=== PATIENT | female | born 1945 | race Caucasian/White ===

== ENCOUNTER 2017-03-27 05:25 | Observation (INO) | payer MEDICARE, MEDICAID ==
[2017-03-27] MEDS ORDERED: Nitroglycerin 2% Ointment Foilpak UD TOP STA (05:42)
[2017-03-27 05:43] VITALS: BMI 30.7
--- NOTE | 2017-03-27 05:47 | ED PDOC ---
Arrival/HPI - General Chief Complaint: Chest Pain Time Seen by Provider: 03/27/17 05:28 - History of Present Illness Narrative History of Present Illness (Text): 03/27/17 05:45 Patient presents with chest pain which started yesterday and got progressively worse some mild shortness of breath there was no fever no chills no dizziness no headache no palpitations Past Medical History - Provider Review Nursing Documentation Reviewed: Yes - Infectious Disease Hx of Infectious Diseases: None - Tetanus Immunization Tetanus Immunization: Unknown - Cardiac Hx Hypertension: Yes Hx Pacemaker: No - Neurological Hx Paralysis: No - Renal Hx Renal Disorder: Yes Hx Dialysis: Yes Date of Last Dialysis Treatment: 03/26/17 Hx Renal Failure: Yes - Endocrine/Metabolic Hx Diabetes Mellitus Type 1: Yes - Hematological/Oncological Hx Blood Transfusions: Yes Hx Blood Transfusion Reaction: No - Musculoskeletal/Rheumatological Hx Musculoskeletal Disorders: Yes - Psychiatric Hx Emotional Abuse: No Hx Physical Abuse: No Hx Substance Use: No - Surgical History Hx Section: Yes (x1) Other/Comment: Left ankle open fracture - Anesthesia Hx Anesthesia: Yes Hx Anesthesia Reactions: No Hx Malignant Hyperthermia: No - Suicidal Assessment Feels Threatened In Home Enviroment: No Family/Social History - Physician Review Nursing Documentation Reviewed: Yes Family/Social History: No Known Family HX Smoking Status: Never Smoked Hx Alcohol Use: No Hx Substance Use: No Hx Substance Use Treatment: No Allergies/Home Meds Allergies/Adverse Reactions: Allergies No Known Allergies Allergy (Verified 12/08/15 13:21) Home Medications: Home Meds Medication Instructions Recorded Confirmed Insulin Aspart/Insulin Aspar 5 units SC ACTID PRN 10/21/15 03/27/17 [Novolog Mix 70/30 (70/30 units/ml)] Insulin Glargine, Recombina 30 unit SC HS 12/08/15 03/27/17 [Lantus] Lisinopril [Zestril] 5 mg PO DAILY 12/09/15 03/27/17 Review of Systems - Review of Systems Constitutional: Normal Eyes: Normal ENT: Normal Respiratory: SOB Cardiovascular: Chest Pain Gastrointestinal: Normal Genitourinary Female: Normal Musculoskeletal: Normal Skin: Normal Neurological: Normal Endocrine: Normal Hemo/Lymphatic: Normal Psychiatric: Normal Physical Exam Vital Signs Reviewed: Yes Vital Signs Temp Pulse Resp BP Pulse Ox 03/27/17 07:41 69 160/72 H 03/27/17 07:32 98.4 F 69 16 160/72 H 95 03/27/17 05:30 98.3 F 95 H 20 164/64 H 96 Temperature: Afebrile Blood Pressure: Normal Pulse: Regular Respiratory Rate: Normal Appearance: Positive for: Well-Appearing, Non-Toxic, Comfortable Pain Distress: None Mental Status: Positive for: Alert and Oriented X 3 - Systems Exam Head: Present: Atraumatic, Normocephalic Pupils: Present: PERRL Extroacular Muscles: Present: EOMI Conjunctiva: Present: Normal Mouth: Present: Moist Mucous Membranes Neck: Present: Normal Range of Motion Respiratory/Chest: Present: Clear to Auscultation, Good Air Exchange. No: Respiratory Distress, Accessory Muscle Use Cardiovascular: Present: Regular Rate and Rhythm, Normal S1, S2. No: Murmurs Abdomen: Present: Normal Bowel Sounds. No: Tenderness, Distention, Peritoneal Signs Back: Present: Normal Inspection Upper Extremity: Present: Normal Inspection. No: Cyanosis, Edema Lower Extremity: Present: Normal Inspection. No: Edema Neurological: Present: GCS=15, CN II-XII Intact, Speech Normal Skin: Present: Warm, Dry, Normal Color. No: Rashes Psychiatric: Present: Alert, Oriented x 3, Normal Insight, Normal Concentration Medical Decision Making ED Course and Treatment: 03/27/17 20:31 case d/w dr fischer will tele obs for chest pain - Lab Interpretations Lab Results: 03/27/17 05:45 03/27/17 05:45 Lab Results 03/27/17 05:45: Sodium 138, Potassium 4.9, Chloride 100, Carbon Dioxide 27, Anion Gap 16, BUN 33 H, Creatinine 6.0 H, Est GFR ( Amer) 8, Est GFR (Non -Af Amer) 7, Random Glucose 229 H, Calcium 9.2, Magnesium 2.2, Total Bilirubin 0.7, AST 25, ALT 26, Alkaline Phosphatase 98, Lactate Dehydrogenase 391, Total Creatine Kinase 47, Troponin I 0.03 D, Total Protein 7.3, Albumin 4.1, Globulin 3.3, Albumin/Globulin Ratio 1.3 03/27/17 05:45: PT 10.8, INR 1.00, APTT 25.4 03/27/17 05:45: WBC 3.4 L D, RBC 3.37 L, Hgb 10.5 L, Hct 31.8 L, MCV 94.4, MCH 31.2, MCHC 33.0, RDW 14.0, Plt Count 121, MPV 11.0, Gran % 65.3, Lymph % (Auto) 22.4, [place] % (Auto) 8.2 H, Eos % (Auto) 3.8, Baso % (Auto) 0.3, Gran # 2.24, Lymph # 0.8 L, [place] # 0.3, Eos # 0.1, Baso # 0.01 - RAD Interpretation Radiology Orders: 03/27/17 05:43 CHEST PORTABLE [RAD] Stat - EKG Interpretation EKG Interpretation (Text): 03/27/17 05:46 EKG showed normal sinus rhythm a rate of [address] segment changes with some possible ischemia in the lateral leads - Medication Orders Current Medication Orders: Acetaminophen (Tylenol 325mg Tab) 650 mg PO Q4H PRN PRN Reason: Pain, Mild (1-3) Aspirin (Ecotrin) 81 mg PO DAILY [facility] Last Admin: 03/27/17 10:36 Dose: 81 mg Clopidogrel Bisulfate (Plavix) 75 mg PO DAILY [facility] Hydralazine HCl (Apresoline) 10 mg PO Q6H PRN PRN Reason: Systolic Blood Pressure Last Admin: 03/27/17 19:42 Dose: 10 mg Insulin Detemir (Levemir) 15 unit SC [facility] Last Admin: 03/27/17 08:02 Dose: 15 unit Insulin Human Regular (Humulin R Med) 0 units SC [facility] PRN Reason: Protocol Last Admin: 03/27/17 16:18 Dose: Not Given Non-Admin Reason: Blood Sugar Parameter Insulin Lispro Protam/Lispro Human (Humalog Mix 75/25) 5 units SC ACTID [facility] Last Admin: 03/27/17 16:18 Dose: Not Given Non-Admin Reason: Blood Sugar Parameter Lisinopril (Zestril) 5 mg PO DAILY [facility] Last Admin: 03/27/17 10:36 Dose: 5 mg Metoprolol Tartrate (Lopressor) 25 mg PO Q12 [facility] Last Admin: 03/27/17 07:41 Dose: 25 mg Sevelamer HCl (Renagel) 800 mg PO TID [facility] Last Admin: 03/27/17 17:58 Dose: 800 mg Discontinued Medications Aspirin (Aspirin) 325 mg PO STAT STA Stop: 03/27/17 05:43 Last Admin: 03/27/17 05:53 Dose: 325 mg Aspirin (Aspirin) Confirm Administered Dose 325 mg .ROUTE .STK-MED ONE Stop: 03/27/17 05:53 Last Admin: 03/27/17 07:36 Dose: Aspirin (Aspirin) 325 mg PO ONCE ONE Stop: 03/27/17 12:16 Last Admin: 03/27/17 12:33 Dose: 325 mg Clopidogrel Bisulfate (Plavix) 300 mg PO STAT STA Stop: 03/27/17 12:16 Last Admin: 03/27/17 12:33 Dose: 300 mg Fentanyl (Fentanyl) Confirm Administered Dose 100 mcg .ROUTE .STK-MED ONE Stop: 03/27/17 15:04 Last Admin: 03/27/17 17:10 Dose: Heparin Sodium (Porcine) (Heparin 1000 Units/500 Ml Ns) Confirm Administered Dose 1,000 mls @ ud IV .STK-MED ONE Stop: 03/27/17 15:04 Last Admin: 03/27/17 17:11 Dose: Insulin Human Regular (Humulin R Low) 0 units SC ACHS [facility] PRN Reason: Protocol Last Admin: 03/27/17 12:35 Dose: Not Given Non-Admin Reason: Blood Sugar Parameter Insulin Human Regular (Humulin R) Confirm Administered Dose 2 units .ROUTE .STK- MED ONE Stop: 03/27/17 08:04 Last Admin: 03/27/17 10:37 Dose: Iodixanol (Visipaque 320 Mg/Ml 200 Ml) Confirm Administered Dose 200 ml IV .STK- MED ONE Stop: 03/27/17 15:04 Last Admin: 03/27/17 17:11 Dose: Lidocaine HCl (Lidocaine 2% 20ml Vial) Confirm Administered Dose 20 ml .ROUTE .STK-MED ONE Stop: 03/27/17 15:03 Last Admin: 03/27/17 17:11 Dose: Metoprolol Tartrate (Lopressor) Confirm Administered Dose 25 mg .ROUTE .STK-MED ONE Stop: 03/27/17 07:42 Last Admin: 03/27/17 08:03 Dose: Midazolam HCl (Versed Inj) Confirm Administered Dose 2 mg .ROUTE .STK-MED ONE Stop: 03/27/17 15:03 Last Admin: 03/27/17 17:11 Dose: Nitroglycerin (Nitro-Bid 2% Oint) 1 ea TOP STAT STA Stop: 03/27/17 05:43 Last Admin: 03/27/17 05:53 Dose: 1 ea Nitroglycerin (Nitro-Bid 2% Oint) Confirm Administered Dose 1 ea TOP .STK-MED ONE Stop: 03/27/17 05:53 Last Admin: 03/27/17 07:37 Dose: Non-Formulary Medication (Insulin Glargine, Recombina [Lantus]) 30 unit SC HS [facility] Non-Formulary Medication (Sevelamer Carbonate [Renvela]) 800 mg PO TID [facility] Pneumococcal Polyvalent Vaccine (Pneumovax 23 Vaccine) 0.5 ml IM .ONCE ONE Stop: 03/27/17 13:11 Disposition/Present on Arrival - Present on Arrival Any Indicators Present on Arrival: No History of DVT/PE: No History of Uncontrolled Diabetes: No Urinary Catheter: No History of Decub. Ulcer: No History Surgical Site Infection Following: None - Disposition Have Diagnosis and Disposition been Completed?: Yes Diagnosis: Chest pain Disposition: HOSPITALIZED Disposition Time: 06:45 Condition: FAIR
[2017-03-27] MEDS ORDERED: Nitroglycerin 2% Ointment Foilpak UD TOP ONE (05:52)
[2017-03-27 06:00] LABS: ADD MANUAL DIFF? NO
[2017-03-27 06:17] LABS: PARTIAL THROMBOPLASTIN TIME 25.4 Seconds (23.7-30.8)
[2017-03-27 06:19] LABS: ALB/GLOB RATIO 1.3 (1.1-1.8); BILIRUBIN,TOTAL 0.7 mg/dL (0.2-1.3); CALCIUM 9.2 mg/dL (8.4-10.5); MAGNESIUM 2.2 mg/dL (1.7-2.2); POTASSIUM 4.9 mmol/L (3.6-5.0); TOTAL PROTEIN 7.3 g/dL (5.8-8.3)
[2017-03-27 06:22] LABS: BASO # 0.01 K/mm3 (0.0-2.0); BASO % 0.3 % (0.0-3.0); EOS # 0.1 (0.0-0.7); EOS % 3.8 % (1.5-5.0); GRAN # 2.24 (1.4-6.5); GRAN % 65.3 % (50.0-68.0); HEMATOCRIT 31.8 % (36.0-48.0); LYMPH # 0.8 (1.2-3.4); LYMPH % 22.4 % (22.0-35.0); MEAN CELL VOLUME 94.4 fL (80.0-105.0); MEAN CORPUSCULAR HEMOGLOBIN 31.2 pg (25.0-35.0); MONO # 0.3 (0.1-0.6); MONO % 8.2 % (1.0-6.0); PLATELET COUNT 121 10^3/uL (120.0-450.0); WHITE BLOOD COUNT 3.4 10^3/ul (4.5-11.0)
[2017-03-27 06:28] LABS: TROPONIN I 0.03 ng/mL
[2017-03-27] MEDS: Insulin Reg-LOW-Coverage SC SCH ×2 (08:01→12:35)
[2017-03-27] MEDS: Insulin Detemir 100 units/ml Vial (Levemir) SC SCH ×2 (08:02→22:03)
[2017-03-27] MEDS ORDERED: Insulin Regular 1 UNITS/0.01 ML ML ONE (08:03)
[2017-03-27] MEDS: Insulin Reg-MEDIUM-Coverage SC SCH ×4 (08:03→22:07)
--- NOTE | 2017-03-27 08:43 | RAD ---
HISTORY: cp COMPARISON: December 11 1016 FINDINGS: LUNGS: No interval consolidation. Overall the interstitial markings which do appear fine in texture pierced slightly increased in the conspicuity. This could well be due to technical factors given the overall less penetrated appearance on this exam an element of mild chronic interstitial lung disease is possible. No definite interval change allowing for differences in technique is perceived PLEURA: No significant pleural effusion identified, no pneumothorax apparent. CARDIOVASCULAR: Probable top-normal heart size OSSEOUS STRUCTURES: No significant abnormalities. VISUALIZED UPPER ABDOMEN: Normal. OTHER FINDINGS: None. IMPRESSION: No interval pathology noted. Other findings as above
[2017-03-27] MEDS: Insulin Lispro (humaLOG) MIX 75/25(10 ml) SC SCH ×3 (08:47→16:18)
--- NOTE | 2017-03-27 08:56 | HP ---
CHIEF COMPLAINT AND HISTORY OF PRESENT ILLNESS: This is a 71-year-old female who is coming into the hospital because of chest pain. She said that she woke up at 4:00 a.m. this morning and started havi ng substernal chest pain. She had diaphoresis. She complained of pain going to the left arm. She s ays it lasted about 1 hour and the pain improved. She was concerned, so she came in for further eval uation. The patient had a stress test done about a year and a half ago which did not show any signif icant abnormalities. She has been seeing a metal sheet roller operator in the [facility]. The patient is current ly comfortable, is chest pain free. She has no headaches, no dizziness, no nausea. She is on dialys is and has been going for regular treatments. REVIEW OF SYMPTOMS: All other review of symptoms is within normal limits except as mentioned. Her stress test done in 10/2015 shows a normal myocardial stress test with EF of 62%. She also had an echocardiogram in 10/2015 and it showed an EF of 55%. The patient had borderline concentric LVH and the LV is borderline dilated. There is moderate tricuspid regurg and moderate mitral regurg. ALLERGIES: No known drug allergies. HOME MEDICATIONS: NovoLog 70/30, Lantus and Zestril, Renagel. PAST MEDICAL HISTORY: 1. End-stage renal disease on hemodialysis. 2. Dyslipidemia. 3. Hypertension. 4. Diabetes type 2. 5. Left AV fistula. PAST SURGICAL HISTORY: Left ankle surgery with screws in place. SOCIAL HISTORY: She does not smoke or drink. She lives with her daughter. FAMILY HISTORY: Noncontributory. No history of kidney disease in the family. PHYSICAL EXAMINATION: VITAL SIGNS: She had a temperature of 98.3, pulse of 95, blood pressure 164/64, respirations 20, O2 saturation 96%. Height is 5 feet 2, weight is 168 pounds. BMI is 30.7. GENERAL: Patient lying in bed, flat, and in no apparent distress. HEAD AND NECK EXAM: Atraumatic, normocephalic. Conjunctivae are pink. Throat clear and mouth with moist mucosa. Oropharynx benign. EYES: Extraocular movements are intact. PERRLA. NECK: Supple. No JVD, thyromegaly, or adenopathy. No bruits. HEART: S1 and S2 regular rate and rhythm. No murmurs, rubs, or gallops. LUNGS: Clear to auscultation bilaterally. No wheezing rales or rhonchi appreciated. No retraction s on exam. ABDOMEN: Soft, nontender, nondistended. Bowel sounds are positive in all quadrants. No rebound. No hepatosplenomegaly. EXTREMITIES: No cyanosis, clubbing, or edema. NEURO: No facial asymmetry, tongue is midline, no uvula deviation. Power is 5/5 in upper extremity and 5/5 in lower extremity. Sensation is normal in upper extremity and lower extremity. PSYCH: Awake, alert, oriented x3. No anxiety or depression symptoms. Good insight. Normal affec t. : No CVA tenderness VASCULAR: 2+ pulses in carotid and pedal pulses. SKIN: No erythema or abnormal nodules noted. SPINE: Normal curvature. LYMPHADENOPATHY: No anterior cervical or posterior cervical adenopathy. No inguinal adenopathy. LABORATORY DATA: White count is 3.4, hemoglobin 10.5, platelet count is 121. INR is 1.0. Sodium is 138, potassium is 4.9, creatinine is 6.0, albumin is 4.1. EKG done shows ST segment depressions in I, II with inverted T in aVL. There are also ST segment dep ressions in V4, V5, and V6. Chest x-ray shows no infiltrates, cardiomegaly. ASSESSMENT: 1. Unstable angina. 2. Moderate tricuspid regurgitation. 3. Moderate mitral regurgitation. 4. Diabetes type 2. 5. Hypertension. 6. Dyslipidemia. 7. End-stage renal disease, on hemodialysis. PLAN: The patient is going to be admitted to the hospital for chest pain, EKG changes. Initial trop onin is pending. The patient is going to continue with her insulin. She is on Lantus 30 units in th e evening. She is going to be on NovoLog with meals. The patient will most likely need a cardiac ca . She is on lisinopril for her hypertension. The patient is going to be on Renvela for her second gavino hyperparathyroidism. The patient will be admitted to the telemetry floor. I did speak to the benjamín greer's daughter at the bedside to give her an update on the patient's diagnosis and plan of care. Trino culver will continue following closely. She will also need dialysis. Deep Yu MD cc: [id number] TT: 03/27/2017 08:55:23 tn
[2017-03-27] MEDS ORDERED: Non Formulary Medication (Sevelamer Carbonate [Renvela] 800 MG) PO SCH (10:00)
[2017-03-27] MEDS ORDERED: Pneumococcal 23-Valent Vaccine IM ONE (13:10)
[2017-03-27] MEDS ORDERED: Midazolam 2 MG/2 ML VIAL ONE (15:02)
[2017-03-27] MEDS ORDERED: Lidocaine 2% Inj (20ml) ONE (15:02)
[2017-03-27] MEDS ORDERED: Heparin 0 ML IV ONE (15:03)
[2017-03-27] MEDS ORDERED: Iodixanol 320 MG/ML 200 ML BOTTLE IV ONE (15:03)
--- NOTE | 2017-03-27 15:34 | CARD ---
APPROVED REPORT EKG Measurement Heart [id number] <Conclusion> Normal sinus rhythm STTW changes c/w ischemia Prolonged QTc
--- NOTE | 2017-03-27 18:57 | CON ---
DATE: 03/27/2017 REASON FOR CONSULTATION: Acute coronary syndrome, unstable angina. BRIEF CLINICAL HISTORY: This is a 71-year-old female with a past medical history of end-stage renal disease on dialysis, hypertension, hyperlipidemia, type 2 diabetes, a fistula in left arm, who came i n with chest pain radiating to the left arm. The patient claims that she had a stress test 6 months ago and it was normal. PAST MEDICAL HISTORY: Significant for diabetes, hypertension, hyperlipidemia, end-stage renal diseas e on dialysis. PREVIOUS CARDIAC WORKUP: The patient claims that she had a stress test 6 months ago, it was negative . Most recent stress test in the [facility] was 10/24/2015 and it was normal myocardial perfusio n study when compared from 03/02/2014, no interval change, ejection fraction of 62%. The patient had an echocardiography done on 10/22/2015 that shows ejection fraction 55%, trace aortic regurgitation, mo nxgwxt-di-eduwnt mitral regurgitation, moderate tricuspid regurgitation, RV systolic pressure of 41. ALLERGIES: No known drug allergies. CURRENT MEDICATIONS: The patient is taking amlodipine, insulin, oxycodone, Zestril 5 mg daily. FAMILY HISTORY: Noncontributory. REVIEW OF SYSTEMS: As per HPI. PHYSICAL EXAMINATION: VITAL SIGNS: Temperature afebrile, heart rate 60, blood pressure 160/72. HEENT: PERRLA. Extraocular muscles intact. NECK: Supple. No carotid bruits. No thyromegaly. CHEST: Clear to auscultation. HEART: S1, S2 regular. ABDOMEN: Soft. EXTREMITIES: Clubbing and cyanosis negative. LABORATORY DATA: Blood workup as follows: WBC 3.4, hemoglobin 10.5, hematocrit 31.8, platelet count 121. Chemistry shows sodium 130, potassium 4.9, chloride , carbon dioxide 27, anion gap of 33, BUN 16, creatinine 6. Troponin 0.03. EKG shows normal sinus, ST depression in lateral leads. IMPRESSION: Acute coronary syndrome, unstable angina, EKG abnormal, consistent with ischemia; chest pain, stress test a year ago was negative, preserved left ventricular function, last echo 10/22/2015 sh ows ejection fraction 55%, [id number] mitral regurgitation, moderate tricuspid regurgitation, RV systolic pressure of 41; end-stage renal disease, hypertension, diabetes. RECOMMENDATION: Will load with Plavix. Risk, benefits and alternatives discussed with the patient. The patient agreed to proceed with a cardiac catheterization. Discussed with Dr. Yu. Thank you, Dr. Yu, for providing me the opportunity in taking care of the patient. Will keep n .p.o. after breakfast. Possible catheterization at 4:00 p.m. Jairo Davila MD cc: [id number] TT: 03/27/2017 18:57:14 Confirmation # [id number] Dictation # [id number] dn
[2017-03-27] MEDS ORDERED: INSULIN GLARGINE RECOMBINA SC SCH (22:00)
[2017-03-28 07:09] LABS: HEMATOCRIT 30.9 % (36.0-48.0); MEAN CELL VOLUME 93.1 fL (80.0-105.0); MEAN CORPUSCULAR HEMOGLOBIN 30.7 pg (25.0-35.0); RED CELL DISTRIBUTION WIDTH 13.9 % (11.5-14.5)
[2017-03-28 07:13] LABS: ALB/GLOB RATIO 1.2 (1.1-1.8); BILIRUBIN,TOTAL 0.6 mg/dL (0.2-1.3); POTASSIUM 4.9 mmol/L (3.6-5.0); TOTAL PROTEIN 6.8 g/dL (5.8-8.3)
--- NOTE | 2017-03-28 07:30 | PN ---
DATE: 03/28/2017 SUBJECTIVE: The patient has no complaints of any chest pain, no shortness of breath, no headaches or dizziness. PHYSICAL EXAMINATION: VITAL SIGNS: Temperature is 97.9, pulse of 89, blood pressure 140/59, respirations 20. GENERAL: The patient comfortable, in no acute distress. HEENT: Anicteric sclerae. Moist mucosa. NECK: No JVD or adenopathy. CARDIAC: S1/S2. No murmurs. No rubs. Regular. RESPIRATORY: Clear to auscultation bilaterally. No wheezes, rales, or rhonchi. Good air entry. ABDOMEN: Bowel sounds are positive, soft, nontender, and nondistended. EXTREMITIES: No edema. Has 1+ pulses. ASSESSMENT: 1. [id number]-jefqjxdgd myocardial infarction. 2. End-stage renal disease, on hemodialysis. 3. Hypertension. 4. Dyslipidemia. 5. Diabetes, type 2. 6. Arteriovenous fistula. 7. Moderate tricuspid regurgitation. 8. Moderate mitral regurgitation. 9. Secondary hyperparathyroidism. PLAN: The patient is currently comfortable. She had an unstable angina and the patient was seen by Dr. Davila yesterday and is scheduled for cardiac cath to be done today. The patient is currently rece iving aspirin. She is going to continue her insulin for diabetes. She is on sevelamer for her secon xochitl hyperparathyroidism. The patient is on lisinopril for hypertension. She is on a renal diet. I did speak to the patient's daughter yesterday to give her an update on the patient's diagnosis and p jean of care. Deep Yu MD cc: [id number] TT: 03/28/2017 07:29:38 Confirmation # [id number] Dictation # [id number] tricia
[2017-03-28] MEDS: Insulin Lispro (humaLOG) MIX 75/25(10 ml) SC SCH ×3 (08:24→18:36)
[2017-03-28] MEDS: Insulin Reg-MEDIUM-Coverage SC SCH ×4 (08:25→21:33)
[2017-03-28] MEDS: Insulin Detemir 100 units/ml Vial (Levemir) SC SCH ×2 (08:25→21:33)
[2017-03-28 09:19] LABS: TROPONIN I 0.16 ng/mL
[2017-03-28] MEDS ORDERED: Iohexol 350mgl/ml 50 ML ONE (09:56)
[2017-03-28] MEDS ORDERED: Lidocaine 2% Inj (20ml) ONE (09:56)
[2017-03-28] MEDS ORDERED: Iodixanol 320 MG/ML 200 ML BOTTLE IV ONE (09:56)
[2017-03-28] MEDS ORDERED: Midazolam 2 MG/2 ML VIAL ONE (10:19)
[2017-03-28] MEDS ORDERED: Eptifibatide 20 mg/10mL Inj IVP ONE (11:42)
--- NOTE | 2017-03-28 13:32 | PN ---
DATE: 03/28/2017 REASON FOR CONSULTATION AND FOLLOWUP: Acute coronary syndrome, unstable angina. BRIEF CLINICAL HISTORY: A 71-year-old female with past medical history significant for end-stage juana al disease, admitted yesterday with unstable angina. The patient underwent cardiac catheterization t his morning, revealed left main 10%-20% stenosis, LAD mid 70% stenosis, 2 stenoses with hairpin turn, a 70%-80% stenosis, not suitable for PCI, distal circumflex has small caliber vessels, codominant, a lso very tortuous vessels, not suitable for PCI, 70%-80% stenosis. Mid RCA small caliber codominant 95% stenosis, underwent PTCA with a drug-eluting stent, 2.5 resolute/12 deployed. Preserved LV function, peripheral angiogram was done because patient was scheduled for a peripheral a ngiogram next week in [place]. Runoff shows bilateral SFA disease. PHYSICAL EXAMINATION: VITAL SIGNS: Temperature afebrile, heart rate 60, blood pressure 140/59. HEENT: PERRLA. Extraocular muscles intact. NECK: Supple. No carotid bruits. No thyromegaly. CHEST: Clear to auscultation. HEART: S1, S2 regular. ABDOMEN: Soft. EXTREMITIES: Clubbing and cyanosis negative. LABORATORY DATA: Blood workup as follows: WBC 5, hemoglobin ____, hematocrit 30.9, platelet count 1 18. Chemistry shows sodium ____, potassium 4.9, chloride 101, carbon dioxide 24, anion gap of 14, BU N 47, creatinine 8. IMPRESSION: Acute coronary syndrome. Troponin this morning was 0.16, status post percutaneous trans luminal coronary angioplasty of right coronary artery with drug-eluting stent, medical treatment for left anterior descending and right coronary artery, medical treatment for left anterior descending an d circumflex, distal angiogram shows severe peripheral arterial disease. RECOMMENDATION: Continue aspirin, continue Plavix, continue beta cee. Add nitrate. Discussed w ith the daughter named ____ telephone #[phone], about the patient's condition. The patient is p ossibly going to the ____ and okay to go and probably will come back for peripheral angiogram later [facility] or in [place], but for now, cardiology point of view, patient will be treated medically as guido ruggiero. We will get the dialysis. Told dialysis to dialyze the patient after 4 p.m. in dialysis cente r or at the bedside and should not be mobilized because the patient has Mynx closing device. We will follow with you. Thank you, Dr. Yu, for providing the opportunity in taking care of this patient. Jairo Davila MD cc: [id number] TT: 03/28/2017 13:32:00 Confirmation # [id number] Dictation # [id number] felicita
--- NOTE | 2017-03-28 14:52 | CARD ---
APPROVED REPORT EKG Measurement Heart [id number] <Conclusion> Normal sinus rhythm QS in V1, possible septal GA, age unknown STTW changes c/w ischemia Prolonged QT
[2017-03-28 20:21] LABS: ADD MANUAL DIFF? NO
[2017-03-28 20:35] LABS: EOS % 0.8 % (1.5-5.0); GRAN # 2.57 (1.4-6.5); HEMATOCRIT 31.4 % (36.0-48.0); LYMPH # 0.9 (1.2-3.4); LYMPH % 23.5 % (22.0-35.0); MEAN CELL VOLUME 92.1 fL (80.0-105.0); MEAN CORPUSCULAR HEMOGLOBIN 30.8 pg (25.0-35.0); MEAN CORPUSCULAR HGB CONC 33.4 g/dl (31.0-37.0); MEAN PLATELET VOLUME 11.1 fl (7.0-11.0); MONO # 0.3 (0.1-0.6); MONO % 7.7 % (1.0-6.0); PLATELET COUNT 117 10^3/uL (120.0-450.0); WHITE BLOOD COUNT 3.8 10^3/ul (4.5-11.0)
[2017-03-28 20:36] LABS: CALCIUM 8.7 mg/dL (8.4-10.5)
[2017-03-28 21:30] VITALS: RESP 20
[2017-03-29 05:30] VITALS: TEMP 97; O2SAT 99
[2017-03-29 07:04] LABS: ADD MANUAL DIFF? NO
[2017-03-29 07:19] LABS: BASO # 0.01 K/mm3 (0.0-2.0); BASO % 0.2 % (0.0-3.0); EOS # 0.1 (0.0-0.7); GRAN % 62.2 % (50.0-68.0); HEMATOCRIT 31.1 % (36.0-48.0); LYMPH % 23.9 % (22.0-35.0); MEAN CORPUSCULAR HEMOGLOBIN 30.8 pg (25.0-35.0); MEAN CORPUSCULAR HGB CONC 32.8 g/dl (31.0-37.0); MONO # 0.4 (0.1-0.6); MONO % 10.7 % (1.0-6.0); PLATELET COUNT 123 10^3/uL (120.0-450.0); RED CELL DISTRIBUTION WIDTH 14.2 % (11.5-14.5)
[2017-03-29 07:34] LABS: CALCIUM 8.5 mg/dL (8.4-10.5); POTASSIUM 4.4 mmol/L (3.6-5.0)
[2017-03-29] MEDS: Insulin Detemir 100 units/ml Vial (Levemir) SC SCH (08:15)
[2017-03-29] MEDS: Insulin Reg-MEDIUM-Coverage SC SCH ×2 (08:33→09:32)
[2017-03-29] MEDS: Insulin Lispro (humaLOG) MIX 75/25(10 ml) SC SCH (09:29)
[2017-03-29 09:34] VITALS: BP 119/50
--- NOTE | 2017-03-29 09:38 | PCM.PAD ---
PAD Screening - Peripheral Artery Disease Assessment When you walk, do you experience aching, cramping or pain in your legs, thighs, or buttocks: Yes When do you feel the pain: After walking 100 yards If you have pain, does the pain subside with rest: Yes Have you ever been diagnosed with Peripheral Vascular Disease or been diagnosed as having poor circulation: Yes Have you ever had surgery, balloon procedures or stents in your heart, kidneys, belly, legs, or arms: Yes Do you have any painful sores or ulcers on legs or feet that do not heal: Yes Are your legs discolored or bluish: No PVD Past Medical & Familial Hx - Past Medical History Hx Tobacco Use: No Hx Diabetes Mellitus Type 1: Yes Hx Diabetes Mellitus Type 2: Yes Hx Hypercholesterolemia: Yes Hx Hypertension: Yes
--- NOTE | 2017-03-29 10:24 | PN ---
DATE: 03/29/2017 REASON FOR CONSULTATION AND FOLLOWUP: Acute coronary syndrome, unstable angina, status post angiopla sty of right coronary artery. BRIEF CLINICAL HISTORY: This is a 71-year-old female with a past medical history significant for end -stage renal disease, hypertension, hyperlipidemia, history of carotid artery stenosis in the past __ __ treated. Admitted with unstable angina. The patient underwent cardiac catheterization and succes sfully PTCA of right coronary artery was done, was 95% stenosis, LAD and circumflex has a 70% stenosi s, medically treated because very tortuous vessels, high risk for complication. The patient was also scheduled for peripheral angiogram in [place]. The peripheral angiogram with runoff done up to the thigh, bilateral occluded, high grade stenosis in SFA. Now is decided to be, it was told admission to the patient, it was told to the daughter, ____, that patient needs peripheral intervention ____ go to [place], come here after 2-4 weeks. No impending of limb circulation, acute circulation problem or impending ischemia. PHYSICAL EXAMINATION: VITAL SIGNS: Temperature afebrile, heart rate ____, blood pressure 130/54. HEENT: PERRLA. Extraocular muscles intact. NECK: Supple. No carotid bruits. No thyromegaly. CHEST: Clear to auscultation. HEART: S1, S2 regular. ABDOMEN: Soft. EXTREMITIES: Clubbing, cyanosis negative. BLOOD WORKUP: WBC 4.0, hemoglobin 10.2, hematocrit 31.1, platelet count 123. Chemistry shows sodium 130, potassium 4.____, chloride 90, carbon dioxide 20, anion gap of 13, BUN 31, creatinine 5.8. IMPRESSION: Chronic renal insufficiency, chronic kidney disease on dialysis, diabetes, hypertension, hyperlipidemia, peripheral arterial disease ____ carotid artery disease, bilateral superficial femor al artery disease, status post percutaneous transluminal coronary angioplasty of the circumflex. RECOMMENDATION: Continue aspirin, continue Plavix mandatory for 1 year, preferably extended period o f the time. Continue metoprolol. Possible discharge. Will ____ lisinopril. Continue metoprolol. Possible discharge. Percutaneous transluminal coronary angioplasty, if the patient opted to come to us, we will do the percutaneous transluminal coronary angioplasty of peripheral in 4 weeks. Follow u p in office in 2 weeks. Thank you, Dr. Yu, for providing us the opportunity in taking care of the patient. Jairo Davila MD cc:Deep Yu MD 305 TT: 03/29/2017 10:12:08 Confirmation # [id number] Dictation # [id number] en 03/29/2017 09:23:56
[2017-03-29 11:27] VITALS: PULSE 79
--- NOTE | 2017-03-29 12:24 | DS ---
This is a 71-year-old female who had come into the hospital because of chest pain. She had an abnormal EKG. The patient had undergone a cardiac cath and had a stent placed. She was diagnosed afterwards. She had a LAD that was 70% stenosed. She had a right RCA that was 95% stenosed and had a stent that was placed. She was dialyzed and did well. She has no complaints of any chest pain , no shortness of breath, no headaches, no dizziness. She is going to be discharged home to follow up as an outpatient. GENERAL: The patient comfortable, in no acute distress. HEENT: Anicteric sclerae. Moist mucosa. NECK: No JVD or adenopathy. CARDIAC: S1/S2. No murmurs. No rubs. Regular. RESPIRATORY: Clear to auscultation bilaterally. No wheezes, rales, or rhonchi. Good air entry. ABDOMEN: Bowel sounds are positive, soft, nontender, and nondistended. EXTREMITIES: No edema. Has 1+ pulses. ASSESSMENT: 1. Coronary artery disease, status post stenting of right coronary artery. 1. End-stage renal disease, on hemodialysis. 2. Hypertension. 3. Dyslipidemia. 4. Diabetes type 2. 5. Arteriovenous fistula. 6. Moderate tricuspid regurgitation. 7. Moderate mitral regurgitation. 8. Secondary hyperparathyroidism. PLAN: The patient is currently comfortable. She is on isosorbide. She is going to be on metoprolol. She is on Levemir for her diabetes. She is on Plavix. She is on Renagel for her secondary hyperparathyroidism. She is on lisinopril for her hypertension. I have talked to her about transplantation. She is resistant to go for evaluation. We will discharge patient home and will follow up as an outpatient. CONDITION: Stable. ACTIVITY: Increase as tolerated. Deep Yu MD cc: [id number] TT: 03/29/2017 12:24:01 en MTDD
--- NOTE | 2017-03-31 17:12 | CARD ---
APPROVED REPORT Procedure(s) performed: Left Heart Catheterization Peripheral Angiogram with Run off (limited upto Mid thigh). PTCA with Stenting of Mid RCA with KRISHAN HISTORY The patient is a 71 year-old female with a history of : previous CHF, renal failure with dialysis, diabetes mellitus with insulin treatment , hypertension , dyslipidemia , Admitted with unstable angina and Hx of Negative Stress test one year ago, Hx of PAD and Tang for Peripheral angiogram next week in [place].. INDICATION The indication(s) include : unstable angina . CASE TECHNIQUE The patient was brought urgently to the Cardiac Catheterization Laboratory in a fasting state and was prepped and draped in a sterile manner. The right femoral groin was infiltrated with 2% Lidocaine subcutaneous anesthesia. A 6 Fr x 11 cm Acacia sheath was inserted into the right femoral artery without difficulty. Coronary angiography was performed using coronary diagnostic catheters. The left coronary system was accessed and visualized with a Diagnostic ,6 Fr JL 4 catheter. The right coronary system was accessed and visualized with a Diagnostic ,6 Fr JR 4 catheter. The left ventricle was accessed and visualized with a 6 Fr Pigtail catheter. Left ventricular/Aortic Valve gradient assessed on pullback. Left ventriculogram was performed in CRUZ projection. The patient tolerated the procedure well and there were no complications associated with the procedure. Vessel Analysis The patient's coronary anatomy is co-dominant. The left main coronary artery is a medium size vessel with diffuse calcification noted throughout this vessel and without significant stenosis. There is a 10-20% stenosis in the distal segment. The left main bifurcates to the left anterior descending and circumflex. The left anterior descending artery is a medium size vessel with diffuse calcification noted throughout this vessel and without significant stenosis. There is a 70% stenosis in the mid segment. Before hair pin turn in LAD The first diagonal branch is a large size vessel with diffuse calcification noted throughout this vessel and without significant stenosis. The second diagonal branch is a medium size vessel with diffuse calcification noted throughout this vessel and without significant stenosis. The circumflex artery is a medium size vessel with diffuse calcification noted throughout this vessel and without significant stenosis. There is a 70% stenosis in the distal segment. The first obtuse marginal branch is a large size vessel with diffuse calcification noted throughout this vessel and without significant stenosis. The left posterior descending artery is a medium size vessel with diffuse calcification noted throughout this vessel and without significant stenosis. The right coronary artery is a medium size vessel with diffuse calcification noted throughout this vessel and with significant stenosis. There is a 95% stenosis in the mid segment. Left Ventricle The left ventricle is normal in size with normal contractility. There was no cardiomyopathy. The left ventricular ejection fraction is estimated to be 55-60%. The left ventricular end diastolic pressure is 18-20 mmHg. There was no gradient across the aortic valve upon pullback. Pt also underwent B/T Lower extremities Angiogram (limited) run off upto knee joint, revealed severe B/L SFA diseases,Left SFA totally occluded in adductor Canal and right SFA has 95% stenosis above knee joint.( see separate dictation). PCI Technique Lesion Anticoagulation was achieved with Heparin. Percutaneous coronary intervention was performed on the mid right coronary artery. The lesion stenosis prior to intervention was 95% with KEVIN 2 flow. A 6 Fr JR 3.5 SH Guide Catheter was used to engage the ostium. BALLOON DILATION A Balloon catheter 2.0 x 8 mm Mini Trek RX was inserted and inflated up to 9.00atm for 20seconds. STENT DEPLOYMENT A drug-eluting stent 2.25 x 12 mm Resolute KRISHAN was inserted and inflated up to 12.00atm for 20seconds. 0 Final angiography reveals 0 % stenosis with KEVIN 3 flow. Conclusion Single vessel Critical RCA diz Moderate Diz in Mid LAD and Distal Cx, which are very tortous vessel not suitable for OTCA as High risk for complications. Severe B/L SFA diz. Preserved LV fx. Ef-55-60%, EDP-18=20 mmof Hg. Successful PTCA with KRISHAN of Mid RCA done Recommendations Cardiac Rehabilitation ReferralDaily ASA with Plavix for at least one year Aggressive Medical Therapy Weight Loss Reduction Program VERTICAL LATHE OPERATOR of Left SFA and Staged VERTICAL LATHE OPERATOR of R SFA in four weeks. CC; DR. Samir Yu,
--- NOTE | 2017-04-01 08:35 | VAS ---
DATE: 03/28/2017 OPERATIVE DOCTOR: Dr. Jairo Davila MOTORCYCLE REPAIRER: Jason Hinojosa, health care sanitary technician. TYPE OF PROCEDURE: Performed in [facility], peripheral angiogram with Peripheral run off and cardiac catheterization. BRIEF CLINICAL HISTORY: This is a 71-year-old female with a past medical history significant for end-stage renal disease on dialysis, diabetes, hypertension, hyperlipidemia, obesity, who was admitted with unstable angina. The patient had a year ago a stress test that normal. Admitted with unstable angina. The patient is scheduled for elective cardiac cath, possible angioplasty. The patient was seen outside to the [facility] color developer and was scheduled for peripheral angiogram a week later at [place], so the family requested to do the peripheral angiogram as well while the patient is here. The patient was complaining of severe claudication and pain on walking; sometimes occasionally pain at rest, and has non invasive w/u at PMD 's office and was told abnormal. In view of above distal peripheral angiogram was contemplated midthigh. The patient was brought to the pathology laboratory director, draped in a standard fashion, and put in a supine position on the cath table. Ricks, benefits and alternatives were discussed with the patient before the procedure and right femoral access was obtained and then a 6-Azeri short arterial sheath placed and then pigtail catheters were used and placed into the distal abdominal aortogram was done and then peripheral runoff was done with hand injection using DSA up to the knee joint. Because it was a cardiac catheterization procedure done and angioplasty so because of the dye issue only up to the midthigh peripheral angiogram was performed with the plan to be complete peripheral angiogram done at a later date. FINDINGS: As follows: There is significant calcification noted in the aorta, which bifurcates into common iliac. The common iliac bifurcates and internal iliac and then external iliac,which then continues as common femoral artery, which then divides into superficial femoral artery and the profunda artery. A peripheral angiogram was done SFA up to the knee joint. Calcification noted in the aorta and calcification noted in both common iliac with no flow obstructive stenosis noted. No flow obstructive stenosis noted in external iliac as well as the common femoral. The same thing, there was no flow obstructive stenosis noted in the common femoral artery as well as at the bifurcation into SFA and profunda, but distal SFA bilateral calcification heavily calcified noted in adductor canal and totally occluded left SFA in adductor canal reconstitutes above the knee. Whereas right SFA 90% to 95% stenosis noted in the adductor canal. Heavy calcification noted. PLAN: To do PTCA of RCA and bring the patient in 4 weeks for complete peripheral runoff with possible TRAVEL ACCOMMODATIONS RATER with a drug-coated balloon using a CSI atherectomy in 4 weeks of left SFA and then right SFA staged. At that time will do the complete peripheral runoff up to the trifurcation of SFA vessels. Thank you Dr. Yu for allowing me to participate in the care of your patient. Jairo Davila MD cc: Deep Yu MD 305 TT: 03/31/2017 21:07:40 Confirmation # [id number] Dictation # [id number] mirela FIORE
== END 2017-03-29 13:37 | disposition home or self-care (01) ==
LOC: ED 05:25 → ERH 06:28 → 2RNO 08:55 → 2RSO 03-28 13:06
PROVIDERS: ADMIT Internal Medicine Nephrology; ATTEND Internal Medicine Nephrology
DX: I25.110 Atherosclerotic heart disease of native coronary artery with unstable angina pectoris (principal); E11.22 Type 2 diabetes mellitus with diabetic chronic kidney disease; I13.2 Hypertensive heart and chronic kidney disease with heart failure and with stage 5 chronic kidney disease, or end stage renal disease; N18.6 End stage renal disease; I50.9 Heart failure, unspecified; Z99.2 Dependence on renal dialysis; E78.5 Hyperlipidemia, unspecified; N25.81 Secondary hyperparathyroidism of renal origin; I08.1 Rheumatic disorders of both mitral and tricuspid valves; I73.9 Peripheral vascular disease, unspecified; E78.00 Pure hypercholesterolemia, unspecified; Z79.4 Long term (current) use of insulin
CPT/HCPCS: 36415; 71010; 80048; 80053; 82550; 82948; 83615; 83735; 84484; 85025; 85027; 85175; 85610; 85730; 93005; 93458; 93567; 96372; 99152; 99153; 99283; C1725; C1760; C1769; C1874; C1887; C2629; C9600; G0378; J0360; J1327; J1644; J2250; J2405; J3010; J7040; Q9967

== ENCOUNTER 2017-04-02 13:40 | Emergency (ER) | payer MEDICARE, MEDICAID ==
[2017-04-02 13:47] VITALS: TEMP 98; O2SAT 99; BMI 267.6
--- NOTE | 2017-04-02 14:48 | ED PDOC ---
Arrival/HPI - General Chief Complaint: Shortness Of Breath Time Seen by Provider: 04/02/17 14:13 Historian: Patient, Family - History of Present Illness Narrative History of Present Illness (Text): 04/02/17 14:41 A 71 year old female, whose past medical history includes Diabetes, Hypertension , Kidney failure (on dialysis), and Pneumonia, presents to the emergency department, accompanied by daughter, complaining of dizziness, blurred vision, and chest pain x 1 1/2 hr ago. Patient stated after finishing a 3 hour hemodyalisis, needles were removed from her arm, which caused to start bleeding " a lot". Patient stated bleeding was more than in the past, staff had a hard time controlling bleeding. Patient stated symptoms lasted less than 15 minutes. On the contrary of triage statement, patient denies sob. Patient stated she had a coronary stent place x 5 days ago. Patient was started on Plavix. Patient stated feeling better at this time. Symptoms have improved. Dr. Gigi Davila Patient's daughter interpreted form Turkmen to Polish Time/Duration: 1-3 hours Context: Home Past Medical History - Provider Review Nursing Documentation Reviewed: Yes - Infectious Disease Hx of Infectious Diseases: None - Tetanus Immunization Tetanus Immunization: Unknown - Cardiac Hx Hypertension: Yes - Neurological Hx Paralysis: No - Renal Hx Renal Disorder: Yes Hx Dialysis: Yes Date of Last Dialysis Treatment: 03/26/17 Hx Renal Failure: Yes - Endocrine/Metabolic Hx Diabetes Mellitus Type 1: Yes Hx Diabetes Mellitus Type 2: Yes - Hematological/Oncological Hx Blood Transfusions: Yes Hx Blood Transfusion Reaction: No - Musculoskeletal/Rheumatological Hx Musculoskeletal Disorders: Yes - Genitourinary/Gynecological Hx Genitourinary Disorders: (oliguria) - Psychiatric Hx Emotional Abuse: No Hx Physical Abuse: No Hx Substance Use: No - Surgical History Hx Section: Yes (x1) Other/Comment: Left ankle open fracture - Anesthesia Hx Anesthesia: Yes Hx Anesthesia Reactions: No Hx Malignant Hyperthermia: No - Suicidal Assessment Feels Threatened In Home Enviroment: No Family/Social History - Physician Review Nursing Documentation Reviewed: Yes Family/Social History: No Known Family HX Smoking Status: Never Smoked Hx Alcohol Use: No Hx Substance Use: No Hx Substance Use Treatment: No Allergies/Home Meds Allergies/Adverse Reactions: Allergies No Known Allergies Allergy (Verified 12/08/15 13:21) Home Medications: Home Meds Medication Instructions Recorded Confirmed Insulin Aspart/Insulin Aspar 5 units SC ACTID PRN 10/21/15 04/02/17 [Novolog Mix 70/30 (70/30 units/ml)] Insulin Glargine, Recombina 30 unit SC HS 12/08/15 04/02/17 [Lantus] Lisinopril [Zestril] 5 mg PO DAILY 12/09/15 04/02/17 Review of Systems - Review of Systems Constitutional: Normal. absent: Fatigue, Weight Change, Fevers Eyes: Other (blurred vision) ENT: Normal Respiratory: Normal. absent: SOB, Cough, Sputum, Wheezing Cardiovascular: Chest Pain. absent: Palpitations, Edema, Calf Pain, NAJERA, Orthopnea, Syncope Gastrointestinal: Normal. absent: Abdominal Pain, Nausea, Vomiting Genitourinary Female: Normal Musculoskeletal: Normal Skin: Normal. absent: Rash Neurological: Dizziness. absent: Headache, Focal Weakness, Gait Changes, Speech Changes, Facial Droop, Disequilibrium Endocrine: Normal Hemo/Lymphatic: Normal Psychiatric: Normal Physical Exam Vital Signs Temp Pulse Resp BP Pulse Ox 04/02/17 15:10 68 18 152/65 H 99 04/02/17 13:55 17 04/02/17 13:46 98.0 F 64 18 154/66 H 99 Temperature: Afebrile Blood Pressure: Normal Pulse: Regular Respiratory Rate: Normal Appearance: Positive for: Well-Appearing, Non-Toxic, Comfortable Pain Distress: None Mental Status: Positive for: Alert and Oriented X 3 Finger Stick Blood Glucose: 110 - Systems Exam Head: Present: Atraumatic, Normocephalic Pupils: Present: PERRL Extroacular Muscles: Present: EOMI Conjunctiva: Present: Normal Mouth: Present: Moist Mucous Membranes Neck: Present: Normal Range of Motion Respiratory/Chest: Present: Clear to Auscultation, Good Air Exchange. No: Respiratory Distress, Accessory Muscle Use Cardiovascular: Present: Regular Rate and Rhythm, Normal S1, S2. No: Murmurs Abdomen: Present: Normal Bowel Sounds. No: Tenderness, Distention, Peritoneal Signs Back: Present: Normal Inspection. No: CVA Tenderness Upper Extremity: Present: Normal Inspection, Normal ROM, NORMAL PULSES, Neurovascularly Intact, Capillary Refill < 2s. No: Cyanosis, Edema Lower Extremity: Present: Normal Inspection, NORMAL PULSES, Normal ROM, Neurovascularly Intact, Capillary Refill < 2 s. No: Edema, CALF TENDERNESS Neurological: Present: GCS=15, CN II-XII Intact, Speech Normal Skin: Present: Warm, Dry, Normal Color. No: Rashes Psychiatric: Present: Alert, Oriented x 3, Normal Insight, Normal Concentration Medical Decision Making ED Course and Treatment: 04/02/17 16:[address] Yu regarding patient symptoms after dialysis. Patient symptoms has improved. I reviewed imaging, and labs with him. Labs are WNL. He agrees with plan of discharge pt home. 04/02/17 17:21 Patient remained stable during the course of ED visit. Daughter is at bedside. Patient feels better and she wishes to be discharge home. Re-evaluation Time: 17:21 Reassessment Condition: Re-examined, Improved - Lab Interpretations Lab Results: 04/02/17 13:50 04/02/17 13:50 Lab Results 04/02/17 13:50: PT 10.8, INR 1.00, APTT 24.5 04/02/17 13:50: Sodium 137, Potassium 4.1, Chloride 95 L, Carbon Dioxide 30, Anion Gap 16, BUN 15, Creatinine 3.8 H, Est GFR ( Amer) 14, Est GFR (Non- Af Amer) 12, Random Glucose 94, Calcium 9.7, Total Bilirubin 1.1, AST 24, ALT 20 , Alkaline Phosphatase 102, Lactate Dehydrogenase 497, Total Creatine Kinase 53 , Troponin I 0.07 D, Total Protein 8.3, Albumin 4.5, Globulin 3.8, Albumin/ Globulin Ratio 1.2 04/02/17 13:50: WBC 2.9 L* D, RBC 3.48 L, Hgb 11.0 L, Hct 32.5 L, MCV 93.4, MCH 31.6, MCHC 33.8, RDW 13.8, Plt Count 155, MPV 11.3 H, Gran % 57.5, Lymph % (Auto ) 25.4, Thomas % (Auto) 11.0 H, Eos % (Auto) 5.8 H, Baso % (Auto) 0.3, Gran # 1.67 , Lymph # 0.7 L, Thomas # 0.3, Eos # 0.2, Baso # 0.01 I have reviewed the lab results: Yes Interpretation: No clinic. lab abnormalty - RAD Interpretation Narrative RAD Interpretations (Text): 04/02/17 16:06 CXR: NAD 04/02/17 17:21 Accession No. : [id number] Patient Name / ID : KENDALL BRAUN / [id number] Exam Date : 04/02/2017 16:22:38 ( Approved ) Study Comment : Sex / Age : F / 71Y Creator : Audra Meza MD Dictator : Audra Meza MD End Touching Machine Operator : Safety Engineer : Audra Meza MD Approver2 : Report Date : 04/02/2017 17:13:38 My Comment : PROCEDURE: CT HEAD WITHOUT CONTRAST. HISTORY: dizziness with blurred vision COMPARISON: None available. TECHNIQUE: Axial computed tomography images were obtained through the head/brain without intravenous contrast. Radiation dose: Total exam DLP = 725.84 mGy-cm. This CT exam was performed using one or more of the following dose reduction techniques: Automated exposure control, adjustment of the mA and/or kV according to patient size, and/or use of iterative reconstruction technique. FINDINGS: HEMORRHAGE: No intracranial hemorrhage. BRAIN: No mass effect or edema. The wei-white matter differentiation appears intact. Please note that MRI with diffusion imaging is more sensitive in the detection of acute ischemic event. VENTRICLES: No hydrocephalus. CALVARIUM: Unremarkable. PARANASAL SINUSES: Unremarkable as visualized. No significant inflammatory changes. MASTOID AIR CELLS: Unremarkable as visualized. No inflammatory changes. OTHER FINDINGS: None. IMPRESSION: No acute intracranial pathology identified. Radiology Orders: 04/02/17 14:38 CHEST PORTABLE [RAD] Stat 04/02/17 14:49 HEAD W/O CONTRAST [CT] Stat - EKG Interpretation Interpreted by ED Physician: Yes (NSR @ [address] changes) Type: 12 lead EKG Comparison: No previous EKG avail. Disposition/Present on Arrival - Present on Arrival Any Indicators Present on Arrival: No History of DVT/PE: No History of Uncontrolled Diabetes: No Urinary Catheter: No History of Decub. Ulcer: No History Surgical Site Infection Following: None - Disposition Have Diagnosis and Disposition been Completed?: Yes Diagnosis: Dizziness, Headache, Chest pain, non-cardiac Disposition: HOME/ ROUTINE Disposition Time: 17:23 Patient Plan: Discharge Condition: GOOD Discharge Instructions (ExitCare): Chest Pain (ED) Additional Instructions: Call [facility] office for follow up visit. Continue with current management of kidney problems. Return to emergency if symptoms develops Referrals: Depe Yu MD [Primary Care Provider] - Follow up with primary
[2017-04-02 14:56] LABS: BASO # 0.01 K/mm3 (0.0-2.0); BASO % 0.3 % (0.0-3.0); EOS # 0.2 (0.0-0.7); EOS % 5.8 % (1.5-5.0); GRAN # 1.67 (1.4-6.5); GRAN % 57.5 % (50.0-68.0); HEMATOCRIT 32.5 % (36.0-48.0); LYMPH # 0.7 (1.2-3.4); LYMPH % 25.4 % (22.0-35.0); MEAN CELL VOLUME 93.4 fL (80.0-105.0); MEAN CORPUSCULAR HEMOGLOBIN 31.6 pg (25.0-35.0); MEAN CORPUSCULAR HGB CONC 33.8 g/dl (31.0-37.0); MEAN PLATELET VOLUME 11.3 fl (7.0-11.0); MONO # 0.3 (0.1-0.6); PLATELET COUNT 155 10^3/uL (120.0-450.0); RED CELL DISTRIBUTION WIDTH 13.8 % (11.5-14.5)
--- NOTE | 2017-04-02 14:56 | RAD ---
HISTORY: Chest pain COMPARISON: 03/27/2017 FINDINGS: LUNGS: The lungs are clear. PLEURA: No significant pleural effusion identified, no pneumothorax apparent. CARDIOVASCULAR: There is mild cardiomegaly. OSSEOUS STRUCTURES: No significant abnormalities. VISUALIZED UPPER ABDOMEN: Normal. OTHER FINDINGS: None. IMPRESSION: No active pulmonary disease.
[2017-04-02 14:57] LABS: ADD MANUAL DIFF? NO; WHITE BLOOD COUNT 2.9 10^3/ul (4.5-11.0)
[2017-04-02 15:01] LABS: ALB/GLOB RATIO 1.2 (1.1-1.8); BILIRUBIN,TOTAL 1.1 mg/dL (0.2-1.3); CALCIUM 9.7 mg/dL (8.4-10.5); PARTIAL THROMBOPLASTIN TIME 24.5 Seconds (23.7-30.8); POTASSIUM 4.1 mmol/L (3.6-5.0); TOTAL PROTEIN 8.3 g/dL (5.8-8.3)
[2017-04-02 15:11] VITALS: RESP 18
[2017-04-02 15:12] LABS: TROPONIN I 0.07 ng/mL
--- NOTE | 2017-04-02 17:14 | CT ---
PROCEDURE: CT HEAD WITHOUT CONTRAST. HISTORY: dizziness with blurred vision COMPARISON: None available. TECHNIQUE: Axial computed tomography images were obtained through the head/brain without intravenous contrast. Radiation dose: Total exam DLP = 725.84 mGy-cm. This CT exam was performed using one or more of the following dose reduction techniques: Automated exposure control, adjustment of the mA and/or kV according to patient size, and/or use of iterative reconstruction technique. FINDINGS: HEMORRHAGE: No intracranial hemorrhage. BRAIN: No mass effect or edema. The wei-white matter differentiation appears intact. Please note that MRI with diffusion imaging is more sensitive in the detection of acute ischemic event. VENTRICLES: No hydrocephalus. CALVARIUM: Unremarkable. PARANASAL SINUSES: Unremarkable as visualized. No significant inflammatory changes. MASTOID AIR CELLS: Unremarkable as visualized. No inflammatory changes. OTHER FINDINGS: None. IMPRESSION: No acute intracranial pathology identified.
[2017-04-02 17:26] VITALS: BP 148/67; PULSE 66
--- NOTE | 2017-04-02 22:49 | CARD ---
APPROVED REPORT EKG Measurement Heart [id number] MI [id number] <Conclusion> Normal sinus rhythm Nonspecific ST and T wave abnormality Prolonged QT Abnormal ECG
== END 2017-04-02 17:39 | disposition home or self-care (01) ==
LOC: ED 13:40
DX: R42 Dizziness and giddiness (principal); R51 Headache; R07.89 Other chest pain; E11.9 Type 2 diabetes mellitus without complications; I12.9 Hypertensive chronic kidney disease with stage 1 through stage 4 chronic kidney disease, or unspecified chronic kidney disease; N18.9 Chronic kidney disease, unspecified; Z99.2 Dependence on renal dialysis

== ENCOUNTER 2017-10-21 21:47 | Inpatient (IN) | payer MEDICARE ==
[2017-10-21 21:52] VITALS: BMI 30.2
[2017-10-21] MEDS ORDERED: diltiaZEM IVPB 100mg in NS 100 ML IV PRN (22:01)
--- NOTE | 2017-10-21 22:07 | ED PDOC ---
Arrival/HPI - General Chief Complaint: Chest Pain Time Seen by Provider: 10/21/17 21:50 Historian: Patient, Family - History of Present Illness Narrative History of Present Illness (Text): 10/21/17 21:59 Juliet Dick is a 72 year old female, whose past medical history includes CAD s/p coronary stent, ESRD on hemodialysis, hyperlipidemia, hypertension, and diabetes, who presents to the Emergency department accompanied by family complaining of chest pain. As per relative, patient had a low blood sugar of 27 at home tonight and elevated blood pressure. Relative notes patient began experiencing palpitations and chest tightness radiating to her right arm. Patient reports chest pain is still present. Relative states patient was last dialyzed 2 days prior without any issues and is scheduled for dialysis tomorrow. Family states patient had some juice at home and deny any changes in mental status. Patient denies any fever, chills, shortness of breath, nausea, vomiting, headache, dizziness, or any other complaints. PMD: Dr. Yu Cardiology: Dr. Davila Time/Duration: Other (tonight) Symptom Onset: Gradual Symptom Course: Unchanged Activities at Onset: Light Context: Home Past Medical History - Provider Review Nursing Documentation Reviewed: Yes - Infectious Disease Hx of Infectious Diseases: None - Tetanus Immunization Tetanus Immunization: Unknown - Cardiac Hx Hypertension: Yes - Neurological Hx Paralysis: No - Renal Hx Renal Disorder: Yes Hx Dialysis: Yes Date of Last Dialysis Treatment: 03/26/17 Hx Renal Failure: Yes - Endocrine/Metabolic Hx Diabetes Mellitus Type 1: Yes Hx Diabetes Mellitus Type 2: Yes - Hematological/Oncological Hx Blood Transfusions: Yes Hx Blood Transfusion Reaction: No - Musculoskeletal/Rheumatological Hx Musculoskeletal Disorders: Yes - Genitourinary/Gynecological Hx Genitourinary Disorders: (oliguria) - Psychiatric Hx Emotional Abuse: No Hx Physical Abuse: No Hx Substance Use: No - Surgical History Hx Section: Yes (x1) Other/Comment: Left ankle open fracture - Anesthesia Hx Anesthesia: Yes Hx Anesthesia Reactions: No Hx Malignant Hyperthermia: No - Suicidal Assessment Feels Threatened In Home Enviroment: No Family/Social History - Physician Review Nursing Documentation Reviewed: Yes Family/Social History: Unknown Family HX Smoking Status: Never Smoked Hx Alcohol Use: No Hx Substance Use: No Hx Substance Use Treatment: No Allergies/Home Meds Allergies/Adverse Reactions: Allergies No Known Allergies Allergy (Verified 12/08/15 13:21) Home Medications: Home Meds Medication Instructions Recorded Confirmed RX: Insulin Aspart/Insulin Aspar 5 units SC ACTID PRN 10/21/15 04/02/17 [Novolog Mix 70/30 (70/30 units/ml)] RX: Insulin Glargine, Recombina 30 unit SC HS 12/08/15 04/02/17 [Lantus] RX: Lisinopril [Zestril] 5 mg PO DAILY 12/09/15 04/02/17 Review of Systems - Physician Review All systems were reviewed & negative as marked: Yes - Review of Systems Constitutional: Normal. absent: Fevers Eyes: Normal ENT: Normal Respiratory: Normal. absent: SOB, Cough Cardiovascular: Chest Pain, Palpitations Gastrointestinal: Normal. absent: Abdominal Pain, Diarrhea, Nausea, Vomiting Genitourinary Female: Normal Musculoskeletal: Normal. absent: Back Pain, Neck Pain Neurological: Normal. absent: Dizziness Endocrine: Other (+low blood sugar) Hemo/Lymphatic: Normal Psychiatric: Normal Physical Exam Vital Signs Reviewed: Yes Vital Signs Temp Pulse Resp BP Pulse Ox 10/21/17 22:40 97.7 F 92 H 18 170/101 H 96 Temperature: Afebrile Blood Pressure: Hypertensive Pulse: Tachycardic Respiratory Rate: Normal Appearance: Positive for: Well-Appearing, Non-Toxic, Comfortable Pain Distress: None Mental Status: Positive for: Alert and Oriented X 3 - Systems Exam Head: Present: Atraumatic, Normocephalic Pupils: Present: PERRL Extroacular Muscles: Present: EOMI Conjunctiva: Present: Normal Mouth: Present: Moist Mucous Membranes Neck: Present: Normal Range of Motion Respiratory/Chest: Present: Clear to Auscultation, Good Air Exchange. No: Respiratory Distress, Accessory Muscle Use Cardiovascular: Present: Irregular Rhythm (Irregular, regular rhythm), Tachycardic. No: Murmurs Abdomen: Present: Normal Bowel Sounds. No: Tenderness, Distention, Peritoneal Signs Back: Present: Normal Inspection Upper Extremity: Present: Normal Inspection. No: Cyanosis, Edema Lower Extremity: Present: Normal Inspection. No: Edema Neurological: Present: GCS=15, CN II-XII Intact, Speech Normal Skin: Present: Warm, Dry, Normal Color. No: Rashes Psychiatric: Present: Alert, Oriented x 3, Normal Insight, Normal Concentration Medical Decision Making ED Course and Treatment: 10/21/17 21:59 Impression: 72 year old female complaining of chest tightness radiating to right arm with palpitations. Family note low blood sugar and high blood pressure at home. Plan: -- EKG -- Chest X-ray -- Labs, cardiac enzymes -- Cardizem -- Reassess and disposition Prior Visits: Notes and results from previous visits were reviewed. On 04/02/2017, pt was seen in the Emergency department for dizziness, blurred vision, and chest pain. Pt was d/c home. Progress Notes: Reviewed EKG, a fib at [address] bpm[address] Non-specific ST/T wave changes. 10/21/17 22:34 Pt converted back to NSR prior to cardizem administration. Repeat EKG reviewed, NSR at 94 bpm[address] Non-specific ST/T wave changes. 10/21/17 23:38 CXR reviewed, shows mildly increased pulmonary vascular markings. 10/21/17 23:[address] Curtis, covering for Dr. Yu, who is aware and agrees with plan. Pt will go to Telemetry observation for chest pain and paroxysmal atrial fibrillation under Dr. Curtis's service. - Lab Interpretations Lab Results: 10/21/17 23:11 10/21/17 23:11 Lab Results 10/21/17 23:11: WBC 4.5 D, RBC 3.67, Hgb 11.7 L, Hct 35.1 L, MCV 95.6, MCH 31.9 , MCHC 33.3, RDW 13.6, Plt Count 114 L, MPV 12.1 H 10/21/17 23:11: Sodium Pending, Potassium Pending, Chloride Pending, Carbon Dioxide Pending, Anion Gap Pending, BUN Pending, Creatinine Pending, Est GFR ( Amer) Pending, Est GFR (Non-Af Amer) Pending, Random Glucose Pending, Calcium Pending, Total Bilirubin Pending, AST Pending, ALT Pending, Alkaline Phosphatase Pending, Lactate Dehydrogenase Pending, Total Creatine Kinase Pending, Troponin I 0.04 D, Total Protein Pending, Albumin Pending, Globulin Pending, Albumin/Globulin Ratio Pending 10/21/17 23:11: PT 11.2, INR 1.03, APTT 22.8 L I have reviewed the lab results: Yes - RAD Interpretation Radiology Orders: 10/21/17 22:00 CHEST PORTABLE [RAD] Stat Emergency Registrar: ED Physician - EKG Interpretation Interpreted by ED Physician: Yes Type: 12 lead EKG - Medication Orders Current Medication Orders: Clopidogrel Bisulfate (Plavix) 75 mg PO DAILY YURI Diltiazem HCl 125 mg/ Sodium (Chloride) 125 mls @ 5 mls/hr IV .Q24H YURI; 5 MG/ HR PRN Reason: Protocol Insulin Detemir (Levemir) 15 unit SC [facility] YURI Lisinopril (Zestril) 5 mg PO DAILY YURI Oxycodone/Acetaminophen (Percocet 5/325 Mg Tab) 1 tab PO Q6 YURI Stop: 10/25/17 00:01 Sevelamer HCl (Renagel) 800 mg PO TID YURI Discontinued Medications Aspirin (Aspirin) 325 mg PO ONCE STA Stop: 10/21/17 22:35 Last Admin: 10/21/17 22:47 Dose: 325 mg Diltiazem HCl (Cardizem) 20 mg IVP ONCE ONE Stop: 10/21/17 22:01 Nitroglycerin (Nitro-Bid 2% Oint) 1 ea TOP ONCE STA Stop: 10/21/17 22:35 Last Admin: 10/21/17 22:47 Dose: 1 ea - Scribe Statement The provider has reviewed the documentation as recorded by the Jose Queen Provider Scribe Attestation: All medical record entries made by the Scribe were at my direction and personally dictated by me. I have reviewed the chart and agree that the record accurately reflects my personal performance of the history, physical exam, medical decision making, and the department course for this patient. I have also personally directed, reviewed, and agree with the discharge instructions and disposition. Disposition/Present on Arrival - Present on Arrival Any Indicators Present on Arrival: No History of DVT/PE: No History of Uncontrolled Diabetes: No Urinary Catheter: No History of Decub. Ulcer: No History Surgical Site Infection Following: None - Disposition Have Diagnosis and Disposition been Completed?: Yes Diagnosis: Chest pain, Paroxysmal atrial fibrillation Disposition: HOSPITALIZED Disposition Time: 00:04 Patient Plan: Observation Patient Problems: Current Active Problems Problem Status Onset Chest pain Acute Paroxysmal atrial fibrillation Acute Condition: STABLE Discharge Instructions (ExitCare): Chest Pain (ED) Forms: [facility] (Guyanese)
[2017-10-21] MEDS ORDERED: Nitroglycerin 2% Ointment Foilpak UD TOP STA (22:34)
[2017-10-21 23:23] LABS: HEMOGLOBIN 11.7 g/dL (12.0-16.0); MEAN CELL VOLUME 95.6 fl (80.0-105.0); MEAN CORPUSCULAR HEMOGLOBIN 31.9 pg (25.0-35.0); MEAN CORPUSCULAR HGB CONC 33.3 g/dl (31.0-37.0); MEAN PLATELET VOLUME 12.1 fl (7.0-11.0); RBC 3.67 10^6/uL (3.5-6.1); RED CELL DISTRIBUTION WIDTH 13.6 % (11.5-14.5); WHITE BLOOD COUNT 4.5 10^3/ul (4.5-11.0)
[2017-10-21 23:34] LABS: INR 1.03 (0.93-1.08); PARTIAL THROMBOPLASTIN TIME 22.8 Seconds (25.1-36.5); PROTHROMBIN TIME 11.2 SECONDS (9.4-12.5)
[2017-10-21 23:38] LABS: TROPONIN I 0.04 ng/mL
[2017-10-21] MEDS ORDERED: Insulin Human NPH/Reg 70/30 Vial(3 ml) SC PRN (23:48)
[2017-10-22 00:29] LABS: ALB/GLOB RATIO 1.2 (1.1-1.8); ALBUMIN 4.2 g/dL (3.0-4.8); CALCIUM 9.7 mg/dL (8.4-10.5)
[2017-10-22] MEDS: Oxycodone/Acetaminophen 5/325 mg Tab PO SCH ×4 (01:57→19:17)
--- NOTE | 2017-10-22 08:26 | RAD ---
HISTORY: chest pain COMPARISON: 04/02/2017 FINDINGS: LUNGS: No active pulmonary disease. PLEURA: No significant pleural effusion identified, no pneumothorax apparent. CARDIOVASCULAR: There is severe vascular and interstitial congestion consistent with CHF OSSEOUS STRUCTURES: No significant abnormalities. VISUALIZED UPPER ABDOMEN: Normal. OTHER FINDINGS: None. IMPRESSION: There is severe vascular and interstitial congestion consistent with CHF
--- NOTE | 2017-10-22 09:48 | CARD ---
APPROVED REPORT EKG Measurement Heart [id number] <Conclusion> Atrial fibrillation with rapid ventricular response Marked ST abnormality, possible inferior subendocardial injury Abnormal ECG
--- NOTE | 2017-10-22 09:48 | CARD ---
APPROVED REPORT EKG Measurement Heart [id number] <Conclusion> Normal sinus rhythm Nonspecific ST abnormality Prolonged QT Abnormal ECG
[2017-10-22] MEDS: Insulin Reg-MEDIUM-Coverage SC SCH (20:28)
[2017-10-22] MEDS ORDERED: Pneumococcal 23-Valent Vaccine IM ONE (23:07)
[2017-10-22] MEDS ORDERED: Influenza Vaccine 60 mcg/0.5 mL SYR (4YR UP) IM ONE (23:07)
--- NOTE | 2017-10-23 00:44 | HP ---
HISTORY OF PRESENT ILLNESS: Ms. Dick is a 72-year-old female, presented to the ED with complaints of chest pain and chest tightness. Blood sugar was found to be low in the ER at 27. She was also found to have atrial fibrillation. She was given a dose of diltiazem and reverted back to normal. Denies any nausea or vomiting. No shortness of breath. Serial troponins have been negative. She has history of end-stage renal disease, on hemodialysis. She also has hypertension, diabetes mellitus type 2 and hyperlipidemia. Blood pressures have been elevated in the ED. PAST MEDICAL HISTORY: End-stage renal disease, on hemodialysis; diabetes mellitus type 2. PAST SURGICAL HISTORY: C-sections. FAMILY HISTORY: Noncontributory. PERSONAL HISTORY: Never smoked. No history of alcohol abuse. ALLERGIES: NO KNOWN DRUG ALLERGIES. HOME MEDICATIONS: Insulin, lisinopril 5 mg daily, Lantus insulin 30 q.h.s. PHYSICAL EXAMINATION GENERAL: Comfortable in bed, in no acute distress. VITAL SIGNS: Temperature 97.7, respiratory rate 18 per minute, blood pressure 170/101, heart rate is 96 per minute. HEENT: Normal. CHEST: Air entry present and equal bilaterally. No added sounds. CARDIOVASCULAR: S1 and S2 normal. No murmur. No gallop. ABDOMEN: Soft, nontender. No hepatosplenomegaly. EXTREMITIES: No edema. SPINE: Nontender. SKIN: No petechiae. No rash. LABORATORY DATA: White count 4.5, hemoglobin 11.7, hematocrit 35.1, platelet count 104. Sodium 141, potassium 4.7, creatinine 8.7, bilirubin 0.7, troponin 0.04. ASSESSMENT AND PLAN: She will be admitted to the hospital for tele monitoring. We will continue Plavix 75 mg daily, Percocet p.r.n. for pain. Continue lisinopril 5 mg daily, Renagel 800 mg p.o. t.i.d., Plavix 75 mg daily, fingerstick glucose monitoring. Cardiology consultation with Dr. Davila requested for paroxysmal atrial fibrillation. We will continue hemodialysis. Mellissa Curtis MD [facility] # [id number]
[2017-10-23] MEDS: Oxycodone/Acetaminophen 5/325 mg Tab PO SCH ×5 (01:24→23:01)
[2017-10-23] MEDS: Insulin Detemir 100 units/ml Vial (Levemir) SC SCH ×3 (01:26→22:44)
--- NOTE | 2017-10-23 03:52 | CON ---
DATE: 10/22/2017 HISTORY OF PRESENT ILLNESS: This 72-year-old female is evaluated for chronic renal failure, hemodialysis dependent. She presented to the [facility] ER complaining of chest discomfort. She has a past medical history of atherosclerotic heart disease; coronary artery stents; end-stage renal disease, on hemodialysis and has hyperlipidemia, hypertension and insulin-dependent diabetes mellitus. In the Emergency Room, she was noted to have rapid atrial fibrillation. She was treated with parenteral Cardizem and will be dialyzed this morning. Past medical history is also significant for chronic hypertension, peptic ulcer disease with GERD and hyperphosphatemia. MEDICATIONS: Outpatient medications included insulin, Pepcid, Renagel, Zestril, Lantus and Plavix. ALLERGIES: THE PATIENT HAS NO KNOWN ALLERGIES TO MEDICATION. 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 FAMILY HISTORY: Noncontributory. PHYSICAL EXAMINATION: VITAL SIGNS: Temperature 98, respirations 16, pulse 78, blood pressure 161/76 with pulse ox 98% room air. HEENT: Head: Normocephalic, atraumatic. Eyes: No icterus. Ears: Clear. Throat: Noninjected. NECK: Supple. CARDIAC: Irregular S1, S2. LUNGS: Clear. ABDOMEN: Soft. EXTREMITIES: No edema. SKIN: Without rash. NEUROLOGICAL: Intact. PSYCHOLOGICAL: Alert. VASCULAR: Legs warm to touch. She has a left AV fistula that has an excellent bruits and thrill. LABORATORY DATA: White count 4500, hemoglobin 11.7, hematocrit 35.1, platelets 214,000. PT/INR 1.03, PTT 22.8. Sodium 141, K 4.7, chloride 101, bicarb 24, BUN 55, creatinine 8.7, random blood sugar 127. All liver function testing is normal including bilirubin 0.7, AST 35, ALT 26 and alk phos 109. Chest x-ray shows congestive heart failure and EKG showed atrial fibrillation with rapid ventricular response. IMPRESSION/ PLAN: A 72-year-old female with multiple medical problems as listed above, end-stage renal disease, hemodialysis dependent, and the patient is on schedule for hemodialysis this morning. She will be admitted to the cardiac sanches. She will have orders for Levemir, Plavix, Renagel and Zestril. She will be seen by Cardiology and is ordered to have a heart-healthy renal diet. All of the above was reviewed in detail with the patient and nursing. She will be ready for hemodialysis later this day. Danuta Petersen MD [facility]TD[facility]
--- NOTE | 2017-10-23 05:58 | PN ---
DIALYSIS PROGRESS NOTE DATE: 10/22/2017 SUBJECTIVE: This 72-year-old female was examined in the Renal Dialysis Unit. She was dialyzing via a left arm AV fistula. She is on F 160, 140 sodium, 2K bicarb bath. Her blood flow rates are 400 mL per minute. OBJECTIVE: VITAL SIGNS: Blood pressure is 160/68, pulse is 59, temperature is afebrile. HEART: Irregular S1, S2. LUNGS: Clear. ABDOMEN: Soft. EXTREMITIES: No edema. Monitor shows atrial fibrillation. As discussed with nurse, Toya Monahan, registered nurse, we will aim for 3 kg fluid removal today. She continues on a 2K bicarb bath. Danuta Petersen MD MTDD
--- NOTE | 2017-10-23 08:08 | PN ---
DATE: 10/22/2017 DIALYSIS PROGRESS NOTE HISTORY: This 72-year-old female is in the renal dialysis unit, dialyzing on a F 160, 2-K bicarb bath. LABORATORY DATA: White count was 1500, hemoglobin 11.7, hematocrit 35.1, platelets 114,000. Sodium 141, K 4.7, chloride 101, bicarb 24, BUN 55, creatinine 8.7, random blood sugar 86. BUN 55, creatinine 8.7, random blood sugar 127. All liver function testing is normal including bilirubin 0.7, AST 35, ALT 26 and alk phos 109. The patient remains in atrial fibrillation with a pulse rate of 66 that is controlled. She was given Cardizem previously and will not require any further dosing at present. Danuta Petersen MD [facility]
[2017-10-23] MEDS: Insulin Reg-MEDIUM-Coverage SC SCH ×4 (08:19→22:39)
--- NOTE | 2017-10-23 09:56 | PN ---
DATE: 10/23/2017 SUBJECTIVE: The patient has no complaints of any chest pain. No shortness of breath. No headache or dizziness. PHYSICAL EXAMINATION: VITAL SIGNS: Temperature is 97.9, pulse is 72, blood pressure 148/91, and respirations 20. GENERAL: The patient is lying in bed, flat, comfortable. HEENT: No oral lesion. Anicteric sclerae. Moist mucosa. NECK: No JVD, adenopathy, or thyromegaly. CARDIOVASCULAR: S1 and S2, regular. No murmurs, rubs, or gallops. LUNGS: Clear to auscultation bilaterally. No wheeze, rales, or rhonchi. ABDOMEN: Bowel sounds are positive, soft, nontender and nondistended. EXTREMITIES: No cyanosis, clubbing, or edema. LABORATORY DATA: Labs have been reviewed. ASSESSMENT AND PLAN: 1. Chest pain. 2. End-stage renal disease, on hemodialysis. 3. Diabetes type 2. 4. Secondary hypoparathyroidism. 5. Hypertension. 6. Atrial fibrillation. PLAN: The patient is currently comfortable. She is on aspirin. She is being followed by Dr. Davila from Cardiology. The patient is on Levemir for her diabetes. She is going to continue with Renagel for her secondary hypoparathyroidism, she is on lisinopril. Deep Yu MD
[2017-10-23 10:33] LABS: BASO # 0.01 K/mm3 (0.0-2.0); BASO % 0.2 % (0.0-3.0); EOS # 0.2 (0.0-0.7); EOS % 4.9 % (1.5-5.0); GRAN # 2.45 (1.4-6.5); GRAN % 59.6 % (50.0-68.0); LYMPH # 1.1 (1.2-3.4); LYMPH % 26.8 % (22.0-35.0); MEAN CELL VOLUME 96.9 fl (80.0-105.0); MEAN CORPUSCULAR HEMOGLOBIN 31.3 pg (25.0-35.0); MEAN CORPUSCULAR HGB CONC 32.4 g/dl (31.0-37.0); MEAN PLATELET VOLUME 11.4 fl (7.0-11.0); MONO # 0.4 (0.1-0.6); MONO % 8.5 % (1.0-6.0); RBC 3.51 10^6/uL (3.5-6.1); RED CELL DISTRIBUTION WIDTH 13.6 % (11.5-14.5); WHITE BLOOD COUNT 4.1 10^3/ul (4.5-11.0)
[2017-10-23 10:56] LABS: ALB/GLOB RATIO 1.2 (1.1-1.8); ALBUMIN 3.9 g/dL (3.0-4.8); CALCIUM 9.6 mg/dL (8.4-10.5)
[2017-10-23 11:05] LABS: TROPONIN I 0.13 ng/mL
--- NOTE | 2017-10-23 12:06 | CON ---
DATE: 10/22/2017 LOCATION: The patient in emergency room. REASON FOR CONSULTATION: Coronary artery disease, history of stent in RCA on 03/31/2017, history of peripheral vascular disease, admitted with palpitation and dizziness last night. Denies any chest pain or shortness of breath at this moment. The patient is known to have end-stage renal failure, on dialysis; hypertension; hyperlipidemia; type 2 diabetes; fistula on left arm. PAST MEDICAL HISTORY: As mentioned before, the patient has coronary artery disease, has stent in the RCA on 03/31/2017; end-stage renal failure, on dialysis; diabetes mellitus; hypertension; hyperlipidemia; peripheral vascular disease. PREVIOUS CARDIAC WORKUP: The patient had cardiac catheterization on 03/31/2017 which showed critical RCA lesion for which a drug-eluting stent was inserted. The patient also had moderate disease in mid LAD and distal circumflex, but both vessels were very tortuous vessels and not suitable for angioplasty or stent insertion. The patient also found to have severe bilateral SFA disease. The patient was supposed to come for angioplasty for SFA later on. The patient on catheterization, LV ejection fraction 55% to 60%. ALLERGIES: THE PATIENT DENIES ANY ALLERGIES. MEDICATIONS: The patient's home medications including 70/30 insulin, Renvela 800 mg t.i.d., lisinopril 5 mg daily, Lantus insulin 30 units subcu at bedtime, Plavix 75 mg daily. FAMILY HISTORY: Not significant. REVIEW OF SYSTEMS: All the systems reviewed. Positive mentioned in the history; others were negative. PHYSICAL EXAMINATION: VITAL SIGNS: Blood pressure 154/72, respirations 18, pulse 73, temperature 98.0. HEENT: Head is normocephalic. Eyes: Pupils normal. Conjunctivae slightly pale. NECK: JVP low. Carotids are equal. THORAX: AP diameter normal. LUNGS: Clear. CARDIOVASCULAR: S1, S2. ABDOMEN: Soft. No tenderness. No organomegaly. Bowel sounds are normal. EXTREMITIES: No clubbing, no cyanosis. LABORATORY DATA: WBC 4.5, hemoglobin 11.7, hematocrit 35.1, platelet 114. Sodium 141, potassium 4.7, BUN 55, creatinine 8.7, random sugar 127. AST and ALT normal. Troponin 0.04. Total protein 7.7, albumin 4.2. PT 11.2, INR 1.03, PTT 22.8. DIAGNOSES: Palpitations and dizziness, coronary artery disease, history of angioplasty and drug-eluting stent insertion in right coronary artery on 03/31/2017. At that time, the patient was also found to have severe bilateral superficial femoral artery disease. The patient was supposed to come in 4 weeks for angioplasty/stent insertion for peripheral vascular disease, but apparently, the patient did not come. The patient also had moderate disease in mid left anterior descending and distal circumflex, but both vessels were very tortuous vessels, not suitable for angioplasty. At the time of catheterization, the patient's left ventricular ejection fraction was 55% to 60%. Renal failure, on dialysis; diabetes mellitus; hypertension. PLAN: To continue monitor for any arrhythmias. So far, no arrhythmia noted on telemetry. The patient is getting insulin as ordered, Plavix 75 mg daily, lisinopril 5 daily. We will add Ecotrin 81 mg daily. The patient had angioplasty and stent insertion of drug-eluting stent on 03/31/2017 and we will follow with you. Jairo Perez MD
--- NOTE | 2017-10-23 14:00 | PN ---
DATE: 10/23/2017 REASON FOR CONSULTATION AND FOLLOWUP: Chest pain; coronary artery disease, status post stenting; end-stage renal disease, on dialysis; palpitation, possibly AFib converting to normal sinus. BRIEF CLINICAL HISTORY: This is a 72-year-old female with past medical history of end-stage renal disease, on dialysis; history of CAD, status post PTCA of mid RCA with drug-eluting stent on 04/07/2017; diabetes; hypertension; hyperlipidemia; had history of coronary artery disease, acute coronary syndrome on 03/27/2017. The patient had a PTCA of RCA done, also complaining of pain in the leg, so the patient had vascular study on 03/31/2017 and found to be over circulation on vascular study and found to have SFA disease also. Past history significant for coronary artery disease, status post PTCA of RCA on 03/28/2017, history of peripheral angiogram, diabetes, hypertension, hyperlipidemia, end-stage renal disease, admitted with a sharp pain in the chest as well as palpitation found to be in AFib. Denies any further episodes of chest pain today. PHYSICAL EXAMINATION: VITAL SIGNS: As follows, temperature afebrile, heart rate , and blood pressure 145/60. HEENT: PERRLA intact. NECK: Supple. No carotid bruit or thyromegaly. CHEST: Clear to auscultation. HEART: S1 and S2 regular. ABDOMEN: Soft. EXTREMITIES: Clubbing and cyanosis negative. LABORATORY DATA: Blood workup as follows. WBC 4.5, hemoglobin , hematocrit 35.1, and platelet count 114. Chemistry shows sodium 141, potassium , chloride 101, carbon dioxide 24, anion gap of 21, BUN of . IMPRESSION: Atrial fibrillation/flutter sensation converted to normal sinus, history of coronary artery disease, status post percutaneous transluminal coronary angioplasty, history of peripheral artery disease, diabetes, hypertension, and hyperlipidemia. RECOMMENDATIONS: Continue aspirin. Continue Plavix. Continue lisinopril. Continue beta cee and we will start Cardizem. We will redo a stress test tomorrow to rule out any ischemia. We will follow with you. Thank you Dr. Yu for providing us the opportunity in taking care of the patient, Juliet Alfredoruthfatuma. Jairo Davila MD
--- NOTE | 2017-10-23 15:04 | CARD ---
APPROVED REPORT EKG Measurement Heart [id number] <Conclusion> Normal sinus rhythm Nonspecific ST and T wave abnormality Prolonged QT Abnormal ECG
[2017-10-24] MEDS: Oxycodone/Acetaminophen 5/325 mg Tab PO SCH ×4 (05:58→23:02)
[2017-10-24] MEDS: Insulin Reg-MEDIUM-Coverage SC SCH ×4 (07:39→21:42)
[2017-10-24] MEDS: Insulin Detemir 100 units/ml Vial (Levemir) SC SCH ×2 (07:40→21:43)
--- NOTE | 2017-10-24 09:44 | PN ---
DATE: 10/24/2017 SUBJECTIVE: The patient had nausea and vomiting earlier this morning. She said otherwise she has no complaints of headache or dizziness. She does get some chest discomfort, it is nonradiating, midsternal. No shortness of breath. PHYSICAL EXAMINATION VITAL SIGNS: Temperature is 98.4, pulse is 66, blood pressure is 155/46, and respirations 19. GENERAL: The patient is lying in bed, flat, comfortable. HEENT: No oral lesion. Anicteric sclerae. Moist mucosa. NECK: No JVD, adenopathy, or thyromegaly. CARDIOVASCULAR: S1 and S2, regular. No murmurs, rubs, or gallops. LUNGS: Clear to auscultation bilaterally. No wheeze, rales, or rhonchi. ABDOMEN: Bowel sounds are positive, soft, nontender and nondistended. EXTREMITIES: No cyanosis, clubbing or edema. ASSESSMENT: 1. Chest pain/non-ST elevation myocardial infarction. 2. End-stage renal disease, on hemodialysis. 3. Atrial fibrillation, now in sinus rhythm. 4. Diabetes type 2. 5. Secondary hyperparathyroidism. 6. Hypertension. 7. Coronary artery disease. 8. Peripheral arterial disease. PLAN: The patient is scheduled for a cardiac cath today. The patient is going to continue with sevelamer for secondary hyperparathyroidism. The patient is on lisinopril for hypertension. She is on Levemir for her diabetes. The patient has an echo that has been ordered. We will continue to follow the patient closely. Deep Yu MD
[2017-10-24] MEDS ORDERED: Lidocaine 2% Inj (20ml) ONE (10:20)
[2017-10-24] MEDS ORDERED: Phenylephrine 10 mg/ml Inj ONE (10:21)
[2017-10-24] MEDS ORDERED: HEPARIN SODIUM/NS 2,000 ML IV ONE (10:21)
[2017-10-24] MEDS ORDERED: Iodixanol 320 MG/ML 200 ML BOTTLE IV ONE (10:26)
[2017-10-24] MEDS ORDERED: Midazolam 2 MG/2 ML VIAL ONE (10:46)
[2017-10-24 14:28] LABS: EOS # 0.1 (0.0-0.7); EOS % 4.3 % (1.5-5.0); GRAN # 2.08 (1.4-6.5); HEMOGLOBIN 10.9 g/dL (12.0-16.0); LYMPH # 0.8 (1.2-3.4); LYMPH % 23.7 % (22.0-35.0); MEAN CORPUSCULAR HEMOGLOBIN 31.9 pg (25.0-35.0); MEAN CORPUSCULAR HGB CONC 33.5 g/dl (31.0-37.0); MONO # 0.3 (0.1-0.6); RBC 3.42 10^6/uL (3.5-6.1); RED CELL DISTRIBUTION WIDTH 13.4 % (11.5-14.5); WHITE BLOOD COUNT 3.3 10^3/ul (4.5-11.0)
[2017-10-24] MEDS ORDERED: Darbepoetin Alfa 25 mcg/ml Inj IVP ONE (15:01)
[2017-10-24 15:02] LABS: ALB/GLOB RATIO 1.2 (1.1-1.8); ALBUMIN 3.7 g/dL (3.0-4.8); CALCIUM 9.3 mg/dL (8.4-10.5)
[2017-10-24] MEDS ORDERED: Doxercalciferol 4 mcg/2 ml Inj IV ONE (15:19)
--- NOTE | 2017-10-24 21:50 | PN ---
DATE: 10/24/2017 REASON FOR CONSULTATION AND FOLLOWUP: Chest pain, possible non-ST segment myocardial infarction, end-stage renal disease, on dialysis, admitted, AFib converted to normal sinus, has episode of chest pain. Patient having cardiac catheterization that revealed patent stent in RCA, left main essentially with significant disease, LAD has two-way stenosis with a mid hairpin turn, very tortous, high risk for angioplasty, also circumflex has disease, it is very tortous, not suitable for PCI. Recommend open heart surgery. Discussed with the family. Family has a lot of reservations for open heart surgery. Suggest open heart surgery. If patient agrees, we will transfer the patient to [facility] for open heart surgical evaluation or as an outpatient surgical evaluation. In the interim, continue aggressive medical treatment including lisinopril, metoprolol, aspirin, Plavix, Cardizem 30 mg to prevent AFib with rapid rate and we will change to Cardizem CD from tomorrow and we will put low dose of Imdur nitrate as well. We will prepare for discharge tomorrow. I will discuss with Dr. Yu. The patient is okay to be discharged tomorrow and evaluate as an outpatient for open heart surgery. We will also add nitrate in the current regimen. We will continue aspirin, continue Plavix, continue Imdur, continue lisinopril and continue Cardizem CD 120 mg daily from tomorrow, possible discharge home tomorrow. Thank you Dr. Yu for providing us the opportunity in taking care of the patient, Juliet Dick Jairo Davila MD
[2017-10-25 01:02] VITALS: RESP 20
[2017-10-25 06:38] VITALS: O2SAT 99
[2017-10-25] MEDS: Insulin Detemir 100 units/ml Vial (Levemir) SC SCH (08:42)
[2017-10-25] MEDS: Insulin Reg-MEDIUM-Coverage SC SCH ×2 (08:43→12:16)
[2017-10-25] MEDS ORDERED: diltiaZEM 120 mg/24 Hours CD Cap PO SCH (10:00)
[2017-10-25 10:38] VITALS: PULSE 62
--- NOTE | 2017-10-25 11:17 | DS ---
HISTORY OF PRESENT ILLNESS: This is a 72-year-old female who had come to the hospital because of chest pain. The patient had been taken to the [facility] [employer] [facility] and had intervention done. Please see the cardiac cath report. The patient is currently comfortable. She had an elevated potassium. She was placed on 2K bath after her dialysis treatment. The patient is recommended to get open heart surgery. Dr. Davila did speak to the patient's family to give them an update. The patient is currently comfortable. She is going to be discharged home to follow up as an outpatient. She has no headache or dizziness. No nausea or vomiting. PHYSICAL EXAMINATION: VITAL SIGNS: Temperature is 98.3, pulse is 77, blood pressure is134/62, respirations 20. GENERAL: The patient is lying in bed, uncomfortable, and in no acute distress. HEENT: Atraumatic and normocephalic. Anicteric sclerae. Moist mucosa. Isabel conjunctivae. No oral lesions. NECK: No JVD, anterior and posterior adenopathy, thyromegaly, or bruits. CARDIOVASCULAR: S1 and S2 regular. No murmur, rubs, or gallop. LUNGS: Clear to auscultation bilaterally. No wheezes, rales, or rhonchi. ABDOMEN: Bowel sounds are positive. Soft, nontender and nondistended. No hepatosplenomegaly. No rebound and no guarding. EXTREMITIES: No cyanosis, clubbing, or edema. NEUROLOGIC: No facial asymmetry. Tongue is midline. No uvula deviation. Power is 5/5 upper extremity and lower extremity. Sensation intact in upper extremity and lower extremity. PSYCHIATRIC: She is awake, alert and oriented x3. No anxiety or depression. She has normal affect. GENITOURINARY: No CVA tenderness. VASCULAR: 2+ pulses in the carotid pulses and pedal pulses. SKIN: No erythema or nodules SPINE: Shows normal curvature. ASSESSMENT: 1. Non-ST elevation myocardial infarction. 2. Coronary artery disease. 3. End-stage renal disease, on hemodialysis. 4. Atrial fibrillation, now in sinus rhythm. 5. Diabetes type 2. 6. Secondary hypoparathyroidism. 7. Hypertension. 8. Peripheral arterial disease. PLAN: The patient is currently comfortable. The patient is on Cardizem. She is going to continue on aspirin daily. The patient is on Levemir for her diabetes. She is on Plavix daily. The patient is on lisinopril for hypertension and is on a heart-healthy diet. CONDITION: Stable. ACTIVITIES: Increase as tolerated. Follow up with Dr. Davila in 1 to 2 weeks. Follow up with Dr. Yu in 2 to 3 weeks. Deep Yu MD
[2017-10-25 12:04] VITALS: BP 131/58; TEMP 97.9
--- NOTE | 2017-10-25 14:23 | PN ---
DATE: 10/25/2017 REASON FOR CONSULTATION AND FOLLOWUP: Chest pain, admitted atrial fibrillation converted to normal sinus, episode of chest pain, borderline troponin positive 13, coronary artery disease, status post percutaneous transluminal coronary angioplasty, status post cardiac catheterization, significant left anterior descending, circumflex not suitable for percutaneous coronary intervention. SUBJECTIVE: The patient denies any chest pain, shortness of breath or any palpitation. OBJECTIVE/PHYSICAL EXAMINATION: As follows: GENERAL: Not in apparent distress. VITAL SIGNS: Temperature is afebrile, heart rate is 77, and blood pressure is 134/62. HEENT: PERRLA. Extraocular muscles are intact. NECK: Supple. No carotid bruits or thyromegaly. CHEST: Clear to auscultation. HEART: S1 and S2, regular. ABDOMEN: Soft. EXTREMITIES: Clubbing and cyanosis negative. LABORATORY DATA: WBC of 3.8, hemoglobin of 10.9, hematocrit of 32.5, and platelet count of 98. Chemistry shows sodium of 130, potassium of 3.1, chloride of 98, carbon dioxide of 24, anion gap of 21, BUN of 50, and creatinine of 9.2. IMPRESSION: Positive troponin, cannot rule out non-ST versus borderline troponin secondary to renal insufficiency,significant coronary artery disease, status post cardiac catheterization, revealed patent stent in the right coronary artery, high grade stenosis in left anterior descending and circumflex, very tortuous vessels not suitable for percutaneous coronary intervention, heart has got complication. RECOMMENDATIONS: Discussed with the patient's daughter in length of the difference of just open heart surgery and the patient's family at this time happier to be resistant for open heart surgery. So, we will treat aggressive medical treatment including aspirin, Plavix, beta cee, and nitrate. Continue dialysis, continue antihypertensive medication and continue treatment for diabetes. If the patient change her mind, we will arrange open heart surgery at [facility]. For now, the patient is okay to be discharged on medical treatment. Jairo Davila MD
--- NOTE | 2017-10-25 17:00 | CARD ---
APPROVED REPORT EXAM: Two-dimensional and M-mode echocardiogram with Doppler and color Doppler. INDICATION Chest Pain LVFX 2D DIMENSIONS Left Atrium (2D)5.2 (1.6-4.0cm)IVSd1.1 (0.7-1.1cm) LVDd3.8 (3.9-5.9cm)PWd1.2 (0.7-1.1cm) LVDs2.7 (2.5-4.0cm)FS (%) 30.3 % LVEF (%)58.3 (>50%) M-Mode DIMENSIONS Aortic Root3.10 (2.2-3.7cm)Aortic Cusp Exc.1.70 (1.5-2.0cm) Aortic Valve AoV Peak Xrcypvof664.0cm/Lauren Peak GR.15mmHg Mitral Valve MV E Fkuzbril10.8cm/sMV A Jxexxpyt03.9cm/sE/A ratio1.0 TDI Lateral E' Peak V8.48cm/sMedial E' Peak V5.65cm/sE/Lateral E'10.8 E/Medial E'16.2 Pulmonary Valve PV Peak Vkaadwlt25.8cm/sPV Peak Grad.4mmHg Tricuspid Valve TR Peak Wjuxaucj451se/sRAP MFFUQBIF52scGwMC Peak Gr.29mmHg [id number] LEFT VENTRICLE The left ventricle is normal size. There is borderline concentric left ventricular hypertrophy. The left ventricular function is normal.EF-55-60% There is normal LV segmental wall motion. Transmitral Doppler flow pattern is Grade III-reversible restrictive diastolic dysfunction. No left ventricle thrombus noted on this study. There is no ventricular septal defect visualized. There is no left ventricular aneurysm. There is no mass noted in the left ventricle. RIGHT VENTRICLE The right ventricle is normal size. There is normal right ventricular wall thickness. The right ventricular systolic function is normal. ATRIA The left atrium is moderately dilated. The right atrium size is normal. The interatrial septum is intact with no evidence for an atrial septal defect. AORTIC VALVE The aortic valve is thickened but opens well. The aortic valve is moderately sclerotic. There is trace aortic regurgitation. There is no aortic valvular stenosis. There is no aortic valvular vegetation. MITRAL VALVE The mitral valve is thickened but opens well. Mitral regurgitation is trace to mild. There is no mitral valve stenosis. There is no evidence of mitral valve prolapse. TRICUSPID VALVE The tricuspid valve leaflets are thickened , but open well. There is mild tricuspid regurgitation.RVSp-39 mmofHg. There is no tricuspid valve stenosis. There is no tricuspid valve prolapse or vegetation. PULMONIC VALVE The pulmonic valve is not well visualized. There is no pulmonic valvular regurgitation. There is no pulmonic valvular stenosis. GREAT VESSELS The aortic root is normal in size. The ascending aorta is normal in size. The pulmonary artery is normal. The IVC is normal in size and collapses >50% with inspiration. PERICARDIAL EFFUSION There is no pleural effusion. There is no pericardial effusion. <Conclusion> The left ventricle is normal size. There is borderline concentric left ventricular hypertrophy. There is normal LV segmental wall motion. There is trace aortic regurgitation. Mitral regurgitation is trace to mild. There is mild tricuspid regurgitation.RVSp-39 mmofHg. The IVC is normal in size and collapses >50% with inspiration. There is no pericardial effusion. No Vegetation or thrombus noted.
--- NOTE | 2017-10-26 18:13 | CARD ---
APPROVED REPORT Procedure(s) performed: Left Heart Catheterization HISTORY The patient is a 72 year-old female with a history of : previous WI (> 7 days), renal failure with dialysis, diabetes mellitus with insulin treatment , previous diagnostic cath, previous PCI (The PCI date was 03/28/2017), hypertension , dyslipidemia . INDICATION The indication(s) include : unstable angina , non-STEMI . CASE TECHNIQUE The patient was brought urgently to the Cardiac Catheterization Laboratory in a fasting state and was prepped and draped in a sterile manner. The right femoral groin was infiltrated with 2% Lidocaine subcutaneous anesthesia. A 6 Fr x 11 cm Acacia sheath was inserted into the right femoral artery without difficulty. Coronary angiography was performed using coronary diagnostic catheters. The left coronary system was accessed and visualized with a Diagnostic ,6 Fr JL 4 catheter. The right coronary system was accessed and visualized with a Diagnostic ,6 Fr SRC catheter. The left ventricle was accessed and visualized with a pig tail catheter. Left ventricular/Aortic Valve gradient assessed on pullback. Left ventriculogram was performed in CRUZ projection. Closure device was deployed with a 6 Fr / 7 Fr MynxGrip without any complications. The patient tolerated the procedure well and there were no complications associated with the procedure. Vessel Analysis The patient's coronary anatomy is right dominant. The left main coronary artery is a medium size vessel without significant stenosis. There is a 30% stenosis in the distal segment. The left main bifurcates to the left anterior descending and circumflex. The left anterior descending artery is a medium size vessel with diffuse calcification noted throughout this vessel and with significant stenosis. There is a 90% stenosis in the mid segment. two stenoses in between two hair pin turns The first diagonal branch is a medium size vessel with diffuse calcification noted throughout this vessel and without significant stenosis. The circumflex artery is a medium size vessel with diffuse calcification noted throughout this vessel and with significant stenosis. There is a 90% stenosis in the mid and ditalsegment. two stenosis, cx has Right angle take off and very tortous vessel The first obtuse marginal branch is a medium size vessel with diffuse calcification noted throughout this vessel and without significant stenosis. very tortous vessel The right coronary artery is a medium size vessel with intimal irregularities and without significant stenosis. patent stet in mid segment The right posterolateral branch is a medium size vessel with diffuse calcification noted throughout this vessel and without significant stenosis. Left Ventricle The left ventricle is normal in size with normal contractility. There was no cardiomyopathy. The left ventricular ejection fraction is estimated to be 55%. The left ventricular end diastolic pressure is 16 mmHg. There was no gradient across the aortic valve upon pullback. Conclusion Two Vessel CAD involving LAD and Cx which are very tortous vessels and are not suitable for PCI ( High Risk) Patent stent in RCA Preserved LV Fx. Ef-55%. EDP_16 mmof HG, T2DM, ESRD on HD Recommendations Revascularization by [facility] interim Beta cee, nitrates,ASA, Plavix, and JAZMÍN inhibitors Dialysis as before CC; DR. Samir Yu.
== END 2017-10-25 14:00 | disposition home or self-care (01) | DRG 280 ==
LOC: ED 21:47 → ERH 10-22 00:02 → 2RSO 10-23 01:07 → OBSVTOIN 10-23 14:55
PROVIDERS: ADMIT Internal Medicine Medical Oncology; ATTEND Internal Medicine Nephrology
PROC: 5A1D70Z Performance of Urinary Filtration, Intermittent, Less than 6 Hours Per Day (ICD-10-PCS; 2017-10-22)
PROC: 4A023N7 Measurement of Cardiac Sampling and Pressure, Left Heart, Percutaneous Approach (ICD-10-PCS; principal; 2017-10-24)
PROC: B2151ZZ Fluoroscopy of Left Heart using Low Osmolar Contrast (ICD-10-PCS; 2017-10-24)
PROC: B2111ZZ Fluoroscopy of Multiple Coronary Arteries using Low Osmolar Contrast (ICD-10-PCS; 2017-10-24)
DX: I21.4 Non-ST elevation (NSTEMI) myocardial infarction (principal); I48.0 Paroxysmal atrial fibrillation; I25.110 Atherosclerotic heart disease of native coronary artery with unstable angina pectoris; N18.6 End stage renal disease; I12.0 Hypertensive chronic kidney disease with stage 5 chronic kidney disease or end stage renal disease; N25.81 Secondary hyperparathyroidism of renal origin; E11.22 Type 2 diabetes mellitus with diabetic chronic kidney disease; E11.51 Type 2 diabetes mellitus with diabetic peripheral angiopathy without gangrene; E78.5 Hyperlipidemia, unspecified; K21.9 Gastro-esophageal reflux disease without esophagitis; E83.39 Other disorders of phosphorus metabolism; Z99.2 Dependence on renal dialysis; Z95.5 Presence of coronary angioplasty implant and graft; Z79.4 Long term (current) use of insulin; Z87.11 Personal history of peptic ulcer disease

== ENCOUNTER 2017-12-03 13:57 | Observation (INO) | payer MEDICARE ==
[2017-12-03] MEDS ORDERED: DiphenhydrAMINE 50 mg/ml Inj IVP STA (14:00)
--- NOTE | 2017-12-03 14:10 | ED PDOC ---
Arrival/HPI - General Chief Complaint: Headache Time Seen by Provider: 12/03/17 13:59 Historian: Patient - History of Present Illness Narrative History of Present Illness (Text): 12/03/17 13:56 A 72 year old female, whose past medical history includes CAD s/p coronary stent , ESRD on hemodialysis, hyperlipidemia, hypertension, and diabetes, presents to the emergency department complaining of headache. Patient reports began experiencing symptom while at dialysis today. Notes also experiencing dizziness( room-spinning sensation), and nausea. Patient denies any other symptoms at this time. No PMD Past Medical History - Provider Review Nursing Documentation Reviewed: Yes - Infectious Disease Hx of Infectious Diseases: None - Tetanus Immunization Tetanus Immunization: Unknown - Cardiac Hx Cardiac Disorders: Yes (CAD) Hx Cardiac Arrhythmia: Yes (AFIB) Hx Hypertension: Yes - Pulmonary Hx Respiratory Disorders: No - Neurological Hx Neurological Disorder: Yes Hx Dizziness: Yes - HEENT Hx HEENT Disorder: No - Renal Hx Renal Disorder: Yes Hx Dialysis: Yes Date of Last Dialysis Treatment: 10/22/17 Hx Renal Failure: Yes - Endocrine/Metabolic Hx Endocrine Disorders: Yes Hx Diabetes Mellitus Type 1: Yes Hx Diabetes Mellitus Type 2: Yes - Hematological/Oncological Hx Blood Disorders: Yes Hx Anemia: Yes (blood transfusion) - Integumentary Hx Dermatological Disorder: No Other/Comment: SHUNT LEFT ARM - Musculoskeletal/Rheumatological Hx Musculoskeletal Disorders: Yes Hx Falls: Yes Hx Unsteady Gait: Yes - Gastrointestinal Hx Gastrointestinal Disorders: No - Genitourinary/Gynecological Hx Genitourinary Disorders: Yes (OLIGURIA) - Psychiatric Hx Psychophysiologic Disorder: No Hx Emotional Abuse: No Hx Physical Abuse: No Hx Substance Use: No - Surgical History Hx Coronary Stent: Yes Other/Comment: Left ankle open fracture - Anesthesia Hx Anesthesia Reactions: No Hx Malignant Hyperthermia: No - Suicidal Assessment Feels Threatened In Home Enviroment: No Family/Social History - Physician Review Nursing Documentation Reviewed: Yes Family/Social History: No Known Family HX Smoking Status: Never Smoked Hx Alcohol Use: No Hx Substance Use: No Hx Substance Use Treatment: No Allergies/Home Meds Allergies/Adverse Reactions: Allergies No Known Allergies Allergy (Verified 10/22/17 12:02) Home Medications: Home Meds Medication Instructions Recorded Confirmed Insulin Aspart/Insulin Aspar 5 units SC ACTID PRN 10/21/15 12/03/17 [Novolog Mix 70/30 (70/30 units/ml)] Insulin Glargine, Recombina 30 unit SC HS 12/08/15 12/03/17 [Lantus] Lisinopril [Zestril] 5 mg PO DAILY 12/09/15 12/03/17 Famotidine 20 mg PO PRN PRN 10/22/17 12/03/17 Review of Systems - Physician Review All systems were reviewed & negative as marked: Yes - Review of Systems Constitutional: absent: Fevers, Night Sweats Cardiovascular: absent: Chest Pain Gastrointestinal: Nausea Neurological: Headache, Dizziness (room-spinning sensation) Physical Exam Vital Signs Reviewed: Yes Vital Signs Temp Pulse Resp BP Pulse Ox 12/03/17 16:09 79 12 183/84 H 96 12/03/17 15:04 79 12 181/79 H 95 12/03/17 14:12 97.3 F L 72 17 194/92 H 98 12/03/17 13:58 98 F 74 18 205/78 H 100 Appearance: Positive for: Uncomfortable Pain Distress: None Mental Status: Positive for: Alert and Oriented X 3 - Systems Exam Head: Present: Atraumatic, Normocephalic Pupils: Present: PERRL Extroacular Muscles: Present: EOMI Conjunctiva: Present: Normal Mouth: Present: Moist Mucous Membranes Neck: Present: Normal Range of Motion Respiratory/Chest: Present: Clear to Auscultation, Good Air Exchange. No: Respiratory Distress, Accessory Muscle Use Cardiovascular: Present: Regular Rate and Rhythm, Normal S1, S2. No: Murmurs Abdomen: Present: Normal Bowel Sounds. No: Tenderness, Distention, Peritoneal Signs Back: Present: Normal Inspection Upper Extremity: Present: Normal Inspection. No: Cyanosis, Edema Lower Extremity: Present: Normal Inspection. No: Edema Neurological: Present: GCS=15, CN II-XII Intact, Speech Normal Skin: Present: Warm, Dry, Normal Color. No: Rashes Psychiatric: Present: Alert, Oriented x 3, Normal Insight, Normal Concentration Medical Decision Making ED Course and Treatment: 12/03/17 13:59 Impression: 72 year old female with headache, nausea, and dizziness. Physical exam shows patient appears uncomfortable; otherwise benign. Plan: -- EKG -- Head CT -- Labs -- Urinalysis -- Benadryl -- Reglan -- Reassess and disposition Prior Visits: Notes and results from previous visits were reviewed. Patient was last seen in the emergency department on 10/21/2017 for chest pain. Patient was admitted. Progress Notes: 12/03/2017 15:[address] IMPRESSION: No intracranial mass, hemorrhage, or evidence of acute infarct. Limited examination due to patient motion. Dictator: Umberto Villareal MD EKG: Ordered, reviewed, and independently interpreted the EKG. Rate : 69 BPM Rhythm : NSR Interpretation : With PVCs. Comparison : No previous EKG for comparison. - Lab Interpretations Lab Results: 12/03/17 14:20 12/03/17 14:20 Lab Results 12/03/17 14:20: Sodium 142, Potassium 3.5 L, Chloride 97 L, Carbon Dioxide 26, Anion Gap 23 H, BUN 15, Creatinine 3.6 H, Est GFR ( Amer) 15, Est GFR ( Non-Af Amer) 12, Random Glucose 186 H, Calcium 10.1, Magnesium 2.2, Total Bilirubin 1.1, AST 21, ALT 24, Alkaline Phosphatase 100, Lactate Dehydrogenase 404, Total Creatine Kinase 42, Troponin I 0.03 D, Total Protein 7.8, Albumin 4.6, Globulin 3.3, Albumin/Globulin Ratio 1.4 12/03/17 14:20: PT 12.2, INR 1.07, APTT 26.7 12/03/17 14:20: WBC 2.3 L* D, RBC 3.68, Hgb 11.7 L, Hct 34.8 L, MCV 94.6, MCH 31.8, MCHC 33.6, RDW 13.4, Plt Count 104 L, MPV 11.9 H, Gran % 69.0 H, Lymph % ( Auto) 19.4 L, [place] % (Auto) 8.2 H, Eos % (Auto) 3.0, Baso % (Auto) 0.4, Gran # 1.60, Lymph # (Auto) 0.5 L, [place] # (Auto) 0.2, Eos # (Auto) 0.1, Baso # (Auto) 0.01 I have reviewed the lab results: Yes - RAD Interpretation Radiology Orders: 12/03/17 14:00 HEAD W/O CONTRAST [CT] Stat - Medication Orders Current Medication Orders: Discontinued Medications Aspirin (Aspirin) 325 mg PO STAT STA Stop: 12/03/17 15:14 Last Admin: 12/03/17 15:36 Dose: 325 mg Diphenhydramine HCl (Benadryl) 25 mg IVP STAT STA Stop: 12/03/17 14:01 Last Admin: 12/03/17 14:21 Dose: 25 mg IVP Administration Document 12/03/17 14:21 RG (Rec: 12/03/17 14:25 [place] [facility] [id number] Charges for Administration # of IVP Administrations 1 Meclizine HCl (Antivert) 25 mg PO STAT STA Stop: 12/03/17 15:07 Last Admin: 12/03/17 15:36 Dose: 25 mg Metoclopramide HCl (Reglan) 10 mg IVP STAT STA Stop: 12/03/17 14:01 Last Admin: 12/03/17 14:11 Dose: 10 mg IVP Administration Document 12/03/17 14:11 RG (Rec: 12/03/17 14:21 RG [facility] [id number] Charges for Administration # of IVP Administrations 1 NIHSS Scale ([place]) Time Performed: 15:14 - How Severe is the Stoke Baseline Level of Consciousness: 0=Alert LOC to Questions: 0=Both comments correct LOC to commands: 0=Obeys both correctly Best Gaze: 0=Normal Visual: 0=No visual loss Facial: 0=Normal Motor Arm - Left: 0=No drift Motor Arm - Right: 0=No drift Motor Leg - Left: 0=No drift Motor Leg - Right: 0=No drift Limb Ataxia: 0=Absent Sensory: 0=Normal Best Language: 0=No aphasia Dysarthia: 0=Normal articulation Extinction & Inattention (Neglect): 0=Normal, no object Score: 0 Risk Level: No Stroke Risk rTPA Inclusion/Exclusion - Refusal of Treatment Patient Refused Treatment: No - Inclusion Criteria for Altepase Patient is 18 years or Older: Yes The Clinical Diagnosis of Ischemic Stroke That is Causing a Potentially Disabling Neurological Deficit: No Time of Onset is Well Established to be Less Than 270 Minute Before Treatment Would Begin: Yes Risk/Benefit Discussed With Patient/Family Member Present: No - Scribe Statement The provider has reviewed the documentation as recorded by the Jose Huff Provider Scribe Attestation: All medical record entries made by the Scribe were at my direction and personally dictated by me. I have reviewed the chart and agree that the record accurately reflects my personal performance of the history, physical exam, medical decision making, and the department course for this patient. I have also personally directed, reviewed, and agree with the discharge instructions and disposition. Disposition/Present on Arrival - Present on Arrival History of DVT/PE: No History of Uncontrolled Diabetes: No Urinary Catheter: No History Surgical Site Infection Following: None - Disposition
[2017-12-03 14:46] LABS: BASO # 0.01 K/mm3 (0.0-2.0); BASO % 0.4 % (0.0-3.0); EOS # 0.1 (0.0-0.7); GRAN # 1.6 (1.4-6.5); HEMOGLOBIN 11.7 g/dL (12.0-16.0); LYMPH # 0.5 (1.2-3.4); LYMPH % 19.4 % (22.0-35.0); MEAN CELL VOLUME 94.6 fl (80.0-105.0); MEAN CORPUSCULAR HEMOGLOBIN 31.8 pg (25.0-35.0); MEAN CORPUSCULAR HGB CONC 33.6 g/dl (31.0-37.0); MEAN PLATELET VOLUME 11.9 fl (7.0-11.0); MONO # 0.2 (0.1-0.6); MONO % 8.2 % (1.0-6.0); RBC 3.68 10^6/uL (3.5-6.1); RED CELL DISTRIBUTION WIDTH 13.4 % (11.5-14.5)
[2017-12-03 14:56] LABS: ALB/GLOB RATIO 1.4 (1.1-1.8); ALBUMIN 4.6 g/dL (3.0-4.8); CALCIUM 10.1 mg/dL (8.4-10.5); MAGNESIUM 2.2 mg/dL (1.7-2.2)
--- NOTE | 2017-12-03 15:01 | CT ---
PROCEDURE: CT HEAD WITHOUT CONTRAST. HISTORY: vickers COMPARISON: 04/02/2017 TECHNIQUE: Axial computed tomography images were obtained through the head/brain without intravenous contrast. Radiation dose: Total exam DLP = 837.32 mGy-cm. This CT exam was performed using one or more of the following dose reduction techniques: Automated exposure control, adjustment of the mA and/or kV according to patient size, and/or use of iterative reconstruction technique. FINDINGS: HEMORRHAGE: No intracranial hemorrhage. BRAIN: Examination limited due to patient motion artifact particularly obscuring posterior fossa. No intracranial mass. Mild age-appropriate diffuse atrophy. VENTRICLES: Unremarkable. No hydrocephalus. CALVARIUM: Unremarkable. PARANASAL SINUSES: Unremarkable as visualized. No significant inflammatory changes. MASTOID AIR CELLS: Unremarkable as visualized. No inflammatory changes. OTHER FINDINGS: None. IMPRESSION: No intracranial mass, hemorrhage or evidence of acute infarct. Limited examination due to patient motion.
[2017-12-03 15:02] LABS: WHITE BLOOD COUNT 2.3 10^3/ul (4.5-11.0)
[2017-12-03 15:08] LABS: TROPONIN I 0.03 ng/mL
[2017-12-03 15:12] LABS: INR 1.07 (0.93-1.08); PARTIAL THROMBOPLASTIN TIME 26.7 Seconds (25.1-36.5); PROTHROMBIN TIME 12.2 SECONDS (9.4-12.5)
[2017-12-03] MEDS: Insulin Reg-MEDIUM-Coverage SC SCH (22:15)
[2017-12-03] MEDS: Insulin Detemir 100 units/ml Vial (Levemir) SC SCH (22:17)
[2017-12-03] MEDS ORDERED: Pneumococcal 23-Valent Vaccine IM ONE (23:02)
[2017-12-03] MEDS ORDERED: Influenza Vaccine 60 mcg/0.5 mL SYR (4YR UP) IM ONE (23:02)
[2017-12-03 23:03] VITALS: BMI 27.2
--- NOTE | 2017-12-04 08:35 | CARD ---
APPROVED REPORT EKG Measurement Heart [id number] MI [id number] <Conclusion> Sinus rhythm with frequent premature ventricular complexes In complete ECG. See V 4 - 6, missing a complete beat b/o PVC STTW changes c/w ischemia Prolonged QTc
[2017-12-04] MEDS: Insulin Reg-MEDIUM-Coverage SC SCH (08:42)
[2017-12-04] MEDS: Insulin Detemir 100 units/ml Vial (Levemir) SC SCH (09:01)
[2017-12-04 10:21] VITALS: PULSE 65
[2017-12-04 11:15] VITALS: BP 149/66; RESP 18; TEMP 98.1; O2SAT 99
--- NOTE | 2017-12-04 20:00 | HP ---
HISTORY OF PRESENT ILLNESS: This is a 72-year-old female who is coming into the hospital complaining of headaches. She is having dizziness. The patient says that she was having nausea and vomiting. All happened after the dialysis treatment. She was sent to the ER for further evaluation. She says that she is feeling better. She does have mild dizziness. She says she has no complaints of any headaches or dizziness. No vomiting. I spoke to the patient's nurse and also I spoke to the patient's daughter, Isis. The patient has no abdominal pain or back pain. No dysuria, frequency, or nocturia. She felt the room was spinning, that is why she started to develop nausea as well. This has happened in the past after dialysis, but not as bad as this particular episode. REVIEW OF SYSTEMS: All other review of symptoms are within normal limits except what was mentioned. ALLERGIES: NO KNOWN DRUG ALLERGIES. HOME MEDICATIONS: Have been reviewed. She is on Zestril, famotidine, and Lantus. PAST SURGICAL HISTORY: . SOCIAL HISTORY: No smoking. FAMILY HISTORY: Noncontributory. PAST MEDICAL HISTORY: End-stage renal failure, on hemodialysis; diabetes type 2; secondary hyperparathyroidism; hypertension; peripheral arterial disease; and coronary artery disease. PHYSICAL EXAMINATION: VITAL SIGNS: Temperature is 97.3; pulse of 79; blood pressure 183/84, repeat is 140/69; O2 saturation 97%. Height is 5 feet, weight is 148 pounds, BMI is 27. GENERAL: The patient lying in bed, , and in no acute distress. HEENT: Atraumatic and normocephalic. Anicteric sclerae. Moist mucosa. [place] conjunctivae. No oral lesions. NECK: No JVD, anterior and posterior adenopathy, thyromegaly, or bruits. CARDIOVASCULAR: S1 and S2 regular. No murmur, rubs, or gallop. LUNGS: Clear to auscultation bilaterally. No wheezes, rales, or rhonchi. ABDOMEN: Bowel sounds are positive. Soft, nontender and nondistended. No hepatosplenomegaly. No rebound and no guarding. EXTREMITIES: No cyanosis, clubbing, or edema. NEUROLOGIC: No facial asymmetry. Tongue is midline. No uvula deviation. Power is 5/5 upper extremity and lower extremity. Sensation intact in upper extremity and lower extremity. PSYCHIATRIC: She is awake, alert and oriented x3. No anxiety or depression. She has normal affect. GENITOURINARY: No CVA tenderness. VASCULAR: 2+ pulses in the carotid pulses and pedal pulses. SKIN: No erythema or nodules. SPINE: Shows normal curvature. LABORATORY DATA: White count of 2.3, hemoglobin 11.7. Chemistries show a sodium 142, potassium 3.5, creatinine is 3.6. Alkaline phosphatase is 100. Serology: Influenza is negative. CT of the head done, shows no intracranial masses, hemorrhage, or evidence of acute infarct. EKG shows sinus rhythm at 69, QTc is 516, nonspecific ST changes. The patient's troponin is 0.03. ASSESSMENT: 1. Dizziness, improved. 2. Nausea and vomiting, improved. 3. End-stage renal disease, on hemodialysis. 4. Coronary artery disease. 5. Diabetes type 2. 6. Secondary hyperparathyroidism. 7. Hypertension. 8. Peripheral arterial disease. 9. Anemia. PLAN: The patient is comfortable. The patient had dizziness after dialysis. This may be related to dialysis. She is on Levemir for diabetes. She is on metoprolol. She is on Plavix. She is going to continue with Renagel for her hyperparathyroidism. She is on lisinopril for her hypertension. She is on a renal diet. I did speak to the patient's daughter. We will discharge the patient home today. Deep Yu MD
== END 2017-12-04 12:02 | disposition home or self-care (01) ==
LOC: ED 13:57 → ERH 15:12 → 3RNO 16:31
PROVIDERS: ADMIT Internal Medicine Nephrology; ATTEND Internal Medicine Nephrology
DX: R42 Dizziness and giddiness (principal); R11.2 Nausea with vomiting, unspecified; R51 Headache; N18.6 End stage renal disease; I12.0 Hypertensive chronic kidney disease with stage 5 chronic kidney disease or end stage renal disease; E11.22 Type 2 diabetes mellitus with diabetic chronic kidney disease; E11.51 Type 2 diabetes mellitus with diabetic peripheral angiopathy without gangrene; N25.81 Secondary hyperparathyroidism of renal origin; I25.10 Atherosclerotic heart disease of native coronary artery without angina pectoris; D64.9 Anemia, unspecified; E78.5 Hyperlipidemia, unspecified; Z99.2 Dependence on renal dialysis; Z79.4 Long term (current) use of insulin; Z95.5 Presence of coronary angioplasty implant and graft
CPT/HCPCS: 70450; 80053; 82550; 82948; 83615; 83735; 84484; 85025; 85610; 85730; 87804; 93005; 96374; 99285; G0378; J1200; J2765

== ENCOUNTER 2017-12-31 03:21 | Observation (INO) | payer MEDICARE ==
--- NOTE | 2017-12-31 04:02 | ED PDOC ---
Arrival/HPI - General Chief Complaint: Shortness Of Breath Time Seen by Provider: 12/31/17 03:22 Historian: Patient, Family - History of Present Illness Narrative History of Present Illness (Text): 12/31/17 03:50 72 year old female, whose past medical history includes CAD s/p coronary stent, ESRD on hemodialysis, hyperlipidemia, hypertension, and diabetes, presents to the emergency department complaining of shortness of breath that began this morning. Patient is scheduled for dialysis today. Patient denies any fever, chills, cough, chest pain, nausea, vomiting, diarrhea, urinary symptoms, back pain, leg pain, neck pain, headache, dizziness, or any other complaints. PMD: Dr. Yu Cardiology: Dr. Davila Symptom Onset: Sudden Symptom Course: Unchanged Activities at Onset: Light Context: Home, Other (sleeping) Past Medical History - Provider Review Nursing Documentation Reviewed: Yes - Infectious Disease Hx of Infectious Diseases: None - Tetanus Immunization Tetanus Immunization: Unknown - Reproductive Menopause: Yes - Cardiac Hx Cardiac Disorders: Yes (CAD) Hx Cardiac Arrhythmia: Yes (AFIB) Hx Hypertension: Yes - Pulmonary Hx Respiratory Disorders: No - Neurological Hx Neurological Disorder: Yes Hx Dizziness: Yes - HEENT Hx HEENT Disorder: No - Renal Hx Dialysis: Yes (t/t/s) Type of Dialysis Access: left arm Date of Last Dialysis Treatment: 12/28/17 - Endocrine/Metabolic Hx Endocrine Disorders: Yes Hx Diabetes Mellitus Type 2: Yes - Hematological/Oncological Hx Blood Disorders: Yes Hx Anemia: Yes (blood transfusion) - Integumentary Hx Dermatological Disorder: No Other/Comment: SHUNT LEFT ARM - Musculoskeletal/Rheumatological Hx Musculoskeletal Disorders: Yes Hx Falls: Yes Hx Unsteady Gait: Yes - Gastrointestinal Hx Gastrointestinal Disorders: No - Genitourinary/Gynecological Hx Genitourinary Disorders: Yes (OLIGURIA) - Psychiatric Hx Psychophysiologic Disorder: No Hx Emotional Abuse: No Hx Physical Abuse: No Hx Substance Use: No - Surgical History Hx Section: Yes Hx Coronary Stent: Yes (x1) Hx Orthopedic Surgery: Yes (left ankle) Other/Comment: Left ankle open fracture - Anesthesia Hx Anesthesia Reactions: No Hx Malignant Hyperthermia: No - Suicidal Assessment Feels Threatened In Home Enviroment: No Family/Social History - Physician Review Nursing Documentation Reviewed: Yes Family/Social History: No Known Family HX Smoking Status: Never Smoked Hx Alcohol Use: No Hx Substance Use: No Hx Substance Use Treatment: No Allergies/Home Meds Allergies/Adverse Reactions: Allergies No Known Allergies Allergy (Verified 12/31/17 03:26) Home Medications: Home Meds Medication Instructions Recorded Confirmed Insulin Aspart/Insulin Aspar 5 units SC ACTID PRN 10/21/15 12/31/17 [Novolog Mix 70/30 (70/30 units/ml)] Insulin Glargine, Recombina 30 unit SC HS 12/08/15 12/31/17 [Lantus] Famotidine 20 mg PO PRN PRN 10/22/17 12/31/17 Atorvastatin [Lipitor] 10 mg PO DIN 12/31/17 12/31/17 Review of Systems - Physician Review All systems were reviewed & negative as marked: Yes - Review of Systems Constitutional: absent: Fevers, Other (Chills) Respiratory: SOB. absent: Cough Cardiovascular: absent: Chest Pain Gastrointestinal: absent: Diarrhea, Nausea, Vomiting Genitourinary Female: absent: Dysuria, Frequency, Hematuria Musculoskeletal: absent: Back Pain, Neck Pain, Other (Leg pain) Neurological: absent: Headache, Dizziness Physical Exam Vital Signs Reviewed: Yes Vital Signs Temp Pulse Resp BP Pulse Ox 12/31/17 05:19 72 20 152/72 H 100 12/31/17 03:55 98.5 F 77 24 150/75 95 Temperature: Afebrile Blood Pressure: Normal Pulse: Regular Respiratory Rate: Normal Appearance: Positive for: Well-Appearing, Non-Toxic, Comfortable Pain Distress: None Mental Status: Positive for: Alert and Oriented X 3 - Systems Exam Head: Present: Atraumatic, Normocephalic Pupils: Present: PERRL Extroacular Muscles: Present: EOMI Conjunctiva: Present: Normal Mouth: Present: Moist Mucous Membranes Neck: Present: Normal Range of Motion Respiratory/Chest: Present: Rhonchi (Scattered Rhonchi). No: Respiratory Distress, Accessory Muscle Use Cardiovascular: Present: Regular Rate and Rhythm, Normal S1, S2. No: Murmurs Abdomen: Present: Normal Bowel Sounds. No: Tenderness, Distention, Peritoneal Signs Back: Present: Normal Inspection Upper Extremity: Present: Normal Inspection. No: Cyanosis, Edema Lower Extremity: Present: Normal Inspection. No: Edema, Cyanosis Neurological: Present: GCS=15, CN II-XII Intact, Speech Normal. No: Other (No focal neurological deficits) Skin: Present: Warm, Dry, Normal Color. No: Rashes Psychiatric: Present: Alert, Oriented x 3, Normal Insight, Normal Concentration Medical Decision Making ED Course and Treatment: 12/31/17 03:50 Impression: 72 year old female presents complaining of shortness of breath that began this morning. Differential Diagnosis included but are not limited to: CHF VS COPD VS Pneumonia Plan: -- EKG -- Labs -- Chest X-ray -- Hectorol -- Reassess and disposition Prior Visits: Notes and results from previous visits were reviewed. Patient was last seen in the emergency department on 12/03/17 presents complaining of headache and dizziness. Patient was admitted. Progress Notes: Patient on arrival to emergency department cpap was given and then switched to bipap to aid her breathing. Patient apparently improved prior to arrival. 12/31/17 04:29 CXR Impression: As read by me, CHF EKG shows NSR at 87 BPM with septal infarct. Non-specific ST/T changes. Interpreted by me. 12/31/17 05:[address] Yu who is aware and agrees with the plan. Accept patient into his service. - Lab Interpretations Lab Results: 12/31/17 03:52 12/31/17 03:52 Lab Results 12/31/17 05:00: pCO2 38, pO2 152.0 H, HCO3 24.1, ABG pH 7.41, ABG Total CO2 25.3 , ABG O2 Saturation 99.1 H, ABG O2 Content 13.3 L, ABG Base Excess -0.4, ABG Hemoglobin 9.5 L, ABG Carboxyhemoglobin 1.7 H, POC ABG HHb (Measured) 0.9, ABG Methemoglobin 0.4, ABG O2 Capacity 13.4 L, Hgb O2 Saturation 96.9, FiO2 60.0 12/31/17 03:52: WBC 5.3 D, RBC 3.42 L, Hgb 10.9 L, Hct 32.4 L, MCV 94.7, MCH 31.9, MCHC 33.6, RDW 13.3, Plt Count 107 L, MPV 12.3 H 12/31/17 03:52: Sodium 139, Potassium 3.6, Chloride 96 L, Carbon Dioxide 26, Anion Gap 21 H, BUN 46 H, Creatinine 7.2 H, Est GFR ( Amer) 7, Est GFR ( Non-Af Amer) 6, Random Glucose 231 H, Calcium 10.1, Total Bilirubin 1.0, AST 89 H D, ALT 76 H, Alkaline Phosphatase 101, Lactate Dehydrogenase 564, Total Creatine Kinase 37, Troponin I 0.04 D, NT-Pro-B Natriuret Pep 14708 H, Total Protein 7.1, Albumin 4.0, Globulin 3.1, Albumin/Globulin Ratio 1.3 12/31/17 03:52: PT 11.9, INR 1.04, APTT 29.5 I have reviewed the lab results: Yes - RAD Interpretation Radiology Orders: 12/31/17 03:28 CHEST PORTABLE [RAD] Stat - EKG Interpretation Interpreted by ED Physician: Yes Type: 12 lead EKG - Medication Orders Current Medication Orders: Discontinued Medications Albuterol/Ipratropium (Duoneb 3 Mg/0.5 Mg (3 Ml) Ud) 3 ml IH ONCE STA Stop: 12/31/17 04:29 Last Admin: 12/31/17 04:50 Dose: 3 ml - Scribe Statement The provider has reviewed the documentation as recorded by the Jose Allen Provider Scribe Attestation: All medical record entries made by the Jose were at my direction and personally dictated by me. I have reviewed the chart and agree that the record accurately reflects my personal performance of the history, physical exam, medical decision making, and the department course for this patient. I have also personally directed, reviewed, and agree with the discharge instructions and disposition. Disposition/Present on Arrival - Present on Arrival Any Indicators Present on Arrival: No History of DVT/PE: No History of Uncontrolled Diabetes: No Urinary Catheter: No History of Decub. Ulcer: No History Surgical Site Infection Following: None - Disposition Have Diagnosis and Disposition been Completed?: Yes Diagnosis: CHF (congestive heart failure) Disposition: HOSPITALIZED Disposition Time: 05:17 Patient Plan: Observation Patient Problems: Current Active Problems Problem Status Onset CHF (congestive heart failure) Acute Condition: STABLE
[2017-12-31 04:25] LABS: TROPONIN I 0.04 ng/mL
[2017-12-31 04:26] LABS: INR 1.04 (0.93-1.08); PARTIAL THROMBOPLASTIN TIME 29.5 Seconds (25.1-36.5); PROTHROMBIN TIME 11.9 SECONDS (9.4-12.5)
[2017-12-31] MEDS ORDERED: Albuterol-Ipratrop 3 mg / 0.5 (3 ml) UD IH STA (04:28)
[2017-12-31 04:40] LABS: HEMOGLOBIN 10.9 g/dL (12.0-16.0); MEAN CELL VOLUME 94.7 fl (80.0-105.0); MEAN CORPUSCULAR HEMOGLOBIN 31.9 pg (25.0-35.0); MEAN CORPUSCULAR HGB CONC 33.6 g/dl (31.0-37.0); MEAN PLATELET VOLUME 12.3 fl (7.0-11.0); RBC 3.42 10^6/uL (3.5-6.1); RED CELL DISTRIBUTION WIDTH 13.3 % (11.5-14.5); WHITE BLOOD COUNT 5.3 10^3/ul (4.5-11.0)
[2017-12-31 04:41] LABS: ALB/GLOB RATIO 1.3 (1.1-1.8); CALCIUM 10.1 mg/dL (8.4-10.5)
[2017-12-31 05:07] LABS: ARTERIAL BLOOD GAS HCO3 24.1 mmol/L (21-28); ARTERIAL BLOOD GAS HEMOGLOBIN 9.5 g/dL (11.7-17.4); ARTERIAL BLOOD GAS O2 CAPACITY 13.4 mL/dl (16-24); ARTERIAL BLOOD GAS O2 CONTENT 13.3 ML/dl (15-23); ARTERIAL BLOOD GAS O2 SAT 99.1 % (95-98); ARTERIAL BLOOD GAS PCO2 38 mm/Hg (35-45); ARTERIAL BLOOD GAS PH 7.41 (7.35-7.45); ARTERIAL BLOOD GAS TCO2 25.3 mmol.L (22-28)
[2017-12-31 06:59] VITALS: RESP 20; BMI 30.2
--- NOTE | 2017-12-31 08:16 | RAD ---
HISTORY: sob COMPARISON: 12/17/2017 FINDINGS: LUNGS: Extensive bilateral alveolar infiltrates are seen left greater than right consistent with pneumonia. This could represent pulmonary edema PLEURA: No significant pleural effusion identified, no pneumothorax apparent. CARDIOVASCULAR: Normal. OSSEOUS STRUCTURES: No significant abnormalities. VISUALIZED UPPER ABDOMEN: Normal. OTHER FINDINGS: None. IMPRESSION: Extensive bilateral alveolar infiltrates are seen left greater than right consistent with pneumonia. This could represent pulmonary edema
[2017-12-31] MEDS ORDERED: Non Formulary Medication (Insulin Aspart/Insulin Aspar [Novolog Mix 70/30 (70/30 Units/Ml) SC PRN (09:01)
--- NOTE | 2017-12-31 10:24 | CARD ---
APPROVED REPORT EKG Measurement Heart [id number] <Conclusion> Normal sinus rhythm Septal infarct, age undetermined Abnormal ECG
[2017-12-31] MEDS: Insulin Lispro (humaLOG) MEDIUM Coverage SC SCH ×3 (11:18→21:46)
[2017-12-31] MEDS: Insulin Detemir 100 units/ml Vial (Levemir) SC SCH (21:46)
--- NOTE | 2018-01-01 03:40 | HP ---
HISTORY OF PRESENT ILLNESS: Patient is a 72-year-old female who is coming into the hospital because of shortness of breath. The patient has a history of coronary artery disease and stenting. The patient is on dialysis three times a week. She has been coming for dialysis and had been fairly compliant. She has a past medical history of diabetes, hypertension. The patient states that she had worsening shortness of breath early this morning. She was scheduled for dialysis today but was not able to make it. She was dialyzed and she started having improvement in her symptoms. She also is complaining of a cough. No headaches. No dizziness. No nausea. No vomiting. No dysuria or frequency. No nocturia. REVIEW OF SYSTEMS: All other review of symptoms are within normal limits except what was mentioned. ALLERGIES: NO KNOWN DRUG ALLERGIES. HOME MEDICATIONS: NovoLog 70/30, Lantus, Lipitor. PAST MEDICAL HISTORY: 1. End-stage renal disease, on hemodialysis three times a week. 2. Diabetes type 2.. 3. Secondary hyperparathyroidism. 4. Hypertension. 5. Peripheral arterial disease. 6. Coronary artery disease. SOCIAL HISTORY: She does not smoke, drink, or use drugs. FAMILY HISTORY: Noncontributory. PAST SURGICAL HISTORY: and AV fistula. PHYSICAL EXAMINATION: VITAL SIGNS: Temperature is 98, pulse of 83, blood pressure is 165/74, respirations 20, O2 saturation 100%. GENERAL: The patient lying in bed, uncomfortable, and in no acute distress. HEENT: Atraumatic and normocephalic. Anicteric sclerae. Moist mucosa. [place] conjunctivae. No oral lesions. NECK: No JVD, anterior and posterior adenopathy, thyromegaly, or bruits. CARDIOVASCULAR: S1 and S2 regular. No murmur, rubs, or gallop. LUNGS: Clear to auscultation bilaterally. No wheezes, rales, or rhonchi. ABDOMEN: Bowel sounds are positive. Soft, nontender and nondistended. No hepatosplenomegaly. No rebound and no guarding EXTREMITIES: No cyanosis, clubbing, or edema. NEUROLOGIC: No facial asymmetry. Tongue is midline. No uvula deviation. Power is 5/5 upper extremity and lower extremity. Sensation intact in upper extremity and lower extremity. PSYCHIATRIC: She is awake, alert and oriented x3. No anxiety or depression. She has normal affect. GENITOURINARY: No CVA tenderness. VASCULAR: 2+ pulses in the carotid pulses and pedal pulses. SKIN: No erythema or nodules. SPINE: Shows normal curvature. LABORATORY DATA: Labs have been reviewed. Potassium is 3.6. Troponin is 0.04. ProBNP is 19,800. White count of 5.3, hemoglobin of 10.9. INR is 1.04. Chest x-ray done shows extensive bilateral alveolar infiltrates seen in the left greater than right. EKG shows a heart rate of 87, sinus rhythm, QTc of 457. ASSESSMENT: 1. Acute congestive heart failure secondary to systolic dysfunction. 2. End-stage renal disease, on hemodialysis. 3. Secondary hyperparathyroidism. 4. Coronary artery disease. 5. Diabetes type 2. 6. Peripheral arterial disease. 7. Anemia. PLAN: The patient is currently comfortable. She is breathing better. She is going to continue her aspirin. She is on Levemir. She is on Lipitor for dyslipidemia. She is on metoprolol. The patient is on fingersticks with coverage. I will repeat the patient's chest x-ray. She is on a renal diet. I am not sure if the patient has underlying pneumonia, although she has no white count or fever. Repeat chest x-ray will help to decide whether patient has pneumonia. Clinically, she looks like she was volume overloaded. Deep Yu MD
[2018-01-01 05:58] VITALS: TEMP 98.6; O2SAT 98
[2018-01-01] MEDS: Insulin Lispro (humaLOG) MEDIUM Coverage SC SCH ×3 (08:35→15:29)
--- NOTE | 2018-01-01 09:08 | RAD ---
HISTORY: CHF COMPARISON: Earlier same day TECHNIQUE: Chest PA and lateral FINDINGS: LUNGS: There is significant improvement in the pulmonary edema seen earlier PLEURA: No significant pleural effusion identified. No pneumothorax apparent. CARDIOVASCULAR: Normal. OSSEOUS STRUCTURES: No significant abnormalities. VISUALIZED UPPER ABDOMEN: Normal. OTHER FINDINGS: None. IMPRESSION: Significant improvement in pulmonary edema
[2018-01-01] MEDS: Insulin Detemir 100 units/ml Vial (Levemir) SC SCH (10:20)
[2018-01-01 14:43] VITALS: BP 180/69; PULSE 65
--- NOTE | 2018-01-02 05:24 | DS ---
HISTORY OF PRESENT ILLNESS: This is a 72-year-old female who had come into the hospital with volume overload. She has been on dialysis and was supposed to get her dialysis treatment yesterday, but she became more short of breath and came to the ER for further evaluation. She denies any fever. She had no white count. It was felt that she had volume overload and not CHF. She was dialyzed and she felt better. She is going to get two more hours of dialysis today before she goes home to help remove more fluid. She has no headaches or dizziness. No nausea. No vomiting. She states her breathing has improved. PHYSICAL EXAMINATION: VITAL SIGNS: Temperature is 98.6, pulse of 65, blood pressure 102/70, respirations 20, O2 saturation 98%. GENERAL: The patient is lying in bed, flat, comfortable. HEENT: No oral lesion. Anicteric sclerae. Moist mucosa. NECK: No JVD, adenopathy, or thyromegaly. CARDIOVASCULAR: S1 and S2, regular. No murmurs, rubs, or gallops. LUNGS: Bibasilar rales. Good bilateral air entry. No wheezes or rhonchi. ABDOMEN: Bowel sounds are positive, soft, nontender and nondistended. EXTREMITIES: No cyanosis, clubbing or edema. ASSESSMENT: 1. Acute volume overload. 2. End-stage renal disease on hemodialysis. 3. Shortness of breath, improved. 4. Coronary artery disease. 5. Diabetes type 2. 6. Peripheral arterial disease. 7. Anemia. PLAN: The patient does not have an acute CHF exacerbation. She had volume overload, and because of being on dialysis, she is not able to get rid of extra volume. She is dialyzed and felt better. The patient had no chest pain. Her troponin has been negative. The patient is going to continue her Lipitor. She is on aspirin. She is on diabetes medication and insulin. I did speak to the patient's family to give them an update. The patient is going to get another dose of treatment of dialysis for 2 hours and then she will be discharged home. I did speak to the patient's daughter to let her know. CONDITION: Stable. ACTIVITIES: Increase as tolerated. Deep Yu MD
== END 2018-01-01 16:54 | disposition home or self-care (01) ==
LOC: ED 03:21 → ERH 05:15 → 3RSO 06:19
PROVIDERS: ADMIT Internal Medicine Nephrology; ATTEND Internal Medicine Nephrology
DX: E87.70 Fluid overload, unspecified (principal); N18.6 End stage renal disease; I12.0 Hypertensive chronic kidney disease with stage 5 chronic kidney disease or end stage renal disease; E11.22 Type 2 diabetes mellitus with diabetic chronic kidney disease; N25.81 Secondary hyperparathyroidism of renal origin; E11.51 Type 2 diabetes mellitus with diabetic peripheral angiopathy without gangrene; I25.10 Atherosclerotic heart disease of native coronary artery without angina pectoris; E78.5 Hyperlipidemia, unspecified; D64.9 Anemia, unspecified; R06.02 Shortness of breath; Z99.2 Dependence on renal dialysis; Z79.4 Long term (current) use of insulin; Z95.5 Presence of coronary angioplasty implant and graft
CPT/HCPCS: 71045; 71046; 80053; 82550; 82803; 82948; 83615; 83880; 84484; 85027; 85610; 85730; 93005; 99285; G0378

== ENCOUNTER 2018-01-17 23:10 | Inpatient (IN) | payer MEDICARE ==
--- NOTE | 2018-01-17 23:16 | ED PDOC ---
Arrival/HPI - General Time Seen by Provider: 01/17/18 23:14 - Critical Care Critical Care Minutes: 45 minutes Narrative Critical Care (Text): Patient in severe respiratory distress, required immediate intervention, frequent re-evaluations. - History of Present Illness Narrative History of Present Illness (Text): 01/17/18 23:17 72 year old female, whose past medical history includes CAD s/p coronary stent, ESRD on hemodialysis, hyperlipidemia, hypertension, and diabetes, presents to the emergency department via EMS complaining of shortness of breath that began 45 minutes prior to arrival. Patient reports increased swelling of the abdomen and is due for dialysis tomorrow. Denies chest pain or fever. Full HPI/ROS unobtainable due to patient's distress. PMD: Dr. Yu Cardiology: Dr. Davila Past Medical History - Infectious Disease Hx of Infectious Diseases: None - Tetanus Immunization Tetanus Immunization: Unknown - Cardiac Hx Cardiac Disorders: Yes Hx Cardiac Arrhythmia: Yes (A-fib) Hx Hypertension: Yes - Pulmonary Hx Respiratory Disorders: No - Neurological Hx Neurological Disorder: Yes Hx Dizziness: Yes - HEENT Hx HEENT Disorder: No - Renal Date of Last Dialysis Treatment: 12/03/17 - Endocrine/Metabolic Hx Endocrine Disorders: Yes Hx Diabetes Mellitus Type 2: Yes - Hematological/Oncological Hx Blood Disorders: Yes Hx Anemia: Yes (w/ Blood transfusions) - Integumentary Hx Dermatological Disorder: No Other/Comment: SHUNT LEFT ARM - Musculoskeletal/Rheumatological Hx Musculoskeletal Disorders: Yes Hx Falls: No Hx Osteoporosis: Yes Hx Unsteady Gait: Yes - Gastrointestinal Hx Gastrointestinal Disorders: No - Genitourinary/Gynecological Hx Genitourinary Disorders: Yes (OLIGURIA) - Psychiatric Hx Substance Use: No - Surgical History Hx Section: Yes (x1) Hx Coronary Stent: Yes Hx Orthopedic Surgery: Yes (left ankle surgery with screws) - Anesthesia Hx Anesthesia Reactions: No Hx Malignant Hyperthermia: No - Suicidal Assessment Feels Threatened In Home Enviroment: No Family/Social History Family/Social History: No Known Family HX Smoking Status: Never Smoked Hx Alcohol Use: No Hx Substance Use: No Hx Substance Use Treatment: No Allergies/Home Meds Allergies/Adverse Reactions: Allergies No Known Allergies Allergy (Verified 12/31/17 03:26) Home Medications: Home Meds Medication Instructions Recorded Confirmed Insulin Aspart/Insulin Aspar 5 units SC ACTID PRN 10/21/15 01/17/18 [Novolog Mix 70/30 (70/30 units/ml)] Insulin Glargine, Recombina 30 unit SC HS 12/08/15 01/17/18 [Lantus] Famotidine 20 mg PO PRN PRN 10/22/17 01/17/18 Atorvastatin [Lipitor] 10 mg PO DIN 12/31/17 01/17/18 Review of Systems - Review of Systems Systems not reviewed;Unavailable: Respiratory Distress Physical Exam - Physical Exam Narrative Physical Exam (Text): Constitutional: In respiratory distress. Head: Normocephalic. Atraumatic. Eyes: PERRL. ENT: On CPAP. Neck: Supple. Cardiovascular: Tachycardic rate. Chest: No tenderness. Respiratory: Bilateral crackles. GI: Soft. Nontender. Distended. Back: No CVA tenderness. Musculoskeletal: No tenderness or swelling of extremities. Skin: No rash. Neurologic: Alert, no focal deficit. Vital Signs Temp Pulse Resp BP Pulse Ox 01/18/18 00:34 75 20 145/87 100 01/17/18 23:57 97.2 F L 01/17/18 23:30 36 H 87 L 01/17/18 23:28 105 H 33 H 145/101 H 98 01/17/18 23:23 145/101 H 01/17/18 23:16 106 H 36 H 159/103 H 87 L Medical Decision Making ED Course and Treatment: 01/17/18 23:19 Plan: -- EKG -- Labs -- Chest X-ray -- Lasix, Nitrostat SL Tab -- Urinalysis -- Urinary Catheter Insertion -- Reassess and disposition Prior Visits: Notes and results from previous visits were reviewed. Patient was last seen in the emergency department on 12/31/17 presents complaining of shortness of breath that began this morning. Patient was scheduled for dialysis. Patient was admitted. Progress Notes: 01/17/18 23:27 EKG shows sinus rhythm at [address] elevations. Interpreted by me. 01/18/18 00:16 CXR Impression: As read by me, pulmonary edema. 01/18/18 01:[address] Yu who is aware and agrees with the plan. Accepts patient into his service. - Lab Interpretations Lab Results: 01/17/18 23:28 01/17/18 23:28 Lab Results 01/17/18 23:28: Sodium 143, Potassium 5.0, Chloride 106, Carbon Dioxide 20 L, Anion Gap 22 H, BUN 26 H, Creatinine 4.7 H, Est GFR ( Amer) 11, Est GFR ( Non-Af Amer) 9, Random Glucose 210 H, Calcium 10.2, Total Bilirubin 0.9, AST 108 H D, ALT 65 H, Alkaline Phosphatase 108, Total Creatine Kinase 53, Troponin I 0.02 D, NT-Pro-B Natriuret Pep 72446 H, Total Protein 7.6, Albumin 4.2, Globulin 3.4, Albumin/Globulin Ratio 1.2 01/17/18 23:28: PT 12.0, INR 1.05, APTT 19.8 L 01/17/18 23:28: WBC 5.5, RBC 3.81, Hgb 12.1, Hct 36.1, MCV 94.8, MCH 31.8, MCHC 33.5, RDW 13.6, Plt Count 134, MPV 12.8 H, Gran % 51.1, Lymph % (Auto) 40.0 H, [place] % (Auto) 5.1, Eos % (Auto) 3.8, Baso % (Auto) 0.0, Gran # 2.79, Lymph # ( Auto) 2.2, [place] # (Auto) 0.3, Eos # (Auto) 0.2, Baso # (Auto) 0.00 - RAD Interpretation Radiology Orders: 01/17/18 23:15 CHEST PORTABLE [RAD] Stat - EKG Interpretation Interpreted by ED Physician: Yes - Medication Orders Current Medication Orders: Discontinued Medications Furosemide (Lasix) 80 mg IVP STAT STA Stop: 01/17/18 23:17 Last Admin: 01/17/18 23:23 Dose: 80 mg MAR Blood Pressure Document 01/17/18 23:23 GMD (Rec: 01/17/18 23:23 GMD [id number]) Blood Pressure Blood Pressure (100/60-150/90) 145/101 IVP Administration Document 01/17/18 23:23 GMD (Rec: 01/17/18 23:23 GMD [id number]) Charges for Administration # of IVP Administrations 1 Nitroglycerin (Nitrostat Sl Tab) 0.4 mg SL STAT STA Stop: 01/17/18 23:17 Last Admin: 01/17/18 23:24 Dose: 0.4 mg Disposition/Present on Arrival - Present on Arrival Any Indicators Present on Arrival: No History of DVT/PE: No History of Uncontrolled Diabetes: No Urinary Catheter: No History Surgical Site Infection Following: None - Disposition Have Diagnosis and Disposition been Completed?: Yes Diagnosis: CHF (congestive heart failure), Pulmonary edema Disposition: HOSPITALIZED Disposition Time: 01:19 Patient Plan: Admission, Telemetry Condition: GUARDED Discharge Instructions (ExitCare): Heart Failure (ED) Referrals: Deep Yu MD [Primary Care Provider] - Follow up with primary
[2018-01-17 23:32] LABS: EOS # 0.2 (0.0-0.7); EOS % 3.8 % (1.5-5.0); GRAN # 2.79 (1.4-6.5); GRAN % 51.1 % (50.0-68.0); HEMOGLOBIN 12.1 g/dL (12.0-16.0); LYMPH # 2.2 (1.2-3.4); MEAN CELL VOLUME 94.8 fl (80.0-105.0); MEAN CORPUSCULAR HEMOGLOBIN 31.8 pg (25.0-35.0); MEAN CORPUSCULAR HGB CONC 33.5 g/dl (31.0-37.0); MEAN PLATELET VOLUME 12.8 fl (7.0-11.0); MONO # 0.3 (0.1-0.6); MONO % 5.1 % (1.0-6.0); RBC 3.81 10^6/uL (3.5-6.1); RED CELL DISTRIBUTION WIDTH 13.6 % (11.5-14.5); WHITE BLOOD COUNT 5.5 10^3/ul (4.5-11.0)
[2018-01-18 00:08] LABS: INR 1.05 (0.93-1.08); PARTIAL THROMBOPLASTIN TIME 19.8 Seconds (25.1-36.5)
[2018-01-18 00:09] LABS: ALB/GLOB RATIO 1.2 (1.1-1.8); ALBUMIN 4.2 g/dL (3.0-4.8); CALCIUM 10.2 mg/dL (8.4-10.5)
[2018-01-18 00:40] LABS: TROPONIN I 0.02 ng/mL
[2018-01-18 06:02] VITALS: BMI 12.9
[2018-01-18 06:17] VITALS: O2SAT 100
[2018-01-18] MEDS ORDERED: Non Formulary Medication (Insulin Aspart/Insulin Aspar [Novolog Mix 70/30 (70/30 Units/Ml) SC SCH (07:30)
[2018-01-18] MEDS: Insulin Reg-HIGH-Coverage SC SCH ×3 (08:02→16:25)
[2018-01-18] MEDS ORDERED: Insulin Detemir 100 units/ml Vial (Levemir) SC SCH ×2 (10:00→22:00)
--- NOTE | 2018-01-18 10:14 | RAD ---
HISTORY: dyspnea COMPARISON: 12/31/2017 FINDINGS: LUNGS: Worsening pulmonary edema. Asymmetrical left greater than right. PLEURA: No significant pleural effusion identified, no pneumothorax apparent. CARDIOVASCULAR: No significant interval change compared to the prior examination(s). OSSEOUS STRUCTURES: No significant abnormalities. VISUALIZED UPPER ABDOMEN: Normal. OTHER FINDINGS: None. IMPRESSION: Worsening pulmonary edema.
[2018-01-18] MEDS ORDERED: Insulin Lispro (humaLOG) MIX 75/25(10 ml) SC ONE (10:30)
[2018-01-18 11:42] LABS: EOS % 0.3 % (1.5-5.0); GRAN # 2.46 (1.4-6.5); GRAN % 70.7 % (50.0-68.0); HEMOGLOBIN 9.7 g/dL (12.0-16.0); LYMPH # 0.8 (1.2-3.4); LYMPH % 22.4 % (22.0-35.0); MEAN CELL VOLUME 93.8 fl (80.0-105.0); MEAN CORPUSCULAR HEMOGLOBIN 31.5 pg (25.0-35.0); MEAN CORPUSCULAR HGB CONC 33.6 g/dl (31.0-37.0); MEAN PLATELET VOLUME 11.8 fl (7.0-11.0); MONO # 0.2 (0.1-0.6); MONO % 6.6 % (1.0-6.0); RBC 3.08 10^6/uL (3.5-6.1); RED CELL DISTRIBUTION WIDTH 13.8 % (11.5-14.5); WHITE BLOOD COUNT 3.5 10^3/ul (4.5-11.0)
[2018-01-18 12:03] LABS: ALB/GLOB RATIO 1.2 (1.1-1.8); ALBUMIN 3.3 g/dL (3.0-4.8); CALCIUM 9.9 mg/dL (8.4-10.5)
--- NOTE | 2018-01-18 14:45 | CON ---
DATE: 01/18/2018 LOCATION: The patient in room 376, bed 1. REASON FOR CONSULTATION: Shortness of breath; coronary artery disease; renal failure, on dialysis. HISTORY OF PRESENT ILLNESS: The patient is a 72-year-old female, known case of coronary artery disease, history of stent in the RCA on 03/31/2017; history of peripheral vascular disease; renal failure, on dialysis; diabetes mellitus; hypertension; hyperlipidemia. Admitted with a history that on the day of admission, she started having shortness of breath. Denies chest pain or palpitation. PAST MEDICAL HISTORY: Positive for coronary artery disease, has stent insertion in RCA on 03/31/2017; end-stage renal failure, on dialysis; diabetes mellitus; hypertension; hyperlipidemia; peripheral arterial disease. PREVIOUS CARDIAC WORKUP: Echo was done on 10/24/2017, which showed normal-size LV, borderline left ventricular hypertrophy, normal LV systolic function with ejection fraction of 58%, trace aortic regurg, mild tricuspid regurg with RVSP of 39 mmHg. The patient had cardiac catheterization on 10/24/2017, which showed 2-vessel coronary artery disease involving left anterior descending artery and circumflex, which are very tortuous vessels and are not suitable for PCI because of very high risk. The patient's stent in RCA was patent and preserved LV function with ejection fraction of 55% and EDP was 16 mmHg. Due to high risk of this angioplasty, the patient was suggested to have open heart surgery for the coronary artery disease, but the patient wanted to treat medically at that time, so the patient was started on medical therapy and was advised followup. The patient was also found to have severe bilateral SFA disease. The patient wanted to come for angioplasty of SFA later on. ALLERGIES: THE PATIENT DENIES ANY ALLERGIES. PERSONAL HISTORY: Denies smoking. Denies drinking. HOME MEDICATIONS: Included insulin 70/30 and insulin glargine 30 units subcu at bedtime, insulin Novolog 70/30 at 5 units subcu before meals t.i.d. p.r.n., famotidine 20 mg p.o. p.r.n., Lipitor 10 mg daily. REVIEW OF SYSTEMS: All the systems reviewed. Positives mentioned in the HPI, others were negative. PHYSICAL EXAMINATION: VITAL SIGNS: Blood pressure 138/78, respirations 20, pulse 76, temperature 98. HEENT: Head is normocephalic. Eyes: Pupils normal. Conjunctivae slightly pale. NECK: JVP low. Carotids equal. THORAX: AP diameter normal. LUNGS: Diminished breath sounds of lung bases. Bilateral rales in the lungs. CARDIOVASCULAR: S1 and S2. ABDOMEN: Soft. No organomegaly. EXTREMITIES: No clubbing. No cyanosis. LABORATORY DATA: WBC 3.5, hemoglobin 9.7, hematocrit 28.9, platelet 81. Sodium 140, potassium 5.1, BUN 18, creatinine 5.6, random sugar 257, phosphorus 5.1, calcium 9.9, magnesium 2.2, AST 46, ALT 59, total protein 6.1, albumin 3.3, prothrombin time 12.0 with INR 1.05, PTT 19.8. Chest x-ray consistent with pulmonary edema, asymmetrical type, left greater than the right. EKG showed regular rhythm, 102 per minute, Q in V1, V2. ST-T changes, probably nonspecific, which are unsteady baseline. DIAGNOSES: Acute pulmonary edema; coronary artery disease, status post cardiac catheterization on 10/24/2017 findings described above, echo on 10/24/2017 findings described above; renal failure, on dialysis; diabetes mellitus; hypertension; hyperlipidemia; anemia; hyperkalemia. PLAN: The patient on the CAT findings on 10/24/2017 was advised coronary bypass surgery. The patient opted for medical treatment. The patient needs dialysis as per Renal. We will continue in the meantime aspirin 81 mg daily, insulin as ordered, atorvastatin 10 daily, metoprolol 25 b.i.d., Plavix 75 daily. We will follow. Jairo Perez MD
--- NOTE | 2018-01-18 15:44 | CARD ---
APPROVED REPORT EKG Measurement Heart [id number] <Conclusion> Sinus tachycardia Septal infarct, age undetermined Abnormal ECG
[2018-01-18] MEDS ORDERED: Insulin Lispro (humaLOG) MIX 75/25(10 ml) SC SCH (16:30)
[2018-01-18 17:32] VITALS: BP 116/57; PULSE 76
[2018-01-18 18:59] VITALS: RESP 16; TEMP 99.4
[2018-01-18] MEDS ORDERED: INSULIN GLARGINE RECOMBINA SC SCH (22:00)
--- NOTE | 2018-01-19 06:37 | HP ---
HISTORY OF PRESENT ILLNESS: This is a 72-year-old female who is coming into the hospital because of shortness of breath. She says she woke up in the middle of the night and started having acute shortness of breath. She is due for dialysis today. She came in for further evaluation. She denied any chest pain. She had no nausea, no vomiting, no fever, headache or chillness. No weakness in the arms or in the legs. No abdominal pain or back pain. REVIEW OF SYMPTOMS: All the review of symptoms are within normal limits except what was mentioned. ALLERGIES: NO KNOWN DRUG ALLERGIES. HOME MEDICATIONS: She is on Lipitor, Lantus, NovoLog. PAST MEDICAL HISTORY: Coronary artery disease, peripheral arterial disease, hypertension, secondary hyperparathyroidism, diabetes type 2, end-stage renal disease, on hemodialysis on Saturday, and Saturday. SOCIAL HISTORY: She does not smoke, drink, or use drugs. FAMILY HISTORY: Noncontributory. PHYSICAL EXAMINATION: VITAL SIGNS: Temperature is 99.4, pulse is 76, blood pressure is 116/57, respirations is 16, O2 saturation is 100%. GENERAL: The patient lying in bed, uncomfortable, and in no acute distress. HEENT: Atraumatic and normocephalic. Anicteric sclerae. Moist mucosa. [place] conjunctivae. No oral lesions. NECK: No JVD, anterior and posterior adenopathy, thyromegaly, or bruits. CARDIOVASCULAR: S1 and S2 regular. No murmur, rubs, or gallop. LUNGS: Clear to auscultation bilaterally. No wheezes, rales, or rhonchi. ABDOMEN: Bowel sounds are positive. Soft, nontender and nondistended. No hepatosplenomegaly. No rebound and no guarding EXTREMITIES: No cyanosis, clubbing, or edema. NEUROLOGIC: No facial asymmetry. Tongue is midline. No uvula deviation. Power is 5/5 upper extremity and lower extremity. Sensation intact in upper extremity and lower extremity. PSYCHIATRIC: She is awake, alert and oriented x3. No anxiety or depression. She has normal affect. GENITOURINARY: No CVA tenderness. VASCULAR: 2+ pulses in the carotid pulses and pedal pulses. SKIN: No erythema or nodules SPINE: Shows normal curvature. LABORATORY DATA: Had been reviewed. White count of 5.5, hemoglobin 12.1. INR is 1.05. Chemistry shows sodium 143, potassium 5.0, creatinine is 4.7. EKG shows sinus tachycardia, heart rate of 102. QTc is 482. Chest x-ray done shows worsening pulmonary edema. ASSESSMENT: 1. Acute shortness of breath secondary to pulmonary edema from end-stage renal disease. 2. End-stage renal disease on hemodialysis. 3. Secondary hyperparathyroidism. 4. Coronary artery disease. 5. Diabetes type 2. 6. Peripheral arterial disease. 7. Anemia secondary to chronic kidney disease. PLAN: The patient is currently comfortable. She had pulmonary edema secondary to volume overload from kidney failure and being on dialysis. She had a cardiac cath in 10/2017. Advised her to go for CABG, but she has refused. I believe that this may be related to her cardiac disease. She had an echo that shows an EF of 58%, which is fairly good. She also has peripheral arterial disease. She was dialyzed and is feeling well after dialysis. She is on Levemir for diabetes. She is on Lipitor for dyslipidemia. She is on metoprolol, Plavix for her cardiac disease. The patient is on a renal diet. I have repeated her chest x-ray to see if her pulmonary edema has improved. Clinically, she is better. Probably she will be discharged home today. I left a message to the patient's daughter to inform her of the patient's condition. Deep Yu MD
--- NOTE | 2018-01-19 09:57 | RAD ---
HISTORY: Pulmonary edema COMPARISON: 01/17/2018 TECHNIQUE: Chest PA and lateral FINDINGS: LUNGS: Substantial improvement in pulmonary edema with residual pulmonary infiltrate left lower lobe. PLEURA: No significant pleural effusion identified. No pneumothorax apparent. CARDIOVASCULAR: Normal. OSSEOUS STRUCTURES: No significant abnormalities. VISUALIZED UPPER ABDOMEN: Normal. OTHER FINDINGS: None. IMPRESSION: Marked improvement in asymmetrical pulmonary edema compared to 01/17/2018
== END 2018-01-18 22:17 | disposition home or self-care (01) | DRG 189 ==
LOC: ED 23:10 → ERH 01-18 01:18 → 3RSO 01-18 03:18
PROVIDERS: ADMIT Internal Medicine Nephrology; ATTEND Internal Medicine Nephrology
PROC: 5A1D70Z Performance of Urinary Filtration, Intermittent, Less than 6 Hours Per Day (ICD-10-PCS; principal; 2018-01-18)
PROC: 5A09357 Assistance with Respiratory Ventilation, Less than 24 Consecutive Hours, Continuous Positive Airway Pressure (ICD-10-PCS; 2018-01-18)
DX: J81.0 Acute pulmonary edema (principal); N18.6 End stage renal disease; I13.11 Hypertensive heart and chronic kidney disease without heart failure, with stage 5 chronic kidney disease, or end stage renal disease; N25.81 Secondary hyperparathyroidism of renal origin; E87.70 Fluid overload, unspecified; E87.5 Hyperkalemia; E11.22 Type 2 diabetes mellitus with diabetic chronic kidney disease; I25.10 Atherosclerotic heart disease of native coronary artery without angina pectoris; D63.1 Anemia in chronic kidney disease; E78.5 Hyperlipidemia, unspecified; E11.51 Type 2 diabetes mellitus with diabetic peripheral angiopathy without gangrene; Z99.2 Dependence on renal dialysis; Z95.5 Presence of coronary angioplasty implant and graft; Z79.4 Long term (current) use of insulin

== ENCOUNTER 2018-01-27 03:48 | Inpatient (IN) | payer MEDICARE ==
--- NOTE | 2018-01-27 03:55 | ED PDOC ---
Arrival/HPI - General Time Seen by Provider: 01/27/18 03:51 Historian: Patient, Family, EMS - History of Present Illness Narrative History of Present Illness (Text): 01/27/18 03:55 Juliet Dick is a 72 year old female, whose past medical history includes CAD with multiple stents, hypertension, diabetes, ESRD on hemodialysis (/ /Sat), and CHF, who presents to the Emergency department brought in by EMS for shortness of breath. Daughter states patient woke up with progressively worsening shortness of breath. EMS was notified, patient was placed on CPAP, and brought to the ER for further evaluation. Daughter states patient was last dialyzed on 01/25/2018. Patient denies any fever, chills, nausea, vomiting, back pain, headache, dizziness, or any other complaints. PMD: Dr. Yu Symptom Onset: Gradual Symptom Course: Worsening Activities at Onset: Rest, Light Context: Home Past Medical History - Provider Review Nursing Documentation Reviewed: Yes - Infectious Disease Hx of Infectious Diseases: None - Tetanus Immunization Tetanus Immunization: Unknown - Cardiac Hx Congestive Heart Failure: Yes Hx Hypertension: Yes - Pulmonary Hx Respiratory Disorders: No - Neurological Hx Neurological Disorder: Yes Hx Dizziness: Yes - HEENT Hx HEENT Disorder: No - Renal Hx Renal Disorder: Yes Hx Dialysis: Yes ([facility]) Hx Renal Failure: Yes - Endocrine/Metabolic Hx Diabetes Mellitus Type 2: Yes - Hematological/Oncological Hx Blood Disorders: Yes Hx Anemia: Yes (w/ Blood transfusions) - Integumentary Hx Dermatological Disorder: No Other/Comment: SHUNT LEFT ARM - Musculoskeletal/Rheumatological Hx Falls: No - Gastrointestinal Hx Gastrointestinal Disorders: No - Genitourinary/Gynecological Hx Genitourinary Disorders: Yes (OLIGURIA) - Psychiatric Hx Substance Use: No - Surgical History Hx Section: Yes (x1) Hx Coronary Stent: Yes Hx Orthopedic Surgery: Yes (left ankle surgery with screws) - Anesthesia Hx Anesthesia Reactions: No Hx Malignant Hyperthermia: No - Suicidal Assessment Feels Threatened In Home Enviroment: No Family/Social History - Physician Review Nursing Documentation Reviewed: Yes Family/Social History: Unknown Family HX Smoking Status: Never Smoked Hx Alcohol Use: No Hx Substance Use: No Hx Substance Use Treatment: No Allergies/Home Meds Allergies/Adverse Reactions: Allergies No Known Allergies Allergy (Verified 01/27/18 03:52) Home Medications: Home Meds Medication Instructions Recorded Confirmed Insulin Aspart/Insulin Aspar 5 units SC ACTID PRN 10/21/15 01/27/18 [Novolog Mix 70/30 (70/30 units/ml)] Insulin Glargine, Recombina 30 unit SC HS 12/08/15 01/27/18 [Lantus] Famotidine 20 mg PO PRN PRN 10/22/17 01/27/18 Atorvastatin [Lipitor] 10 mg PO HS 12/31/17 01/27/18 Ranolazine [Ranexa] 500 mg PO BID 01/27/18 01/27/18 Review of Systems - Physician Review All systems were reviewed & negative as marked: Yes - Review of Systems Constitutional: Normal. absent: Fevers Eyes: Normal ENT: Normal Respiratory: SOB Gastrointestinal: Normal. absent: Abdominal Pain, Diarrhea, Nausea, Vomiting Genitourinary Female: Normal. absent: Dysuria, Frequency, Hematuria, Urine Output Changes Musculoskeletal: Normal. absent: Back Pain, Neck Pain Skin: Normal. absent: Rash Neurological: Normal. absent: Headache, Dizziness Endocrine: Normal Hemo/Lymphatic: Normal Psychiatric: Normal Physical Exam Vital Signs Reviewed: Yes Vital Signs Pulse Resp BP Pulse Ox 01/27/18 04:49 75 17 162/76 H 100 01/27/18 04:10 186/92 H 01/27/18 04:00 90 30 H 186/92 H 100 Temperature: Afebrile Blood Pressure: Hypertensive Pulse: Regular Appearance: Positive for: Non-Toxic Mental Status: Positive for: Alert and Oriented X 3 - Systems Exam Head: Present: Atraumatic, Normocephalic Pupils: Present: PERRL Extroacular Muscles: Present: EOMI Conjunctiva: Present: Normal Mouth: Present: Moist Mucous Membranes Neck: Present: Normal Range of Motion Respiratory/Chest: Present: Rhonchi (Rhonchi bilaterally). No: Accessory Muscle Use Cardiovascular: Present: Regular Rate and Rhythm, Normal S1, S2. No: Murmurs Abdomen: No: Tenderness, Distention, Peritoneal Signs Back: Present: Normal Inspection Upper Extremity: Present: Normal Inspection. No: Cyanosis, Edema Lower Extremity: Present: Normal Inspection. No: Edema Neurological: Present: GCS=15, CN II-XII Intact, Speech Normal Skin: Present: Warm, Dry, Normal Color. No: Rashes Psychiatric: Present: Alert, Oriented x 3, Normal Insight, Normal Concentration Medical Decision Making ED Course and Treatment: 01/27/18 03:55 Impression: 72 year old female complaining of progressively worsening shortness of breath tonight. Differential Diagnosis included but are not limited to: Plan: -- EKG -- Chest X-ray -- Labs, cardiac enzymes, BNP, ABG -- Duoneb -- Lasix -- Duoneb -- BiPAP -- Reassess and disposition Prior Visits: Notes and results from previous visits were reviewed. On 01/17/2018, pt was seen in the Emergency department for respiratory distress/ shortness of breath. Pt was admitted to the hospital for further evaluation. Progress Notes: Reviewed EKG, NSR at 81 bpm. Septal infarct. Non-specific ST/T wave changes. 01/27/18 04:20 Chest X-ray reviewed, shows CHF. 01/27/18 04:[address] Yu, who is aware and agrees with plan. Accepts pt in to his service. Pt will be admitted to Telemetry for CHF. Requests Dr. Davila on consult. - Lab Interpretations Lab Results: 01/27/18 03:55 01/27/18 03:55 Lab Results 01/27/18 04:18: pCO2 46 H, pO2 134.0 H, HCO3 32.0 H, ABG pH 7.45, ABG Total CO2 33.4 H, ABG O2 Saturation 99.2 H, ABG Base Excess 6.9 H, ABG Potassium 3.5 L, Glucose 162 H, Lactate 1.4, FiO2 100.0, Sodium 139.0, Chloride 103.0, Arterial Blood Potassium 3.5 L 01/27/18 03:55: WBC 3.8 L, RBC 3.72, Hgb 11.7 L D, Hct 35.7 L, MCV 96.0, MCH 31.5, MCHC 32.8, RDW 13.9, Plt Count 134, MPV 11.8 H 01/27/18 03:55: Sodium 142, Potassium 4.0, Chloride 96 L, Carbon Dioxide 32, Anion Gap 19, BUN 31 H, Creatinine 5.4 H, Est GFR ( Amer) 9, Est GFR (Non -Af Amer) 8, Random Glucose 171 H, Calcium 10.0, Total Bilirubin 0.8, AST 31, ALT 26, Alkaline Phosphatase 85, Lactate Dehydrogenase 466, Total Creatine Kinase 38, Troponin I 0.04 D, NT-Pro-B Natriuret Pep 27777 H, Total Protein 7.6 , Albumin 4.1, Globulin 3.5, Albumin/Globulin Ratio 1.2 01/27/18 03:55: PT 12.7 H, INR 1.11 H, APTT 28.1 I have reviewed the lab results: Yes - RAD Interpretation Radiology Orders: 01/27/18 03:58 CHEST PORTABLE [RAD] Stat Councilor: ED Physician - EKG Interpretation Interpreted by ED Physician: Yes Type: 12 lead EKG - Medication Orders Current Medication Orders: Discontinued Medications Albuterol/Ipratropium (Duoneb 3 Mg/0.5 Mg (3 Ml) Ud) 3 ml IH ONCE STA Stop: 01/27/18 03:59 Last Admin: 01/27/18 04:10 Dose: 3 ml Furosemide (Lasix) 40 mg IVP ONCE ONE Stop: 01/27/18 03:59 Last Admin: 01/27/18 04:10 Dose: 40 mg MAR Blood Pressure Document 01/27/18 04:10 JOL (Rec: 01/27/18 04:10 [id number] Blood Pressure Blood Pressure (100/60-150/90 mm Hg) 186/92 IVP Administration Document 01/27/18 04:10 JOL (Rec: 01/27/18 04:10 [id number]) Charges for Administration # of IVP Administrations 1 - Scribe Statement The provider has reviewed the documentation as recorded by the Jose Queen Provider Scribe Attestation: All medical record entries made by the Scribpalomo were at my direction and personally dictated by me. I have reviewed the chart and agree that the record accurately reflects my personal performance of the history, physical exam, medical decision making, and the department course for this patient. I have also personally directed, reviewed, and agree with the discharge instructions and disposition. Disposition/Present on Arrival - Present on Arrival Any Indicators Present on Arrival: No History of DVT/PE: No History of Uncontrolled Diabetes: Yes Urinary Catheter: Yes History of Decub. Ulcer: No History Surgical Site Infection Following: None - Disposition Have Diagnosis and Disposition been Completed?: Yes Diagnosis: CHF (congestive heart failure) Disposition: HOSPITALIZED Disposition Time: 04:57 Patient Plan: Admission Condition: STABLE Discharge Instructions (ExitCare): Heart Failure (ED)
[2018-01-27] MEDS ORDERED: Albuterol-Ipratrop 3 mg / 0.5 (3 ml) UD ONE (03:57)
[2018-01-27] MEDS ORDERED: Albuterol-Ipratrop 3 mg / 0.5 (3 ml) UD IH STA (03:58)
[2018-01-27 04:25] LABS: ARTERIAL BLOOD GAS O2 SAT 99.2 % (95-98); ARTERIAL BLOOD GAS PCO2 46 mm/Hg (35-45); ARTERIAL BLOOD GAS PH 7.45 (7.35-7.45); ARTERIAL BLOOD GAS TCO2 33.4 mmol.L (22-28)
[2018-01-27 04:32] LABS: INR 1.11 (0.93-1.08); PARTIAL THROMBOPLASTIN TIME 28.1 Seconds (25.1-36.5); PROTHROMBIN TIME 12.7 SECONDS (9.4-12.5)
[2018-01-27 04:33] LABS: TROPONIN I 0.04 ng/mL
[2018-01-27 04:34] LABS: MEAN CORPUSCULAR HEMOGLOBIN 31.5 pg (25.0-35.0); MEAN CORPUSCULAR HGB CONC 32.8 g/dl (31.0-37.0); MEAN PLATELET VOLUME 11.8 fl (7.0-11.0); RBC 3.72 10^6/uL (3.5-6.1); RED CELL DISTRIBUTION WIDTH 13.9 % (11.5-14.5); WHITE BLOOD COUNT 3.8 10^3/ul (4.5-11.0)
[2018-01-27 04:35] LABS: ALB/GLOB RATIO 1.2 (1.1-1.8); ALBUMIN 4.1 g/dL (3.0-4.8); HEMOGLOBIN 11.7 g/dL (12.0-16.0)
--- NOTE | 2018-01-27 09:14 | RAD ---
HISTORY: sob COMPARISON: 01/18/2018 FINDINGS: LUNGS: Bilateral perihilar infiltrates left greater than right. The pattern is most consistent with CHF PLEURA: No significant pleural effusion identified, no pneumothorax apparent. CARDIOVASCULAR: Normal. OSSEOUS STRUCTURES: No significant abnormalities. VISUALIZED UPPER ABDOMEN: Normal. OTHER FINDINGS: None. IMPRESSION: Bilateral perihilar infiltrates left greater than right. The pattern is most consistent with CHF
--- NOTE | 2018-01-27 09:31 | CARD ---
APPROVED REPORT EKG Measurement Heart [id number] <Conclusion> Normal sinus rhythm Septal infarct, age undetermined Prolonged QT STTW changes c/w ischemia
[2018-01-27] MEDS: Insulin Lispro (humaLOG) MIX 75/25(10 ml) SC SCH ×2 (10:30→16:52)
[2018-01-27] MEDS: Insulin Detemir 100 units/ml Vial (Levemir) SC SCH ×2 (10:30→22:15)
[2018-01-27] MEDS: Ranolazine [Ranexa] 500 MG (HOME MED) PO SCH ×2 (12:40→17:20)
[2018-01-27 13:33] VITALS: BMI 30.9
[2018-01-27] MEDS ORDERED: Pneumococcal 23-Valent Vaccine IM ONE (13:34)
--- NOTE | 2018-01-27 16:59 | HP ---
CHIEF COMPLAINT AND HISTORY OF PRESENT ILLNESS: This is a 72-year-old female who has come into the hospital with a past medical history of coronary artery disease, diabetes type 2, end-stage renal disease, hypertension. She states that she started having worsening shortness of breath early this morning and she woke up and was having progressive shortness of breath. She has been having these symptoms over the last few months. She does have a history of coronary artery disease and was advised to get open heart surgery, but she has been reluctant to do this. The patient was last dialyzed on Saturday, which is two days ago. She is due for dialysis today. She denies any cough, congestion. No nausea. No vomiting. No dyspnea or frequency. No weakness in the arms or in the legs. No headaches or dizziness. REVIEW OF SYMPTOMS: All other review of symptoms are within normal limits except what was mentioned. ALLERGIES: NO KNOWN DRUG ALLERGIES. HOME MEDICATIONS: Lipitor, Lantus, NovoLog. SOCIAL HISTORY: She denies smoking, drinking, or drugs. FAMILY HISTORY: Noncontributory. PAST MEDICAL HISTORY: 1. Coronary artery disease. 2. Peripheral arterial disease. 3. Hypertension. 4. Secondary hyperparathyroidism. 5. Diabetes type 2. 6. End-stage renal disease, on hemodialysis. PHYSICAL EXAMINATION: VITAL SIGNS: Temperature is 98.6, pulse of 90, blood pressure is 162/76, respirations 17, O2 saturation is 100% on BiPAP. Height is 5 feet. Weight is 158 pounds. BMI is 30.9. GENERAL: The patient lying in bed, uncomfortable, and in no acute distress. HEENT: Atraumatic and normocephalic. Anicteric sclerae. Moist mucosa. [place] conjunctivae. No oral lesions. NECK: No JVD, anterior and posterior adenopathy, thyromegaly, or bruits. CARDIOVASCULAR: S1 and S2 regular. No murmur, rubs, or gallop. LUNGS: Clear to auscultation bilaterally. No wheezes, rales, or rhonchi. ABDOMEN: Bowel sounds are positive. Soft, nontender and nondistended. No hepatosplenomegaly. No rebound and no guarding EXTREMITIES: No cyanosis, clubbing, or edema. NEUROLOGIC: No facial asymmetry. Tongue is midline. No uvula deviation. Power is 5/5 upper extremity and lower extremity. Sensation intact in upper extremity and lower extremity. PSYCHIATRIC: She is awake, alert and oriented x3. No anxiety or depression. She has normal affect. GENITOURINARY: No CVA tenderness. VASCULAR: A 2+ pulses in the carotid pulses and pedal pulses. SKIN: No erythema or nodules. SPINE: Shows normal curvature. LABORATORY DATA: White count of 3.8, hemoglobin of 11.7. Chemistry shows creatinine of 5.4. ABG done shows a pH of 7.45 with a pCO2 of 46. She has anion gap of 19. Chest x-ray done shows pulmonary venous congestion. ASSESSMENT: 1. Shortness of breath secondary to volume overload. 2. End-stage renal disease, on hemodialysis. 3. Secondary hyperparathyroidism. 4. Coronary artery disease. 5. Diabetes type 2. 6. Peripheral arterial disease. 7. Anemia secondary to chronic kidney disease. 8. Arteriovenous fistula. PLAN: The patient is currently comfortable. She is on BiPAP. The patient is going to need emergent dialysis. I did speak with the dialysis nurse Светлана to let her know about having the patient go for dialysis this morning. She will be taking for dialysis. The patient is going to continue with aspirin and Plavix. She is on Ranexa. I will get Dr. Davila to evaluate the patient. I believe that the patient will most likely need open heart surgery because of this flash pulmonary edema that she dialysis and she is not gaining weight. The patient did not have any significant lower extremity edema. She has no elevation of troponins. Deep Yu MD
--- NOTE | 2018-01-27 18:25 | CON ---
DATE: 01/27/2018 REASON FOR CONSULTATION: Followup shortness of breath, abdominal pain, history of coronary artery disease. HISTORY OF PRESENT ILLNESS: The patient's family is at bedside. The patient was seen in dialysis complaining of abdominal pain. Denies any chest pain. The patient used to get dialysis Saturday, and Saturday; last dialysis on 01/25/2018. She is having dialysis today. PAST MEDICAL HISTORY: Significant for coronary artery disease status post stent, history of non-STEMI status post repeat catheterization, patent stent in the RCA, but LAD and circumflex have high grade stenosis which was previously attempted unsuccessful. Surgical option recommended, but the patient herself and the patient's daughter is reluctant for the surgery. History of diabetes, history of end-stage renal disease on dialysis Saturday, and Saturday. PREVIOUS CARDIAC WORKUP: As follows; the patient had recent cardiac catheterization on 10/24/2017 after the patient admitted with a non-STEMI. At that time, the cardiac catheterization revealed 2-vessel CAD involving LAD and circumflex which are very tortous vessels, multiple hairpin turn, not suitable for PCI, high risk for dissection. Patent stent in the RCA, preserved LV function with ejection fraction of 55%, EDP was in the range of 16. Type 2 diabetes, end-stage renal disease on dialysis. Open heart surgery recommended. The patient refused surgery. The patient has also echocardiography done on 10/24/2017 that revealed borderline concentric LVH, normal LV function, trace to mild mitral regurgitation, mild tricuspid regurgitation, RV systolic pressure of 39, no pericardial effusion noted, no vegetation noted. REVIEW OF SYSTEMS: As per HPI. CURRENT MEDICATIONS: Currently, the patient is on Ranexa 500 p.o. b.i.d., metoprolol tartrate 25 p.o. b.i.d., insulin Lantus, Pepcid 20 mg p.r.n., Plavix 75 mg daily, atorvastatin 10 and aspirin 81 mg daily. ALLERGIES: NO KNOWN DRUG ALLERGY. PHYSICAL EXAMINATION: VITAL SIGNS: Temperature afebrile, heart rate 67, blood pressure 134/56. HEENT: PERRLA. Extraocular muscles intact. NECK: Supple. No carotid bruits or thyromegaly. CHEST: Clear to auscultation. HEART: S1 and S2 regular. ABDOMEN: Soft. EXTREMITIES: Clubbing and cyanosis negative. LABORATORY DATA: EKG shows normal sinus, no acute ST-T changes noted. Blood workup as follows; WBC 3.8, hemoglobin 11.3, hematocrit 35.7, platelet count 134. Chemistry shows sodium 142, potassium 4, chloride 96, carbon dioxide 32, anion gap of 19, BUN 31, and creatinine 5.4. Troponin 0.04. IMPRESSION: Acute decompensated congestive heart failure, BNP was 36,700; end-stage renal disease, on dialysis; diabetes, hypertension, hyperlipidemia, history of [id number] myocardial infarction, history of coronary artery disease, history of stent in right coronary artery, history of most recent cardiac catheterization dated 10/24/2017, patent stent, preserved left ventricular function, left anterior descending artery and circumflex have high grade stenosis, hairpin turn not suitable for percutaneous coronary intervention. Open heart suggested. RECOMMENDATION: For now, continue aggressive medical treatment. Discussed with the patient and family. If the patient agrees for surgery, we will consider, otherwise we will treat medically. The patient came in with chest pain. We will get CAT scan of the abdomen to rule out any acute intraabdominal process. We will follow with you. Thank you, Dr. Yu, for providing us the opportunity in taking care of the patient, Juliet Dick. Jairo Davila MD
[2018-01-28 06:17] VITALS: RESP 18
[2018-01-28 06:27] LABS: BASO # 0.01 K/mm3 (0.0-2.0); BASO % 0.3 % (0.0-3.0); EOS # 0.2 (0.0-0.7); EOS % 4.8 % (1.5-5.0); GRAN # 2.13 (1.4-6.5); GRAN % 53.7 % (50.0-68.0); HEMOGLOBIN 9.8 g/dL (12.0-16.0); LYMPH # 1.2 (1.2-3.4); LYMPH % 30.8 % (22.0-35.0); MEAN CELL VOLUME 95.5 fl (80.0-105.0); MEAN CORPUSCULAR HEMOGLOBIN 31.3 pg (25.0-35.0); MEAN CORPUSCULAR HGB CONC 32.8 g/dl (31.0-37.0); MEAN PLATELET VOLUME 11.2 fl (7.0-11.0); MONO # 0.4 (0.1-0.6); MONO % 10.4 % (1.0-6.0); RBC 3.13 10^6/uL (3.5-6.1)
[2018-01-28 07:03] LABS: TROPONIN I 0.07 ng/mL
[2018-01-28 07:08] LABS: ALB/GLOB RATIO 1.2 (1.1-1.8); ALBUMIN 3.5 g/dL (3.0-4.8); CALCIUM 9.7 mg/dL (8.4-10.5)
[2018-01-28] MEDS: Insulin Lispro (humaLOG) MIX 75/25(10 ml) SC SCH ×2 (07:54→17:00)
--- NOTE | 2018-01-28 09:16 | CT ---
PROCEDURE: CT Abdomen and Pelvis without intravenous contrast HISTORY: Abdominal pain COMPARISON: 05/29/2016. TECHNIQUE: CT scan of the abdomen and pelvis was performed without administration of intravenous contrast. Oral contrast was not administered. Coronal and sagittal reformatted images were obtained. Radiation dose: Total exam DLP = Total exam DLP = 574.30 mGy-cm. This CT exam was performed using one or more of the following dose reduction techniques: Automated exposure control, adjustment of the mA and/or kV according to patient size, and/or use of iterative reconstruction technique. FINDINGS: LOWER THORAX: There are moderate bilateral pleural effusions and compressive atelectasis in the lungs. There is subsegmental atelectasis in the right lower lobe. There is a small pericardial effusion. LIVER: The liver is normal in size. No gross lesion or ductal dilatation. GALLBLADDER AND BILE DUCTS: No calcified gallstones. PANCREAS: Mild fatty atrophy. No gross lesion or ductal dilatation. SPLEEN: Normal in size and appearance. ADRENALS: No discrete nodule. KIDNEYS AND URETERS: Bilateral severe renal cortical atrophy. No hydronephrosis. No solid mass. VASCULATURE: No aortic aneurysm. BOWEL: The small bowel loops are normal in caliber. There is moderate amount of stool in the colon. No bowel dilatation or obstruction APPENDIX: Normal appendix. PERITONEUM: No free fluid. No free air. LYMPH NODES: No enlarged lymph nodes. BLADDER: Partially decompressed. Apparent mild mural thickening. REPRODUCTIVE: The uterus is normal in size. BONES: There are age indeterminate but likely chronic osteoporotic compression deformities in the L3 and L4 vertebral bodies, new since the prior examination. There is an old osteoporotic compression fracture in the T11 vertebral body. OTHER FINDINGS: There is a small sliding hiatal. IMPRESSION: 1. Small sliding hiatal hernia. 2. Moderate pleural effusions and small pericardial effusion. 3. Apparent mild mural thickening in the urinary bladder wall could be related to underdistention however cystitis cannot be excluded. Please correlate with urine analysis. A preliminary report was provided by [employer].
--- NOTE | 2018-01-28 09:34 | RAD ---
HISTORY: COMPARISON: 01/27/2018 TECHNIQUE: Chest PA and lateral FINDINGS: LINES AND TUBES: None. LUNG AND PLEURA: There is mild pulmonary venous congestion. There is bibasilar atelectasis. There are bilateral small pleural effusions. No pneumothorax with HEART AND MEDIASTINUM: There is moderate cardiomegaly. The hilar and mediastinal contours are within normal limits. SKELETAL STRUCTURES: The bony structures are within normal limits for the patient's age. VISUALIZED UPPER ABDOMEN: Normal. OTHER FINDINGS: None. IMPRESSION: Findings are most compatible with congestive heart failure.
[2018-01-28] MEDS: Insulin Detemir 100 units/ml Vial (Levemir) SC SCH ×2 (10:17→10:26)
[2018-01-28] MEDS: Ranolazine [Ranexa] 500 MG (HOME MED) PO SCH ×2 (10:18→17:57)
--- NOTE | 2018-01-28 15:33 | PN ---
DATE: REASON FOR CONSULTATION AND FOLLOWUP: Shortness of breath, abdominal pain, history of coronary artery disease. SUBJECTIVE: The patient denies any chest pain, shortness of breath or any palpitation. OBJECTIVE GENERAL: Not in apparent distress; lying flat at the bed; daughter, Isis, is at the bedside; states that the symptoms starts from abdominal pain, then become short of breath and blood pressure goes up. VITAL SIGNS: Temperature afebrile, heart rate 71, blood pressure 164/74. HEENT: PERRLA. Extraocular muscles intact. NECK: Supple. No carotid bruit. No thyromegaly. CHEST: Clear to auscultation. HEART: S1 and S2 regular. ABDOMEN: Soft. EXTREMITIES: Clubbing and cyanosis, negative. LABORATORY DATA: Blood workup as follows: WBC 4, hemoglobin 9.8, hematocrit 29.9, platelet count 127. Chemistry shows sodium 141, potassium 3.9, chloride of 97, carbon dioxide of 33, anion gap of 16, BUN 31, creatinine 5. Last night, the patient had abdominal CAT scan and pelvis because of complaint of abdominal pain. There is a small sliding hiatal hernia, moderate pleural effusion, there is small pericardial effusion. Apparent mural thickening in the urinary bladder and could be related to under-distention; however, cystitis cannot be excluded. IMPRESSION: Uncontrolled hypertension; shortness of breath, on dialysis; coronary artery disease, status post percutaneous transluminal coronary angioplasty to right coronary artery and status post [id number] myocardial infarction, coronary artery disease, repeat cath revealed it is not amenable by percutaneous coronary intervention, open heart surgery recommended, but family has reservation and does not want at this time. CAT film given to Dr. Ashraf, surgeon, cardiothoracic chief surgery from [facility] . He reviewed the films and said the patient is a good candidate to have surgery done. So, we will make outpatient schedule to see Dr. Ashraf in [place] and this message was again conveyed to Isis, daughter, telephone number [phone]. I told them they can go as an office visit. Jairo Davila MD [facility] # [id number]
[2018-01-28 15:59] VITALS: O2SAT 92
--- NOTE | 2018-01-28 17:03 | DS ---
HISTORY OF PRESENT ILLNESS: This is a 72-year-old female who has come into the hospital because of shortness of breath from pulmonary edema. She had volume overload according to the chest x-ray. I believe this is secondary to her coronary artery disease that is requiring CABG. The patient has had multiple episodes over the past few months. She had chest x-ray that shows improvement of her symptoms. She was dialyzed yesterday and she has improvement of her symptoms. She has no complaints of any chest pain, no shortness of breath, no nausea, no vomiting. No fever, headache or chills. She is being followed by Dr. Davila for her cardiac issues. PHYSICAL EXAMINATION VITAL SIGNS: Temperature is 98.5, pulse of 70, blood pressure is 129/58, respirations 19, O2 saturation 97%. GENERAL: The patient is lying in bed, flat, comfortable. HEENT: No oral lesion. Anicteric sclerae. Moist mucosa. NECK: No JVD, adenopathy, or thyromegaly. CARDIOVASCULAR: S1 and S2, regular. No murmurs, rubs, or gallops. LUNGS: Clear to auscultation bilaterally. No wheeze, rales, or rhonchi. ABDOMEN: Bowel sounds are positive, soft, nontender and nondistended. EXTREMITIES: No cyanosis, clubbing or edema. ASSESSMENT: 1. Shortness of breath secondary to hypovolemia. 2. End-stage renal disease, on hemodialysis. 3. Secondary hyperparathyroidism. 4. Coronary artery disease. 5. Diabetes type 2. 6. Peripheral arterial disease. 7. Anemia secondary to chronic kidney disease. 8. Arteriovenous fistula. PLAN: The patient is currently on aspirin. She is on insulin for her diabetes. Her sugars have been controlled. The patient is going to continue with Lipitor for dyslipidemia. She is on metoprolol for her coronary artery disease. She is going to continue with Plavix. She had a CAT scan that was ordered by Dr. Davila, the results are pending. If the CAT scan does not show any significant abnormalities, then we will discharge the patient home and have her follow up for open heart surgery. CONDITION: Stable. ACTIVITY: Increase as tolerated. The patient's daughter was informed. Deep Yu MD [facility] # [id number]
[2018-01-28 17:39] VITALS: PULSE 78; TEMP 98.1
[2018-01-28 18:04] VITALS: BP 110/60
== END 2018-01-28 19:54 | disposition home or self-care (01) | DRG 291 ==
LOC: ED 03:48 → ERH 04:54 → 2RNO 10:06
PROVIDERS: ADMIT Internal Medicine Nephrology; ATTEND Internal Medicine Nephrology
PROC: 5A1D70Z Performance of Urinary Filtration, Intermittent, Less than 6 Hours Per Day (ICD-10-PCS; principal; 2018-01-27)
PROC: 5A1935Z Respiratory Ventilation, Less than 24 Consecutive Hours (ICD-10-PCS; 2018-01-27)
PROC: 5A1D70Z Performance of Urinary Filtration, Intermittent, Less than 6 Hours Per Day (ICD-10-PCS; 2018-01-28)
DX: I13.2 Hypertensive heart and chronic kidney disease with heart failure and with stage 5 chronic kidney disease, or end stage renal disease (principal); I50.31 Acute diastolic (congestive) heart failure; N18.6 End stage renal disease; N25.81 Secondary hyperparathyroidism of renal origin; E86.1 Hypovolemia; I25.10 Atherosclerotic heart disease of native coronary artery without angina pectoris; E11.22 Type 2 diabetes mellitus with diabetic chronic kidney disease; E11.51 Type 2 diabetes mellitus with diabetic peripheral angiopathy without gangrene; D63.1 Anemia in chronic kidney disease; E78.5 Hyperlipidemia, unspecified; I08.1 Rheumatic disorders of both mitral and tricuspid valves; Z99.2 Dependence on renal dialysis; Z95.1 Presence of aortocoronary bypass graft; I25.2 Old myocardial infarction; Z95.5 Presence of coronary angioplasty implant and graft; Z79.4 Long term (current) use of insulin

== ENCOUNTER 2018-05-12 05:08 | Inpatient (IN) | payer MEDICARE, OTHER ==
[2018-05-12] MEDS ORDERED: Etomidate 20 mg/10ml Inj IV ONE (05:16)
--- NOTE | 2018-05-12 05:24 | ED PDOC ---
Arrival/HPI - General Chief Complaint: Respiratory Distress Time Seen by Provider: 05/12/18 05:21 Historian: Family (daughter), EMS - Critical Care Critical Care Minutes: 60 minutes - History of Present Illness Narrative History of Present Illness (Text): 05/12/18 05:12 72 year old female, whose past medical history includes CAD with multiple stents , hypertension, diabetes, ESRD on hemodialysis (//Sat), and CHF, who presents to the Emergency department by EMS for worsening shortness of breath for the past 2 days. Patient arrived with CPAP mask on her face. As per daughter , patient has been having a mostly dry cough with mild productive cough for the past several days, but denies any fever, or any other complaints. Patient's last dialysis was 2 days ago, however her weight has been higher than usual. HPI and ROS limited due to patient requiring intubation. PMD: Dr. Yu 05/12/18 06:06 Past Medical History - Provider Review Nursing Documentation Reviewed: Yes - Infectious Disease Hx of Infectious Diseases: None - Tetanus Immunization Tetanus Immunization: Unknown - Cardiac Hx Angina: Yes Hx Cardiac Arrhythmia: Yes (a fib) Hx Congestive Heart Failure: Yes Hx Hypertension: Yes Hx Peripheral Edema: Yes (+1 pedal edema) Other/Comment: pad - Pulmonary Hx Respiratory Disorders: No - Neurological Hx Neurological Disorder: Yes Hx Dizziness: Yes - HEENT Hx HEENT Disorder: Yes (blurry vision) Hx Cataracts: Yes (left eye needs sx) - Renal Date of Last Dialysis Treatment: 01/27/18 - Endocrine/Metabolic Hx Diabetes Mellitus Type 2: Yes - Hematological/Oncological Hx Blood Disorders: Yes Hx Anemia: Yes (w/ Blood transfusions) - Integumentary Hx Dermatological Disorder: No Other/Comment: SHUNT LEFT ARM - Musculoskeletal/Rheumatological Hx Falls: No - Gastrointestinal Hx Gastrointestinal Disorders: No - Genitourinary/Gynecological Hx Genitourinary Disorders: Yes (OLIGURIA) - Psychiatric Hx Psychophysiologic Disorder: No Hx Emotional Abuse: No Hx Physical Abuse: No Hx Substance Use: No - Surgical History Hx Cardiac Catheterization: Yes (several) Hx Coronary Stent: Yes Hx Orthopedic Surgery: Yes (left ankle surgery with screws) Other/Comment: c section x1, 02/22/16 malfunctioning av fistula revision, 03/06/16 replacement of hd cath, carotid angiogram 11/2015 - Anesthesia Hx Anesthesia Reactions: No Hx Malignant Hyperthermia: No - Suicidal Assessment Feels Threatened In Home Enviroment: No Family/Social History - Physician Review Nursing Documentation Reviewed: Yes Family/Social History: No Known Family HX Smoking Status: Never Smoked Hx Alcohol Use: No Hx Substance Use: No Hx Substance Use Treatment: No Allergies/Home Meds Allergies/Adverse Reactions: Allergies No Known Allergies Allergy (Verified 01/27/18 03:52) Home Medications: Home Meds Medication Instructions Recorded Confirmed Insulin Aspart/Insulin Aspar 5 units SC ACTID PRN 10/21/15 05/12/18 [Novolog Mix 70/30 (70/30 units/ml)] Insulin Glargine, Recombina 30 unit SC HS 12/08/15 05/12/18 [Lantus] Famotidine 20 mg PO PRN PRN 10/22/17 05/12/18 Atorvastatin [Lipitor] 10 mg PO HS 12/31/17 05/12/18 Ranolazine [Ranexa] 500 mg PO BID 01/27/18 05/12/18 Sevelamer Carbonate [Renvela] 800 mg PO TID 05/12/18 05/12/18 Review of Systems - Physician Review All systems were reviewed & negative as marked: Yes - Review of Systems Systems not reviewed;Unavailable: Intubated Respiratory: SOB, Cough Physical Exam - Physical Exam Narrative Physical Exam (Text): 05/12/18 05:25 Gen: VS reviewed, alert, well developed, well nourished, nontoxic, mild distress. ENT: normal pharynx. Eye: EOMI, PERRL. Neck: no JVD, supple, no adenopathy. CV: Heart rate tachycardia, regular rhythm, no rubs, no murmur, no gallops, S1, S2, pulses equal and strong. Pulm: Severe respiratory distress. Rales bilaterally with coarse breath sounds. no wheeze, no rhonchi Abd: soft, nontender, no guarding, no rebound, no rigidity, normal bowel sounds. Ext: Trace edema bilaterally Skin: good color, no rash, no cyanosis. Psych: Presents confused. Neuro: limited secondary to critical condition. Vital Signs Reviewed: Yes Vital Signs Temp Pulse Resp BP Pulse Ox 05/12/18 06:12 98 H 20 100/59 L 100 05/12/18 05:49 98.9 F 05/12/18 05:41 128 H 24 162/105 H 100 05/12/18 05:15 120 H 32 H 152/91 H 90 L Temperature: Afebrile Blood Pressure: Hypertensive Pulse: Tachycardic Respiratory Rate: Tachypneic Pain Distress: Mild Mental Status: Positive for: Confused Medical Decision Making ED Course and Treatment: 05/12/18 05:17 Impression: 72 year old female presents complaining of worsening shortness of breath that began 2 days ago associated with dry cough for past several days. Patient required emergent Intubation. Plan: -- Labs -- EKG -- Chest X-ray -- Amidate, Diprivan, Zofran Inj -- Blood Culture -- Nasogatric Tube Insertion -- Ventilator Settings -- Reassess and disposition Prior Visits: Notes and results from previous visits were reviewed. Patient was last seen in the emergency department on 01/27/18 presents complaining of shortness of breath when she woke up. Patient was admitted. Progress Notes: 05/12/18 05:20 PROCEDURE: INTUBATION Performed by the emergency provider Time: 05:20 Consent: Discussion of the risks, benefits, and alternatives to the procedure, along with informed consent from family was precluded by the urgency of the procedure and the patient condition. Timeout: A timeout to verify the correct patient, procedure, and site was performed. Indication: hypoxic respiratory distress Pre-oxygenation: [id number] Medications: See MAR for details. ETT Size: 7 Confirmation: Cords directly visualized as tube passed, good bilateral breath sounds, positive CO2 detector color change, tube fogging, adequate chest rise, improving pulse oximetry reading, improved skin color, and absence of gastric sounds,. ETT Secured: The cuff was inflated and the tube was secured appropriately at a distance of 20cm at the lip. Post-Procedure: There were no immediate complications. CXR Confirmation: Yes 05/12/18 05:40 CXR Impression: As read by me, ETT tubes appears to be in satisfactory position, . Pulmonary vascular congestion. Patchy bilateral infiltrates. No pneumothorax. 05/12/18 05:48 EKG shows Sinus Tachycardia at 123 BPM with Normal QRS, Normal [place]. Anterior infarct. Nonspecific lateral ST wave abnormalities. Interpreted by me. 05/12/18 05:[address] Yu who is aware and agrees with the plan. Accepts patient into his service. 05/12/18 06:03 Code Sepsis called. 05/12/18 06:[address] hidalgo. patient was seen for acute respiratory distress, found to be hypoxic despite 100 % supplemental O2. patient was intubated immediately upon arrival for respiratory support. cxr appears consistent with patchy infiltrate and pulm edema. being that the patient was admitted to the hospital within 90 days i feel it is prudent to empirically tx for HCAP. - Critical Care Critical Care Minutes: 60 minutes - Lab Interpretations Microbiology Results: Microbiology Results 05/12/18 05:50 Blood-Venous Blood Culture - Final NO GROWTH AFTER 5 DAYS 05/12/18 05:50 Blood-Venous Gram Stain - Final TEST NOT PERFORMED 05/12/18 05:35 Blood-Venous Blood Culture - Final NO GROWTH AFTER 5 DAYS 05/12/18 05:35 Blood-Venous Gram Stain - Final TEST NOT PERFORMED Lab Results: 05/12/18 05:30 05/12/18 05:30 Lab Results 05/12/18 05:50: pO2 74 H, VBG pH 7.27 L, VBG pCO2 57.0, VBG HCO3 26.2, VBG Total CO2 27.9, VBG O2 Sat (Calc) 96.3 H, VBG Base Excess -1.7 L, VBG Potassium 4.5, Glucose 269 H, Lactate 3.8 H, FiO2 21.0, Sodium 131.0 L, Chloride 96.0 L, Venous Blood Potassium 4.5 05/12/18 05:50: Blood Type A POSITIVE, Antibody Screen Negative, BBK History Checked Patient has bt 05/12/18 05:30: PT 12.0, INR 1.04, APTT 20.9 L 05/12/18 05:30: Sodium 142, Potassium 4.5, Chloride 98, Carbon Dioxide 24, Anion Gap 24 H, BUN 41 H, Creatinine 6.0 H, Est GFR ( Amer) 8, Est GFR ( Non-Af Amer) 7, Random Glucose 195 H, Calcium 9.3, Phosphorus 5.2 H, Magnesium 2.3 H, Total Bilirubin 0.8, AST 26, ALT 26, Alkaline Phosphatase 79, Troponin I 0.02 D, Total Protein 7.7, Albumin 4.4, Globulin 3.4, Albumin/Globulin Ratio 1.3 05/12/18 05:30: WBC 8.3 D, RBC 3.11 L, Hgb 10.1 L, Hct 29.5 L, MCV 94.9, MCH 32.5, MCHC 34.2, RDW 13.6, Plt Count 126, MPV 11.1 H, Gran % 68.7 H, Lymph % ( Auto) 21.8 L, Placer % (Auto) 4.8, Eos % (Auto) 4.5, Baso % (Auto) 0.2, Gran # 5.68, Lymph # (Auto) 1.8, Placer # (Auto) 0.4, Eos # (Auto) 0.4, Baso # (Auto) 0.02 I have reviewed the lab results: Yes - RAD Interpretation Radiology Orders: 05/12/18 05:21 CHEST PORTABLE [RAD] Stat - EKG Interpretation Interpreted by ED Physician: Yes Type: 12 lead EKG - Medication Orders Current Medication Orders: Acetaminophen (Tylenol 650mg/20.3ml Solution Ud) 650 mg PO Q6H PRN PRN Reason: Temperature Last Admin: 05/13/18 16:36 Dose: 650 mg LAWSON Pain/Vitals Document 05/13/18 16:36 RM (Rec: 05/13/18 16:36 RM [facility] [id number] Pain Reassessment Is This A Pain ReAssessment? No Vitals Temperature (97.6 F-99.6 F) 101.3 F Temperature Source Rectal Albuterol/Ipratropium (Duoneb 3 Mg/0.5 Mg (3 Ml) Ud) 3 ml IH TIDRESP [facility] Last Admin: 05/17/18 08:05 Dose: 3 ml Aspirin (Ecotrin) 81 mg PO DAILY [facility] Last Admin: 05/16/18 10:11 Dose: 81 mg Atorvastatin Calcium (Lipitor) 10 mg PO HS [facility] Last Admin: 05/16/18 21:06 Dose: 10 mg Carvedilol (Coreg) 3.125 mg PO BID [facility] Last Admin: 05/16/18 17:32 Dose: 3.125 mg MAR Pulse and Blood Pressure Document 05/16/18 17:32 KAC (Rec: 05/16/18 17:32 [facility]) Pulse Pulse Rate (60-90) 63 Blood Pressure Blood Pressure (100/60-150/90) 104/41 Clopidogrel Bisulfate (Plavix) 75 mg PO DAILY [facility] Last Admin: 05/16/18 10:32 Dose: 75 mg Digoxin (Digoxin) 0.125 mg PO F [facility] Last Admin: 05/16/18 10:11 Dose: 0.125 mg MAR Apical Pulse Rate Document 05/16/18 10:11 KAC (Rec: 05/16/18 10:11 [facility]-RN CARE MANAGER) Apical Pulse Rate Apical Pulse Rate (60-90 beats/min) 64 Famotidine (Pepcid) 20 mg PO DAILY [facility] Last Admin: 05/16/18 10:14 Dose: 20 mg Guaifenesin/Codeine Phosphate (Robitussin W/Codeine) 5 ml PO BID [facility] Last Admin: 05/16/18 17:32 Dose: 5 ml Heparin Sodium (Porcine) (Heparin) 5,000 units SC Q12 [facility] PRN Reason: Protocol Last Admin: 05/16/18 21:06 Dose: 5,000 units Subcutaneous Administrations Document 05/16/18 21:06 GC (Rec: 05/16/18 21:06 GC [place] [id number]) Injection Site MAR Injection Site Left Abdomen Charges for Administration # of Subcutaneous Administrations 1 Insulin Human Regular (Humulin R Low) 0 units SC ACHS [facility] PRN Reason: Protocol Last Admin: 05/17/18 07:57 Dose: Not Given Non-Admin Reason: Blood Sugar Parameter MAR Blood Glucose Document 05/17/18 07:57 LO (Rec: 05/17/18 07:57 LO [id number]) Blood Glucose Finger Stick Blood Glucose (70-120) 145 Lisinopril (Zestril) 2.5 mg PO DAILY [facility] Last Admin: 05/16/18 10:14 Dose: 2.5 mg MAR Pulse and Blood Pressure Document 05/16/18 10:14 KA (Rec: 05/16/18 10:14 [facility]-RN CARE MANAGER) Pulse Pulse Rate (60-90) 1 Blood Pressure Blood Pressure (100/60-150/90) 109/41 Discontinued Medications Etomidate (Amidate) 20 mg IVP STAT STA Stop: 05/12/18 05:27 Last Admin: 05/12/18 05:19 Dose: 20 mg IVP Administration Document 05/12/18 05:19 CNR (Rec: 05/12/18 05:37 CNR [id number]) Charges for Administration # of IVP Administrations 1 Famotidine (Pepcid) 20 mg IVP DAILY [facility] Last Admin: 05/15/18 10:17 Dose: 20 mg IVP Administration Document 05/15/18 10:17 OYELO (Rec: 05/15/18 10:17 OYELO [facility] [place]) Charges for Administration # of IVP Administrations 1 Guaifenesin/Codeine Phosphate (Robitussin W/Codeine) 5 ml PO Q4H PRN PRN Reason: Cough and congestion Propofol (Diprivan) 1,000 mg in 100 mls @ 1.921 mls/hr IV .Q24H PRN; Protocol; 5 MCG/KG/MIN PRN Reason: TITRATE PER MD ORDER Last Titration: 05/13/18 12:45 Dose: 20 mcg/kg/min, 7.686 mls/hr Davila Agitation Sedation Document 05/13/18 12:45 RM (Rec: 05/13/18 12:46 RM [facility] [id number]) Davila Agitation Sedation Scale Davila Agitation Sedation Scale Score -1 Drowsy: Not fully alert, sustained awakening (>10 sec) to voice Titration Intervention Document 05/13/18 12:45 RM (Rec: 05/13/18 12:46 RM [facility] [id number]) Titration Intake Titration Intake 30 Cumulative Intake 30 Cumulative Intake (Rx) 150 Waste Amount 0 Container Volume 70 Titration Dosing Titration Dose 20 IV Rate 7.686 Intake/Decrease Decreased Cumulative Dose 1500 Ciprofloxacin (Cipro 400mg/200ml Dsw) 400 mg in 200 mls @ 133.3 mls/hr IVPB STAT STA PRN Reason: Protocol Stop: 05/12/18 07:19 Last Admin: 05/12/18 07:21 Dose: 133.3 mls/hr eMAR Start Stop Document 05/12/18 07:21 JUR (Rec: 05/12/18 07:21 JUR [facility] [id number]) Intravenous Solution Start Date 05/12/18 Start Time 07:21 End Date 05/12/18 End time 08:21 Total Infusion Time 60 Cefepime HCl (Maxipime 2gm) 2 gm in 100 mls @ 100 mls/hr IVPB STAT STA PRN Reason: Protocol Stop: 05/12/18 06:45 Last Admin: 05/12/18 06:05 Dose: 100 mls/hr eMAR Start Stop Document 05/12/18 06:05 CNR (Rec: 05/12/18 06:06 CNR [id number]) Intravenous Solution Start Date 05/12/18 Start Time 06:06 End Date 05/12/18 End time 07:06 Total Infusion Time 60 Vancomycin HCl (Vancomycin 1gm) 1 gm in 250 mls @ 167 mls/hr IVPB STAT STA PRN Reason: Protocol Stop: 05/12/18 07:16 Last Admin: 05/12/18 12:13 Dose: 167 mls/hr eMAR Start Stop Document 05/12/18 12:13 JUR (Rec: 05/12/18 12:13 JUR [facility] [id number]) Intravenous Solution Start Date 05/12/18 Start Time 12:13 End Date 05/12/18 End time 13:43 Total Infusion Time 90 Cefepime HCl (Maxipime 1gm) 1 gm in 100 mls @ 100 mls/hr IVPB Q12 YURI PRN Reason: Protocol Cefepime HCl (Maxipime 1gm) 1 gm in 100 mls @ 100 mls/hr IVPB DAILY YURI PRN Reason: Protocol Last Admin: 05/16/18 10:13 Dose: 100 mls/hr eMAR Start Stop Document 05/16/18 10:13 KA (Rec: 05/16/18 10:13 [facility]-RN CARE MANAGER) Intravenous Solution Start Date 05/16/18 Start Time 10:13 End Date 05/16/18 End time 11:13 Total Infusion Time 60 Sodium Chloride (Sodium Chloride 0.9%) 250 mls @ 999 mls/hr IV .Q16M STA Stop: 05/13/18 18:43 Last Admin: 05/13/18 18:45 Dose: 999 mls/hr eMAR Start Stop Document 05/13/18 18:45 RM (Rec: 05/13/18 18:45 RM [facility] [id number]) Intravenous Solution Start Date 05/13/18 Start Time 18:45 End Date 05/13/18 End time 19:10 Total Infusion Time 25 Insulin Human Regular (Humulin R Low) 0 units SC Q6H YURI PRN Reason: Protocol Last Admin: 05/14/18 16:40 Dose: Not Given Non-Admin Reason: Blood Sugar Parameter Metoprolol Tartrate (Lopressor) 25 mg PO BID YURI Last Admin: 05/13/18 18:04 Dose: Ondansetron HCl (Zofran Inj) 4 mg IVP STAT STA Stop: 05/12/18 05:28 Last Admin: 05/12/18 05:18 Dose: 4 mg IVP Administration Document 05/12/18 05:18 CNR (Rec: 05/12/18 05:38 CNR [id number]) Charges for Administration # of IVP Administrations 1 Rocuronium Jerome (Zemuron) 5 mg IVP ONCE ONE Stop: 05/12/18 05:36 Last Admin: 05/12/18 05:20 Dose: 5 mg IVP Administration Document 05/12/18 05:20 CNR (Rec: 05/12/18 05:38 CNR [id number]) Charges for Administration # of IVP Administrations 1 - Scribe Statement The provider has reviewed the documentation as recorded by the Jose Allen Provider Scribe Attestation: All medical record entries made by the Jose were at my direction and personally dictated by me. I have reviewed the chart and agree that the record accurately reflects my personal performance of the history, physical exam, medical decision making, and the department course for this patient. I have also personally directed, reviewed, and agree with the discharge instructions and disposition. Disposition/Present on Arrival - Present on Arrival Any Indicators Present on Arrival: No History of DVT/PE: No History of Uncontrolled Diabetes: No Urinary Catheter: No History of Decub. Ulcer: No History Surgical Site Infection Following: None - Disposition Have Diagnosis and Disposition been Completed?: Yes Diagnosis: Acute respiratory failure with hypoxia Disposition: HOSPITALIZED Disposition Time: 11:29 Condition: CRITICAL
[2018-05-12] MEDS ORDERED: Propofol 10 mg/ml 1,000 MG/100 ML VIAL ONE (05:25)
[2018-05-12] MEDS ORDERED: Etomidate 20 mg/10ml Inj IVP STA (05:26)
[2018-05-12] MEDS ORDERED: Rocuronium 10 mg/ml (5 ml) IVP ONE (05:35)
[2018-05-12] MEDS: Propofol 10 mg/ml 1,000 MG/100 ML VIAL IV PRN (05:36)
[2018-05-12] MEDS ORDERED: Cefepime IV 2 gm in NS 2 GM/100 ML BAG IVPB STA (05:46)
[2018-05-12] MEDS ORDERED: Vancomycin 1gm in NS 250ml 1 GM/250 ML BAG IVPB STA (05:47)
[2018-05-12] MEDS ORDERED: Ciprofloxacin 400mg/200ml D5W 400 MG/200 ML BAG IVPB STA (05:49)
[2018-05-12 05:57] LABS: BASO # 0.02 K/mm3 (0.0-2.0); BASO % 0.2 % (0.0-3.0); EOS # 0.4 (0.0-0.7); EOS % 4.5 % (1.5-5.0); GRAN # 5.68 (1.4-6.5); GRAN % 68.7 % (50.0-68.0); HEMOGLOBIN 10.1 g/dL (12.0-16.0); LYMPH # 1.8 (1.2-3.4); LYMPH % 21.8 % (22.0-35.0); MEAN CELL VOLUME 94.9 fl (80.0-105.0); MEAN CORPUSCULAR HEMOGLOBIN 32.5 pg (25.0-35.0); MEAN CORPUSCULAR HGB CONC 34.2 g/dl (31.0-37.0); MEAN PLATELET VOLUME 11.1 fl (7.0-11.0); MONO # 0.4 (0.1-0.6); MONO % 4.8 % (1.0-6.0); RBC 3.11 10^6/uL (3.5-6.1); RED CELL DISTRIBUTION WIDTH 13.6 % (11.5-14.5); WHITE BLOOD COUNT 8.3 10^3/ul (4.5-11.0)
[2018-05-12 06:09] LABS: ALB/GLOB RATIO 1.3 (1.1-1.8); ALBUMIN 4.4 g/dL (3.0-4.8); CALCIUM 9.3 mg/dL (8.4-10.5)
[2018-05-12 06:15] LABS: INR 1.04 (0.93-1.08); PARTIAL THROMBOPLASTIN TIME 20.9 Seconds (25.1-36.5)
[2018-05-12 06:18] LABS: ARTERIAL BLOOD GAS HCO3 27.8 mmol/L (21-28); ARTERIAL BLOOD GAS HEMOGLOBIN 8.9 g/dL (11.7-17.4); ARTERIAL BLOOD GAS O2 CAPACITY 12.5 mL/dl (16-24); ARTERIAL BLOOD GAS O2 CONTENT 12.3 ML/dl (15-23); ARTERIAL BLOOD GAS O2 SAT 98.7 % (95-98); ARTERIAL BLOOD GAS PCO2 46 mm/Hg (35-45); ARTERIAL BLOOD GAS PH 7.39 (7.35-7.45); ARTERIAL BLOOD GAS TCO2 29.2 mmol.L (22-28)
[2018-05-12 06:20] LABS: TROPONIN I 0.02 ng/mL
[2018-05-12 06:24] LABS: VENOUS BLOOD GAS BASE EXCESS -1.7 mmol/L (0.0-2.0); VENOUS BLOOD GAS PO2 74 mm/Hg (30-55); VENOUS BLOOD PH 7.27 (7.32-7.43)
--- NOTE | 2018-05-12 08:01 | CP.PCM.HP ---
<Renay Vaughn - Last Filed: 05/12/18 09:52> History of Present Illness - History of Present Illness History of Present Illness: H&P for Falguni Steward PGY3 This is a 72yo [place] F with past medical history of HTN, CAD s/p stents, DM II , ESRD on HD, PAD who was admitted for shortness of breath for 2 days. Patient was intubated in ED. History was obtained through daughter who was at bedside. As per daughter, she said her and her son were sick at home with a cold. Her mother was having cough for the past couple of days. She denies her mom having fever or chills or sputum production. Her mom does not have a mask at home to help with breathing. Her mom has been intubated once many years ago. Her last dialysis was on Saturday. Her mom never complained of chest pain during the past couple of days.Daughter said her mom has gained 3lbs in the past couple of days. They did not have any recent travel. In ED, patient was noted to be in respiratory distress and EKG showed sinus tach @123. CXR showed pulm edema with HCAP. Lactate was elevated. Patient was intubated in ED and transferred to ICU. Past medical history: HTN, CAD s/p multiple stents, IDDM, ESRD on HD (T,T,Sa), PAD Past surgical history: , PCI, AV fistula Home meds: Reviewed Allergies: NKDA Social history: Denies EtOH, drug or tobacco use. Lives with family Family history: DM and HTN Assistant Signal Maintainer: Dr. Davila Present on Admission - Present on Admission Any Indicators Present on Admission: No Review of Systems - Review of Systems Systems not reviewed;Unavailable: Intubated Past Patient History - Infectious Disease Hx of Infectious Diseases: None - Tetanus Immunizations Tetanus Immunization: Unknown - Past Social History Smoking Status: Never Smoked - CARDIAC Hx Angina: Yes Hx Cardia Arrhythmia: Yes (a fib) Hx Congestive Heart Failure: Yes Hx Hypertension: Yes Hx Peripheral Edema: Yes (+1 pedal edema) Other/Comment: pad - PULMONARY Hx Respiratory Disorders: No - NEUROLOGICAL Hx Neurological Disorder: Yes Hx Dizziness: Yes - HEENT Hx HEENT Problems: Yes (blurry vision) Hx Cataracts: Yes (left eye needs sx) - RENAL Date of Last Dialysis Treatment: 01/27/18 - ENDOCRINE/METABOLIC Hx Diabetes Mellitus Type 2: Yes - HEMATOLOGICAL/ONCOLOGICAL Hx Blood Disorders: Yes Hx Anemia: Yes (w/ Blood transfusions) - INTEGUMENTARY Hx Dermatological Problems: No Other/Comment: SHUNT LEFT ARM - MUSCULOSKELETAL/RHEUMATOLOGICAL Hx Falls: No - GASTROINTESTINAL Hx Gastrointestinal Disorders: No - GENITOURINARY/GYNECOLOGICAL Hx Genitourinary Disorders: Yes ([place]) - PSYCHIATRIC Hx Psychophysiologic Disorder: No Hx Emotional Abuse: No Hx Physical Abuse: No Hx Substance Use: No - SURGICAL HISTORY Hx Cardiac Catheterization: Yes (several) Hx Coronary Stent: Yes Hx Orthopedic Surgery: Yes (left ankle surgery with screws) Other/Comment: c section x1, 02/22/16 malfunctioning av fistula revision, 03/06/16 replacement of hd cath, carotid angiogram 11/2015 - ANESTHESIA Hx Anesthesia Reactions: No Hx Malignant Hyperthermia: No Meds Allergies/Adverse Reactions: Allergies Allergy/AdvReac Type Severity Reaction Status Date / Time No Known Allergies Allergy Verified 01/27/18 03:52 Physical Exam - Constitutional Appears: No Acute Distress - Head Exam Head Exam: ATRAUMATIC, NORMAL INSPECTION, NORMOCEPHALIC - Eye Exam Pupil Exam: PERRL - ENT Exam ENT Exam: Mucous Membranes Dry - Respiratory Exam Respiratory Exam: Rales, Rhonchi, NORMAL BREATHING PATTERN - Cardiovascular Exam Cardiovascular Exam: REGULAR RHYTHM, +S1, +S2. absent: Gallop, Rubs, Systolic Murmur - GI/Abdominal Exam GI & Abdominal Exam: Normal Bowel Sounds, Soft. absent: Mass, Rebound, Rigid, Tenderness - Extremities Exam Extremities exam: Positive for: normal inspection. Negative for: calf tenderness, pedal edema - Neurological Exam Neurological exam: Alert, CN II-XII Intact - Skin Skin Exam: Dry, Intact, Warm Results - Vital Signs Recent Vital Signs: Last Vital Signs Temp 98.9 F 05/12/18 05:49 Pulse 85 05/12/18 06:45 Resp 18 05/12/18 06:45 BP 117/61 05/12/18 06:45 Pulse Ox 100 05/12/18 06:45 - Labs Result Diagrams: 05/12/18 05:30 05/12/18 05:30 Labs: Laboratory Results - last 24 hr 05/12/18 06:15 pCO2 46 H pO2 110.0 H HCO3 27.8 ABG pH 7.39 ABG Total CO2 29.2 H ABG O2 Saturation 98.7 H ABG O2 Content 12.3 L ABG Base Excess 2.4 ABG Hemoglobin 8.9 L ABG Carboxyhemoglobin 1.6 H POC ABG HHb (Measured) 1.3 ABG Methemoglobin 0.5 ABG O2 Capacity 12.5 L Hgb O2 Saturation 96.6 FiO2 100.0 Assessment & Plan - Assessment and Plan (Free Text) Assessment: This is a 72yo [place] F with past medical history of HTN, CAD s/p stents, DM II , ESRD on HD, PAD admitted for 1. Acute respiratory failure - secondary to HCAP and pulm edema 2. Sepsis - secondary to HCAP 3. HTN 4. ESRD on HD (T,T,Sa) 5. IDDM - Pt NPO 6. PAD 7. CAD Plan: Patient is sedated and intubated. She got antibiotics in ED. ID consulted. Patient is NPO. Will place patient on insulin sliding scale. Metoprolol prn SBP >160. Patient will get HD today. Cardiology consulted. Will trend troponin. Will recheck CXR after HD. Patient is on GI and DVT prophylaxis. She is being monitored in the ICU. Case seen, discussed and reviewed with Dr. Yu. Falguni Vaughn PGY3 - Date & Time Date: 05/12/18 Time: 08:14 <Deep Yu S - Last Filed: 05/12/18 21:53> Results - Vital Signs Recent Vital Signs: Last Vital Signs Temp 98.1 F 05/12/18 07:06 Pulse 76 05/12/18 18:00 Resp 18 05/12/18 07:06 BP 132/60 05/12/18 18:00 Pulse Ox 100 05/12/18 18:00 - Labs Result Diagrams: 05/12/18 05:30 05/12/18 05:30 Labs: Laboratory Results - last 24 hr 05/12/18 05/12/18 05/12/18 06:15 08:01 10:00 pCO2 46 H 35 pO2 110.0 H 159.0 H HCO3 27.8 24.9 ABG pH 7.39 7.46 H ABG Total CO2 29.2 H 26.0 ABG O2 Saturation 98.7 H 98.8 H ABG O2 Content 12.3 L 11.7 L ABG Base Excess 2.4 1.1 ABG Hemoglobin 8.9 L 8.3 L ABG Carboxyhemoglobin 1.6 H 0.9 POC ABG HHb (Measured) 1.3 1.2 ABG Methemoglobin 0.5 0.5 ABG O2 Capacity 12.5 L 11.8 L VBG pH VBG pCO2 VBG HCO3 VBG Total CO2 VBG O2 Sat (Calc) VBG Base Excess VBG Potassium Hgb O2 Saturation 96.6 97.3 Sodium Chloride Glucose Lactate FiO2 100.0 60.0 POC Glucose (mg/dL) 281 H Troponin I Venous Blood Potassium 05/12/18 05/12/18 05/12/18 10:46 11:15 11:15 pCO2 pO2 68 H HCO3 ABG pH ABG Total CO2 ABG O2 Saturation ABG O2 Content ABG Base Excess ABG Hemoglobin ABG Carboxyhemoglobin POC ABG HHb (Measured) ABG Methemoglobin ABG O2 Capacity VBG pH 7.32 VBG pCO2 55.0 VBG HCO3 28.3 H VBG Total CO2 30.0 H VBG O2 Sat (Calc) 95.4 H VBG Base Excess 1.1 VBG Potassium 6.0 H Hgb O2 Saturation Sodium 133.0 Chloride 99.0 Glucose 207 H Lactate 3.3 H FiO2 21.0 POC Glucose (mg/dL) 210 H Troponin I 0.17 H* D Venous Blood Potassium 6.0 H 05/12/18 17:12 pCO2 pO2 HCO3 ABG pH ABG Total CO2 ABG O2 Saturation ABG O2 Content ABG Base Excess ABG Hemoglobin ABG Carboxyhemoglobin POC ABG HHb (Measured) ABG Methemoglobin ABG O2 Capacity VBG pH VBG pCO2 VBG HCO3 VBG Total CO2 VBG O2 Sat (Calc) VBG Base Excess VBG Potassium Hgb O2 Saturation Sodium Chloride Glucose Lactate FiO2 POC Glucose (mg/dL) Troponin I 0.30 H* D Venous Blood Potassium Assessment & Plan - Assessment and Plan (Free Text) Plan: Pt seen and examined. I have reviewed the note of the medical payment poster and agree with it. I have discussed the assessment and plan with the resident. I have reviewed the patient's labs and medications. Pt with acute SOB and probable pneumonia and volume overload. I spoke to pt's daughter. She is intubated. Spoke to dialysis nurse. I also was able to get consent from the daughter. She had a full treatment on Saturday. Spoke to Dr Davial to consult for her CAD.
[2018-05-12] MEDS ORDERED: Metoprolol 1 mg/ml Inj IVP PRN (08:12)
--- NOTE | 2018-05-12 09:08 | RAD ---
Date of service: 05/12/2018 HISTORY: tatus post intubation COMPARISON: 01/27/2018 FINDINGS: LUNGS: The endotracheal tube and nasogastric tube are in satisfactory position. There is increasing pulmonary edema PLEURA: No significant pleural effusion identified, no pneumothorax apparent. CARDIOVASCULAR: Normal. OSSEOUS STRUCTURES: No significant abnormalities. VISUALIZED UPPER ABDOMEN: Normal. OTHER FINDINGS: None. IMPRESSION: The endotracheal tube and nasogastric tube are in satisfactory position. There is increasing pulmonary edema
[2018-05-12] MEDS ORDERED: metroNIDAZOLE IV 500 mg/100 ml 500 MG/100 ML BAG IVPB SCH (09:15)
[2018-05-12] MEDS ORDERED: Cefepime 1gm in NS 100ml 1 GM/100 ML BAG IVPB SCH (10:00)
[2018-05-12 10:05] LABS: ARTERIAL BLOOD GAS HCO3 24.9 mmol/L (21-28); ARTERIAL BLOOD GAS HEMOGLOBIN 8.3 g/dL (11.7-17.4); ARTERIAL BLOOD GAS O2 CAPACITY 11.8 mL/dl (16-24); ARTERIAL BLOOD GAS O2 CONTENT 11.7 ML/dl (15-23); ARTERIAL BLOOD GAS O2 SAT 98.8 % (95-98); ARTERIAL BLOOD GAS PCO2 35 mm/Hg (35-45); ARTERIAL BLOOD GAS PH 7.46 (7.35-7.45)
[2018-05-12 10:15] VITALS: BMI 26.6
--- NOTE | 2018-05-12 10:42 | CP.PCM.CON ---
<Wally Will - Last Filed: 05/12/18 13:37> History of Present Illness - History of Present Illness History of Present Illness: Wally Will, PGY1 ICU Consult Note for Dr. Tejada Patient is a 72 y/o F with PMHx of CAD (multiple stents), HTN, DM (insulin dependent), PAD, ESRD (on HD /) who presented to the ED earlier this morning for SOB x2 days and cough x4 days. Patient denied fevers, chest pain, and recent travel. Patient has sick contacts: son and daughter. Patient's last HD was on Saturday. Patient was intubated several years ago and her most recent visit was for pulmonary edema. In the ED, patient appeared to be in respiratory distress with EKG showing sinus tachycardia of 123 bpm; as a result , patient was intubated and ICU was consulted. CXR was significant for HCAP and pulmonary edema. Patient also had an elevated lactate (3.8) in ED. Patient was examined in the ICU with daughter present at bedside. ROS could not be obtained since patient is intubated. ABG improving. From ED note and prior chart review: PMHx: HTN, CAD (multiple stents), DM (insulin dependent), ESRD on HD (Sat), PAD PSHx: , PCI, AV fistula Allergies: NKDA SocialHx: denies EtOH, drug, tobacco use. Lives at home with family. FamilyHx: DM, HTN Review of Systems - Review of Systems Systems not reviewed;Unavailable: Intubated Past Patient History - Past Medical History & Family History Past Medical History?: Yes Pertinent Family History: DM and HTN - Past Social History Smoking Status: Never Smoked Chewing Tobacco Use: No Alcohol: None Drugs: Denies Home Situation {Lives}: With Family - CARDIAC Hx Cardiac Disorders: Yes (CAD (s/p multiple stents)) Hx Cardia Arrhythmia: Yes (a fib) Hx Congestive Heart Failure: Yes Hx Hypertension: Yes Other/Comment: PAD - PULMONARY Hx Respiratory Disorders: No - NEUROLOGICAL Hx Neurological Disorder: No - HEENT Hx HEENT Problems: Yes (blurry vision) Hx Cataracts: Yes (left eye, needs surgery) - RENAL Hx Chronic Kidney Disease: Yes Hx Dialysis: Yes () Date of Last Dialysis Treatment: 05/10/18 - ENDOCRINE/METABOLIC Hx Diabetes Mellitus Type 2: Yes (Insulin dependent ) - HEMATOLOGICAL/ONCOLOGICAL Hx Blood Disorders: Yes Hx Anemia: Yes (w/ Blood transfusions) - INTEGUMENTARY Hx Dermatological Problems: No Other/Comment: SHUNT LEFT ARM - MUSCULOSKELETAL/RHEUMATOLOGICAL Hx Musculoskeletal Disorders: No Hx Falls: No - GASTROINTESTINAL Hx Gastrointestinal Disorders: No - GENITOURINARY/GYNECOLOGICAL Hx Genitourinary Disorders: Yes (olig[place] (on HD)) - PSYCHIATRIC Hx Psychophysiologic Disorder: No Hx Emotional Abuse: No Hx Physical Abuse: No Hx Substance Use: No - SURGICAL HISTORY Hx Surgeries: Yes Hx Cardiac Catheterization: Yes Hx Section: Yes Hx Coronary Stent: Yes (multiple stents) Hx Orthopedic Surgery: Yes (left ankle surgery with screws) Other/Comment: c section x1, 02/22/16 malfunctioning av fistula revision, 03/06/16 replacement of hd cath, carotid angiogram 11/2015 - ANESTHESIA Hx Anesthesia Reactions: No Hx Malignant Hyperthermia: No Meds Allergies/Adverse Reactions: Allergies Allergy/AdvReac Type Severity Reaction Status Date / Time No Known Allergies Allergy Verified 01/27/18 03:52 - Medications Medications: Current Medications Aspirin (Ecotrin) 81 mg PO DAILY [facility] Atorvastatin Calcium (Lipitor) 10 mg PO HS [facility] Clopidogrel Bisulfate (Plavix) 75 mg PO DAILY [facility] Famotidine (Pepcid) 20 mg IVP DAILY [facility] Heparin Sodium (Porcine) (Heparin) 5,000 units SC Q12 [facility] PRN Reason: Protocol Propofol (Diprivan) 1,000 mg in 100 mls @ 1.921 mls/hr IV .Q24H PRN; Protocol; 5 MCG/KG/MIN PRN Reason: TITRATE PER MD ORDER Last Admin: 05/12/18 05:36 Dose: 1.921 mls/hr Cefepime HCl (Maxipime 1gm) 1 gm in 100 mls @ 100 mls/hr IVPB DAILY [facility] PRN Reason: Protocol Insulin Human Regular (Humulin R Low) 0 units SC Q6H [facility] PRN Reason: Protocol Metoprolol Tartrate (Lopressor) 5 mg IVP Q6H PRN PRN Reason: Systolic Blood Pressure Metoprolol Tartrate (Lopressor) 25 mg PO BID [facility] Physical Exam - Constitutional Appears: No Acute Distress - Head Exam Head Exam: ATRAUMATIC, NORMAL INSPECTION, NORMOCEPHALIC - Eye Exam Eye Exam: PERRL - Respiratory Exam Respiratory Exam: absent: Accessory Muscle Use, Decreased Breath Sounds, Rhonchi , Wheezes, Respiratory Distress Additional comments: diffuse crackles heard bilaterally - Cardiovascular Exam Cardiovascular Exam: RRR, +S1, +S2. absent: Gallop, Rubs - GI/Abdominal Exam GI & Abdominal Exam: Normal Bowel Sounds, Soft. absent: Diminished Bowel Sounds , Distended, Guarding, Mass, Organomegaly, Rigid - Extremities Exam Extremities exam: Positive for: normal inspection, pedal pulses present. Negative for: pedal edema - Neurological Exam Additional comments: Intubated. Follows limited commands. Awake at times. Currently sedated. - Skin Skin Exam: Dry, Normal Color, Warm Results - Vital Signs Recent Vital Signs: Last Vital Signs Temp 98.1 F 05/12/18 07:06 Pulse 88 05/12/18 07:06 Resp 18 05/12/18 07:06 BP 128/67 05/12/18 07:06 Pulse Ox 100 05/12/18 06:45 - Labs Result Diagrams: 05/12/18 05:30 05/12/18 05:30 Labs: Laboratory Results - last 24 hr 05/12/18 05/12/18 06:15 10:00 pCO2 46 H 35 pO2 110.0 H 159.0 H HCO3 27.8 24.9 ABG pH 7.39 7.46 H ABG Total CO2 29.2 H 26.0 ABG O2 Saturation 98.7 H 98.8 H ABG O2 Content 12.3 L 11.7 L ABG Base Excess 2.4 1.1 ABG Hemoglobin 8.9 L 8.3 L ABG Carboxyhemoglobin 1.6 H 0.9 POC ABG HHb (Measured) 1.3 1.2 ABG Methemoglobin 0.5 0.5 ABG O2 Capacity 12.5 L 11.8 L Hgb O2 Saturation 96.6 97.3 FiO2 100.0 60.0 Assessment & Plan - Assessment and Plan (Free Text) Assessment: Patient is a 72 y/o F with PMHx of CAD (multiple stents), HTN, DM (insulin dependent), PAD, ESRD (on HD //Sat) who presented to the ED earlier this morning for SOB x2 days and cough x4 days. Patient had a prior visit for pulmonary edema. In ED, patient was in respiratory distress and patient was intubated, transferred to ICU for management. Patient currently being treated for suspected HCAP and pulmonary edema. Plan: 1. Respiratory distress 2/2 HCAP and pulmonary edema - s/p intubation; PRVC settings 300/18/5/60 - Improving ab.41/35/159 - Protective lung ventilation settings: elevate head of bed above 35 degrees, oral care, SBT, weaning trials, GI/DVT ppx - CXR: increasing pulmonary edema. ET tube position is good. - ID consulted, recs appreciated - c/w antibiotics 2. CAD (s/p multiple stents) - c/w ASA/Plavix - trend cardio troponins - initial trop negative 3. ESRD - Plan for HD today - Recent BUN/Cr is 41/6 - Dr. Yu following 4. DM (insulin dependent) - ISS - Accucheks ACHS - Maintain euglycemia 5. HTN - Normotensive, no pressors - Maintain MAP > 65 GI ppx: pepcid DVT ppx: Hep SC Dispo: Patient currently intubated and being managed in the ICU. Case was discussed and reviewed with Attending Physician Dr. Tejada. <Reji Tejada - Last Filed: 05/12/18 13:56> Meds - Medications Medications: Current Medications Aspirin (Ecotrin) 81 mg PO DAILY [facility] Last Admin: 05/12/18 10:40 Dose: 81 mg Atorvastatin Calcium (Lipitor) 10 mg PO HS [facility] Clopidogrel Bisulfate (Plavix) 75 mg PO DAILY [facility] Last Admin: 05/12/18 10:41 Dose: 75 mg Famotidine (Pepcid) 20 mg IVP DAILY [facility] Last Admin: 05/12/18 10:42 Dose: 20 mg Heparin Sodium (Porcine) (Heparin) 5,000 units SC Q12 [facility] PRN Reason: Protocol Last Admin: 05/12/18 10:41 Dose: 5,000 units Propofol (Diprivan) 1,000 mg in 100 mls @ 1.921 mls/hr IV .Q24H PRN; Protocol; 5 MCG/KG/MIN PRN Reason: TITRATE PER MD ORDER Last Admin: 05/12/18 05:36 Dose: 1.921 mls/hr Cefepime HCl (Maxipime 1gm) 1 gm in 100 mls @ 100 mls/hr IVPB DAILY [facility] PRN Reason: Protocol Insulin Human Regular (Humulin R Low) 0 units SC Q6H [facility] PRN Reason: Protocol Last Admin: 05/12/18 11:14 Dose: Not Given Metoprolol Tartrate (Lopressor) 5 mg IVP Q6H [facility]N PRN Reason: Systolic Blood Pressure Metoprolol Tartrate (Lopressor) 25 mg PO BID [facility] Last Admin: 05/12/18 10:41 Dose: Not Given Results - Vital Signs Recent Vital Signs: Last Vital Signs Temp 98.1 F 05/12/18 07:06 Pulse 74 05/12/18 12:50 Resp 18 05/12/18 07:06 BP 115/59 L 05/12/18 12:45 Pulse Ox 100 05/12/18 12:50 - Labs Result Diagrams: 05/12/18 05:30 05/12/18 05:30 Labs: Laboratory Results - last 24 hr 05/12/18 05/12/18 05/12/18 06:15 08:01 10:00 pCO2 46 H 35 pO2 110.0 H 159.0 H HCO3 27.8 24.9 ABG pH 7.39 7.46 H ABG Total CO2 29.2 H 26.0 ABG O2 Saturation 98.7 H 98.8 H ABG O2 Content 12.3 L 11.7 L ABG Base Excess 2.4 1.1 ABG Hemoglobin 8.9 L 8.3 L ABG Carboxyhemoglobin 1.6 H 0.9 POC ABG HHb (Measured) 1.3 1.2 ABG Methemoglobin 0.5 0.5 ABG O2 Capacity 12.5 L 11.8 L VBG pH VBG pCO2 VBG HCO3 VBG Total CO2 VBG O2 Sat (Calc) VBG Base Excess VBG Potassium Hgb O2 Saturation 96.6 97.3 Sodium Chloride Glucose Lactate FiO2 100.0 60.0 POC Glucose (mg/dL) 281 H Troponin I Venous Blood Potassium 05/12/18 05/12/18 05/12/18 10:46 11:15 11:15 pCO2 pO2 68 H HCO3 ABG pH ABG Total CO2 ABG O2 Saturation ABG O2 Content ABG Base Excess ABG Hemoglobin ABG Carboxyhemoglobin POC ABG HHb (Measured) ABG Methemoglobin ABG O2 Capacity VBG pH 7.32 VBG pCO2 55.0 VBG HCO3 28.3 H VBG Total CO2 30.0 H VBG O2 Sat (Calc) 95.4 H VBG Base Excess 1.1 VBG Potassium 6.0 H Hgb O2 Saturation Sodium 133.0 Chloride 99.0 Glucose 207 H Lactate 3.3 H FiO2 21.0 POC Glucose (mg/dL) 210 H Troponin I 0.17 H* D Venous Blood Potassium 6.0 H Attending/Attestation - Attestation I have personally seen and examined this patient.: Yes I have fully participated in the care of the patient.: Yes I have reviewed all pertinent clinical information: Yes Notes (Text): 05/12/18 13:53 The patient was seen and examined at the bedside. Patient care was discussed with resident Medical records, lab studies, and imaging were reviewed and management issues were discussed and formulated. Last 24H events reviewed. Agree with above treatment plans as outlined in 's note with addition of the following: Respiratory Failure \ Hypercapnea \ Hypoxemia \ Pulmonary Edema \ ESRD on HD \ Volume overload \ ro PNA \ CAD \ DM 2 \ -hemodynamic monitoring to maintain MAP>65; currently stable -f\u serial CE and ECG; continue asa and plavix; consider cardio eval -mechanical ventilation and o2 supplementation to maintain Spo2 >90 Pao2>60 -monitor for TV 6ml\kg IBW and plateau pressure <30 -CXR and ABG reviewed -continue empiric Abx and f\u cultures ; ID eval appreciated -f\u Bun\Cr and U\o; HD and volume removal as per renal team -NPO diet and aspiration precautions -ISS and BGM monitoring -DVT \ PUD prophylaxis CCM time 34min
[2018-05-12] MEDS: Insulin Reg-LOW-Coverage SC SCH ×3 (11:14→22:00)
[2018-05-12 11:23] LABS: VENOUS BLOOD GAS BASE EXCESS 1.1 mmol/L (0.0-2.0); VENOUS BLOOD GAS PO2 68 mm/Hg (30-55); VENOUS BLOOD PH 7.32 (7.32-7.43)
[2018-05-12] MEDS ORDERED: Insulin Lispro (humaLOG) MEDIUM Coverage SC SCH (12:00)
--- NOTE | 2018-05-12 13:34 | CP.PCM.CON ---
History of Present Illness - History of Present Illness History of Present Illness: 72 year old female with PMH of HTN, CAD S/P PCI, ESRD on HD, DM, PAD, S/P C- section, came in to [facility] because of worsening shortness of breath for the past 2 days with dry cough but there was no note of fevers and no sputum production. She had no diarrhea, no vomiting. In the ED, the patient was noted to be in severe respiratory distress and had to be intubated, put on the ventilator and sent to the ICU for closer observation and management. She is noted to have increased lactate levels and Infectious Diseases consult is requested to further evaluate and manage. Full ROS is unobtainable because the patient is intubated. Review of Systems - Review of Systems All systems: reviewed and no additional remarkable complaints except (as per HPI ) Past Patient History - Infectious Disease Hx of Infectious Diseases: None - Tetanus Immunizations Tetanus Immunization: Unknown - Past Social History Smoking Status: Never Smoked - CARDIAC Hx Angina: Yes Hx Cardia Arrhythmia: Yes (a fib) Hx Congestive Heart Failure: Yes Hx Hypertension: Yes Hx Peripheral Edema: Yes (+1 pedal edema) Other/Comment: pad - PULMONARY Hx Respiratory Disorders: No - NEUROLOGICAL Hx Neurological Disorder: Yes Hx Dizziness: Yes - HEENT Hx HEENT Problems: Yes (blurry vision) Hx Cataracts: Yes (left eye needs sx) - RENAL Date of Last Dialysis Treatment: 01/27/18 - ENDOCRINE/METABOLIC Hx Diabetes Mellitus Type 2: Yes - HEMATOLOGICAL/ONCOLOGICAL Hx Blood Disorders: Yes Hx Anemia: Yes (w/ Blood transfusions) - INTEGUMENTARY Hx Dermatological Problems: No Other/Comment: SHUNT LEFT ARM - MUSCULOSKELETAL/RHEUMATOLOGICAL Hx Falls: No - GASTROINTESTINAL Hx Gastrointestinal Disorders: No - GENITOURINARY/GYNECOLOGICAL Hx Genitourinary Disorders: Yes ([place]) - PSYCHIATRIC Hx Psychophysiologic Disorder: No Hx Emotional Abuse: No Hx Physical Abuse: No Hx Substance Use: No - SURGICAL HISTORY Hx Cardiac Catheterization: Yes (several) Hx Coronary Stent: Yes Hx Orthopedic Surgery: Yes (left ankle surgery with screws) Other/Comment: c section x1, 02/22/16 malfunctioning av fistula revision, 03/06/16 replacement of hd cath, carotid angiogram 11/2015 - ANESTHESIA Hx Anesthesia Reactions: No Hx Malignant Hyperthermia: No Meds Allergies/Adverse Reactions: Allergies Allergy/AdvReac Type Severity Reaction Status Date / Time No Known Allergies Allergy Verified 01/27/18 03:52 - Medications Medications: Current Medications Aspirin (Ecotrin) 81 mg PO DAILY [facility] Atorvastatin Calcium (Lipitor) 10 mg PO HS [facility] Clopidogrel Bisulfate (Plavix) 75 mg PO DAILY [facility] Famotidine (Pepcid) 20 mg IVP DAILY [facility] Heparin Sodium (Porcine) (Heparin) 5,000 units SC Q12 YURI PRN Reason: Protocol Propofol (Diprivan) 1,000 mg in 100 mls @ 1.921 mls/hr IV .Q24H PRN; Protocol; 5 MCG/KG/MIN PRN Reason: TITRATE PER MD ORDER Last Admin: 05/12/18 05:36 Dose: 1.921 mls/hr Metronidazole (Flagyl) 500 mg in 100 mls @ 100 mls/hr IVPB Q8 [facility] PRN Reason: Protocol Cefepime HCl (Maxipime 1gm) 1 gm in 100 mls @ 100 mls/hr IVPB Q12 YURI PRN Reason: Protocol Insulin Human Regular (Humulin R Low) 0 units SC Q6H YURI PRN Reason: Protocol Metoprolol Tartrate (Lopressor) 5 mg IVP Q6H PRN PRN Reason: Systolic Blood Pressure Metoprolol Tartrate (Lopressor) 25 mg PO BID [facility] Physical Exam - Constitutional Appears: Chronically Ill Additional comments: intubated, sedated - Head Exam Head Exam: NORMAL INSPECTION - ENT Exam Additional comments: ET tube in place - Respiratory Exam Respiratory Exam: Decreased Breath Sounds - Cardiovascular Exam Cardiovascular Exam: +S1, +S2 - GI/Abdominal Exam GI & Abdominal Exam: Soft. absent: Tenderness Results - Vital Signs Recent Vital Signs: Last Vital Signs Temp 98.9 F 05/12/18 05:49 Pulse 85 05/12/18 06:45 Resp 18 05/12/18 06:45 BP 117/61 05/12/18 06:45 Pulse Ox 100 05/12/18 06:45 - Labs Result Diagrams: 05/12/18 05:30 05/12/18 05:30 Labs: Laboratory Results - last 24 hr 05/12/18 06:15 pCO2 46 H pO2 110.0 H HCO3 27.8 ABG pH 7.39 ABG Total CO2 29.2 H ABG O2 Saturation 98.7 H ABG O2 Content 12.3 L ABG Base Excess 2.4 ABG Hemoglobin 8.9 L ABG Carboxyhemoglobin 1.6 H POC ABG HHb (Measured) 1.3 ABG Methemoglobin 0.5 ABG O2 Capacity 12.5 L Hgb O2 Saturation 96.6 FiO2 100.0 Assessment & Plan - Assessment and Plan (Free Text) Plan: Assessment Systemic Inflammatory response syndrome, consider due to acute hypoxic ventilator-dependent respiratory failure due to acute pulmonary edema, R/O sepsis but so far no source of infection identified HTN CAD S/P PCI ESRD on HD DM PAD S/P Plan Gave the patient a dose of IV Vancomycin and started cefepime pending blood, urine cx, PCT; reviewed CXR which is showing pulmonary edema will monitor clinically
--- NOTE | 2018-05-12 17:01 | CARD ---
APPROVED REPORT Date of service: 05/12/2018 EXAM: Two-dimensional and M-mode echocardiogram with Doppler and color Doppler. INDICATION 2D DIMENSIONS Left Atrium (2D)3.9 (1.6-4.0cm)IVSd1.0 (0.7-1.1cm) LVDd5.2 (3.9-5.9cm)PWd0.9 (0.7-1.1cm) LVDs4.7 (2.5-4.0cm)FS (%) 10.5 % LVEF (%)22.9 (>50%) M-Mode DIMENSIONS Aortic Root2.70 (2.2-3.7cm)Aortic Cusp Exc.1.80 (1.5-2.0cm) Aortic Valve AoV Peak Wvzejium219.0cm/Lauren Peak GR.10mmHg Mitral Valve MV E Kxpyobbx02.7cm/sMV A Nunhnbvh96.2cm/sE/A ratio1.6 TDI Lateral E' Peak V5.51cm/sMedial E' Peak V5.15cm/sE/Lateral E'17.5 E/Medial E'18.8 Tricuspid Valve TR Peak [id number]/sRAP [id number] Peak Gr.22mmHg [id number] LEFT VENTRICLE The left ventricle is normal size. There is normal left ventricular wall thickness. The systolic function is moderately impaired.EF-25-30% There is moderate to severe hypokinesis in the apical anterior wall. Transmitral Doppler flow pattern is Grade II-pseudonormal filling dynamics. No left ventricle thrombus noted on this study. There is no ventricular septal defect visualized. There is no left ventricular aneurysm. There is no mass noted in the left ventricle. RIGHT VENTRICLE The right ventricle is normal size. There is normal right ventricular wall thickness. The right ventricular systolic function is normal. ATRIA The left atrium is borderline dilated. The right atrium size is normal. The interatrial septum is intact with no evidence for an atrial septal defect. AORTIC VALVE The aortic valve is thickened but opens well. No aortic regurgitation is present. Aortic sclerosis Vs Mild There is no aortic valvular vegetation. MITRAL VALVE The mitral valve is thickened but opens well. Mitral regurgitation is trace. There is no mitral valve stenosis. There is no evidence of mitral valve prolapse. TRICUSPID VALVE The tricuspid valve leaflets are thickened , but open well. There is trace to mild tricuspid regurgitation.RVSP-32 mmof hg. There is no tricuspid valve stenosis. There is no tricuspid valve prolapse or vegetation. PULMONIC VALVE The pulmonic valve is not well visualized but probably normal. There is no pulmonic valvular regurgitation. There is no pulmonic valvular stenosis. GREAT VESSELS The aortic root is normal in size. The ascending aorta is normal in size. The pulmonary artery is normal. The IVC is dilated. PERICARDIAL EFFUSION There is no pleural effusion. There is a trace pericardial effusion. <Conclusion> The left ventricle is normal size. There is normal left ventricular wall thickness. The systolic function is moderately impaired.[id number] Aortic sclerosis Vs Mild Mitral regurgitation is trace. There is trace to mild tricuspid regurgitation.RVSP-32 mmof hg. The IVC is dilated. There is a trace pericardial effusion. No Vegetation noted/.
--- NOTE | 2018-05-12 19:08 | CARD ---
APPROVED REPORT Date of service: 05/12/2018 EKG Measurement Heart [id number] <Conclusion> Normal sinus rhythm Septal infarct, age undetermined Prolonged QT Abnormal ECG
--- NOTE | 2018-05-12 19:28 | CARD ---
APPROVED REPORT Date of service: 05/12/2018 EKG Measurement Heart [id number] <Conclusion> Sinus tachycardia Septal infarct, age undetermined Consider lateral ischemia Abnormal ECG
--- NOTE | 2018-05-12 20:30 | CON ---
DATE: 05/12/2018 CARDIOLOGY CONSULTATION REASON FOR CONSULTATION: Followup status post respiratory failure, rule out pneumonia, intubated, history of coronary artery disease. BRIEF CLINICAL HISTORY: This is a 72-year-old Latvian speaking female with past medical history significant for hypertension; coronary artery disease, status post stent; diabetes; end-stage renal disease, on hemodialysis. Last catheterization revealed coronary artery disease, referred for open-heart surgery. The patient's family concerned, does not want open-heart surgery, who was in her usual state of health except four days, the patient is having cough and bringing some phlegm, yesterday got worse, brought to the Emergency Room with more short of breath, brought to the Emergency Room at 4:30, requiring intubation, went into respiratory failure, intubated. Currently, the patient is intubated. Daughter is at the bedside who denies chest pain prior to any intubation or at home, but complaining of cough, low-grade fever, and bringing some phlegm. PAST MEDICAL HISTORY: Significant for coronary artery disease, status post multiple stents; diabetes; hypertension; hyperlipidemia; end-stage renal disease, on dialysis. History of last non-STEMI, cardiac catheterization done and further coronaries are not amenable by catheter-based treatment. The patient was referred to open-heart surgery, also seen by Dr. Dani Ashraf, chief cardiothoracic surgeon at [facility]. Coronary artery bypass surgery was offered, but the patient's family are reluctant for open-heart surgery and opted for medical treatment. PREVIOUS CARDIAC WORKUP: The patient had recent cardiac catheterization on 10/24/2017 after the patient admitted with non-STEMI. At that time, the cardiac catheterization revealed two-vessel CAD involving LAD and circumflex, which were very tortuous vessels, multiple hairpin turns, not suitable for PCI, high risk for dissection. Patent stent in RCA, preserved LV function, ejection fraction 55%, EDP was in the range of 16. Echo was done on 10/24/2017 that revealed a borderline concentric LVH with normal LV function, [id number] mitral regurgitation, mild tricuspid regurgitation, RV systolic pressure 39. No pericardial effusion noted. No vegetation noted. As mentioned, the patient had end-stage renal disease, on dialysis Saturday, and Saturday. SOCIAL HISTORY: Denies any smoking. Denies any history of alcohol abuse. CURRENT MEDICATIONS: The patient at home was taking Renagel, Ranexa, Lopressor, insulin, aspirin, Plavix, and atorvastatin. ALLERGIES: NO KNOWN DRUG ALLERGY. REVIEW OF SYSTEMS: As per HPI. PHYSICAL EXAMINATION: GENERAL: Height of the patient 5 feet 1 inch, weight of the patient 141 pounds, body mass index 26.6 kg/m2. Rest of the examination as follows: Daughter is at the bedside. The patient is currently being intubated on propofol and getting IV antibiotic. VITAL SIGNS: Temperature afebrile, heart rate 76, blood pressure 128/67. HEENT: PERRLA. Extraocular muscles intact. NECK: Supple. No carotid bruit. No thyromegaly. CHEST: Clear to auscultation. HEART: S1, S2 regular. ABDOMEN: Soft. EXTREMITIES: Clubbing and cyanosis negative. LABORATORY DATA: EKG shows normal sinus, poor R-R progression, anterior wall NH of undetermined age. Blood workup as follows: WBC 8.3, hemoglobin , hematocrit 29.5, platelet count 126. Chemistry shows sodium 140, potassium 4.5, chloride 90, carbon dioxide 24, anion gap of 24, BUN 41, creatinine 6. Initial troponin 0.025 by early this morning. Chest x-ray read as negative, but cannot rule out right lower lobe pneumonia and encephalization, congestion noted cardiomegaly. IMPRESSION: A 72-year-old female with past medical history significant for coronary artery disease, status post stent in right coronary artery, history of triple vessel disease, not amenable by percutaneous coronary intervention because of tortuosity and complexity of the lesion, very tortuous left anterior descending and very tortuous circumflex and high-grade stenosis, not suitable for percutaneous coronary intervention, high risk for dissection and complication during percutaneous coronary intervention. Patent stent in right coronary artery, last catheterization on 10/24/2017. Later on, the patient was referred to open-heart surgery at [facility] where the patient was seen cardiothoracic surgeon, Dr. Dani Ashraf and offered open-heart surgery, but the patient's family declined for surgery. History of end-stage renal disease, on dialysis; diabetes; hypertension; hyperlipidemia, admitted with respiratory failure, probably right lower lobe pneumonia, getting worse by congestive heart failure. Peripheral arterial disease, history of multiple stents in the heart, history of arteriovenous fistula. On dialysis Saturday, and Saturday. RECOMMENDATION: We will get the dialysis. We will keep the patient's fluid negative balance. Once extubated, we will review echo. We will do echo to assess LV function and valvular regurgitation. Interim, continue medication; aspirin, metoprolol, Plavix, beta-cee as blood pressure is tolerated. We will follow with you. We will get lipid profile, TSH, hemoglobin A1c. Follow the trend of the troponin. Thank you, Dr. Yu, for providing us the opportunity in taking care of the patient, Juliet Dick. We will repeat the EKG. Jairo Davila MD
[2018-05-13] MEDS: Acetaminophen 650mg/20.3ml solution UD PO PRN ×2 (01:28→16:36)
[2018-05-13] MEDS: Propofol 10 mg/ml 1,000 MG/100 ML VIAL IV PRN ×2 (01:32→10:43)
[2018-05-13] MEDS: Insulin Reg-LOW-Coverage SC SCH ×4 (01:32→20:30)
--- NOTE | 2018-05-13 05:25 | CP.PCM.PN ---
<Renay Vaughn - Last Filed: 05/13/18 14:21> Subjective - Date & Time of Evaluation Date of Evaluation: 05/13/18 Time of Evaluation: 07:00 - Subjective Subjective: Medicine Progress Note for Falguni Steward PGY3 Patient seen and examined at bedside. As per nursing staff, she had temp overnight with Tmax 102.2. Patient had dialysis yesterday with 900ml removed. She is intubated,sedated but arousable. ROS could not be obtained. Objective - Vital Signs/Intake and Output Vital Signs (last 24 hours): Temp Pulse Resp BP Pulse Ox 102.2 F H 76 18 132/60 100 05/13/18 01:28 05/12/18 18:00 05/12/18 07:06 05/12/18 18:00 05/12/18 18:00 Intake and Output: 05/12/18 05/13/18 18:59 06:59 Intake Total 650 20 Output Total 950 Balance -300 20 - Medications Medications: Current Medications Acetaminophen (Tylenol 650mg/20.3ml Solution Ud) 650 mg PO Q6H PRN PRN Reason: Temperature Last Admin: 05/13/18 01:28 Dose: 650 mg Aspirin (Ecotrin) 81 mg PO DAILY [facility] Last Admin: 05/12/18 10:40 Dose: 81 mg Atorvastatin Calcium (Lipitor) 10 mg PO HS [facility] Last Admin: 05/12/18 21:05 Dose: 10 mg Clopidogrel Bisulfate (Plavix) 75 mg PO DAILY [facility] Last Admin: 05/12/18 10:41 Dose: 75 mg Famotidine (Pepcid) 20 mg IVP DAILY [facility] Last Admin: 05/12/18 10:42 Dose: 20 mg Heparin Sodium (Porcine) (Heparin) 5,000 units SC Q12 YURI PRN Reason: Protocol Last Admin: 05/12/18 21:05 Dose: 5,000 units Propofol (Diprivan) 1,000 mg in 100 mls @ 1.921 mls/hr IV .Q24H PRN; Protocol; 5 MCG/KG/MIN PRN Reason: TITRATE PER MD ORDER Last Admin: 05/13/18 01:32 Dose: 20 mcg/kg/min, 7.686 mls/hr Cefepime HCl (Maxipime 1gm) 1 gm in 100 mls @ 100 mls/hr IVPB DAILY [facility] PRN Reason: Protocol Insulin Human Regular (Humulin R Low) 0 units SC Q6H Y[facility] PRN Reason: Protocol Last Admin: 05/13/18 01:32 Dose: Not Given Metoprolol Tartrate (Lopressor) 5 mg IVP Q6H PRN PRN Reason: Systolic Blood Pressure Metoprolol Tartrate (Lopressor) 25 mg PO BID [facility] Last Admin: 05/12/18 17:49 Dose: 25 mg - Labs Labs: PT 12.0 SECONDS (9.4-12.5) 05/12/18 05:30 INR 1.04 (0.93-1.08) 05/12/18 05:30 APTT 20.9 Seconds (25.1-36.5) L 05/12/18 05:30 - Constitutional Appears: No Acute Distress, Chronically Ill - Head Exam Head Exam: ATRAUMATIC, NORMAL INSPECTION, NORMOCEPHALIC - Eye Exam Eye Exam: Normal appearance, PERRL Pupil Exam: PERRL - ENT Exam ENT Exam: Mucous Membranes Moist Additional comments: NG tube in place - Respiratory Exam Respiratory Exam: Rales (bilateral), Rhonchi (bilateral), NORMAL BREATHING PATTERN. absent: Clear to Ausculation Bilateral - Cardiovascular Exam Cardiovascular Exam: REGULAR RHYTHM, +S1, +S2. absent: Gallop, Rubs, Murmur - GI/Abdominal Exam GI & Abdominal Exam: Soft, Normal Bowel Sounds. absent: Rigid, Tenderness, Mass , Rebound - Extremities Exam Extremities Exam: absent: Pedal Edema - Neurological Exam Neurological Exam: CN II-XII Intact - Skin Skin Exam: Dry, Warm Assessment and Plan - Assessment and Plan (Free Text) Assessment: This is a 72yo Serbian F with past medical history of HTN, CAD s/p stents, DM II , ESRD on HD, PAD admitted for 1. Acute respiratory failure - secondary to HCAP and pulm edema 2. Sepsis - secondary to HCAP 3. Acute systolic CHF exacerbation - previous Echo (10/2017- EF 55%). EF now 25% - CABG recommended in past- family and patient refused at the time 4. HTN 5. ESRD on HD (T,T,Sa) 6. IDDM 7. PAD 8. CAD Plan: Repeat XR reviewed showed persistent pulm edema. Patient will get HD today. ID on consult and placed patient on Cefepime. Tylenol prn fever. Cardiology recommendations appreciated. Labs reviewed. Elevated troponins most likely secondary to ESRD. Continue ASA, Lipitor, Plavix. Repeat Echo reviewed. Patient is on GI and DVT prophylaxis. Spoke with ICU team and plan for possible extubation after HD today. Case seen, discussed and reviewed with Dr. Yu. Falguni Vaughn PGY3 <Deep Yu - Last Filed: 05/13/18 17:31> Objective - Vital Signs/Intake and Output Vital Signs (last 24 hours): Temp Pulse Resp BP Pulse Ox 100.9 F H 78 21 146/65 99 05/13/18 15:00 05/13/18 15:00 05/13/18 15:00 05/13/18 15:00 05/13/18 15:00 Intake and Output: 05/13/18 05/13/18 06:59 18:59 Intake Total 20 130 Balance 20 130 - Medications Medications: Current Medications Acetaminophen (Tylenol 650mg/20.3ml Solution Ud) 650 mg PO Q6H PRN PRN Reason: Temperature Last Admin: 05/13/18 01:28 Dose: 650 mg Aspirin (Ecotrin) 81 mg PO DAILY [facility] Last Admin: 05/13/18 12:55 Dose: 81 mg Atorvastatin Calcium (Lipitor) 10 mg PO HS [facility] Last Admin: 05/12/18 21:05 Dose: 10 mg Clopidogrel Bisulfate (Plavix) 75 mg PO DAILY [facility] Last Admin: 05/13/18 12:55 Dose: 75 mg Famotidine (Pepcid) 20 mg IVP DAILY [facility] Last Admin: 05/13/18 12:56 Dose: 20 mg Heparin Sodium (Porcine) (Heparin) 5,000 units SC Q12 YURI PRN Reason: Protocol Last Admin: 05/13/18 12:57 Dose: 5,000 units Cefepime HCl (Maxipime 1gm) 1 gm in 100 mls @ 100 mls/hr IVPB DAILY [facility] PRN Reason: Protocol Last Admin: 05/13/18 12:54 Dose: 100 mls/hr Insulin Human Regular (Humulin R Low) 0 units SC Q6H YURI PRN Reason: Protocol Last Admin: 05/13/18 15:15 Dose: Not Given Metoprolol Tartrate (Lopressor) 5 mg IVP Q6H PRN PRN Reason: Systolic Blood Pressure Metoprolol Tartrate (Lopressor) 25 mg PO BID [facility] Last Admin: 05/13/18 09:02 Dose: Not Given - Labs Labs: 05/13/18 05:45 05/13/18 05:45 PT 12.0 SECONDS (9.4-12.5) 05/12/18 05:30 INR 1.04 (0.93-1.08) 05/12/18 05:30 APTT 20.9 Seconds (25.1-36.5) L 05/12/18 05:30 Assessment and Plan - Assessment and Plan (Free Text) Plan: Pt seen and examined. I have reviewed the note of the medical sales consultant and agree with it. I have discussed the assessment and plan with the resident. I have reviewed the patient's labs and medications. Pt with pneumonia. She has an elevated trop due to CAD that should have CABG treatment but pt refusing. She will get HD today for about 2 L of fluid removal. Will need to be weaned and possible extubation. Informed the daughter regarding the plan of care. Spoke to Dr Davila. Continue with IV Abx, spoke to Dr Daniel from [place].
[2018-05-13 06:19] LABS: BASO # 0.01 K/mm3 (0.0-2.0); BASO % 0.2 % (0.0-3.0); EOS % 0.7 % (1.5-5.0); GRAN # 4.39 (1.4-6.5); GRAN % 73.1 % (50.0-68.0); LYMPH % 16.2 % (22.0-35.0); MEAN CELL VOLUME 96.1 fl (80.0-105.0); MEAN CORPUSCULAR HGB CONC 33.3 g/dl (31.0-37.0); MEAN PLATELET VOLUME 11.8 fl (7.0-11.0); MONO # 0.6 (0.1-0.6); MONO % 9.8 % (1.0-6.0); RBC 2.81 10^6/uL (3.5-6.1); RED CELL DISTRIBUTION WIDTH 13.8 % (11.5-14.5)
[2018-05-13 06:35] LABS: ARTERIAL BLOOD GAS HCO3 28.9 mmol/L (21-28); ARTERIAL BLOOD GAS O2 SAT 98.6 % (95-98); ARTERIAL BLOOD GAS PCO2 37 mm/Hg (35-45)
[2018-05-13 06:46] LABS: ALB/GLOB RATIO 1.2 (1.1-1.8); ALBUMIN 3.8 g/dL (3.0-4.8); CALCIUM 9.1 mg/dL (8.4-10.5); TROPONIN I 0.61 ng/mL
--- NOTE | 2018-05-13 10:14 | CP.CCUPN ---
<Wally Will - Last Filed: 05/13/18 14:08> CCU Subjective - Physician Review Subjective (Free Text): Wally Will, PGY1 Critical Care Progress Note for Dr. Tejada Patient was examined at bedside this morning. No family member present at time of interview. She was intubated with morning abg showing improvement: ventilation settings adjusted to PRVC 300/14/5/40%. Patient's was febrile earlier this morning, 102.2 rectal, but resolved to temp of 99. ROS was unable to be obtained since patient is currently intubated. Patient will be receiving dialysis this morning and potentially be extubated this afternoon. Otherwise, no overnight changes. CCU Objective - Vital Signs / Intake & Output Vital Signs (Last 4 hours): Vital Signs Temp Pulse BP Pulse Ox 05/13/18 09:02 60 05/13/18 09:00 99.7 F H 61 109/49 L 100 05/13/18 08:50 99.5 F 61 100 05/13/18 08:45 99.5 F 60 107/45 L 100 05/13/18 08:40 99.5 F 63 100 05/13/18 08:30 99.5 F 61 110/51 L 100 05/13/18 08:20 99.5 F 63 100 05/13/18 08:19 99.5 F 63 108/53 L 100 05/13/18 08:10 99.3 F 62 100 05/13/18 08:00 99.3 F 63 109/52 L 100 05/13/18 07:50 99.3 F 66 100 05/13/18 07:40 99.3 F 65 100 05/13/18 07:30 99.3 F 62 100 05/13/18 07:20 99.5 F 66 100 05/13/18 07:10 99.5 F 64 100 05/13/18 07:06 63 05/13/18 07:00 99.7 F H 65 115/52 L 100 05/13/18 06:50 99.7 F H 65 100 05/13/18 06:45 99.7 F H 66 119/53 L 100 05/13/18 06:40 99.7 F H 64 100 05/13/18 06:30 99.5 F 66 130/59 L 100 05/13/18 06:20 99.5 F 66 100 07/24/18 06:15 99.5 F 66 128/53 L 100 05/13/18 06:10 99.5 F 68 100 05/13/18 06:00 99.3 F 71 144/64 100 Intake and Output (Last 8hrs): Intake & Output 05/12/18 05/13/18 05/13/18 22:59 06:59 14:59 Intake Total 650 20 Output Total 950 Balance -300 20 Intake: IV 650 20 Right Hand 650 Output: Other 950 - Physical Exam Head: Positive for: Atraumatic, Normocephalic Pupils: Positive for: Non-Reactive Mouth: Positive for: Other (ET tube and OG tube) Nose (Internal): Positive for: Normal Inspection Respiratory/Chest: Positive for: Other (coarse breath sounds bilaterally ( improving from yesterday)). Negative for: Clear to Auscultation, Respiratory Distress, Accessory Muscle Use, Wheezes, Rales, Rhonchi Cardiovascular: Positive for: Regular Rate and Rhythm, Normal S1, S2, Peripheal Pulses Present. Negative for: Murmurs Abdomen: Positive for: Normal Bowel Sounds. Negative for: Distention, Peritoneal Signs, Rebound, Guarding Upper Extremity: Positive for: Normal Inspection, NORMAL PULSES, Other (AV Fistula left arm). Negative for: Cyanosis, Edema Lower Extremity: Positive for: Normal Inspection, NORMAL PULSES. Negative for: Edema, Cyanosis, Swelling, Erythema Skin: Positive for: Warm, Dry, Normal Color. Negative for: Rashes - Medications Active Medications: Active Medications Generic Name Dose Route Start Last Admin Trade Name Freq PRN Reason Stop Dose Admin Acetaminophen 650 mg 05/13/18 01:06 05/13/18 01:28 Tylenol 650mg/20.3ml Solution Ud PO 650 mg Q6H PRN Administration Temperature Aspirin 81 mg 05/12/18 10:00 05/12/18 10:40 Ecotrin PO 81 mg DAILY YURI Administration Atorvastatin Calcium 10 mg 05/12/18 22:00 05/12/18 21:05 Lipitor PO 10 mg HS YURI Administration Clopidogrel Bisulfate 75 mg 05/12/18 10:00 05/12/18 10:41 Plavix PO 75 mg DAILY YURI Administration Famotidine 20 mg 05/12/18 10:00 05/12/18 10:42 Pepcid IVP 20 mg DAILY YURI Administration Heparin Sodium (Porcine) 5,000 units 05/12/18 10:00 05/12/18 21:05 Heparin SC 5,000 units Q12 YURI Administration Protocol Propofol 1,000 mg in 100 mls @ 1.921 mls/hr 05/12/18 05:27 05/13/18 01:32 Diprivan IV 20 mcg/kg/min .Q24H PRN 7.686 mls/hr TITRATE PER MD ORDER Administration Protocol 5 MCG/KG/MIN Cefepime HCl 1 gm in 100 mls @ 100 mls/hr 05/13/18 10:00 Maxipime 1gm IVPB DAILY YURI Protocol Insulin Human Regular 0 units 05/12/18 08:15 05/13/18 09:13 Humulin R Low SC Not Given Q6H YURI Protocol Metoprolol Tartrate 5 mg 05/12/18 08:12 Lopressor IVP Q6H PRN Systolic Blood Pressure Metoprolol Tartrate 25 mg 05/12/18 10:00 05/13/18 09:02 Lopressor PO Not Given BID YURI - Patient Studies Lab Studies: Lab Studies 05/13/18 05/13/18 05/13/18 Range/Units 06:20 05:45 05:45 WBC (4.5-11.0) 10^3/ul RBC (3.5-6.1) 10^6/uL Hgb (12.0-16.0) g/dL Hct (36.0-48.0) % MCV (80.0-105.0) fl MCH (25.0-35.0) pg MCHC (31.0-37.0) g/dl RDW (11.5-14.5) % Plt Count (120.0-450.0) 10^3/uL MPV (7.0-11.0) fl Gran % (50.0-68.0) % Lymph % (Auto) (22.0-35.0) % Price % (Auto) (1.0-6.0) % Eos % (Auto) (1.5-5.0) % Baso % (Auto) (0.0-3.0) % Gran # (1.4-6.5) Lymph # (Auto) (1.2-3.4) Price # (Auto) (0.1-0.6) Eos # (Auto) (0.0-0.7) Baso # (Auto) (0.0-2.0) K/mm3 pCO2 37 (35-45) mm/Hg pO2 141.0 H (80-100) mm/Hg HCO3 28.9 H (21-28) mmol/L ABG pH 7.50 H (7.35-7.45) ABG Total CO2 30.0 H (22-28) mmol.L ABG O2 Saturation 98.6 H (95-98) % ABG O2 Content (15-23) ML/dl ABG Base Excess 5.5 H (-2.0-3.0) mmol/L ABG Hemoglobin (11.7-17.4) g/dL ABG Carboxyhemoglobin (0.5-1.5) % POC ABG HHb (Measured) (0-5) % ABG Methemoglobin (0.0-3.0) % ABG O2 Capacity (16-24) mL/dl ABG Potassium 4.6 (3.6-5.2) mmol/L VBG pH (7.32-7.43) VBG pCO2 (40-60) VBG HCO3 (21-28) mmol/l VBG Total CO2 (22-28) mmol.L VBG O2 Sat (Calc) (40-65) % VBG Base Excess (0.0-2.0) mmol/L VBG Potassium (3.6-5.2) mmol/L Hgb O2 Saturation (95.0-98.0) % Sodium 134.0 137 (132-148) mmol/L Chloride 101.0 94 L (98-107) mmol/L Glucose 163 H (65-105) mg/dl Lactate 1.2 (0.7-2.1) mmol/L FiO2 60.0 % Potassium 4.9 (3.6-5.0) mmol/L Carbon Dioxide 27 (21-33) mmol/L Anion Gap 21 H (10-20) BUN 34 H (7-21) mg/dL Creatinine 4.8 H (0.7-1.2) mg/dl Est GFR ( Amer) 11 Est GFR (Non-Af Amer) 9 POC Glucose (mg/dL) (65-110) mg/dL Random Glucose 154 H (70-110) mg/dL Calcium 9.1 (8.4-10.5) mg/dL Phosphorus 5.1 H (2.5-4.5) mg/dL Magnesium 2.2 (1.7-2.2) mg/dL Total Bilirubin 1.1 (0.2-1.3) mg/dL AST 26 (14-36) U/L ALT 19 (7-56) U/L Alkaline Phosphatase 68 (38-126) U/L Lactate Dehydrogenase 482 (333-699) U/L Total Creatine Kinase 48 (35-230) U/L Troponin I 0.61 H* D ng/mL Total Protein 7.0 (5.8-8.3) g/dL Albumin 3.8 (3.0-4.8) g/dL Globulin 3.1 gm/dL Albumin/Globulin Ratio 1.2 (1.1-1.8) Triglycerides 236 H (35-160) mg/dL Cholesterol 153 (130-200) mg/dL LDL Cholesterol Direct 57 (0-129) mg/dL HDL Cholesterol 38 (29-60) mg/dL TSH 3rd Generation 0.76 (0.46-4.68) mIU/mL Arterial Blood Potassium 4.6 (3.6-5.2) mmol/L Venous Blood Potassium (3.6-5.2) mmol/L 05/13/18 05/12/18 05/12/18 Range/Units 05:45 23:58 17:12 WBC 6.0 D (4.5-11.0) 10^3/ul RBC 2.81 L (3.5-6.1) 10^6/uL Hgb 9.0 L (12.0-16.0) g/dL Hct 27.0 L (36.0-48.0) % MCV 96.1 (80.0-105.0) fl MCH 32.0 (25.0-35.0) pg MCHC 33.3 (31.0-37.0) g/dl RDW 13.8 (11.5-14.5) % Plt Count 91 L (120.0-450.0) 10^3/uL MPV 11.8 H (7.0-11.0) fl Gran % 73.1 H (50.0-68.0) % Lymph % (Auto) 16.2 L (22.0-35.0) % Price % (Auto) 9.8 H (1.0-6.0) % Eos % (Auto) 0.7 L (1.5-5.0) % Baso % (Auto) 0.2 (0.0-3.0) % Gran # 4.39 (1.4-6.5) Lymph # (Auto) 1.0 L (1.2-3.4) Price # (Auto) 0.6 (0.1-0.6) Eos # (Auto) 0.0 (0.0-0.7) Baso # (Auto) 0.01 (0.0-2.0) K/mm3 pCO2 (35-45) mm/Hg pO2 (80-100) mm/Hg HCO3 (21-28) mmol/L ABG pH (7.35-7.45) ABG Total CO2 (22-28) mmol.L ABG O2 Saturation (95-98) % ABG O2 Content (15-23) ML/dl ABG Base Excess (-2.0-3.0) mmol/L ABG Hemoglobin (11.7-17.4) g/dL ABG Carboxyhemoglobin (0.5-1.5) % POC ABG HHb (Measured) (0-5) % ABG Methemoglobin (0.0-3.0) % ABG O2 Capacity (16-24) mL/dl ABG Potassium (3.6-5.2) mmol/L VBG pH (7.32-7.43) VBG pCO2 (40-60) VBG HCO3 (21-28) mmol/l VBG Total CO2 (22-28) mmol.L VBG O2 Sat (Calc) (40-65) % VBG Base Excess (0.0-2.0) mmol/L VBG Potassium (3.6-5.2) mmol/L Hgb O2 Saturation (95.0-98.0) % Sodium (132-148) mmol/L Chloride (98-107) mmol/L Glucose (65-105) mg/dl Lactate (0.7-2.1) mmol/L FiO2 % Potassium (3.6-5.0) mmol/L Carbon Dioxide (21-33) mmol/L Anion Gap (10-20) BUN (7-21) mg/dL Creatinine (0.7-1.2) mg/dl Est GFR ( Amer) Est GFR (Non-Af Amer) POC Glucose (mg/dL) 159 H (65-110) mg/dL Random Glucose (70-110) mg/dL Calcium (8.4-10.5) mg/dL Phosphorus (2.5-4.5) mg/dL Magnesium (1.7-2.2) mg/dL Total Bilirubin (0.2-1.3) mg/dL AST (14-36) U/L ALT (7-56) U/L Alkaline Phosphatase (38-126) U/L Lactate Dehydrogenase (333-699) U/L Total Creatine Kinase (35-230) U/L Troponin I 0.30 H* D ng/mL Total Protein (5.8-8.3) g/dL Albumin (3.0-4.8) g/dL Globulin gm/dL Albumin/Globulin Ratio (1.1-1.8) Triglycerides (35-160) mg/dL Cholesterol (130-200) mg/dL LDL Cholesterol Direct (0-129) mg/dL HDL Cholesterol (29-60) mg/dL TSH 3rd Generation (0.46-4.68) mIU/mL Arterial Blood Potassium (3.6-5.2) mmol/L Venous Blood Potassium (3.6-5.2) mmol/L 05/12/18 05/12/18 05/12/18 Range/Units 16:24 11:15 11:15 WBC (4.5-11.0) 10^3/ul RBC (3.5-6.1) 10^6/uL Hgb (12.0-16.0) g/dL Hct (36.0-48.0) % MCV (80.0-105.0) fl MCH (25.0-35.0) pg MCHC (31.0-37.0) g/dl RDW (11.5-14.5) % Plt Count (120.0-450.0) 10^3/uL MPV (7.0-11.0) fl Gran % (50.0-68.0) % Lymph % (Auto) (22.0-35.0) % Price % (Auto) (1.0-6.0) % Eos % (Auto) (1.5-5.0) % Baso % (Auto) (0.0-3.0) % Gran # (1.4-6.5) Lymph # (Auto) (1.2-3.4) Price # (Auto) (0.1-0.6) Eos # (Auto) (0.0-0.7) Baso # (Auto) (0.0-2.0) K/mm3 pCO2 (35-45) mm/Hg pO2 68 H (80-100) mm/Hg HCO3 (21-28) mmol/L ABG pH (7.35-7.45) ABG Total CO2 (22-28) mmol.L ABG O2 Saturation (95-98) % ABG O2 Content (15-23) ML/dl ABG Base Excess (-2.0-3.0) mmol/L ABG Hemoglobin (11.7-17.4) g/dL ABG Carboxyhemoglobin (0.5-1.5) % POC ABG HHb (Measured) (0-5) % ABG Methemoglobin (0.0-3.0) % ABG O2 Capacity (16-24) mL/dl ABG Potassium (3.6-5.2) mmol/L VBG pH 7.32 (7.32-7.43) VBG pCO2 55.0 (40-60) VBG HCO3 28.3 H (21-28) mmol/l VBG Total CO2 30.0 H (22-28) mmol.L VBG O2 Sat (Calc) 95.4 H (40-65) % VBG Base Excess 1.1 (0.0-2.0) mmol/L VBG Potassium 6.0 H (3.6-5.2) mmol/L Hgb O2 Saturation (95.0-98.0) % Sodium 133.0 (132-148) mmol/L Chloride 99.0 (98-107) mmol/L Glucose 207 H (65-105) mg/dl Lactate 3.3 H (0.7-2.1) mmol/L FiO2 21.0 % Potassium (3.6-5.0) mmol/L Carbon Dioxide (21-33) mmol/L Anion Gap (10-20) BUN (7-21) mg/dL Creatinine (0.7-1.2) mg/dl Est GFR ( Amer) Est GFR (Non-Af Amer) POC Glucose (mg/dL) 182 H (65-110) mg/dL Random Glucose (70-110) mg/dL Calcium (8.4-10.5) mg/dL Phosphorus (2.5-4.5) mg/dL Magnesium (1.7-2.2) mg/dL Total Bilirubin (0.2-1.3) mg/dL AST (14-36) U/L ALT (7-56) U/L Alkaline Phosphatase (38-126) U/L Lactate Dehydrogenase (333-699) U/L Total Creatine Kinase (35-230) U/L Troponin I 0.17 H* D ng/mL Total Protein (5.8-8.3) g/dL Albumin (3.0-4.8) g/dL Globulin gm/dL Albumin/Globulin Ratio (1.1-1.8) Triglycerides (35-160) mg/dL Cholesterol (130-200) mg/dL LDL Cholesterol Direct (0-129) mg/dL HDL Cholesterol (29-60) mg/dL TSH 3rd Generation (0.46-4.68) mIU/mL Arterial Blood Potassium (3.6-5.2) mmol/L Venous Blood Potassium 6.0 H (3.6-5.2) mmol/L 05/12/18 05/12/18 05/12/18 Range/Units 10:46 10:00 08:01 WBC (4.5-11.0) 10^3/ul RBC (3.5-6.1) 10^6/uL Hgb (12.0-16.0) g/dL Hct (36.0-48.0) % MCV (80.0-105.0) fl MCH (25.0-35.0) pg MCHC (31.0-37.0) g/dl RDW (11.5-14.5) % Plt Count (120.0-450.0) 10^3/uL MPV (7.0-11.0) fl Gran % (50.0-68.0) % Lymph % (Auto) (22.0-35.0) % Price % (Auto) (1.0-6.0) % Eos % (Auto) (1.5-5.0) % Baso % (Auto) (0.0-3.0) % Gran # (1.4-6.5) Lymph # (Auto) (1.2-3.4) Price # (Auto) (0.1-0.6) Eos # (Auto) (0.0-0.7) Baso # (Auto) (0.0-2.0) K/mm3 pCO2 35 (35-45) mm/Hg pO2 159.0 H (80-100) mm/Hg HCO3 24.9 (21-28) mmol/L ABG pH 7.46 H (7.35-7.45) ABG Total CO2 26.0 (22-28) mmol.L ABG O2 Saturation 98.8 H (95-98) % ABG O2 Content 11.7 L (15-23) ML/dl ABG Base Excess 1.1 (-2.0-3.0) mmol/L ABG Hemoglobin 8.3 L (11.7-17.4) g/dL ABG Carboxyhemoglobin 0.9 (0.5-1.5) % POC ABG HHb (Measured) 1.2 (0-5) % ABG Methemoglobin 0.5 (0.0-3.0) % ABG O2 Capacity 11.8 L (16-24) mL/dl ABG Potassium (3.6-5.2) mmol/L VBG pH (7.32-7.43) VBG pCO2 (40-60) VBG HCO3 (21-28) mmol/l VBG Total CO2 (22-28) mmol.L VBG O2 Sat (Calc) (40-65) % VBG Base Excess (0.0-2.0) mmol/L VBG Potassium (3.6-5.2) mmol/L Hgb O2 Saturation 97.3 (95.0-98.0) % Sodium (132-148) mmol/L Chloride (98-107) mmol/L Glucose (65-105) mg/dl Lactate (0.7-2.1) mmol/L FiO2 60.0 % Potassium (3.6-5.0) mmol/L Carbon Dioxide (21-33) mmol/L Anion Gap (10-20) BUN (7-21) mg/dL Creatinine (0.7-1.2) mg/dl Est GFR ( Amer) Est GFR (Non-Af Amer) POC Glucose (mg/dL) 210 H 281 H (65-110) mg/dL Random Glucose (70-110) mg/dL Calcium (8.4-10.5) mg/dL Phosphorus (2.5-4.5) mg/dL Magnesium (1.7-2.2) mg/dL Total Bilirubin (0.2-1.3) mg/dL AST (14-36) U/L ALT (7-56) U/L Alkaline Phosphatase (38-126) U/L Lactate Dehydrogenase (333-699) U/L Total Creatine Kinase (35-230) U/L Troponin I ng/mL Total Protein (5.8-8.3) g/dL Albumin (3.0-4.8) g/dL Globulin gm/dL Albumin/Globulin Ratio (1.1-1.8) Triglycerides (35-160) mg/dL Cholesterol (130-200) mg/dL LDL Cholesterol Direct (0-129) mg/dL HDL Cholesterol (29-60) mg/dL TSH 3rd Generation (0.46-4.68) mIU/mL Arterial Blood Potassium (3.6-5.2) mmol/L Venous Blood Potassium (3.6-5.2) mmol/L Laboratory Results - last 24 hr 05/12/18 05/12/18 05/12/18 08:01 10:00 10:46 WBC RBC Hgb Hct MCV MCH MCHC RDW Plt Count MPV Gran % Lymph % (Auto) Price % (Auto) Eos % (Auto) Baso % (Auto) Gran # Lymph # (Auto) Price # (Auto) Eos # (Auto) Baso # (Auto) pCO2 35 pO2 159.0 H HCO3 24.9 ABG pH 7.46 H ABG Total CO2 26.0 ABG O2 Saturation 98.8 H ABG O2 Content 11.7 L ABG Base Excess 1.1 ABG Hemoglobin 8.3 L ABG Carboxyhemoglobin 0.9 POC ABG HHb (Measured) 1.2 ABG Methemoglobin 0.5 ABG O2 Capacity 11.8 L ABG Potassium VBG pH VBG pCO2 VBG HCO3 VBG Total CO2 VBG O2 Sat (Calc) VBG Base Excess VBG Potassium Hgb O2 Saturation 97.3 Sodium Chloride Glucose Lactate FiO2 60.0 Potassium Carbon Dioxide Anion Gap BUN Creatinine Est GFR ( Amer) Est GFR (Non-Af Amer) POC Glucose (mg/dL) 281 H 210 H Random Glucose Calcium Phosphorus Magnesium Total Bilirubin AST ALT Alkaline Phosphatase Lactate Dehydrogenase Total Creatine Kinase Troponin I Total Protein Albumin Globulin Albumin/Globulin Ratio Triglycerides Cholesterol LDL Cholesterol Direct HDL Cholesterol TSH 3rd Generation Arterial Blood Potassium Venous Blood Potassium 05/12/18 05/12/18 05/12/18 11:15 11:15 16:24 WBC RBC Hgb Hct MCV MCH MCHC RDW Plt Count MPV Gran % Lymph % (Auto) Price % (Auto) Eos % (Auto) Baso % (Auto) Gran # Lymph # (Auto) Price # (Auto) Eos # (Auto) Baso # (Auto) pCO2 pO2 68 H HCO3 ABG pH ABG Total CO2 ABG O2 Saturation ABG O2 Content ABG Base Excess ABG Hemoglobin ABG Carboxyhemoglobin POC ABG HHb (Measured) ABG Methemoglobin ABG O2 Capacity ABG Potassium VBG pH 7.32 VBG pCO2 55.0 VBG HCO3 28.3 H VBG Total CO2 30.0 H VBG O2 Sat (Calc) 95.4 H VBG Base Excess 1.1 VBG Potassium 6.0 H Hgb O2 Saturation Sodium 133.0 Chloride 99.0 Glucose 207 H Lactate 3.3 H FiO2 21.0 Potassium Carbon Dioxide Anion Gap BUN Creatinine Est GFR ( Amer) Est GFR (Non-Af Amer) POC Glucose (mg/dL) 182 H Random Glucose Calcium Phosphorus Magnesium Total Bilirubin AST ALT Alkaline Phosphatase Lactate Dehydrogenase Total Creatine Kinase Troponin I 0.17 H* D Total Protein Albumin Globulin Albumin/Globulin Ratio Triglycerides Cholesterol LDL Cholesterol Direct HDL Cholesterol TSH 3rd Generation Arterial Blood Potassium Venous Blood Potassium 6.0 H 05/12/18 05/12/18 05/13/18 17:12 23:58 05:45 WBC 6.0 D RBC 2.81 L Hgb 9.0 L Hct 27.0 L MCV 96.1 MCH 32.0 MCHC 33.3 RDW 13.8 Plt Count 91 L MPV 11.8 H Gran % 73.1 H Lymph % (Auto) 16.2 L Price % (Auto) 9.8 H Eos % (Auto) 0.7 L Baso % (Auto) 0.2 Gran # 4.39 Lymph # (Auto) 1.0 L Price # (Auto) 0.6 Eos # (Auto) 0.0 Baso # (Auto) 0.01 pCO2 pO2 HCO3 ABG pH ABG Total CO2 ABG O2 Saturation ABG O2 Content ABG Base Excess ABG Hemoglobin ABG Carboxyhemoglobin POC ABG HHb (Measured) ABG Methemoglobin ABG O2 Capacity ABG Potassium VBG pH VBG pCO2 VBG HCO3 VBG Total CO2 VBG O2 Sat (Calc) VBG Base Excess VBG Potassium Hgb O2 Saturation Sodium Chloride Glucose Lactate FiO2 Potassium Carbon Dioxide Anion Gap BUN Creatinine Est GFR ( Amer) Est GFR (Non-Af Amer) POC Glucose (mg/dL) 159 H Random Glucose Calcium Phosphorus Magnesium Total Bilirubin AST ALT Alkaline Phosphatase Lactate Dehydrogenase Total Creatine Kinase Troponin I 0.30 H* D Total Protein Albumin Globulin Albumin/Globulin Ratio Triglycerides Cholesterol LDL Cholesterol Direct HDL Cholesterol TSH 3rd Generation Arterial Blood Potassium Venous Blood Potassium 05/13/18 05/13/18 05/13/18 05:45 05:45 06:20 WBC RBC Hgb Hct MCV MCH MCHC RDW Plt Count MPV Gran % Lymph % (Auto) Price % (Auto) Eos % (Auto) Baso % (Auto) Gran # Lymph # (Auto) Price # (Auto) Eos # (Auto) Baso # (Auto) pCO2 37 pO2 141.0 H HCO3 28.9 H ABG pH 7.50 H ABG Total CO2 30.0 H ABG O2 Saturation 98.6 H ABG O2 Content ABG Base Excess 5.5 H ABG Hemoglobin ABG Carboxyhemoglobin POC ABG HHb (Measured) ABG Methemoglobin ABG O2 Capacity ABG Potassium 4.6 VBG pH VBG pCO2 VBG HCO3 VBG Total CO2 VBG O2 Sat (Calc) VBG Base Excess VBG Potassium Hgb O2 Saturation Sodium 137 134.0 Chloride 94 L 101.0 Glucose 163 H Lactate 1.2 FiO2 60.0 Potassium 4.9 Carbon Dioxide 27 Anion Gap 21 H BUN 34 H Creatinine 4.8 H Est GFR ( Amer) 11 Est GFR (Non-Af Amer) 9 POC Glucose (mg/dL) Random Glucose 154 H Calcium 9.1 Phosphorus 5.1 H Magnesium 2.2 Total Bilirubin 1.1 AST 26 ALT 19 Alkaline Phosphatase 68 Lactate Dehydrogenase 482 Total Creatine Kinase 48 Troponin I 0.61 H* D Total Protein 7.0 Albumin 3.8 Globulin 3.1 Albumin/Globulin Ratio 1.2 Triglycerides 236 H Cholesterol 153 LDL Cholesterol Direct 57 HDL Cholesterol 38 TSH 3rd Generation 0.76 Arterial Blood Potassium 4.6 Venous Blood Potassium EKG/Cardiology Studies: Cardiology / EKG Studies 05/12/18 17:00 EKG [ELECTROCARDIOGRAM] Stat Comment: Reason For Exam: r/o ACS Fingerstick Blood Sugar Results: 151 Review of Systems - Review of Systems Systems not reviewed;Unavailable: Intubated Critical Care Progress Note - Ventilator Checklist Head of Bed 30 Degrees: Yes Daily Sedation Vacation: Yes Daily Assessment of Readiness to Wean: Yes Daily Spontaneous Breathing Trial: Yes PUD Prophalyxis: Yes DVT Prophylaxis: Yes Oral Care with Chlorhexidine Gluconate {CHG}: Yes - Vent Settings MODE:: PRVC TIDAL VOLUME:: 300 RESP RATE:: 14 FIO2:: 40 PEEP:: 5 - Extremities/Vascular Does the Patient have a Central Venous Catheter?: No Does the Patient need a Central Venous Catheter?: No Does the Patient have a Rhodes Catheter?: No Does the Patient need a Rhodes Catheter?: No - Restraints Justification for Restraints: High risk for self extubation - Prophylaxis GI Prophylaxis GI: Pepsid - Prophylaxis DVT Prophylaxis DVT: Heparin SQ - Nutrition Nutrition: Nutrition Category Date Time Status NPO Diet [DIET] Diets 05/12/18 Breakfast Ordered Assessment/Plan - Assessment and Plan (Free Text) Assessment: Patient is a 72 y/o F with PMHx of CAD (multiple stents, severe triple vessel disease with tortuous vessels, declined CABG), HTN, DM (insulin dependent), PAD , ESRD (on HD //Sat) who presented to the ED earlier this morning for SOB x2 days and cough x4 days. Patient had a prior visit for pulmonary edema. In ED, patient was in respiratory distress and patient was intubated, transferred to ICU for management. Patient currently being treated for confirmed HCAP and pulmonary edema. Patient will be continuing hemodialysis on the unit. ABG and respiratory status is improving; plan for extubation. Plan: Neuro: - Temp was 102; repeat was 99; remained afebrile. - Maintain normothermia - Currently intubated and sedated; cannot assess mental status Pulm: - Currently intubated: PRVC 300/14/5/40%; Pressure Support trial and possible extubation today - Last AB.5/37/141 - Lung exam improved from yesterday's physical exam - Maintain SaO2 > 92% - CXR (05/13): improving pulmonary edema. Persistent opacity right lower lobe. Very small bilateral pleural effusion. Cardio: - Maintain MAP > 65 - troponins trending upwards; latest trop is .61 - Cardiology consulted, recs appreciated - Echo (05/12): EF 25-30%. Normal LV wall thickness. Aortic sclerosis vs mild . Trace MR, TR. IVC dilated. Trace pericardial effusion. 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 GI: - GI ppx: pepcid Renal: - HD (05/13): 2 Liters removed - HD (05/12): 950 mL removed - Latest BUN/Cr is 34/4.8 - Replete lytes as needed Heme: - DVT ppx: Heparin SC ID: - c/w cefepime - ID consulted, recs appreciated - Blood Cx negative x2 Endo: - Maintain euglycemia - ISS - Accucheks ACHS Dispo: Patient is currently intubated and is being managed in the ICU. Receiving dialysis and plan for extubation later today. Case was discussed and reviewed with Attending Physician Dr. Tejada. <Reji Tejada - Last Filed: 05/13/18 14:50> CCU Objective - Vital Signs / Intake & Output Intake and Output (Last 8hrs): Intake & Output 05/12/18 05/13/18 05/13/18 22:59 06:59 14:59 Intake Total 650 20 130 Output Total 950 Balance -300 20 130 Intake: IV 650 20 130 Right Hand 650 Output: Other 950 - Medications Active Medications: Active Medications Generic Name Dose Route Start Last Admin Trade Name Freq PRN Reason Stop Dose Admin Acetaminophen 650 mg 05/13/18 01:06 05/13/18 01:28 Tylenol 650mg/20.3ml Solution Ud PO 650 mg Q6H PRN Administration Temperature Aspirin 81 mg 05/12/18 10:00 05/13/18 12:55 Ecotrin PO 81 mg DAILY YURI Administration Atorvastatin Calcium 10 mg 05/12/18 22:00 05/12/18 21:05 Lipitor PO 10 mg HS YURI Administration Clopidogrel Bisulfate 75 mg 05/12/18 10:00 05/13/18 12:55 Plavix PO 75 mg DAILY YURI Administration Famotidine 20 mg 05/12/18 10:00 05/13/18 12:56 Pepcid IVP 20 mg DAILY YURI Administration Heparin Sodium (Porcine) 5,000 units 05/12/18 10:00 05/13/18 12:57 Heparin SC 5,000 units Q12 YURI Administration Protocol Cefepime HCl 1 gm in 100 mls @ 100 mls/hr 05/13/18 10:00 05/13/18 12:54 Maxipime 1gm IVPB 100 mls/hr DAILY YURI Administration Protocol Insulin Human Regular 0 units 05/12/18 08:15 05/13/18 09:13 Humulin R Low SC Not Given Q6H YURI Protocol Metoprolol Tartrate 5 mg 05/12/18 08:12 Lopressor IVP Q6H PRN Systolic Blood Pressure Metoprolol Tartrate 25 mg 05/12/18 10:00 05/13/18 09:02 Lopressor PO Not Given BID YURI - Patient Studies Lab Studies: Lab Studies 05/13/18 05/13/18 05/13/18 Range/Units 06:20 05:45 05:45 WBC (4.5-11.0) 10^3/ul RBC (3.5-6.1) 10^6/uL Hgb (12.0-16.0) g/dL Hct (36.0-48.0) % MCV (80.0-105.0) fl MCH (25.0-35.0) pg MCHC (31.0-37.0) g/dl RDW (11.5-14.5) % Plt Count (120.0-450.0) 10^3/uL MPV (7.0-11.0) fl Gran % (50.0-68.0) % Lymph % (Auto) (22.0-35.0) % Price % (Auto) (1.0-6.0) % Eos % (Auto) (1.5-5.0) % Baso % (Auto) (0.0-3.0) % Gran # (1.4-6.5) Lymph # (Auto) (1.2-3.4) Price # (Auto) (0.1-0.6) Eos # (Auto) (0.0-0.7) Baso # (Auto) (0.0-2.0) K/mm3 pCO2 37 (35-45) mm/Hg pO2 141.0 H (80-100) mm/Hg HCO3 28.9 H (21-28) mmol/L ABG pH 7.50 H (7.35-7.45) ABG Total CO2 30.0 H (22-28) mmol.L ABG O2 Saturation 98.6 H (95-98) % ABG Base Excess 5.5 H (-2.0-3.0) mmol/L ABG Potassium 4.6 (3.6-5.2) mmol/L Glucose 163 H (65-105) mg/dl Lactate 1.2 (0.7-2.1) mmol/L FiO2 60.0 % Sodium 134.0 (132-148) mmol/L Potassium (3.6-5.0) mmol/L Chloride 101.0 (98-107) mmol/L Carbon Dioxide (21-33) mmol/L Anion Gap (10-20) BUN (7-21) mg/dL Creatinine (0.7-1.2) mg/dl Est GFR ( Amer) Est GFR (Non-Af Amer) POC Glucose (mg/dL) (65-110) mg/dL Random Glucose (70-110) mg/dL Hemoglobin A1c 5.8 (4.2-6.5) % Calcium (8.4-10.5) mg/dL Phosphorus (2.5-4.5) mg/dL Magnesium (1.7-2.2) mg/dL Total Bilirubin (0.2-1.3) mg/dL AST (14-36) U/L ALT (7-56) U/L Alkaline Phosphatase (38-126) U/L Lactate Dehydrogenase (333-699) U/L Total Creatine Kinase (35-230) U/L Troponin I ng/mL Total Protein (5.8-8.3) g/dL Albumin (3.0-4.8) g/dL Globulin gm/dL Albumin/Globulin Ratio (1.1-1.8) Triglycerides (35-160) mg/dL Cholesterol (130-200) mg/dL LDL Cholesterol Direct (0-129) mg/dL HDL Cholesterol (29-60) mg/dL TSH 3rd Generation 0.76 (0.46-4.68) mIU/mL Arterial Blood Potassium 4.6 (3.6-5.2) mmol/L 05/13/18 05/13/18 05/12/18 Range/Units 05:45 05:45 23:58 WBC 6.0 D (4.5-11.0) 10^3/ul RBC 2.81 L (3.5-6.1) 10^6/uL Hgb 9.0 L (12.0-16.0) g/dL Hct 27.0 L (36.0-48.0) % MCV 96.1 (80.0-105.0) fl MCH 32.0 (25.0-35.0) pg MCHC 33.3 (31.0-37.0) g/dl RDW 13.8 (11.5-14.5) % Plt Count 91 L (120.0-450.0) 10^3/uL MPV 11.8 H (7.0-11.0) fl Gran % 73.1 H (50.0-68.0) % Lymph % (Auto) 16.2 L (22.0-35.0) % Price % (Auto) 9.8 H (1.0-6.0) % Eos % (Auto) 0.7 L (1.5-5.0) % Baso % (Auto) 0.2 (0.0-3.0) % Gran # 4.39 (1.4-6.5) Lymph # (Auto) 1.0 L (1.2-3.4) Price # (Auto) 0.6 (0.1-0.6) Eos # (Auto) 0.0 (0.0-0.7) Baso # (Auto) 0.01 (0.0-2.0) K/mm3 pCO2 (35-45) mm/Hg pO2 (80-100) mm/Hg HCO3 (21-28) mmol/L ABG pH (7.35-7.45) ABG Total CO2 (22-28) mmol.L ABG O2 Saturation (95-98) % ABG Base Excess (-2.0-3.0) mmol/L ABG Potassium (3.6-5.2) mmol/L Glucose (65-105) mg/dl Lactate (0.7-2.1) mmol/L FiO2 % Sodium 137 (132-148) mmol/L Potassium 4.9 (3.6-5.0) mmol/L Chloride 94 L (98-107) mmol/L Carbon Dioxide 27 (21-33) mmol/L Anion Gap 21 H (10-20) BUN 34 H (7-21) mg/dL Creatinine 4.8 H (0.7-1.2) mg/dl Est GFR ( Amer) 11 Est GFR (Non-Af Amer) 9 POC Glucose (mg/dL) 159 H (65-110) mg/dL Random Glucose 154 H (70-110) mg/dL Hemoglobin A1c (4.2-6.5) % Calcium 9.1 (8.4-10.5) mg/dL Phosphorus 5.1 H (2.5-4.5) mg/dL Magnesium 2.2 (1.7-2.2) mg/dL Total Bilirubin 1.1 (0.2-1.3) mg/dL AST 26 (14-36) U/L ALT 19 (7-56) U/L Alkaline Phosphatase 68 (38-126) U/L Lactate Dehydrogenase 482 (333-699) U/L Total Creatine Kinase 48 (35-230) U/L Troponin I 0.61 H* D ng/mL Total Protein 7.0 (5.8-8.3) g/dL Albumin 3.8 (3.0-4.8) g/dL Globulin 3.1 gm/dL Albumin/Globulin Ratio 1.2 (1.1-1.8) Triglycerides 236 H (35-160) mg/dL Cholesterol 153 (130-200) mg/dL LDL Cholesterol Direct 57 (0-129) mg/dL HDL Cholesterol 38 (29-60) mg/dL TSH 3rd Generation (0.46-4.68) mIU/mL Arterial Blood Potassium (3.6-5.2) mmol/L 07/23/18 07/23/18 Range/Units 17:12 16:24 WBC (4.5-11.0) 10^3/ul RBC (3.5-6.1) 10^6/uL Hgb (12.0-16.0) g/dL Hct (36.0-48.0) % MCV (80.0-105.0) fl MCH (25.0-35.0) pg MCHC (31.0-37.0) g/dl RDW (11.5-14.5) % Plt Count (120.0-450.0) 10^3/uL MPV (7.0-11.0) fl Gran % (50.0-68.0) % Lymph % (Auto) (22.0-35.0) % Price % (Auto) (1.0-6.0) % Eos % (Auto) (1.5-5.0) % Baso % (Auto) (0.0-3.0) % Gran # (1.4-6.5) Lymph # (Auto) (1.2-3.4) Price # (Auto) (0.1-0.6) Eos # (Auto) (0.0-0.7) Baso # (Auto) (0.0-2.0) K/mm3 pCO2 (35-45) mm/Hg pO2 (80-100) mm/Hg HCO3 (21-28) mmol/L ABG pH (7.35-7.45) ABG Total CO2 (22-28) mmol.L ABG O2 Saturation (95-98) % ABG Base Excess (-2.0-3.0) mmol/L ABG Potassium (3.6-5.2) mmol/L Glucose (65-105) mg/dl Lactate (0.7-2.1) mmol/L FiO2 % Sodium (132-148) mmol/L Potassium (3.6-5.0) mmol/L Chloride (98-107) mmol/L Carbon Dioxide (21-33) mmol/L Anion Gap (10-20) BUN (7-21) mg/dL Creatinine (0.7-1.2) mg/dl Est GFR ( Amer) Est GFR (Non-Af Amer) POC Glucose (mg/dL) 182 H (65-110) mg/dL Random Glucose (70-110) mg/dL Hemoglobin A1c (4.2-6.5) % Calcium (8.4-10.5) mg/dL Phosphorus (2.5-4.5) mg/dL Magnesium (1.7-2.2) mg/dL Total Bilirubin (0.2-1.3) mg/dL AST (14-36) U/L ALT (7-56) U/L Alkaline Phosphatase (38-126) U/L Lactate Dehydrogenase (333-699) U/L Total Creatine Kinase (35-230) U/L Troponin I 0.30 H* D ng/mL Total Protein (5.8-8.3) g/dL Albumin (3.0-4.8) g/dL Globulin gm/dL Albumin/Globulin Ratio (1.1-1.8) Triglycerides (35-160) mg/dL Cholesterol (130-200) mg/dL LDL Cholesterol Direct (0-129) mg/dL HDL Cholesterol (29-60) mg/dL TSH 3rd Generation (0.46-4.68) mIU/mL Arterial Blood Potassium (3.6-5.2) mmol/L Laboratory Results - last 24 hr 05/12/18 05/12/18 05/12/18 16:24 17:12 23:58 WBC RBC Hgb Hct MCV MCH MCHC RDW Plt Count MPV Gran % Lymph % (Auto) Price % (Auto) Eos % (Auto) Baso % (Auto) Gran # Lymph # (Auto) Price # (Auto) Eos # (Auto) Baso # (Auto) pCO2 pO2 HCO3 ABG pH ABG Total CO2 ABG O2 Saturation ABG Base Excess ABG Potassium Glucose Lactate FiO2 Sodium Potassium Chloride Carbon Dioxide Anion Gap BUN Creatinine Est GFR ( Amer) Est GFR (Non-Af Amer) POC Glucose (mg/dL) 182 H 159 H Random Glucose Hemoglobin A1c Calcium Phosphorus Magnesium Total Bilirubin AST ALT Alkaline Phosphatase Lactate Dehydrogenase Total Creatine Kinase Troponin I 0.30 H* D Total Protein Albumin Globulin Albumin/Globulin Ratio Triglycerides Cholesterol LDL Cholesterol Direct HDL Cholesterol TSH 3rd Generation Arterial Blood Potassium 05/13/18 05/13/18 05/13/18 05:45 05:45 05:45 WBC 6.0 D RBC 2.81 L Hgb 9.0 L Hct 27.0 L MCV 96.1 MCH 32.0 MCHC 33.3 RDW 13.8 Plt Count 91 L MPV 11.8 H Gran % 73.1 H Lymph % (Auto) 16.2 L Price % (Auto) 9.8 H Eos % (Auto) 0.7 L Baso % (Auto) 0.2 Gran # 4.39 Lymph # (Auto) 1.0 L Price # (Auto) 0.6 Eos # (Auto) 0.0 Baso # (Auto) 0.01 pCO2 pO2 HCO3 ABG pH ABG Total CO2 ABG O2 Saturation ABG Base Excess ABG Potassium Glucose Lactate FiO2 Sodium 137 Potassium 4.9 Chloride 94 L Carbon Dioxide 27 Anion Gap 21 H BUN 34 H Creatinine 4.8 H Est GFR ( Amer) 11 Est GFR (Non-Af Amer) 9 POC Glucose (mg/dL) Random Glucose 154 H Hemoglobin A1c 5.8 Calcium 9.1 Phosphorus 5.1 H Magnesium 2.2 Total Bilirubin 1.1 AST 26 ALT 19 Alkaline Phosphatase 68 Lactate Dehydrogenase 482 Total Creatine Kinase 48 Troponin I 0.61 H* D Total Protein 7.0 Albumin 3.8 Globulin 3.1 Albumin/Globulin Ratio 1.2 Triglycerides 236 H Cholesterol 153 LDL Cholesterol Direct 57 HDL Cholesterol 38 TSH 3rd Generation Arterial Blood Potassium 05/13/18 05/13/18 05:45 06:20 WBC RBC Hgb Hct MCV MCH MCHC RDW Plt Count MPV Gran % Lymph % (Auto) Price % (Auto) Eos % (Auto) Baso % (Auto) Gran # Lymph # (Auto) Price # (Auto) Eos # (Auto) Baso # (Auto) pCO2 37 pO2 141.0 H HCO3 28.9 H ABG pH 7.50 H ABG Total CO2 30.0 H ABG O2 Saturation 98.6 H ABG Base Excess 5.5 H ABG Potassium 4.6 Glucose 163 H Lactate 1.2 FiO2 60.0 Sodium 134.0 Potassium Chloride 101.0 Carbon Dioxide Anion Gap BUN Creatinine Est GFR ( Amer) Est GFR (Non-Af Amer) POC Glucose (mg/dL) Random Glucose Hemoglobin A1c Calcium Phosphorus Magnesium Total Bilirubin AST ALT Alkaline Phosphatase Lactate Dehydrogenase Total Creatine Kinase Troponin I Total Protein Albumin Globulin Albumin/Globulin Ratio Triglycerides Cholesterol LDL Cholesterol Direct HDL Cholesterol TSH 3rd Generation 0.76 Arterial Blood Potassium 4.6 EKG/Cardiology Studies: Cardiology / EKG Studies 05/12/18 17:00 EKG [ELECTROCARDIOGRAM] Stat Comment: Reason For Exam: r/o ACS 05/13/18 12:30 EKG [ELECTROCARDIOGRAM] Urgent Comment: Reason For Exam: Rhythm eval PRE OP:: N Does Patient Have a Pacemaker?: No PERFORMING PHYSICIAN/PROVIDER:: Jairo Davila Critical Care Progress Note - Nutrition Nutrition: Nutrition Category Date Time Status NPO Diet [DIET] Diets 05/12/18 Breakfast Ordered Attending/Attestation - Attestation I have personally seen and examined this patient.: Yes I have fully participated in the care of the patient.: Yes I have reviewed all pertinent clinical information: Yes Notes (Text): 05/13/18 14:25 The patient was seen and examined at the bedside. Patient care was discussed with resident Medical records, lab studies, and imaging were reviewed and management issues were discussed and formulated. Last 24H events reviewed. Agree with above treatment plans as outlined in 's note with addition of the following: Acute Respiratory Failure \ Hypercapnea \ Hypoxemia \ Pulmonary Edema \ ESRD on HD \ Volume overload \ Acute on Chronic systolic CHF \ PNA \ CAD \ DM 2 \ -hemodynamic monitoring to maintain MAP>65 -continue asa and plavix, statin , bblocker; cardiology team f\u -mechanical ventilation and o2 supplementation to maintain Spo2 >90 Pao2>60 -monitor for TV 6ml\kg IBW and plateau pressure <30 -CXR and ABG reviewed; PS trial of 5 PS plus 8 Peep tolerated well this morning -Pt able to protect airway and has minimal secretions; we will proceed with extubation -continue Abx and f\u cultures ; ID f\u -f\u Bun\Cr and U\o; HD and volume removal today as per renal team -NPO diet and aspiration precautions; dysphagia eval after extubation -ISS and BGM monitoring -DVT \ PUD prophylaxis CCM time 35min
--- NOTE | 2018-05-13 11:03 | RAD ---
Date of service: 05/13/2018 HISTORY: respiratory distress, intubated COMPARISON: 05/12/2018 FINDINGS: LUNGS: Right basilar infiltrate, likely lower lobe. Slightly improved compared to prior. Left-sided perihilar infiltrate no longer evident. Possible resolving pulmonary edema. PLEURA: Very small bilateral pleural effusion. No pneumothorax. CARDIOVASCULAR: Endotracheal tube and nasogastric tube unchanged. Normal heart size. Decreased congestive change. OSSEOUS STRUCTURES: No significant abnormalities. VISUALIZED UPPER ABDOMEN: Normal. OTHER FINDINGS: None. IMPRESSION: Probable improving pulmonary edema. Persistent opacity right lower lobe. Very small bilateral pleural effusion. ET tube and NG tube unchanged and decreased congestive change.
[2018-05-13] MEDS: Cefepime 1gm in NS 100ml 1 GM/100 ML BAG IVPB SCH (12:54)
--- NOTE | 2018-05-13 13:53 | PN ---
DATE: 05/13/2018 REASON FOR THE CONSULTATION AND FOLLOWUP: Status post respiratory failure, rule out pneumonia, intubated, history of coronary artery disease. SUBJECTIVE: The patient remains intubated, mildly sedated, awake on verbal stimuli. The patient responds to verbal stimuli. OBJECTIVE: GENERAL: Not in apparent distress, although responds to verbal stimuli. VITAL SIGNS: Temperature afebrile, heart rate 60, and blood pressure 109/49. HEENT: PERRLA. Extraocular muscles intact. NECK: Supple. No carotid bruit. No thyromegaly. CHEST: Clear to auscultation. HEART: S1 and S2 regular. ABDOMEN: Soft. EXTREMITIES: Clubbing and cyanosis negative. LABORATORY DATA: Blood workup; WBC 6, hemoglobin 9, hematocrit 27, and platelet count 91. Chemistry shows sodium 137, potassium 4.9, chloride 94, carbon dioxide 27, anion gap of 21, BUN 34, and creatinine 4.8. Troponin 0.03, 0.6. IMPRESSION: A 72-year-old lady with past medical history significant for coronary artery disease, status post percutaneous transluminal coronary angioplasty of right coronary artery. Last catheterization revealed significant disease of left anterior descending and circumflex, very tortuous, not amenable of percutaneous coronary intervention. I therefore offered her open heart surgery. Family was reluctant for open heart surgery, did not go for surgery. History of end-stage renal disease, she is on dialysis. Admitted with possible pneumonia, respiratory failure, intubated. Borderline troponin positive in phase of renal insufficiency, probably not significant. Though the patient had echocardiography done yesterday, significantly reduced left ventricular function, before it was 55%, now the ejection fraction is 25% to 30% with anterior wall hypokinesis. Aortic stenosis with some trace mitral regurgitation, trace to mild tricuspid regurgitation. RECOMMENDATION: Wean off the vent as tolerated. Continue dialysis. Continue broad-spectrum antibiotic. Continue beta-cee. We will put beta-cee, aspirin, Plavix as well. Overall, the patient's condition is critical. Long-term prognosis is guarded. We will follow. Discussed with the daughter. Discussed with Dr. Yu. Possible right lower lobe pneumonia. We will follow with you. So far, the blood culture is negative. Continue aspirin, continue Plavix, continue broad-spectrum antibiotic. Thank you, Dr. Yu for providing us the opportunity in taking care of the patient, Kapil Chung. Jairo Davila MD
--- NOTE | 2018-05-13 16:15 | CARD ---
APPROVED REPORT Date of service: 05/13/2018 EKG Measurement Heart [id number] <Conclusion> Normal sinus rhythm with sinus arrhythmia Septal infarct, age undetermined ST & Marked T wave abnormality, consider anterolateral ischemia Prolonged QT Abnormal ECG
[2018-05-13] MEDS ORDERED: Sodium Chloride 0.9% 250 ML IV STA (18:28)
[2018-05-14] MEDS: Insulin Reg-LOW-Coverage SC SCH ×5 (02:00→22:23)
--- NOTE | 2018-05-14 05:12 | CP.PCM.PN ---
<Renay Vaughn - Last Filed: 05/14/18 13:22> Subjective - Date & Time of Evaluation Date of Evaluation: 05/14/18 Time of Evaluation: 07:00 - Subjective Subjective: Medicine Progress Note for Falguni Steward PGY3 Patient seen and examined at bedside. Overnight patient had fever Tmax of 101.3 and her SBP was in the 90s. Patient is Estonian speaking and career based intervention coordinator was at bedside. Patient was complaining of productive cough, sore throat and pain with coughing. She reports chest pain with coughing, but denies shortness of breath, nausea/vomiting/diarrhea, numbness/tingling, dysuria/hematuria. Objective - Vital Signs/Intake and Output Vital Signs (last 24 hours): Temp Pulse Resp BP Pulse Ox 100.0 F H 58 L 17 89/31 L 99 05/13/18 23:00 05/14/18 02:00 05/13/18 18:52 05/13/18 18:53 05/13/18 18:52 Intake and Output: 05/13/18 05/14/18 18:59 06:59 Intake Total 300 250 Balance 300 250 - Medications Medications: Current Medications Acetaminophen (Tylenol 650mg/20.3ml Solution Ud) 650 mg PO Q6H PRN PRN Reason: Temperature Last Admin: 05/13/18 16:36 Dose: 650 mg Aspirin (Ecotrin) 81 mg PO DAILY [facility] Last Admin: 05/13/18 12:55 Dose: 81 mg Atorvastatin Calcium (Lipitor) 10 mg PO HS [facility] Last Admin: 05/13/18 16:37 Dose: 10 mg Clopidogrel Bisulfate (Plavix) 75 mg PO DAILY [facility] Last Admin: 05/13/18 12:55 Dose: 75 mg Famotidine (Pepcid) 20 mg IVP DAILY [facility] Last Admin: 05/13/18 12:56 Dose: 20 mg Heparin Sodium (Porcine) (Heparin) 5,000 units SC Q12 YURI PRN Reason: Protocol Last Admin: 05/13/18 21:51 Dose: 5,000 units Cefepime HCl (Maxipime 1gm) 1 gm in 100 mls @ 100 mls/hr IVPB DAILY YURI PRN Reason: Protocol Last Admin: 05/13/18 12:54 Dose: 100 mls/hr Insulin Human Regular (Humulin R Low) 0 units SC Q6H YURI PRN Reason: Protocol Last Admin: 05/14/18 02:00 Dose: Not Given Metoprolol Tartrate (Lopressor) 25 mg PO BID [facility] Last Admin: 05/13/18 18:04 Dose: Not Given - Labs Labs: 05/13/18 05:45 05/13/18 05:45 PT 12.0 SECONDS (9.4-12.5) 05/12/18 05:30 INR 1.04 (0.93-1.08) 05/12/18 05:30 APTT 20.9 Seconds (25.1-36.5) L 05/12/18 05:30 - Constitutional Appears: No Acute Distress - Head Exam Head Exam: ATRAUMATIC, NORMAL INSPECTION, NORMOCEPHALIC - Eye Exam Eye Exam: Normal appearance, PERRL Pupil Exam: NORMAL ACCOMODATION - ENT Exam ENT Exam: Mucous Membranes Dry - Respiratory Exam Respiratory Exam: Rales, Rhonchi, NORMAL BREATHING PATTERN. absent: Respiratory Distress - Cardiovascular Exam Cardiovascular Exam: REGULAR RHYTHM, +S1, +S2. absent: Gallop, Rubs - GI/Abdominal Exam GI & Abdominal Exam: Soft, Normal Bowel Sounds. absent: Rigid, Tenderness, Mass , Rebound - Extremities Exam Extremities Exam: Normal Inspection. absent: Calf Tenderness, Pedal Edema - Neurological Exam Neurological Exam: Alert, Awake, CN II-XII Intact - Psychiatric Exam Psychiatric exam: Normal Affect, Normal Mood - Skin Skin Exam: Dry, Warm Assessment and Plan - Assessment and Plan (Free Text) Assessment: This is a 72yo [place]ian F with past medical history of HTN, CAD s/p stents, DM II , ESRD on HD, PAD admitted for 1. Acute respiratory failure (resolved) - secondary to HCAP and pulm edema - patient extubated yesterday 2. Sepsis - secondary to HCAP 3. Acute systolic CHF exacerbation - previous Echo (10/2017- EF 55%). EF now 25% - CABG recommended in past- family and patient refused at the time 4. HTN 5. ESRD on HD (T,T,Sa) 6. IDDM 7. PAD 8. CAD Plan: Labs and imaging reviewed. Patient had HD yesterday with 2L removed. Patient extubated. Comfortable on 2L NC. She is on Cefepime. ID is on consult. Patient will continue HD as scheduled. Cardiology on consult. Recs appreciated. She is now tolerating diet. She is on ASA, Lipitor, Coreg, Plavix, Digoxin, Lisinopril and Lopressor. She is on insulin sliding scale. Will continue to monitor blood sugars. Continue to monitor temperature and maintain normothermia. Patient is an on GI and DVT prophylaxis. She will be evaluated by physical therapy. She lives with her family at home. Case seen, discussed and reviewed with Dr. Yu. Falguni Vaughn PGY3 <Deep Yu S - Last Filed: 05/14/18 14:01> Objective - Vital Signs/Intake and Output Vital Signs (last 24 hours): Temp Pulse Resp BP Pulse Ox 99.7 F H 63 20 95/39 L 100 05/14/18 12:00 05/14/18 12:00 05/14/18 12:00 05/14/18 12:00 05/14/18 06:00 Intake and Output: 05/14/18 05/14/18 06:59 18:59 Intake Total 250 Output Total 0 Balance 250 - Medications Medications: Current Medications Acetaminophen (Tylenol 650mg/20.3ml Solution Ud) 650 mg PO Q6H PRN PRN Reason: Temperature Last Admin: 05/13/18 16:36 Dose: 650 mg Aspirin (Ecotrin) 81 mg PO DAILY [facility] Last Admin: 05/14/18 09:55 Dose: 81 mg Atorvastatin Calcium (Lipitor) 10 mg PO HS [facility] Last Admin: 05/13/18 16:37 Dose: 10 mg Carvedilol (Coreg) 3.125 mg PO BID [facility] Clopidogrel Bisulfate (Plavix) 75 mg PO DAILY [facility] Last Admin: 05/14/18 09:55 Dose: 75 mg Digoxin (Digoxin) 0.125 mg PO MWF [facility] Famotidine (Pepcid) 20 mg IVP DAILY [facility] Last Admin: 05/14/18 09:55 Dose: 20 mg Heparin Sodium (Porcine) (Heparin) 5,000 units SC Q12 YURI PRN Reason: Protocol Last Admin: 05/14/18 09:54 Dose: 5,000 units Cefepime HCl (Maxipime 1gm) 1 gm in 100 mls @ 100 mls/hr IVPB DAILY [facility] PRN Reason: Protocol Last Admin: 05/14/18 09:54 Dose: 100 mls/hr Insulin Human Regular (Humulin R Low) 0 units SC Q6H YURI PRN Reason: Protocol Last Admin: 05/14/18 09:14 Dose: Not Given Lisinopril (Zestril) 2.5 mg PO DAILY [facility] Metoprolol Tartrate (Lopressor) 25 mg PO BID [facility] Last Admin: 05/13/18 18:04 Dose: Not Given - Labs Labs: 05/14/18 05:00 05/14/18 05:00 PT 12.0 SECONDS (9.4-12.5) 05/12/18 05:30 INR 1.04 (0.93-1.08) 05/12/18 05:30 APTT 20.9 Seconds (25.1-36.5) L 05/12/18 05:30 Assessment and Plan - Assessment and Plan (Free Text) Plan: Pt seen and examined. Agree with the note of the medical records secretary. Labs and medications have been reviewed. Pt is extubated and doing well. I spoke to the daughter at the bedside and also spoke to Dr Davila. Pt is going to be transferred out of the ICU. She does have CAD and should get CABG. BP was low earlier but did improve when I saw the pt.
[2018-05-14 05:44] LABS: BASO # 0.01 K/mm3 (0.0-2.0); BASO % 0.2 % (0.0-3.0); EOS # 0.1 (0.0-0.7); EOS % 1.5 % (1.5-5.0); GRAN # 4.95 (1.4-6.5); GRAN % 74.2 % (50.0-68.0); HEMOGLOBIN 8.7 g/dL (12.0-16.0); LYMPH % 15.2 % (22.0-35.0); MEAN CELL VOLUME 95.2 fl (80.0-105.0); MEAN CORPUSCULAR HEMOGLOBIN 32.3 pg (25.0-35.0); MEAN PLATELET VOLUME 10.9 fl (7.0-11.0); MONO # 0.6 (0.1-0.6); MONO % 8.9 % (1.0-6.0); RBC 2.69 10^6/uL (3.5-6.1); RED CELL DISTRIBUTION WIDTH 13.8 % (11.5-14.5); WHITE BLOOD COUNT 6.7 10^3/ul (4.5-11.0)
[2018-05-14 06:09] LABS: ALB/GLOB RATIO 1.1 (1.1-1.8); ALBUMIN 3.6 g/dL (3.0-4.8); CALCIUM 9.5 mg/dL (8.4-10.5)
[2018-05-14 06:16] LABS: TROPONIN I 0.21 ng/mL
[2018-05-14] MEDS: Cefepime 1gm in NS 100ml 1 GM/100 ML BAG IVPB SCH (09:54)
--- NOTE | 2018-05-14 10:01 | CP.CCUPN ---
<Wally Will - Last Filed: 05/14/18 10:25> CCU Subjective - Physician Review Subjective (Free Text): Wally Will, PGY1 Critical Care Progress Note for Dr. Beasley Patient was examined at bedside this morning. Yesterday afternoon, patient went for dialysis and removed 2 L. Patient was also successfully extubated shortly after. Yesterday evening, patient was febrile with a Tmax of 101.3 and hypotensive (BP 88/32). Patient was given a bolus of NS and pancultured. This morning, patient is currently afebrile (Temp 100) and normotensive (BP 121/48). The morning CXR also shows some improvement in pulmonary edema. Today, family member was present during interview for language interpretation. During interview, patient is awake, alert, and shows no sign of respiratory distress. She was complaining of chest tightness, cough, headache, and mild shortness of breath. Denied lightheadedness, dizziness, nausea, vomiting, diarrhea. No other overnight changes. A Full 12 point ROS was conducted and unremarkable except as stated above. CCU Objective - Vital Signs / Intake & Output Vital Signs (Last 4 hours): Vital Signs Pulse Resp BP Pulse Ox 05/14/18 08:00 63 05/14/18 06:00 55 L 18 106/45 L 100 Intake and Output (Last 8hrs): Intake & Output 05/13/18 05/14/18 05/14/18 22:59 06:59 14:59 Intake Total 420 0 Output Total 0 Balance 420 0 Intake: IV 420 0 NS 250 0 medicine 100 0 propofol 70 Oral 0 Output: Urine 0 Urine, Voided 0 Stool 0 - Physical Exam Head: Positive for: Atraumatic, Normocephalic Pupils: Positive for: Non-Reactive Mouth: Positive for: Dry (Patient suctioning at bedside. ) Nose (External): Positive for: Atraumatic, Other (Nasal cannula (4L)) Nose (Internal): Positive for: Normal Inspection Respiratory/Chest: Positive for: Other (Diffuse crackles heard bilaterally ). Negative for: Clear to Auscultation, Respiratory Distress, Accessory Muscle Use , Wheezes, Decreased Breath Sounds, Rales, Rhonchi, Tachypneic Cardiovascular: Positive for: Regular Rate and Rhythm, Normal S1, S2, Peripheal Pulses Present. Negative for: Murmurs Abdomen: Positive for: Normal Bowel Sounds. Negative for: Distention, Peritoneal Signs, Rebound, Guarding Upper Extremity: Positive for: Normal Inspection, Normal ROM, NORMAL PULSES, Other (AV Fistula left arm). Negative for: Cyanosis, Edema Lower Extremity: Positive for: Normal Inspection, NORMAL PULSES, Normal ROM. Negative for: Edema, Cyanosis, Swelling, Erythema Skin: Positive for: Warm, Dry, Normal Color. Negative for: Rashes Psychiatric: Positive for: Alert, Oriented x 3 - Medications Active Medications: Active Medications Generic Name Dose Route Start Last Admin Trade Name Freq PRN Reason Stop Dose Admin Acetaminophen 650 mg 05/13/18 01:06 05/13/18 16:36 Tylenol 650mg/20.3ml Solution Ud PO 650 mg Q6H PRN Administration Temperature Aspirin 81 mg 05/12/18 10:00 05/13/18 12:55 Ecotrin PO 81 mg DAILY [facility] Administration Atorvastatin Calcium 10 mg 05/12/18 22:00 05/13/18 16:37 Lipitor PO 10 mg HS [facility] Administration Clopidogrel Bisulfate 75 mg 05/12/18 10:00 05/13/18 12:55 Plavix PO 75 mg DAILY [facility] Administration Famotidine 20 mg 05/12/18 10:00 05/13/18 12:56 Pepcid IVP 20 mg DAILY [facility] Administration Heparin Sodium (Porcine) 5,000 units 05/12/18 10:00 05/13/18 21:51 Heparin SC 5,000 units Q12 [facility] Administration Protocol Cefepime HCl 1 gm in 100 mls @ 100 mls/hr 05/13/18 10:00 05/13/18 12:54 Maxipime 1gm IVPB 100 mls/hr DAILY [facility] Administration Protocol Insulin Human Regular 0 units 05/12/18 08:15 05/14/18 09:14 Humulin R Low SC Not Given Q6H [facility] Protocol Metoprolol Tartrate 25 mg 05/12/18 10:00 05/13/18 18:04 Lopressor PO Not Given BID Y[facility] - Patient Studies Lab Studies: Microbiology Studies 05/12/18 11:50 MRSA Culture (Admit) - Final Naris MRSA NOT DETECTED Lab Studies 05/14/18 05/14/18 05/14/18 Range/Units 05:00 05:00 04:19 WBC 6.7 (4.5-11.0) 10^3/ul RBC 2.69 L (3.5-6.1) 10^6/uL Hgb 8.7 L (12.0-16.0) g/dL Hct 25.6 L (36.0-48.0) % MCV 95.2 (80.0-105.0) fl MCH 32.3 (25.0-35.0) pg MCHC 34.0 (31.0-37.0) g/dl RDW 13.8 (11.5-14.5) % Plt Count 111 L (120.0-450.0) 10^3/uL MPV 10.9 (7.0-11.0) fl Gran % 74.2 H (50.0-68.0) % Lymph % (Auto) 15.2 L (22.0-35.0) % [place] % (Auto) 8.9 H (1.0-6.0) % Eos % (Auto) 1.5 (1.5-5.0) % Baso % (Auto) 0.2 (0.0-3.0) % Gran # 4.95 (1.4-6.5) Lymph # (Auto) 1.0 L (1.2-3.4) [place] # (Auto) 0.6 (0.1-0.6) Eos # (Auto) 0.1 (0.0-0.7) Baso # (Auto) 0.01 (0.0-2.0) K/mm3 Sodium 140 (132-148) mmol/L Potassium 4.3 (3.6-5.0) mmol/L Chloride 97 L (98-107) mmol/L Carbon Dioxide 28 (21-33) mmol/L Anion Gap 19 (10-20) BUN 34 H (7-21) mg/dL Creatinine 4.9 H (0.7-1.2) mg/dl Est GFR ( Amer) 11 Est GFR (Non-Af Amer) 9 POC Glucose (mg/dL) 127 H (65-110) mg/dL Random Glucose 121 H (70-110) mg/dL Hemoglobin A1c (4.2-6.5) % Calcium 9.5 (8.4-10.5) mg/dL Phosphorus 5.1 H (2.5-4.5) mg/dL Magnesium 2.3 H (1.7-2.2) mg/dL Total Bilirubin 1.0 (0.2-1.3) mg/dL AST 25 (14-36) U/L ALT 26 (7-56) U/L Alkaline Phosphatase 68 (38-126) U/L Lactate Dehydrogenase 368 (333-699) U/L Total Creatine Kinase 57 (35-230) U/L Troponin I 0.21 H* D ng/mL Total Protein 6.9 (5.8-8.3) g/dL Albumin 3.6 (3.0-4.8) g/dL Globulin 3.2 gm/dL Albumin/Globulin Ratio 1.1 (1.1-1.8) 05/13/18 05/13/18 Range/Units 20:09 05:45 WBC (4.5-11.0) 10^3/ul RBC (3.5-6.1) 10^6/uL Hgb (12.0-16.0) g/dL Hct (36.0-48.0) % MCV (80.0-105.0) fl MCH (25.0-35.0) pg MCHC (31.0-37.0) g/dl RDW (11.5-14.5) % Plt Count (120.0-450.0) 10^3/uL MPV (7.0-11.0) fl Gran % (50.0-68.0) % Lymph % (Auto) (22.0-35.0) % [place] % (Auto) (1.0-6.0) % Eos % (Auto) (1.5-5.0) % Baso % (Auto) (0.0-3.0) % Gran # (1.4-6.5) Lymph # (Auto) (1.2-3.4) [place] # (Auto) (0.1-0.6) Eos # (Auto) (0.0-0.7) Baso # (Auto) (0.0-2.0) K/mm3 Sodium (132-148) mmol/L Potassium (3.6-5.0) mmol/L Chloride (98-107) mmol/L Carbon Dioxide (21-33) mmol/L Anion Gap (10-20) BUN (7-21) mg/dL Creatinine (0.7-1.2) mg/dl Est GFR ( Amer) Est GFR (Non-Af Amer) POC Glucose (mg/dL) 153 H (65-110) mg/dL Random Glucose (70-110) mg/dL Hemoglobin A1c 5.8 (4.2-6.5) % Calcium (8.4-10.5) mg/dL Phosphorus (2.5-4.5) mg/dL Magnesium (1.7-2.2) mg/dL Total Bilirubin (0.2-1.3) mg/dL AST (14-36) U/L ALT (7-56) U/L Alkaline Phosphatase (38-126) U/L Lactate Dehydrogenase (333-699) U/L Total Creatine Kinase (35-230) U/L Troponin I ng/mL Total Protein (5.8-8.3) g/dL Albumin (3.0-4.8) g/dL Globulin gm/dL Albumin/Globulin Ratio (1.1-1.8) Laboratory Results - last 24 hr 05/13/18 05/13/18 05/14/18 05:45 20:09 04:19 WBC RBC Hgb Hct MCV MCH MCHC RDW Plt Count MPV Gran % Lymph % (Auto) [place] % (Auto) Eos % (Auto) Baso % (Auto) Gran # Lymph # (Auto) [place] # (Auto) Eos # (Auto) Baso # (Auto) Sodium Potassium Chloride Carbon Dioxide Anion Gap BUN Creatinine Est GFR ( Amer) Est GFR (Non-Af Amer) POC Glucose (mg/dL) 153 H 127 H Random Glucose Hemoglobin A1c 5.8 Calcium Phosphorus Magnesium Total Bilirubin AST ALT Alkaline Phosphatase Lactate Dehydrogenase Total Creatine Kinase Troponin I Total Protein Albumin Globulin Albumin/Globulin Ratio 05/14/18 05/14/18 05:00 05:00 WBC 6.7 RBC 2.69 L Hgb 8.7 L Hct 25.6 L MCV 95.2 MCH 32.3 MCHC 34.0 RDW 13.8 Plt Count 111 L MPV 10.9 Gran % 74.2 H Lymph % (Auto) 15.2 L [place] % (Auto) 8.9 H Eos % (Auto) 1.5 Baso % (Auto) 0.2 Gran # 4.95 Lymph # (Auto) 1.0 L [place] # (Auto) 0.6 Eos # (Auto) 0.1 Baso # (Auto) 0.01 Sodium 140 Potassium 4.3 Chloride 97 L Carbon Dioxide 28 Anion Gap 19 BUN 34 H Creatinine 4.9 H Est GFR ( Amer) 11 Est GFR (Non-Af Amer) 9 POC Glucose (mg/dL) Random Glucose 121 H Hemoglobin A1c Calcium 9.5 Phosphorus 5.1 H Magnesium 2.3 H Total Bilirubin 1.0 AST 25 ALT 26 Alkaline Phosphatase 68 Lactate Dehydrogenase 368 Total Creatine Kinase 57 Troponin I 0.21 H* D Total Protein 6.9 Albumin 3.6 Globulin 3.2 Albumin/Globulin Ratio 1.1 EKG/Cardiology Studies: Cardiology / EKG Studies 05/13/18 12:30 EKG [ELECTROCARDIOGRAM] Urgent Comment: Reason For Exam: Rhythm eval PRE OP:: N Does Patient Have a Pacemaker?: No PERFORMING PHYSICIAN/PROVIDER:: Jairo Davila Fingerstick Blood Sugar Results: 127 Review of Systems - Review of Systems All systems: reviewed and no additional remarkable complaints except (as per HPI.) Critical Care Progress Note - Extremities/Vascular Does the Patient have a Central Venous Catheter?: No Does the Patient need a Central Venous Catheter?: No Does the Patient have a Rhodes Catheter?: No Does the Patient need a Rhodes Catheter?: No - Prophylaxis GI Prophylaxis GI: Pepsid - Prophylaxis DVT Prophylaxis DVT: Heparin SQ - Nutrition Nutrition: Nutrition Category Date Time Status Heart Healthy Diet [DIET] Diets 05/14/18 Breakfast Active Assessment/Plan - Assessment and Plan (Free Text) Assessment: Patient is a 72 y/o F with PMHx of CAD (multiple stents, severe triple vessel disease with tortuous vessels, declined CABG), HTN, DM (insulin dependent), PAD , ESRD (on HD //Sat) who presented to the ED earlier this morning for SOB x2 days and cough x4 days. Patient had a prior visit for pulmonary edema. In ED, patient was in respiratory distress and patient was intubated, transferred to ICU for management. Patient currently being treated for confirmed HCAP and pulmonary edema. Patient has relieved hemodialysis on the unit; removed 950 mL on 05/12 and 2 L on 05/13. ABG and respiratory status has also improved. Patient was successfully extubated on 05/13, placed on nasal cannula. Patient has had episodes of fever and hypotension, which have resolved. No acute issues at this time. Plan: Neuro: - Currently afebrile (Temp 100) - Maintain normothermia - s/p extubation, tolerated procedure well; at baseline mental status. Pulm: - Currently on nasal cannula 4L - Diffuse crackles bilateral lung exam - CXR (05/14): improvement in right lower lobe infiltrate. No change in left lower lobe infiltrate. - Maintain SaO2 > 92% Cardio: - Currently normotensive (BP 121/48) - Chest tightness; patient has history of severe triple vessel disease with tortuous vessels; refusing CABG. Cardiology is following. - troponins trending down: .21 (05/14) - Cardiology consulted, recs appreciated - Maintain MAP > 65 - Echo (05/12): EF 25-30%. Normal LV wall thickness. Aortic sclerosis vs mild . Trace MR, TR. IVC dilated. Trace pericardial effusion. 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 GI: - GI ppx: pepcid - Diet: HHD, soft, renal/dialysis Renal: - HD (05/13): 2 Liters removed - HD (05/12): 950 mL removed - Latest BUN/Cr is 34/4.9 - Replete lytes as needed Heme: - DVT ppx: Heparin SC ID: - c/w cefepime - ID consulted, recs appreciated - Blood Cx negative x2 after 48 hours - f/u repeat blood cx - f/u sputum cx Endo: - Maintain euglycemia - ISS - Accucheks ACHS Dispo: No acute issues at this time. Patient is hemodynamically stable and safe for transfer to remote telemetry. Case was discussed and reviewed with Attending Physician Dr. Beasley. <Marcos Beasley - Last Filed: 05/14/18 11:08> CCU Objective - Vital Signs / Intake & Output Vital Signs (Last 4 hours): Vital Signs Pulse 05/14/18 08:00 63 Intake and Output (Last 8hrs): Intake & Output 05/13/18 05/14/18 05/14/18 22:59 06:59 14:59 Intake Total 420 0 Output Total 0 Balance 420 0 Intake: IV 420 0 NS 250 0 medicine 100 0 propofol 70 Oral 0 Output: Urine 0 Urine, Voided 0 Stool 0 - Medications Active Medications: Active Medications Generic Name Dose Route Start Last Admin Trade Name Freq PRN Reason Stop Dose Admin Acetaminophen 650 mg 05/13/18 01:06 05/13/18 16:36 Tylenol 650mg/20.3ml Solution Ud PO 650 mg Q6H PRN Administration Temperature Aspirin 81 mg 05/12/18 10:00 05/14/18 09:55 Ecotrin PO 81 mg DAILY [facility] Administration Atorvastatin Calcium 10 mg 05/12/18 22:00 05/13/18 16:37 Lipitor PO 10 mg HS [facility] Administration Carvedilol 3.125 mg 05/14/18 18:00 Coreg PO BID [facility] Clopidogrel Bisulfate 75 mg 05/12/18 10:00 05/14/18 09:55 Plavix PO 75 mg DAILY [facility] Administration Digoxin 0.125 mg 05/16/18 10:00 Digoxin PO MWF [facility] Famotidine 20 mg 05/12/18 10:00 05/14/18 09:55 Pepcid IVP 20 mg DAILY [facility] Administration Heparin Sodium (Porcine) 5,000 units 05/12/18 10:00 05/14/18 09:54 Heparin SC 5,000 units Q12 [facility] Administration Protocol Cefepime HCl 1 gm in 100 mls @ 100 mls/hr 05/13/18 10:00 05/14/18 09:54 Maxipime 1gm IVPB 100 mls/hr DAILY [facility] Administration Protocol Insulin Human Regular 0 units 05/12/18 08:15 05/14/18 09:14 Humulin R Low SC Not Given Q6H [facility] Protocol Lisinopril 2.5 mg 05/15/18 10:00 Zestril PO DAILY [facility] Metoprolol Tartrate 25 mg 05/12/18 10:00 05/13/18 18:04 Lopressor PO Not Given BID [facility] - Patient Studies Lab Studies: Microbiology Studies 05/12/18 11:50 MRSA Culture (Admit) - Final Naris MRSA NOT DETECTED Lab Studies 05/14/18 05/14/18 05/14/18 Range/Units 05:00 05:00 04:19 WBC 6.7 (4.5-11.0) 10^3/ul RBC 2.69 L (3.5-6.1) 10^6/uL Hgb 8.7 L (12.0-16.0) g/dL Hct 25.6 L (36.0-48.0) % MCV 95.2 (80.0-105.0) fl MCH 32.3 (25.0-35.0) pg MCHC 34.0 (31.0-37.0) g/dl RDW 13.8 (11.5-14.5) % Plt Count 111 L (120.0-450.0) 10^3/uL MPV 10.9 (7.0-11.0) fl Gran % 74.2 H (50.0-68.0) % Lymph % (Auto) 15.2 L (22.0-35.0) % [place] % (Auto) 8.9 H (1.0-6.0) % Eos % (Auto) 1.5 (1.5-5.0) % Baso % (Auto) 0.2 (0.0-3.0) % Gran # 4.95 (1.4-6.5) Lymph # (Auto) 1.0 L (1.2-3.4) [place] # (Auto) 0.6 (0.1-0.6) Eos # (Auto) 0.1 (0.0-0.7) Baso # (Auto) 0.01 (0.0-2.0) K/mm3 Sodium 140 (132-148) mmol/L Potassium 4.3 (3.6-5.0) mmol/L Chloride 97 L (98-107) mmol/L Carbon Dioxide 28 (21-33) mmol/L Anion Gap 19 (10-20) BUN 34 H (7-21) mg/dL Creatinine 4.9 H (0.7-1.2) mg/dl Est GFR ( Amer) 11 Est GFR (Non-Af Amer) 9 POC Glucose (mg/dL) 127 H (65-110) mg/dL Random Glucose 121 H (70-110) mg/dL Hemoglobin A1c (4.2-6.5) % Calcium 9.5 (8.4-10.5) mg/dL Phosphorus 5.1 H (2.5-4.5) mg/dL Magnesium 2.3 H (1.7-2.2) mg/dL Total Bilirubin 1.0 (0.2-1.3) mg/dL AST 25 (14-36) U/L ALT 26 (7-56) U/L Alkaline Phosphatase 68 (38-126) U/L Lactate Dehydrogenase 368 (333-699) U/L Total Creatine Kinase 57 (35-230) U/L Troponin I 0.21 H* D ng/mL Total Protein 6.9 (5.8-8.3) g/dL Albumin 3.6 (3.0-4.8) g/dL Globulin 3.2 gm/dL Albumin/Globulin Ratio 1.1 (1.1-1.8) 05/13/18 05/13/18 Range/Units 20:09 05:45 WBC (4.5-11.0) 10^3/ul RBC (3.5-6.1) 10^6/uL Hgb (12.0-16.0) g/dL Hct (36.0-48.0) % MCV (80.0-105.0) fl MCH (25.0-35.0) pg MCHC (31.0-37.0) g/dl RDW (11.5-14.5) % Plt Count (120.0-450.0) 10^3/uL MPV (7.0-11.0) fl Gran % (50.0-68.0) % Lymph % (Auto) (22.0-35.0) % [place] % (Auto) (1.0-6.0) % Eos % (Auto) (1.5-5.0) % Baso % (Auto) (0.0-3.0) % Gran # (1.4-6.5) Lymph # (Auto) (1.2-3.4) [place] # (Auto) (0.1-0.6) Eos # (Auto) (0.0-0.7) Baso # (Auto) (0.0-2.0) K/mm3 Sodium (132-148) mmol/L Potassium (3.6-5.0) mmol/L Chloride (98-107) mmol/L Carbon Dioxide (21-33) mmol/L Anion Gap (10-20) BUN (7-21) mg/dL Creatinine (0.7-1.2) mg/dl Est GFR ( Amer) Est GFR (Non-Af Amer) POC Glucose (mg/dL) 153 H (65-110) mg/dL Random Glucose (70-110) mg/dL Hemoglobin A1c 5.8 (4.2-6.5) % Calcium (8.4-10.5) mg/dL Phosphorus (2.5-4.5) mg/dL Magnesium (1.7-2.2) mg/dL Total Bilirubin (0.2-1.3) mg/dL AST (14-36) U/L ALT (7-56) U/L Alkaline Phosphatase (38-126) U/L Lactate Dehydrogenase (333-699) U/L Total Creatine Kinase (35-230) U/L Troponin I ng/mL Total Protein (5.8-8.3) g/dL Albumin (3.0-4.8) g/dL Globulin gm/dL Albumin/Globulin Ratio (1.1-1.8) Laboratory Results - last 24 hr 05/13/18 05/13/18 05/14/18 05:45 20:09 04:19 WBC RBC Hgb Hct MCV MCH MCHC RDW Plt Count MPV Gran % Lymph % (Auto) [place] % (Auto) Eos % (Auto) Baso % (Auto) Gran # Lymph # (Auto) [place] # (Auto) Eos # (Auto) Baso # (Auto) Sodium Potassium Chloride Carbon Dioxide Anion Gap BUN Creatinine Est GFR ( Amer) Est GFR (Non-Af Amer) POC Glucose (mg/dL) 153 H 127 H Random Glucose Hemoglobin A1c 5.8 Calcium Phosphorus Magnesium Total Bilirubin AST ALT Alkaline Phosphatase Lactate Dehydrogenase Total Creatine Kinase Troponin I Total Protein Albumin Globulin Albumin/Globulin Ratio 05/14/18 05/14/18 05:00 05:00 WBC 6.7 RBC 2.69 L Hgb 8.7 L Hct 25.6 L MCV 95.2 MCH 32.3 MCHC 34.0 RDW 13.8 Plt Count 111 L MPV 10.9 Gran % 74.2 H Lymph % (Auto) 15.2 L [place] % (Auto) 8.9 H Eos % (Auto) 1.5 Baso % (Auto) 0.2 Gran # 4.95 Lymph # (Auto) 1.0 L [place] # (Auto) 0.6 Eos # (Auto) 0.1 Baso # (Auto) 0.01 Sodium 140 Potassium 4.3 Chloride 97 L Carbon Dioxide 28 Anion Gap 19 BUN 34 H Creatinine 4.9 H Est GFR ( Amer) 11 Est GFR (Non-Af Amer) 9 POC Glucose (mg/dL) Random Glucose 121 H Hemoglobin A1c Calcium 9.5 Phosphorus 5.1 H Magnesium 2.3 H Total Bilirubin 1.0 AST 25 ALT 26 Alkaline Phosphatase 68 Lactate Dehydrogenase 368 Total Creatine Kinase 57 Troponin I 0.21 H* D Total Protein 6.9 Albumin 3.6 Globulin 3.2 Albumin/Globulin Ratio 1.1 EKG/Cardiology Studies: Cardiology / EKG Studies 05/13/18 12:30 EKG [ELECTROCARDIOGRAM] Urgent Comment: Reason For Exam: Rhythm eval PRE OP:: N Does Patient Have a Pacemaker?: No PERFORMING PHYSICIAN/PROVIDER:: Jairo Davila Critical Care Progress Note - Nutrition Nutrition: Nutrition Category Date Time Status Heart Healthy Diet [DIET] Diets 05/14/18 Breakfast Active Heart Healthy Diet [DIET] Diets 05/14/18 Lunch Active Assessment/Plan - Assessment and Plan (Free Text) Plan: Patient seen and examined on rounds with resident, agree with note with following additions/exceptions: Patient is 72yo female1 PMHx of CAD (multiple stents, severe triple vessel disease with tortuous vessels, declined CABG), HTN, DIDDM, PAD, ESRD (on HD //Sat) who presented yesterday for SOB x2 days and cough x4 days. In ED, patient was in respiratory distress and patient was intubated. Patient underwent hemodialysis, removed 950 mL on 05/12 and 2 L on 05/13. ABG and respiratory status has also improved, was successfully extubated on 05/13. Currently afbrile BP stable, comfortable in NAD, Sat 99% on 2LNC, doing well Renal following On broad spectrum abx CXR with improvement in pulm vasc congestion Cont with Abx, check procal, sputum cultures Duonebs PRN Troponin downtrending, follow up cardiology HD as per renal FS control GI ppx DVT ppx Transfer to remote tele
--- NOTE | 2018-05-14 10:04 | RAD ---
Date of service: 05/14/2018 HISTORY: Pneumonia and pulmonary edema COMPARISON: 05/13/2018 FINDINGS: LUNGS: There is improvement in the right lower lobe infiltrate. No change in left lower lobe infiltrate. No change in vascular congestion PLEURA: No significant pleural effusion identified, no pneumothorax apparent. CARDIOVASCULAR: Normal. OSSEOUS STRUCTURES: No significant abnormalities. VISUALIZED UPPER ABDOMEN: Normal. OTHER FINDINGS: None. IMPRESSION: There is improvement in the right lower lobe infiltrate. No change in left lower lobe infiltrate. No change in vascular congestion
--- NOTE | 2018-05-14 11:58 | PN ---
DATE: 05/14/2018 REASON THE CONSULTATION AND FOLLOWUP: Respiratory failure, pneumonia, intubated, coronary artery disease, successfully extubated. SUBJECTIVE: The patient remains extubated. Family is at bedside, daughter and son. Denies any chest pain. Complaining of mild cough. OBJECTIVE: GENERAL: Not in any apparent distress, mild short of breath. VITAL SIGNS: Temperature afebrile, heart rate 60, blood pressure 106/45. HEENT: PERRLA. Extraocular muscles intact. NECK: Supple. No carotid bruit. No thyromegaly. CHEST: Clear to auscultation. HEART: S1 and S2 regular. ABDOMEN: Soft. EXTREMITIES: Clubbing and cyanosis negative. LABORATORY DATA: Blood workup as follows; WBC 6.7, hemoglobin 8.3, hematocrit 25.6, platelet count 111. Chemistry shows sodium 140, potassium 4.3, chloride 91, carbon dioxide 28, anion gap of 19, BUN 34, creatinine 4.9. Troponin 0.21. IMPRESSION: Acute respiratory failure; pulmonary edema; pneumonia; intubated; cardiomyopathy, ischemic; history of coronary artery disease right coronary artery; critical disease of left anterior descending and circumflex, not amenable by percutaneous coronary intervention, open heart surgery offered. The patient's family is hesitant and does not want and refused and opted for medical treatment. This morning, again discussed with the patient's daughter and the son and they are reluctant for the surgery and discussed with the surgeon and the patient was sent to [place] and has been consulted with Dr. Dani Ashraf, chief cardiothoracic surgeon at [facility], who also offered surgery, but the patient opted for medical treatment. RECOMMENDATIONS: At this point, aggressive medical treatment. The patient started on dialysis. We will continue aspirin and Plavix, we will continue low dose of JAZMÍN inhibitors, put low dose of Coreg as blood pressure is tolerated and digoxin on Saturday, Saturday, Saturday. Emphasis made to the patient for every year flu shots and every 5 years pneumococcal vaccine. Also, discussed with Dr. Yu. The patient had echo done yesterday that showed decreased LV function, ejection fraction 25-30%, aortic sclerosis, trace mitral regurgitation, trace tricuspid regurgitation, RV systolic pressure 32. As mentioned, we will put Coreg 3.125 mg twice a day, lisinopril 2.5 mg daily with holding parameters and digoxin Saturday, Saturday, Saturday. We will follow with you. Continue, in the interim, broad-spectrum antibiotic for pneumonia. Thank you, Dr. Yu for providing us the opportunity in taking care of the patient, Juliet Dick. We will follow with you. Jairo Davila MD
--- NOTE | 2018-05-14 20:54 | PN ---
DATE: 05/14/2018 SUBJECTIVE: The patient was seen early this morning, awake and alert and extubated. PHYSICAL EXAMINATION: VITAL SIGNS: Temperature of 99, blood pressure is 99/40, respiratory rate of 18, heart rate of 65. HEENT: Unremarkable. NECK: Supple. LUNGS: Have decreased breath sounds. HEART: Normal S1, S2. ABDOMINAL: Soft, nontender. LABORATORY EXAMINATION: Reveals a white count is down to 6.7, hemoglobin of 8.7. Chemistries reveals a BUN of 34, creatinine of 4.9, troponin is 0.29. Procalcitonin is 19.48 and troponin is elevated. Microbiology reveals the blood cultures are negative. Nares cultures are negative for MRSA. Sputum cultures are pending. ASSESSMENT AND PLAN: A 72-year-old female who was seen early this morning in [facility], bed 3 with hypertension, coronary artery disease, end-stage renal disease on hemodialysis and diabetes mellitus and was admitted with severe sepsis, ventilatory dependent, acute hypoxic with acute pulmonary edema and healthcare-associated pneumonia, elevated procalcitonin in the face of end-stage renal disease on hemodialysis with negative methicillin-resistant Staphylococcus aureus nares and currently on cefepime. Patient is extubated, doing well with sputum cultures pending on cefepime. Rafi Daniel MD
--- NOTE | 2018-05-14 22:17 | PN ---
DATE: 05/13/2018 SUBJECTIVE: The patient was seen yesterday in the ICU 129, bed 3. PHYSICAL EXAMINATION: VITAL SIGNS: Temperature 98, is 100, respiratory rate of 18. HEENT: Unremarkable. NECK: Supple. LUNGS: Have decreased breath sounds. HEART: Normal S1, S2. ABDOMEN: Soft, nontender. LABORATORY DATA: Reveals the patient's white count of 6 and chemistries are noted. Chest x-ray is reviewed. ASSESSMENT AND PLAN: This is a 72-year-old female who was seen yesterday on 05/13/2018, patient with systemic inflammatory response syndrome due to acute hypoxic ventilatory dependent respiratory failure, acute pulmonary edema, on vancomycin and cefepime. We will follow closely with you. Rafi Daniel MD
--- NOTE | 2018-05-15 05:07 | CP.PCM.PN ---
<Renay Vaughn - Last Filed: 05/15/18 09:38> Subjective - Date & Time of Evaluation Date of Evaluation: 05/15/18 Time of Evaluation: 07:00 - Subjective Subjective: Medicine Progress Note for Falguni Steward PGY3 Patient seen and examined at bedside. There were no acute overnight events as per nursing staff. She was afebrile overnight. She is sitting in the chair. Patient's daughter is at bedside for translation. Patient is complaining of productive cough and pain with cough. She denies chest pain, shortness of breath , nausea/vomiting/diarrhea, fever/chills, numbness/tingling, vision changes, palpitations. Patient does complain of headaches when she coughs. Objective - Vital Signs/Intake and Output Vital Signs (last 24 hours): Temp Pulse Resp BP Pulse Ox 99.5 F 57 L 18 133/51 L 100 05/14/18 16:00 05/15/18 03:00 05/15/18 03:00 05/15/18 02:03 05/15/18 03:00 Intake and Output: 05/14/18 05/15/18 18:59 06:59 Intake Total 820 Balance 820 - Medications Medications: Current Medications Acetaminophen (Tylenol 650mg/20.3ml Solution Ud) 650 mg PO Q6H PRN PRN Reason: Temperature Last Admin: 05/13/18 16:36 Dose: 650 mg Aspirin (Ecotrin) 81 mg PO DAILY [facility] Last Admin: 05/14/18 09:55 Dose: 81 mg Atorvastatin Calcium (Lipitor) 10 mg PO HS [facility] Last Admin: 05/14/18 21:56 Dose: 10 mg Carvedilol (Coreg) 3.125 mg PO BID [facility] Clopidogrel Bisulfate (Plavix) 75 mg PO DAILY [facility] Last Admin: 05/14/18 09:55 Dose: 75 mg Digoxin (Digoxin) 0.125 mg PO [facility] Famotidine (Pepcid) 20 mg IVP DAILY [facility] Last Admin: 05/14/18 09:55 Dose: 20 mg Heparin Sodium (Porcine) (Heparin) 5,000 units SC Q12 [facility] PRN Reason: Protocol Last Admin: 05/14/18 22:18 Dose: 5,000 units Cefepime HCl (Maxipime 1gm) 1 gm in 100 mls @ 100 mls/hr IVPB DAILY [facility] PRN Reason: Protocol Last Admin: 05/14/18 09:54 Dose: 100 mls/hr Insulin Human Regular (Humulin R Low) 0 units SC ACHS [facility] PRN Reason: Protocol Last Admin: 05/14/18 22:23 Dose: Not Given Lisinopril (Zestril) 2.5 mg PO DAILY [facility] Metoprolol Tartrate (Lopressor) 25 mg PO BID [facility] Last Admin: 05/13/18 18:04 Dose: Not Given - Labs Labs: 05/14/18 05:00 05/14/18 05:00 PT 12.0 SECONDS (9.4-12.5) 05/12/18 05:30 INR 1.04 (0.93-1.08) 05/12/18 05:30 APTT 20.9 Seconds (25.1-36.5) L 05/12/18 05:30 - Constitutional Appears: No Acute Distress - Head Exam Head Exam: ATRAUMATIC, NORMAL INSPECTION, NORMOCEPHALIC - ENT Exam ENT Exam: Mucous Membranes Moist - Respiratory Exam Respiratory Exam: Rales (bilaterally ), Rhonchi, NORMAL BREATHING PATTERN. absent: Wheezes - Cardiovascular Exam Cardiovascular Exam: REGULAR RHYTHM, +S1, +S2. absent: Gallop, Rubs, Murmur - GI/Abdominal Exam GI & Abdominal Exam: Soft, Normal Bowel Sounds. absent: Rigid, Tenderness, Mass , Rebound - Extremities Exam Extremities Exam: Normal Inspection. absent: Calf Tenderness, Pedal Edema - Neurological Exam Neurological Exam: Alert, Awake, CN II-XII Intact - Psychiatric Exam Psychiatric exam: Normal Affect, Normal Mood - Skin Skin Exam: Dry, Intact, Warm Assessment and Plan - Assessment and Plan (Free Text) Assessment: This is a 72yo Bengali F with past medical history of HTN, CAD s/p stents, DM II , ESRD on HD, PAD admitted for 1. Acute respiratory failure (resolved) - secondary to HCAP and pulm edema - patient extubated yesterday 2. HCAP (acute) - procal elevated- can be secondary to ESRD - cultures negative thus far 3. Acute systolic CHF exacerbation - previous Echo (10/2017- EF 55%). EF now 25% - CABG recommended in past- family and patient refused at the time 4. HTN 5. ESRD on HD (T,T,Sa) 6. IDDM 7. PAD 8. CAD Plan: Labs and imaging reviewed. Robitussin prn cough. Sputum culture pending. ID on consult. Continue Cefepime. She will get HD today as scheduled. I spoke with daughter she said they did follow up with CT surgeon in past for CABG and will follow up with him upon again upon d/c. Cardiology recommendations appreciated. BP has improved. Temperature has improved. Patient is tolerating diet. When patient is ready for d/c she will be d/c home with family with services. She is on GI and DVT prophylaxis. Case seen, discussed and reviewed with Dr. Yu. Falguni Vaughn PGY3 <Deep Yu S - Last Filed: 05/15/18 22:59> Objective - Vital Signs/Intake and Output Vital Signs (last 24 hours): Temp Pulse Resp BP Pulse Ox 99.5 F 67 18 103/47 L 100 05/14/18 16:00 05/15/18 21:30 05/15/18 21:30 05/15/18 20:00 05/15/18 21:30 Intake and Output: 05/15/18 05/16/18 18:59 06:59 Intake Total 580 Output Total 0 Balance 580 - Medications Medications: Current Medications Acetaminophen (Tylenol 650mg/20.3ml Solution Ud) 650 mg PO Q6H PRN PRN Reason: Temperature Last Admin: 05/13/18 16:36 Dose: 650 mg Aspirin (Ecotrin) 81 mg PO DAILY [facility] Last Admin: 05/15/18 10:17 Dose: 81 mg Atorvastatin Calcium (Lipitor) 10 mg PO HS [facility] Last Admin: 05/15/18 21:27 Dose: 10 mg Carvedilol (Coreg) 3.125 mg PO BID [facility] Last Admin: 05/15/18 18:54 Dose: Not Given Clopidogrel Bisulfate (Plavix) 75 mg PO DAILY [facility] Last Admin: 05/15/18 10:17 Dose: 75 mg Digoxin (Digoxin) 0.125 mg PO MWF [facility] Famotidine (Pepcid) 20 mg PO DAILY [facility] Heparin Sodium (Porcine) (Heparin) 5,000 units SC Q12 [facility] PRN Reason: Protocol Last Admin: 05/15/18 21:27 Dose: 5,000 units Cefepime HCl (Maxipime 1gm) 1 gm in 100 mls @ 100 mls/hr IVPB DAILY [facility] PRN Reason: Protocol Last Admin: 05/15/18 10:16 Dose: 100 mls/hr Insulin Human Regular (Humulin R Low) 0 units SC ACHS [facility] PRN Reason: Protocol Last Admin: 05/15/18 22:24 Dose: Not Given Lisinopril (Zestril) 2.5 mg PO DAILY [facility] Last Admin: 05/15/18 14:02 Dose: 2.5 mg - Labs Labs: 05/14/18 05:00 05/14/18 05:00 PT 12.0 SECONDS (9.4-12.5) 05/12/18 05:30 INR 1.04 (0.93-1.08) 05/12/18 05:30 APTT 20.9 Seconds (25.1-36.5) L 05/12/18 05:30 Assessment and Plan - Assessment and Plan (Free Text) Plan: Pt seen and examined. I have reviewed the note of the medical office receptionist assistant and agree with it. I have discussed the assessment and plan with the resident. I have reviewed the patient's labs and medications. Pt has airway secretions. She had HD today. Spoke to daughter. She can not go to TCU because she is on HD. She prefers to go home. She was advised to f/u with CT surgery for CABG.
[2018-05-15] MEDS: Insulin Reg-LOW-Coverage SC SCH ×4 (08:08→22:24)
[2018-05-15] MEDS ORDERED: guaiFENesin-Codeine 100-10mg/5ml Syrup (5 ml) UD PO PRN (08:42)
[2018-05-15] MEDS: Cefepime 1gm in NS 100ml 1 GM/100 ML BAG IVPB SCH (10:16)
--- NOTE | 2018-05-15 11:32 | CP.PCM.PN ---
Subjective - Date & Time of Evaluation Date of Evaluation: 05/15/18 Time of Evaluation: 09:15 - Subjective Subjective: Comfortable in bed, no SOB at rest, no fevers. Objective - Vital Signs/Intake and Output Vital Signs (last 24 hours): Temp Pulse Resp BP Pulse Ox 99.5 F 57 L 18 133/51 L 100 05/14/18 16:00 05/15/18 03:00 05/15/18 03:00 05/15/18 02:03 05/15/18 03:00 - Medications Medications: Current Medications Acetaminophen (Tylenol 650mg/20.3ml Solution Ud) 650 mg PO Q6H PRN PRN Reason: Temperature Last Admin: 05/13/18 16:36 Dose: 650 mg Aspirin (Ecotrin) 81 mg PO DAILY [facility] Last Admin: 05/14/18 09:55 Dose: 81 mg Atorvastatin Calcium (Lipitor) 10 mg PO HS [facility] Last Admin: 05/14/18 21:56 Dose: 10 mg Carvedilol (Coreg) 3.125 mg PO BID [facility] Clopidogrel Bisulfate (Plavix) 75 mg PO DAILY [facility] Last Admin: 05/14/18 09:55 Dose: 75 mg Digoxin (Digoxin) 0.125 mg PO MWF [facility] Famotidine (Pepcid) 20 mg IVP DAILY [facility] Last Admin: 05/14/18 09:55 Dose: 20 mg Heparin Sodium (Porcine) (Heparin) 5,000 units SC Q12 [facility] PRN Reason: Protocol Last Admin: 05/14/18 22:18 Dose: 5,000 units Cefepime HCl (Maxipime 1gm) 1 gm in 100 mls @ 100 mls/hr IVPB DAILY [facility] PRN Reason: Protocol Last Admin: 05/14/18 09:54 Dose: 100 mls/hr Insulin Human Regular (Humulin R Low) 0 units SC ACHS [facility] PRN Reason: Protocol Last Admin: 05/14/18 22:23 Dose: Not Given Lisinopril (Zestril) 2.5 mg PO DAILY [facility] Metoprolol Tartrate (Lopressor) 25 mg PO BID [facility] Last Admin: 05/13/18 18:04 Dose: Not Given - Labs Labs: 05/14/18 05:00 05/14/18 05:00 PT 12.0 SECONDS (9.4-12.5) 05/12/18 05:30 INR 1.04 (0.93-1.08) 05/12/18 05:30 APTT 20.9 Seconds (25.1-36.5) L 05/12/18 05:30 - Constitutional Appears: Chronically Ill - Head Exam Head Exam: NORMAL INSPECTION - ENT Exam ENT Exam: Mucous Membranes Moist - Neck Exam Neck Exam: absent: Meningismus - Respiratory Exam Respiratory Exam: Decreased Breath Sounds - Cardiovascular Exam Cardiovascular Exam: +S1, +S2 - GI/Abdominal Exam GI & Abdominal Exam: Soft. absent: Tenderness Assessment and Plan - Assessment and Plan (Free Text) Plan: Assessment severe sepsis due to acute hypoxic respiratory failure S/P ventilator-dependent respiratory failure due to healthcare-associated pneumonia with possible gram negative bacilli on top of acute pulmonary edema HTN CAD S/P PCI ESRD on HD DM PAD S/P Plan continue cefepime day 4 to complete 4-7 days of therapy will continue to monitor clinically
--- NOTE | 2018-05-15 15:22 | PN ---
DATE: 05/15/2018 REASON FOR CONSULTATION AND FOLLOWUP: Respiratory failure, pneumonia, intubated, coronary artery successfully extubated. SUBJECTIVE: The patient denies any chest pain, shortness of breath, or any palpitations. Sitting in chair. Her daughter is at the bedside. Denies any chest pain. Complaining of cough. PHYSICAL EXAMINATION: VITAL SIGNS: Temperature afebrile, heart rate 53, blood pressure 142/53. HEENT: PERRLA. Extraocular muscles intact. NECK: Supple. No carotid bruit or thyromegaly. CHEST: Clear to auscultation. HEART: S1 and S2, regular. ABDOMEN: Soft. EXTREMITIES: Clubbing and cyanosis, negative. LABORATORY DATA: Blood workup as follows: WBC 6.7, hemoglobin 8.3, hematocrit 25.6, and platelet count 111. Chemistry shows sodium 140, potassium 4.3, chloride 97, carbon dioxide 28, anion gap of 19. BUN 34, creatinine 4.9. IMPRESSION: Status post respiratory failure, intubated, pneumonia, borderline troponin most likely secondary to hemodynamic instability as well as underlying coronary artery disease as well as renal insufficiency. Doubt it is a pure primary cardiac event because troponin is 0.2 in phase of renal insufficiency. Chronic kidney disease, on dialysis. Repeat echocardiogram showed left ventricular function, history of coronary artery disease, history of percutaneous transluminal coronary angioplasty of left anterior descending. Significant coronary artery disease of left anterior descending and circumflex, not amenable to percutaneous coronary intervention. The patient preferred open heart surgery. Family preferred medical treatment. RECOMMENDATION: Continue aggressive medical treatment. Continue digoxin Saturday, Saturday, Saturday. Continue Coreg. Continue low-dose lisinopril as blood pressures tolerated. Continue antibiotic as per ID. Continue aspirin. Continue Plavix. We will follow with you. Thank you Dr. Yu for providing us the opportunity in taking care of the patientKapil. Jairo Davila MD
--- NOTE | 2018-05-16 04:59 | CP.PCM.PN ---
<Renay Vaughn - Last Filed: 05/16/18 09:16> Subjective - Date & Time of Evaluation Date of Evaluation: 05/16/18 Time of Evaluation: 07:00 - Subjective Subjective: Medicine Progress Note for Falguni Steward PGY3 Patient seen and examined at bedside. As per nursing staff, there were no acute overnight events. Patient is resting in bed. She had HD yesterday and had ~2L removed. She still reports having productive cough and pain with coughing. She denies shortness of breath, nausea/vomiting/diarrhea, fever/chills, numbness/ tingling, chest pain. Objective - Vital Signs/Intake and Output Vital Signs (last 24 hours): Temp Pulse Resp BP Pulse Ox 98 F 61 21 95/40 L 90 L 05/16/18 00:00 05/16/18 01:30 05/16/18 01:30 05/16/18 00:00 05/16/18 01:30 Intake and Output: 05/15/18 05/16/18 18:59 06:59 Intake Total 580 Output Total 0 Balance 580 - Medications Medications: Current Medications Acetaminophen (Tylenol 650mg/20.3ml Solution Ud) 650 mg PO Q6H PRN PRN Reason: Temperature Last Admin: 05/13/18 16:36 Dose: 650 mg Aspirin (Ecotrin) 81 mg PO DAILY [facility] Last Admin: 05/15/18 10:17 Dose: 81 mg Atorvastatin Calcium (Lipitor) 10 mg PO HS [facility] Last Admin: 05/15/18 21:27 Dose: 10 mg Carvedilol (Coreg) 3.125 mg PO BID [facility] Last Admin: 05/15/18 18:54 Dose: Not Given Clopidogrel Bisulfate (Plavix) 75 mg PO DAILY [facility] Last Admin: 05/15/18 10:17 Dose: 75 mg Digoxin (Digoxin) 0.125 mg PO [facility] Famotidine (Pepcid) 20 mg PO DAILY [facility] Heparin Sodium (Porcine) (Heparin) 5,000 units SC Q12 [facility] PRN Reason: Protocol Last Admin: 05/15/18 21:27 Dose: 5,000 units Cefepime HCl (Maxipime 1gm) 1 gm in 100 mls @ 100 mls/hr IVPB DAILY [facility] PRN Reason: Protocol Last Admin: 05/15/18 10:16 Dose: 100 mls/hr Insulin Human Regular (Humulin R Low) 0 units SC ACHS [facility] PRN Reason: Protocol Last Admin: 05/15/18 22:24 Dose: Not Given Lisinopril (Zestril) 2.5 mg PO DAILY [facility] Last Admin: 05/15/18 14:02 Dose: 2.5 mg - Labs Labs: 05/14/18 05:00 05/14/18 05:00 PT 12.0 SECONDS (9.4-12.5) 05/12/18 05:30 INR 1.04 (0.93-1.08) 05/12/18 05:30 APTT 20.9 Seconds (25.1-36.5) L 05/12/18 05:30 - Constitutional Appears: No Acute Distress - Head Exam Head Exam: ATRAUMATIC, NORMAL INSPECTION, NORMOCEPHALIC - Eye Exam Eye Exam: Normal appearance, PERRL Pupil Exam: NORMAL ACCOMODATION - ENT Exam ENT Exam: Mucous Membranes Moist - Neck Exam Neck Exam: Full ROM, Normal Inspection - Respiratory Exam Respiratory Exam: Rhonchi, Wheezes, NORMAL BREATHING PATTERN. absent: Respiratory Distress - Cardiovascular Exam Cardiovascular Exam: REGULAR RHYTHM, +S1. absent: Gallop, Rubs, Murmur - GI/Abdominal Exam GI & Abdominal Exam: Soft, Normal Bowel Sounds. absent: Rigid, Tenderness, Mass , Rebound - Extremities Exam Extremities Exam: Normal Inspection. absent: Calf Tenderness, Pedal Edema - Neurological Exam Neurological Exam: Alert, Awake, CN II-XII Intact - Psychiatric Exam Psychiatric exam: Normal Affect, Normal Mood - Skin Skin Exam: Dry, Intact, Warm Assessment and Plan - Assessment and Plan (Free Text) Assessment: This is a 72yo Slovenian F with past medical history of HTN, CAD s/p stents, DM II , ESRD on HD, PAD admitted for 1. HCAP (Acute) - sputum culture pending - blood culture negative - PCT increased- can be falsely elevated to ESRD 2. Acute respiratory failure (Resolved) - secondary to pulm edema and HCAP - extubated 3. Systolic CHF exacerbation (Improving) - previous Echo (10/2017- EF 55%). EF now 25% - CABG recommended in past- family advised to follow up with CT surgeon 4. HTN- controlled 5. ESRD on HD (T,T,Sa)- continued as scheduled 6. IDDM - controlled 7. PAD - controlled Plan: Labs and imaging reviewed. ID following. Continue Cefepime. Will place patient on Duoneb and cough suppressant. HD as scheduled. Cardiology is following. Patient tolerating diet. Continue ASA, Lipitor, Coreg, Lisinopril, Digoxin and Plavix. Patient is on GI and DVT prophylaxis. Upon discharge she will go home with services. Case seen, discussed and reviewed with Dr. Yu. Falguni Vaughn PGY3 <Deep Yu S - Last Filed: 05/16/18 18:38> Objective - Vital Signs/Intake and Output Vital Signs (last 24 hours): Temp Pulse Resp BP Pulse Ox 98.5 F 63 19 104/41 L 100 05/16/18 12:00 05/16/18 17:32 05/16/18 17:30 05/16/18 17:32 05/16/18 17:30 Intake and Output: 05/16/18 05/16/18 06:59 18:59 Intake Total 250 Balance 250 - Medications Medications: Current Medications Acetaminophen (Tylenol 650mg/20.3ml Solution Ud) 650 mg PO Q6H PRN PRN Reason: Temperature Last Admin: 05/13/18 16:36 Dose: 650 mg Albuterol/Ipratropium (Duoneb 3 Mg/0.5 Mg (3 Ml) Ud) 3 ml IH TIDRESP [facility] Last Admin: 05/16/18 14:38 Dose: 3 ml Aspirin (Ecotrin) 81 mg PO DAILY [facility] Last Admin: 05/16/18 10:11 Dose: 81 mg Atorvastatin Calcium (Lipitor) 10 mg PO HS [facility] Last Admin: 05/15/18 21:27 Dose: 10 mg Carvedilol (Coreg) 3.125 mg PO BID [facility] Last Admin: 05/16/18 17:32 Dose: 3.125 mg Clopidogrel Bisulfate (Plavix) 75 mg PO DAILY [facility] Last Admin: 05/16/18 10:32 Dose: 75 mg Digoxin (Digoxin) 0.125 mg PO MWF [facility] Last Admin: 05/16/18 10:11 Dose: 0.125 mg Famotidine (Pepcid) 20 mg PO DAILY [facility] Last Admin: 05/16/18 10:14 Dose: 20 mg Guaifenesin/Codeine Phosphate (Robitussin W/Codeine) 5 ml PO BID [facility] Last Admin: 05/16/18 17:32 Dose: 5 ml Heparin Sodium (Porcine) (Heparin) 5,000 units SC Q12 [facility] PRN Reason: Protocol Last Admin: 05/16/18 10:12 Dose: 5,000 units Cefepime HCl (Maxipime 1gm) 1 gm in 100 mls @ 100 mls/hr IVPB DAILY [facility] PRN Reason: Protocol Last Admin: 05/16/18 10:13 Dose: 100 mls/hr Insulin Human Regular (Humulin R Low) 0 units SC ACHS [facility] PRN Reason: Protocol Last Admin: 05/16/18 16:54 Dose: 1 unit Lisinopril (Zestril) 2.5 mg PO DAILY [facility] Last Admin: 05/16/18 10:14 Dose: 2.5 mg - Labs Labs: 05/14/18 05:00 05/14/18 05:00 PT 12.0 SECONDS (9.4-12.5) 05/12/18 05:30 INR 1.04 (0.93-1.08) 05/12/18 05:30 APTT 20.9 Seconds (25.1-36.5) L 05/12/18 05:30
[2018-05-16] MEDS: Insulin Reg-LOW-Coverage SC SCH ×4 (08:09→22:29)
[2018-05-16] MEDS: Digoxin 125 mcg (0.125 mg) Tab PO SCH (10:11)
[2018-05-16] MEDS: Cefepime 1gm in NS 100ml 1 GM/100 ML BAG IVPB SCH (10:13)
[2018-05-16] MEDS: guaiFENesin-Codeine 100-10mg/5ml Syrup (5 ml) UD PO SCH ×2 (10:15→17:32)
[2018-05-16 10:31] VITALS: PULSE 64
--- NOTE | 2018-05-16 11:51 | PN ---
DATE: 05/16/2018 REASON FOR CONSULTATION AND FOLLOWUP: Respiratory failure; pneumonia; intubated, now successfully extubated; underlying coronary artery disease. SUBJECTIVE: Patient denies any chest pain, shortness of breath. Complaining of cough. OBJECTIVE: GENERAL: Not in apparent distress. VITAL SIGNS: As follows, temperature afebrile, heart rate 60, blood pressure 100/60. HEENT: PERRLA. Extraocular muscles intact. NECK: Supple. No carotid bruit or thyromegaly. CHEST: Decreased air entry; scattered rhonchi noted, most on the right base. HEART: S1 and S2 regular. ABDOMEN: Soft. EXTREMITIES: Clubbing and cyanosis negative. LABORATORY DATA: Blood workup: WBC 6.7, hemoglobin 8.7, hematocrit 25.6, and platelet count 111. Chemistry shows sodium 140, potassium 4.3, chloride 97, carbon dioxide 28, anion gap of 19. BUN 34, creatinine 4.9. Troponin 0.61, 0.21, 0.02, 0.17. IMPRESSION AND PLAN: A 72-year-old female with past medical history of diabetes; hypertension; hyperlipidemia; end-stage renal disease, on dialysis admitted with pneumonia; respiratory failure; end-stage renal disease, on dialysis; borderline troponin positive most likely secondary to hemodynamic instability as well as underlying coronary artery disease as well as renal insufficiency, doubt it is a primary cardiac event because the troponin should be much higher. Patient has the stent in right coronary artery, also critical disease in left anterior descending and circumflex, not amenable by percutaneous coronary intervention. Patient was referred for open heart surgery. Arrangement has been made to see chief cardiothoracic surgeon at [facility], Dr. Dani Ashraf, who saw the patient, suggested open heart surgery but patient is reluctant for surgery and opted for medical treatment. Discussed again with patient's daughter multiple times this admission, is still in favor of medical treatment. So far, the patient is asymptomatic, we will treat medically. Continue dialysis. Continue Coreg. Continue digoxin Saturday, Saturday, Saturday. Continue Coreg 3.125 mg daily. Continue deep venous thrombosis prophylaxis. Continue atorvastatin. Continue aspirin, Plavix and lisinopril. Dialysis as per Renal. Okay to transfer to Telemetry. Discussed with Dr. Yu. Discussed with nursing staff taking care of the patient, Juliet Dick. Jairo Davila MD
--- NOTE | 2018-05-16 13:22 | CP.PCM.PN ---
Subjective - Date & Time of Evaluation Date of Evaluation: 05/16/18 Time of Evaluation: 11:15 - Subjective Subjective: Not in distress, non-toxic, no fevers. Objective - Vital Signs/Intake and Output Vital Signs (last 24 hours): Temp Pulse Resp BP Pulse Ox 98.2 F 60 23 95/40 L 100 05/16/18 04:00 05/16/18 06:00 05/16/18 06:00 05/16/18 00:00 05/16/18 06:00 Intake and Output: 05/16/18 05/16/18 06:59 18:59 Intake Total 250 Balance 250 - Medications Medications: Current Medications Acetaminophen (Tylenol 650mg/20.3ml Solution Ud) 650 mg PO Q6H PRN PRN Reason: Temperature Last Admin: 05/13/18 16:36 Dose: 650 mg Albuterol/Ipratropium (Duoneb 3 Mg/0.5 Mg (3 Ml) Ud) 3 ml IH TIDRESP [facility] Aspirin (Ecotrin) 81 mg PO DAILY [facility] Last Admin: 05/15/18 10:17 Dose: 81 mg Atorvastatin Calcium (Lipitor) 10 mg PO HS [facility] Last Admin: 05/15/18 21:27 Dose: 10 mg Carvedilol (Coreg) 3.125 mg PO BID [facility] Last Admin: 05/15/18 18:54 Dose: Not Given Clopidogrel Bisulfate (Plavix) 75 mg PO DAILY [facility] Last Admin: 05/15/18 10:17 Dose: 75 mg Digoxin (Digoxin) 0.125 mg PO MWF [facility] Famotidine (Pepcid) 20 mg PO DAILY [facility] Guaifenesin/Codeine Phosphate (Robitussin W/Codeine) 5 ml PO BID [facility] Heparin Sodium (Porcine) (Heparin) 5,000 units SC Q12 [facility] PRN Reason: Protocol Last Admin: 05/15/18 21:27 Dose: 5,000 units Cefepime HCl (Maxipime 1gm) 1 gm in 100 mls @ 100 mls/hr IVPB DAILY [facility] PRN Reason: Protocol Last Admin: 05/15/18 10:16 Dose: 100 mls/hr Insulin Human Regular (Humulin R Low) 0 units SC ACHS [facility] PRN Reason: Protocol Last Admin: 05/16/18 08:09 Dose: 1 unit Lisinopril (Zestril) 2.5 mg PO DAILY [facility] Last Admin: 05/15/18 14:02 Dose: 2.5 mg - Labs Labs: 05/14/18 05:00 05/14/18 05:00 PT 12.0 SECONDS (9.4-12.5) 05/12/18 05:30 INR 1.04 (0.93-1.08) 05/12/18 05:30 APTT 20.9 Seconds (25.1-36.5) L 05/12/18 05:30 - Constitutional Appears: Chronically Ill - Head Exam Head Exam: NORMAL INSPECTION - Respiratory Exam Respiratory Exam: Decreased Breath Sounds - Cardiovascular Exam Cardiovascular Exam: +S1, +S2 - GI/Abdominal Exam GI & Abdominal Exam: Soft. absent: Tenderness Assessment and Plan - Assessment and Plan (Free Text) Plan: Assessment severe sepsis due to acute hypoxic respiratory failure S/P ventilator-dependent respiratory failure due to healthcare-associated pneumonia with possible gram negative bacilli on top of acute pulmonary edema HTN CAD S/P PCI ESRD on HD DM PAD S/P Plan continue cefepime day 5 to complete 4-7 days of therapy will continue to monitor clinically
[2018-05-16] MEDS: Albuterol-Ipratrop 3 mg / 0.5 (3 ml) UD IH SCH ×2 (14:38→19:55)
[2018-05-17] MEDS: Insulin Reg-LOW-Coverage SC SCH ×4 (07:57→22:33)
[2018-05-17] MEDS: Albuterol-Ipratrop 3 mg / 0.5 (3 ml) UD IH SCH ×2 (08:05→14:13)
--- NOTE | 2018-05-17 08:18 | CP.PCM.PN ---
Subjective - Date & Time of Evaluation Date of Evaluation: 05/17/18 Time of Evaluation: 07:00 - Subjective Subjective: Awake, alert, denies shortness of breath, denies chest pain Reason for consultation and follow up: Cardiac evaluation for sinus tachycardia and history of coronary artery disease post stents, respiratory failure post intubation, history of hypertension, end stage renal disease on hemodialysis. Seen and examined by me and Dr. Perez Objective - Vital Signs/Intake and Output Vital Signs (last 24 hours): Temp Pulse Resp BP Pulse Ox 98 F 67 18 115/57 L 100 05/17/18 08:08 05/17/18 08:08 05/17/18 08:08 05/17/18 08:08 05/17/18 08:08 Intake and Output: 05/17/18 05/17/18 06:59 18:59 Intake Total 100 Balance 100 - Medications Medications: Current Medications Acetaminophen (Tylenol 650mg/20.3ml Solution Ud) 650 mg PO Q6H PRN PRN Reason: Temperature Last Admin: 05/13/18 16:36 Dose: 650 mg Albuterol/Ipratropium (Duoneb 3 Mg/0.5 Mg (3 Ml) Ud) 3 ml IH TIDRESP [facility] Last Admin: 05/17/18 08:05 Dose: 3 ml Aspirin (Ecotrin) 81 mg PO DAILY [facility] Last Admin: 05/16/18 10:11 Dose: 81 mg Atorvastatin Calcium (Lipitor) 10 mg PO HS [facility] Last Admin: 05/16/18 21:06 Dose: 10 mg Carvedilol (Coreg) 3.125 mg PO BID [facility] Last Admin: 05/16/18 17:32 Dose: 3.125 mg Clopidogrel Bisulfate (Plavix) 75 mg PO DAILY [facility] Last Admin: 05/16/18 10:32 Dose: 75 mg Digoxin (Digoxin) 0.125 mg PO MWF [facility] Last Admin: 05/16/18 10:11 Dose: 0.125 mg Famotidine (Pepcid) 20 mg PO DAILY [facility] Last Admin: 05/16/18 10:14 Dose: 20 mg Guaifenesin/Codeine Phosphate (Robitussin W/Codeine) 5 ml PO BID [facility] Last Admin: 05/16/18 17:32 Dose: 5 ml Heparin Sodium (Porcine) (Heparin) 5,000 units SC Q12 [facility] PRN Reason: Protocol Last Admin: 05/16/18 21:06 Dose: 5,000 units Cefepime HCl (Maxipime 1gm) 1 gm in 100 mls @ 100 mls/hr IVPB DAILY [facility] PRN Reason: Protocol Last Admin: 05/16/18 10:13 Dose: 100 mls/hr Insulin Human Regular (Humulin R Low) 0 units SC ACHS [facility] PRN Reason: Protocol Last Admin: 05/17/18 07:57 Dose: Not Given Lisinopril (Zestril) 2.5 mg PO DAILY [facility] Last Admin: 05/16/18 10:14 Dose: 2.5 mg - Labs Labs: 05/14/18 05:00 05/14/18 05:00 PT 12.0 SECONDS (9.4-12.5) 05/12/18 05:30 INR 1.04 (0.93-1.08) 05/12/18 05:30 APTT 20.9 Seconds (25.1-36.5) L 05/12/18 05:30 - Constitutional Appears: No Acute Distress - Eye Exam Eye Exam: Normal appearance - ENT Exam ENT Exam: Mucous Membranes Moist - Respiratory Exam Respiratory Exam: Decreased Breath Sounds, NORMAL BREATHING PATTERN - Cardiovascular Exam Cardiovascular Exam: REGULAR RHYTHM, +S1, +S2 - GI/Abdominal Exam GI & Abdominal Exam: Soft, Normal Bowel Sounds - Exam Additional comments: ESRD Hemodialysis - Extremities Exam Additional comments: left AV shunt positive bruit/thrill - Neurological Exam Neurological Exam: Alert, Awake, Oriented x3 - Psychiatric Exam Psychiatric exam: Normal Affect - Skin Skin Exam: Intact, Warm Assessment and Plan - Assessment and Plan (Free Text) Assessment: A 72 year old female [place]ian who came in to the ER due to shortness of breath. She was on respiratory failure requiring intubation. She was transferred to ICU. History of CAD post stents, diabetes mellitus, end stage renal disease on hemodialysis. History of NSTEMI, 10/24/2017 cardiac catheterization showed two vessel coronary artery disease (LAD and Circumflex ) not suitable for angioplasty (tortouse, high risk for dissection) Recommended open heart surgery at that time but patient and family refused surgery, opted for optimal medical treatment at that time. successfully extubated and stabilized in ICU and now transferred to telemetry. Plan: Off ICU transferred to telemetry Comfortable, denies shortness of breath Refusing open heart surgery Will optimize medical treatment Stable heart rate and blood pressure On ASA 81 mg daily, lipitor 10 mg daily,Coreg 3.125 mg BID, Plavix 75 mg daily, digoxin 0.125 mg MWF, Heparin SQ 5000 units BID, Zestril 2.5 mg daily. Continue current medications Continue current treatment Will follow up Plan and treatment discussed with Dr. Perez
--- NOTE | 2018-05-17 09:26 | PN ---
DATE: 05/17/2018 PHYSICAL EXAMINATION: VITAL SIGNS: On exam, temperature is 98, blood pressure is 115/50, respiratory rate of 18. HEENT: Examination of HEENT is unremarkable. NECK: Supple. LUNGS: Have decreased breath sounds. HEART: Normal S1, S2. ABDOMEN: Soft, nontender. LABORATORY DATA: Laboratory examination reveals a white count of 6.7, hemoglobin of 8, platelets of 111. Chemistries reveals creatinine is 4.9. Microbiology reveals the cultures are negative. Review of orders reveals the patient to be on cefepime. ASSESSMENT AND PLAN: A 72-year-old female seen earlier this morning in [facility], bed 1, who was admitted with severe sepsis due to acute hypoxic respiratory failure, status post ventilatory-dependent respiratory failure due to healthcare-associated pneumonia, possible gram-positive cocci, possible gram-negative sagar and with acute pulmonary edema, hypertension, coronary artery disease, end-stage renal disease, hemodialysis, diabetes, on cefepime day #6. The patient's procalcitonin was 19, although the creatinine was elevated. The patient is doing well now, has been afebrile. The patient's white count has been 6.7. We will discontinue the cefepime. Rafi Daniel MD
[2018-05-17] MEDS: guaiFENesin-Codeine 100-10mg/5ml Syrup (5 ml) UD PO SCH ×2 (10:14→17:41)
[2018-05-17 17:36] VITALS: RESP 19
--- NOTE | 2018-05-18 00:01 | PN ---
DATE: 05/17/2018 SUBJECTIVE: The patient is a 72-year-old Cambodian female who was admitted with shortness of breath. The patient was seen in the Dialysis Unit, seems to be doing well. Complaining of generalized weakness. PAST MEDICAL HISTORY: Significant for: 1. Coronary artery disease, status post angioplasty. 2. History of respiratory failure. 3. Hypertension. 4. End-stage renal disease, on hemodialysis. PHYSICAL EXAMINATION: GENERAL: She is awake and alert, able to communicate. VITAL SIGNS: She is afebrile, pulse 81, respirations 19, blood pressure 108/57. LUNGS: Bilateral diffusely decreased breath sounds. HEART: S1 and S2 audible. ABDOMEN: Soft and nontender. No rebound. No guarding. NEUROLOGIC: She is awake and alert, able to communicate. LABORATORY DATA: Blood sugar is 182. Blood culture and urine cultures are negative. ASSESSMENT: 1. Status post respiratory failure. 2. Resolving pneumonia. 3. End-stage renal disease, on hemodialysis. 4. Hypertension. 5. Hyperlipidemia. 6. Egt-kvqrycv-wgyfuqaaj diabetes. 7. Coronary artery disease, status post right coronary artery angioplasty. Dr. Davila's input noted and appreciated. The patient has multiple coronary artery lesions. She is a candidate for open-heart surgery and she was referred to Dr. London for open-heart surgery, but the patient was reluctant. PLAN: Presently, the patient is on carvedilol, we will continue. She is on digoxin, nebulizer treatment. She is on DVT prophylaxis. We will continue on statin, Plavix, and lisinopril. We will follow up the patient in a.m. We will request for physical therapy evaluation. Babatunde Hodgson MD
[2018-05-18] MEDS: Albuterol-Ipratrop 3 mg / 0.5 (3 ml) UD IH SCH ×4 (07:54→20:03)
[2018-05-18] MEDS: Insulin Reg-LOW-Coverage SC SCH ×2 (07:55→11:56)
[2018-05-18] MEDS: guaiFENesin-Codeine 100-10mg/5ml Syrup (5 ml) UD PO SCH ×2 (09:36→17:16)
--- NOTE | 2018-05-18 09:40 | CP.PCM.PN ---
Subjective - Date & Time of Evaluation Date of Evaluation: 05/18/18 Time of Evaluation: 06:50 - Subjective Subjective: no distress, awake, alert, denies shortness of breath, denies chest pain Reason for consultation and follow up: Cardiac evaluation for sinus tachycardia and history of coronary artery disease post stents, respiratory failure post intubation, history of hypertension, end stage renal disease on hemodialysis. Seen and examined by me and Dr. Perez Objective - Vital Signs/Intake and Output Vital Signs (last 24 hours): Temp Pulse Resp BP Pulse Ox 99 F 67 19 118/49 L 100 05/18/18 08:00 05/18/18 08:00 05/18/18 08:00 05/18/18 08:00 05/18/18 08:00 Intake and Output: 05/18/18 05/18/18 06:59 18:59 Intake Total 320 Balance 320 - Medications Medications: Current Medications Acetaminophen (Tylenol 650mg/20.3ml Solution Ud) 650 mg PO Q6H PRN PRN Reason: Temperature Last Admin: 05/13/18 16:36 Dose: 650 mg Albuterol/Ipratropium (Duoneb 3 Mg/0.5 Mg (3 Ml) Ud) 3 ml IH TIDRESP [facility] Last Admin: 05/18/18 07:54 Dose: 3 ml Aspirin (Ecotrin) 81 mg PO DAILY [facility] Last Admin: 05/17/18 10:12 Dose: 81 mg Atorvastatin Calcium (Lipitor) 10 mg PO HS [facility] Last Admin: 05/17/18 21:18 Dose: 10 mg Carvedilol (Coreg) 3.125 mg PO BID [facility] Last Admin: 05/17/18 17:40 Dose: Not Given Clopidogrel Bisulfate (Plavix) 75 mg PO DAILY [facility] Last Admin: 05/17/18 10:13 Dose: 75 mg Digoxin (Digoxin) 0.125 mg PO MWF [facility] Last Admin: 05/16/18 10:11 Dose: 0.125 mg Famotidine (Pepcid) 20 mg PO DAILY [facility] Last Admin: 05/17/18 10:13 Dose: 20 mg Guaifenesin/Codeine Phosphate (Robitussin W/Codeine) 5 ml PO BID [facility] Last Admin: 05/17/18 17:41 Dose: 5 ml Heparin Sodium (Porcine) (Heparin) 5,000 units SC Q12 [facility] PRN Reason: Protocol Last Admin: 05/17/18 21:18 Dose: 5,000 units Insulin Human Regular (Humulin R Low) 0 units SC ACHS [facility] PRN Reason: Protocol Last Admin: 05/17/18 22:33 Dose: Not Given Lisinopril (Zestril) 2.5 mg PO DAILY [facility] Last Admin: 05/17/18 10:15 Dose: Not Given - Labs Labs: 05/14/18 05:00 05/14/18 05:00 PT 12.0 SECONDS (9.4-12.5) 05/12/18 05:30 INR 1.04 (0.93-1.08) 05/12/18 05:30 APTT 20.9 Seconds (25.1-36.5) L 05/12/18 05:30 - Constitutional Appears: No Acute Distress - Eye Exam Eye Exam: Normal appearance - ENT Exam ENT Exam: Mucous Membranes Moist - Respiratory Exam Respiratory Exam: Decreased Breath Sounds, NORMAL BREATHING PATTERN - Cardiovascular Exam Cardiovascular Exam: +S1, +S2 - GI/Abdominal Exam GI & Abdominal Exam: Soft, Normal Bowel Sounds - Exam Additional comments: hemodialysis 3x a week - Extremities Exam Extremities Exam: Normal Capillary Refill Additional comments: left AV shunt positive bruit - Neurological Exam Neurological Exam: Alert, Awake, Oriented x3 - Psychiatric Exam Psychiatric exam: Normal Affect - Skin Skin Exam: Dry, Warm Assessment and Plan - Assessment and Plan (Free Text) Assessment: A 72 year old female [place]yr[place]z who came in to the ER due to shortness of breath. She was on respiratory failure requiring intubation. She was transferred to ICU. History of CAD post stents, diabetes mellitus, end stage renal disease on hemodialysis. History of NSTEMI, 10/24/2017 cardiac catheterization showed two vessel coronary artery disease (LAD and Circumflex ) not suitable for angioplasty (tortouse, high risk for dissection) Recommended open heart surgery at that time but patient and family refused surgery, opted for optimal medical treatment at that time. successfully extubated and stabilized in ICU and now transferred to telemetry. Plan: Comfortable, denies shortness of breath Refusing open heart surgery Will optimize medical treatment Stable heart rate and blood pressure On ASA 81 mg daily, lipitor 10 mg daily,Coreg 3.125 mg BID, Plavix 75 mg daily, digoxin 0.125 mg MWF, Heparin SQ 5000 units BID, Zestril 2.5 mg daily. On hemodialysis 3x a week Continue current medications Continue current treatment Discharge planning Will follow up Plan and treatment discussed with Dr. Perez
--- NOTE | 2018-05-18 12:02 | PN ---
DATE: 05/18/2018 SUBJECTIVE: The patient is in bed, in no acute distress and nontoxic, seen earlier this morning in 364, bed 2. PHYSICAL EXAMINATION: VITAL SIGNS: Temperature of 98, blood pressure is 118/40, respiratory rate of 20. HEENT: Examination is unremarkable. NECK: Supple. LUNGS: Have decreased breath sounds. HEART: Normal S1 and S2. ABDOMEN: Soft. LABORATORY DATA: Reveals a white count of 6.7 and the chemistries are noted, creatinine is 4.9. Review of orders reveals the patient should have no antibiotics. ASSESSMENT AND PLAN: This is a 72-year-old female who was seen earlier this morning who was initially admitted with severe sepsis due to acute hypoxic respiratory failure, status post ventilator-dependent respiratory failure due to healthcare-associated pneumonia, possible gram-positive cocci, possible gram-negative sagar, pneumonia with acute pulmonary edema, hypertension, coronary artery disease, end-stage renal disease and on hemodialysis, diabetes, cefepime day #7, the patient has completed the cefepime and currently now off of antibiotics, afebrile, at risk for developing nosocomial infections. Rafi Daniel MD
[2018-05-18] MEDS: Insulin Lispro (HUMAlog) HIGH Coverage SC SCH ×2 (15:58→21:59)
[2018-05-18 17:29] VITALS: O2SAT 96
--- NOTE | 2018-05-18 21:12 | PN ---
DATE: 05/18/2018 SUBJECTIVE: Patient is 72 years old seen and examined, lying in bed, complaining of cough, congestion and mild shortness of breath, eating fair. PHYSICAL EXAMINATION: VITAL SIGNS: She is afebrile, pulse 67, respirations 19, blood pressure 118/49. LUNGS: Bilateral soft crackle on the upper lung region. There is rhonchi. HEART: S1, S2 audible with systolic murmur. ABDOMEN: Soft, nontender. No rebound. No guarding. NEUROLOGIC: Patient is awake, alert, oriented. Able to communicate. EXTREMITIES: Bilateral leg, no edema. LABORATORY DATA: Blood sugar was around 12 was more than 500, at 12:15 is 196. Blood cultures and urine cultures are negative. ASSESSMENT: 1. Status post respiratory failure, status post successful extubation. 2. Community acquired pneumonia. 3. Hypertension. 4. Chronic kidney disease. 5. Coronary artery disease. 6. Insulin-dependent diabetes, uncontrolled. PLAN: Currently, patient is on carvedilol. She is getting nebulizer treatment. She is on aspirin. She is on DVT prophylaxis. coverage to high-dose regular insulin coverage and give her standing orders for insulin. We will give her 10 units of Levemir at bedtime. Give extra nebulizer treatment now. Encourage physical therapy. Babatunde Hodgson MD
[2018-05-18] MEDS ORDERED: Insulin Detemir 100 units/ml Vial (Levemir) SC SCH (22:00)
--- NOTE | 2018-05-19 07:08 | CP.PCM.PN ---
Subjective - Date & Time of Evaluation Date of Evaluation: 05/19/18 Time of Evaluation: 06:15 - Subjective Subjective: Awake, alert, denies shortness of breath, denies chest pain Reason for consultation and follow up: Cardiac evaluation for sinus tachycardia and history of coronary artery disease post stents, respiratory failure post intubation, history of hypertension, end stage renal disease on hemodialysis. Seen and examined by me and Dr. Davila Objective - Vital Signs/Intake and Output Vital Signs (last 24 hours): Temp Pulse Resp BP Pulse Ox 97.6 F 70 19 122/49 L 96 05/18/18 18:00 05/19/18 05:48 05/18/18 18:00 05/18/18 18:00 05/18/18 18:00 Intake and Output: 05/19/18 05/19/18 06:59 18:59 Intake Total 120 Balance 120 - Medications Medications: Current Medications Acetaminophen (Tylenol 650mg/20.3ml Solution Ud) 650 mg PO Q6H PRN PRN Reason: Temperature Last Admin: 05/13/18 16:36 Dose: 650 mg Albuterol/Ipratropium (Duoneb 3 Mg/0.5 Mg (3 Ml) Ud) 3 ml IH TIDRESP [facility] Last Admin: 05/18/18 20:03 Dose: 3 ml Aspirin (Ecotrin) 81 mg PO DAILY [facility] Last Admin: 05/18/18 09:35 Dose: 81 mg Atorvastatin Calcium (Lipitor) 10 mg PO HS [facility] Last Admin: 05/18/18 22:04 Dose: 10 mg Carvedilol (Coreg) 3.125 mg PO BID [facility] Last Admin: 05/18/18 17:16 Dose: 3.125 mg Clopidogrel Bisulfate (Plavix) 75 mg PO DAILY [facility] Last Admin: 05/18/18 09:36 Dose: 75 mg Digoxin (Digoxin) 0.125 mg PO MWF [facility] Last Admin: 05/16/18 10:11 Dose: 0.125 mg Famotidine (Pepcid) 20 mg PO DAILY [facility] Last Admin: 05/18/18 09:36 Dose: 20 mg Guaifenesin/Codeine Phosphate (Robitussin W/Codeine) 5 ml PO BID [facility] Last Admin: 05/18/18 17:16 Dose: 5 ml Heparin Sodium (Porcine) (Heparin) 5,000 units SC Q12 [facility] PRN Reason: Protocol Last Admin: 05/18/18 22:04 Dose: 5,000 units Insulin Detemir (Levemir) 10 unit SC HS [facility] Last Admin: 05/18/18 22:04 Dose: 10 unit Insulin Human Lispro (Humalog High) 0 units SC ACHS [facility] PRN Reason: Protocol Last Admin: 05/18/18 21:59 Dose: Not Given Lisinopril (Zestril) 2.5 mg PO DAILY [facility] Last Admin: 05/18/18 09:37 Dose: Not Given - Labs Labs: 05/14/18 05:00 05/14/18 05:00 PT 12.0 SECONDS (9.4-12.5) 05/12/18 05:30 INR 1.04 (0.93-1.08) 05/12/18 05:30 APTT 20.9 Seconds (25.1-36.5) L 05/12/18 05:30 - Constitutional Appears: No Acute Distress - Eye Exam Eye Exam: Normal appearance - ENT Exam ENT Exam: Mucous Membranes Moist - Respiratory Exam Respiratory Exam: Decreased Breath Sounds, NORMAL BREATHING PATTERN - Cardiovascular Exam Cardiovascular Exam: +S1, +S2 - GI/Abdominal Exam GI & Abdominal Exam: Soft, Normal Bowel Sounds - Exam Additional comments: hemodialysis 3x a week - Extremities Exam Extremities Exam: Normal Capillary Refill Additional comments: left AV shunt + bruit/thrill - Neurological Exam Neurological Exam: Alert, Awake, Oriented x3 - Psychiatric Exam Psychiatric exam: Normal Affect - Skin Skin Exam: Intact, Warm Assessment and Plan - Assessment and Plan (Free Text) Assessment: A 72 year old female Georgian who came in to the ER due to shortness of breath. She was on respiratory failure requiring intubation. She was transferred to ICU. History of CAD post stents, diabetes mellitus, end stage renal disease on hemodialysis. History of NSTEMI, 10/24/2017 cardiac catheterization showed two vessel coronary artery disease (LAD and Circumflex ) not suitable for angioplasty (dellaouse, high risk for dissection) Recommended open heart surgery at that time but patient and family refused surgery, opted for optimal medical treatment at that time. successfully extubated and stabilized in ICU and now transferred to telemetry. Plan: Clinically improved from baseline Stable heart rate and blood pressure On ASA 81 mg daily, lipitor 10 mg daily,Coreg 3.125 mg BID, Plavix 75 mg daily, digoxin 0.125 mg MWF, Heparin SQ 5000 units BID, Zestril 2.5 mg daily. On hemodialysis 3x a week Off antibiotics per ID Continue current medications Continue current treatment Discharge planning Will follow up Plan and treatment discussed with Dr. Davila
[2018-05-19] MEDS: Albuterol-Ipratrop 3 mg / 0.5 (3 ml) UD IH SCH ×2 (07:41→13:20)
[2018-05-19] MEDS: Insulin Lispro (HUMAlog) HIGH Coverage SC SCH ×2 (07:50→11:40)
[2018-05-19 08:02] VITALS: BP 125/59; TEMP 97.9
[2018-05-19] MEDS: guaiFENesin-Codeine 100-10mg/5ml Syrup (5 ml) UD PO SCH (10:29)
[2018-05-19] MEDS: Digoxin 125 mcg (0.125 mg) Tab PO SCH (10:31)
--- NOTE | 2018-05-19 11:41 | DS ---
HISTORY OF PRESENT ILLNESS: The patient has no complaints of any chest pain or shortness of breath, headaches or dizziness. She does have a cough and congestion. She is not interested in going to subacute rehab. I did speak to the daughter at the bedside. She is feeling better. PHYSICAL EXAMINATION: VITAL SIGNS: Temperature is 97.9, pulse of 70, blood pressure 125/59, respirations 19, O2 saturation is 96%. GENERAL: The patient is lying in bed, flat, comfortable. HEENT: No oral lesion. Anicteric sclerae. Moist mucosa. NECK: No JVD, adenopathy, or thyromegaly. CARDIOVASCULAR: S1 and S2, regular. No murmurs, rubs, or gallops. LUNGS: Clear to auscultation bilaterally. No wheeze, rales, or rhonchi. ABDOMEN: Bowel sounds are positive, soft, nontender and nondistended. EXTREMITIES: No cyanosis, clubbing or edema. ASSESSMENT 1. Respiratory failure secondary to pneumonia. 2. Hospital-acquired pneumonia. 3. Hypertension. 4. End-stage renal disease on hemodialysis. 5. Diabetes type 2. 6. Coronary artery disease. PLAN: The patient is currently comfortable. She is on carvedilol. She is going to continue with aspirin daily. She is on heparin for DVT prophylaxis. She is on Lipitor for dyslipidemia. She is on Plavix for her coronary disease. She is on lisinopril for her hypertension. CONDITION; Stable. ACTIVITIES: Increase as tolerated. FOLLOWUP: Follow with Dr. Deep Yu in 1 to 2 weeks after discharge. Deep Yu MD
[2018-05-19 13:59] VITALS: PULSE 77
--- NOTE | 2018-05-19 16:37 | IP.NPCORE ---
Pneumonia Progress Notes - Oxygenation Assessment (REQUIRED) O2 Saturation: 96 Oxygen Delivery Method: Nasal Cannula Date: 05/19/18 - Blood Cultures (REQUIRED) Culture drawn: Yes Date:: 05/12/18 - Initial Antibiotic Initial Antibiotic given within Four Hours:: Yes Date:: 05/12/18 - Appropriate Antibiotic Appropriate Antibiotic within 24 hours of Admission:: Yes Date:: 05/12/18 Current Antibiotic: Maxipime No change in antibiotics: Yes - Pneumonia Vaccine Pneumonia Vaccine: No (02/26/14 refused) - Smoking Cessation Smoking Cessation counseling provided:: No (n/a) Ex-Smoker (has not smoked in the last 12 months): No Current Smoker - smoking cessation education provided: No
--- NOTE | 2018-05-19 17:24 | CP.PCM.PN ---
Subjective - Date & Time of Evaluation Date of Evaluation: 05/19/18 Time of Evaluation: 12:45 - Subjective Subjective: No fevers, not in distress. Objective - Vital Signs/Intake and Output Vital Signs (last 24 hours): Temp Pulse Resp BP Pulse Ox 97.9 F 70 19 125/59 L 96 05/19/18 08:01 05/19/18 08:01 05/19/18 08:01 05/19/18 08:01 05/19/18 08:01 Intake and Output: 05/19/18 05/19/18 06:59 18:59 Intake Total 120 Balance 120 - Medications Medications: Current Medications Acetaminophen (Tylenol 650mg/20.3ml Solution Ud) 650 mg PO Q6H PRN PRN Reason: Temperature Last Admin: 05/13/18 16:36 Dose: 650 mg Albuterol/Ipratropium (Duoneb 3 Mg/0.5 Mg (3 Ml) Ud) 3 ml IH TIDRESP [facility] Last Admin: 05/19/18 07:41 Dose: 3 ml Aspirin (Ecotrin) 81 mg PO DAILY [facility] Last Admin: 05/19/18 10:29 Dose: 81 mg Atorvastatin Calcium (Lipitor) 10 mg PO HS [facility] Last Admin: 05/18/18 22:04 Dose: 10 mg Carvedilol (Coreg) 3.125 mg PO BID [facility] Last Admin: 05/19/18 10:31 Dose: 3.125 mg Clopidogrel Bisulfate (Plavix) 75 mg PO DAILY [facility] Last Admin: 05/19/18 10:29 Dose: 75 mg Digoxin (Digoxin) 0.125 mg PO MWF [facility] Last Admin: 05/19/18 10:31 Dose: 0.125 mg Famotidine (Pepcid) 20 mg PO DAILY [facility] Last Admin: 05/19/18 10:29 Dose: 20 mg Guaifenesin/Codeine Phosphate (Robitussin W/Codeine) 5 ml PO BID [facility] Last Admin: 05/19/18 10:29 Dose: 5 ml Heparin Sodium (Porcine) (Heparin) 5,000 units SC Q12 [facility] PRN Reason: Protocol Last Admin: 05/19/18 10:29 Dose: 5,000 units Insulin Detemir (Levemir) 10 unit SC HS [facility] Last Admin: 05/18/18 22:04 Dose: 10 unit Insulin Human Lispro (Humalog High) 0 units SC ACHS [facility] PRN Reason: Protocol Last Admin: 05/19/18 07:50 Dose: Not Given Lisinopril (Zestril) 2.5 mg PO DAILY [facility] Last Admin: 05/19/18 10:29 Dose: 2.5 mg - Labs Labs: 05/14/18 05:00 05/14/18 05:00 PT 12.0 SECONDS (9.4-12.5) 05/12/18 05:30 INR 1.04 (0.93-1.08) 05/12/18 05:30 APTT 20.9 Seconds (25.1-36.5) L 05/12/18 05:30 - Constitutional Appears: Chronically Ill - Head Exam Head Exam: NORMAL INSPECTION - Neck Exam Neck Exam: absent: Meningismus - Respiratory Exam Respiratory Exam: Decreased Breath Sounds - Cardiovascular Exam Cardiovascular Exam: +S1, +S2 - GI/Abdominal Exam GI & Abdominal Exam: Soft. absent: Tenderness Assessment and Plan - Assessment and Plan (Free Text) Plan: Assessment S/P severe sepsis due to acute hypoxic respiratory failure S/P ventilator- dependent respiratory failure due to healthcare-associated pneumonia with possible gram negative bacilli on top of acute pulmonary edema HTN CAD S/P PCI ESRD on HD DM PAD S/P Plan completed 7 days of antibiotics - monitor clinically off antibiotics
== END 2018-05-19 14:01 | disposition home or self-care (01) | DRG 871 ==
LOC: ED 05:08 → ERH 06:00 → ICU 06:48 → CCU 05-13 19:24 → 3RNO 05-16 19:00
PROVIDERS: ADMIT Internal Medicine Nephrology; ATTEND Internal Medicine Nephrology
PROC: 0BH17EZ Insertion of Endotracheal Airway into Trachea, Via Natural or Artificial Opening (ICD-10-PCS; principal; 2018-05-12)
PROC: 5A1945Z Respiratory Ventilation, 24-96 Consecutive Hours (ICD-10-PCS; 2018-05-12)
PROC: 5A1D70Z Performance of Urinary Filtration, Intermittent, Less than 6 Hours Per Day (ICD-10-PCS; 2018-05-13)
PROC: 5A1D70Z Performance of Urinary Filtration, Intermittent, Less than 6 Hours Per Day (ICD-10-PCS; 2018-05-15)
PROC: 5A1D70Z Performance of Urinary Filtration, Intermittent, Less than 6 Hours Per Day (ICD-10-PCS; 2018-05-17)
DX: A41.9 Sepsis, unspecified organism (principal); J18.9 Pneumonia, unspecified organism; J96.01 Acute respiratory failure with hypoxia; J96.02 Acute respiratory failure with hypercapnia; N18.6 End stage renal disease; I50.23 Acute on chronic systolic (congestive) heart failure; I13.2 Hypertensive heart and chronic kidney disease with heart failure and with stage 5 chronic kidney disease, or end stage renal disease; Z99.11 Dependence on respirator [ventilator] status; R65.20 Severe sepsis without septic shock; E11.22 Type 2 diabetes mellitus with diabetic chronic kidney disease; E11.51 Type 2 diabetes mellitus with diabetic peripheral angiopathy without gangrene; E11.65 Type 2 diabetes mellitus with hyperglycemia; E78.5 Hyperlipidemia, unspecified; I25.10 Atherosclerotic heart disease of native coronary artery without angina pectoris; I25.2 Old myocardial infarction; I25.5 Ischemic cardiomyopathy; I48.91 Unspecified atrial fibrillation; R13.10 Dysphagia, unspecified; Y95 Nosocomial condition; Z79.02 Long term (current) use of antithrombotics/antiplatelets; Z79.4 Long term (current) use of insulin; Z79.82 Long term (current) use of aspirin; Z82.49 Family history of ischemic heart disease and other diseases of the circulatory system; Z83.3 Family history of diabetes mellitus; Z95.1 Presence of aortocoronary bypass graft; Z95.5 Presence of coronary angioplasty implant and graft; Z99.2 Dependence on renal dialysis; D64.9 Anemia, unspecified; E11.36 Type 2 diabetes mellitus with diabetic cataract

== ENCOUNTER 2018-06-07 04:31 | Inpatient (IN) | payer MEDICARE, OTHER ==
[2018-06-07 04:34] VITALS: BMI 26.0
--- NOTE | 2018-06-07 04:56 | ED PDOC ---
Arrival/HPI - General Chief Complaint: Respiratory Distress Time Seen by Provider: 06/07/18 04:34 Historian: Patient EM Caveat: Respiratory Distress - Critical Care Critical Care Minutes: 30 minutes - History of Present Illness Narrative History of Present Illness (Text): 06/07/18 04:36 72 year old female w/ h/o CAD s/p multiple stents, hypertension, diabetes, ESRD on hemodialysis(M/W/F), and CHF, who was brought into the emergency department by EMS for experiencing shortness of breath for the past couple of days. Daughter called EMS due to patient having difficulty inspiring air prior to arrival. EMS noted initial 88% O2 Sat in field and gave her 40 of Lasix, half an inch of Nitro paste and 3 sublingual NTG. She was also started on CPAP prior to arrival. Of note the patient was brought in recently by EMS for similar episode on 05/12/18. PMD: Dr. Yu Time/Duration: Prior to Arrival (daughter notes patient was having difficulty inspiring air [employer] ) Symptom Onset: Gradual Symptom Course: Unchanged Quality: Unable to Describe Severity Level: Moderate Activities at Onset: Light Context: Home Past Medical History - Provider Review Nursing Documentation Reviewed: Yes - Infectious Disease Hx of Infectious Diseases: None - Tetanus Immunization Tetanus Immunization: Unknown - Cardiac Hx Angina: Yes Hx Cardiac Arrhythmia: Yes (a fib) Hx Congestive Heart Failure: Yes Hx Hypertension: Yes Hx Peripheral Edema: Yes (+1 pedal edema) Other/Comment: pad - Pulmonary Hx Respiratory Disorders: No - Neurological Hx Neurological Disorder: Yes Hx Dizziness: Yes - HEENT Hx HEENT Disorder: Yes (blurry vision) Hx Cataracts: Yes (left eye needs sx) - Renal Date of Last Dialysis Treatment: 06/07/18 - Endocrine/Metabolic Hx Diabetes Mellitus Type 2: Yes - Hematological/Oncological Hx Blood Disorders: Yes Hx Anemia: Yes (w/ Blood transfusions) - Integumentary Hx Dermatological Disorder: No Other/Comment: SHUNT LEFT ARM - Musculoskeletal/Rheumatological Hx Falls: No - Gastrointestinal Hx Gastrointestinal Disorders: No - Genitourinary/Gynecological Hx Genitourinary Disorders: Yes (OLIGURIA) - Psychiatric Hx Psychophysiologic Disorder: No Hx Emotional Abuse: No Hx Physical Abuse: No Hx Substance Use: No - Surgical History Hx Cardiac Catheterization: Yes (several) Hx Coronary Stent: Yes Hx Orthopedic Surgery: Yes (left ankle surgery with screws) Other/Comment: c section x1, 02/22/16 malfunctioning av fistula revision, 03/06/16 replacement of hd cath, carotid angiogram 11/2015 - Anesthesia Hx Anesthesia Reactions: No Hx Malignant Hyperthermia: No - Suicidal Assessment Feels Threatened In Home Enviroment: No Family/Social History - Physician Review Nursing Documentation Reviewed: Yes Family/Social History: No Known Family HX Smoking Status: Never Smoked Hx Alcohol Use: No Hx Substance Use: No Hx Substance Use Treatment: No Allergies/Home Meds Allergies/Adverse Reactions: Allergies No Known Allergies Allergy (Verified 06/07/18 14:01) Home Medications: Home Meds Medication Instructions Recorded Confirmed Insulin Aspart/Insulin Aspar 5 units SC ACTID PRN 10/21/15 06/07/18 [Novolog Mix 70/30 (70/30 units/ml)] Atorvastatin [Lipitor] 10 mg PO HS 12/31/17 06/07/18 Sevelamer Carbonate [Renvela] 800 mg PO DAILY 06/07/18 06/07/18 Review of Systems - Physician Review All systems were reviewed & negative as marked: Yes - Review of Systems Constitutional: Normal Eyes: Normal ENT: Normal Respiratory: SOB, Other (difficulty inspiring air prior to arrival). absent: Normal Cardiovascular: Normal Gastrointestinal: Normal Genitourinary Female: Normal Musculoskeletal: Normal Skin: Normal Neurological: Normal Endocrine: Normal Hemo/Lymphatic: Normal Psychiatric: Normal Physical Exam Vital Signs Reviewed: Yes Vital Signs Temp Pulse Resp BP Pulse Ox 06/07/18 08:00 97.6 F 82 20 192/84 H 100 06/07/18 06:33 98.2 F 62 20 155/68 H 100 06/07/18 04:50 16 99 06/07/18 04:47 158/70 H 06/07/18 04:42 97.9 F 88 28 H 98 Temperature: Afebrile Pulse: Regular Respiratory Rate: Tachypneic Appearance: Positive for: Well-Appearing, Non-Toxic Mental Status: Positive for: Alert and Oriented X 3 - Systems Exam Head: Present: Atraumatic, Normocephalic Pupils: Present: PERRL Extroacular Muscles: Present: EOMI Conjunctiva: Present: Normal Mouth: Present: Moist Mucous Membranes Neck: Present: Normal Range of Motion Respiratory/Chest: Present: Decreased Breath Sounds, Rales (crackles heard in anterior lung rivas bilaterally), Tachypneic Cardiovascular: Present: Regular Rate and Rhythm, Normal S1, S2. No: Murmurs Abdomen: No: Tenderness, Distention, Peritoneal Signs Back: Present: Normal Inspection Upper Extremity: Present: Normal Inspection. No: Cyanosis, Edema Lower Extremity: Present: Edema (+1 pedal edema). No: Normal Inspection Neurological: Present: GCS=15, CN II-XII Intact Skin: Present: Warm, Dry, Normal Color. No: Rashes Psychiatric: Present: Alert, Oriented x 3, Normal Concentration Medical Decision Making ED Course and Treatment: 06/07/18 04:20 Impression: 72 y/o F w/ h/o ESRD & CHF in respiratory distress. Most likely due to volume overload. Will continue CPAP and monitor vitals. Plan: -- Labs -- EKG -- CXR -- Blood cultures --UA/Urine culture -- BIPAP/CPAP setting adjustment -- Reassess and disposition Prior Visits: Notes and results from previous visits were reviewed. Patient was last seen in the emergency department on 05/12/18 for worsening shortness of breath. Patient was hospitalized in critical condition for acute respiratory failure with hypoxia. Progress Notes: 06/07/18 04:50 EKG: Ordered, reviewed, and independently interpreted the EKG. Interpretation : Sinus arrhythmia at 98 BPM CXR Ordered, reviewed, and independently interpreted the CXR. Interpretation: Cardiomegaly. Cephalization w/ b/l pleural effusions noted. VS stable. Labs reviewed with elevated BNP noted and leukocytosis. Lasix ordered. Imaging reveals volume overload. Call placed to Dr. Saenz. 06/07/18 05:[address] Saenz who accepts the admission at this time. - Lab Interpretations Microbiology Results: Microbiology Results 06/07/18 05:30 Blood Blood Culture - Preliminary NO GROWTH AFTER 24 HOURS 06/07/18 04:50 Blood Blood Culture - Preliminary NO GROWTH AFTER 24 HOURS Lab Results: 06/07/18 04:50 06/07/18 04:50 Lab Results 06/07/18 04:50: WBC 4.6 D, RBC 3.05 L, Hgb 9.9 L, Hct 29.7 L, MCV 97.4, MCH 32.5, MCHC 33.3, RDW 14.3, Plt Count 100 L, MPV 10.6, Gran % 70.4 H, Lymph % ( Auto) 15.4 L, [place] % (Auto) 7.1 H, Eos % (Auto) 6.9 H, Baso % (Auto) 0.2, Gran # 3.25, Lymph # (Auto) 0.7 L, [place] # (Auto) 0.3, Eos # (Auto) 0.3, Baso # (Auto ) 0.01 06/07/18 04:50: Sodium 145, Chloride 103, Potassium 4.3, Carbon Dioxide 26, Anion Gap 21 H, BUN 36 H, Creatinine 5.9 H, Est GFR ( Amer) 9, Est GFR ( Non-Af Amer) 7, Random Glucose 146 H, Calcium 10.0, Total Bilirubin 0.8, AST 29 , ALT 34, Alkaline Phosphatase 74, Troponin I 0.04 D, NT-Pro-B Natriuret Pep 62655 H, Total Protein 7.2, Albumin 4.0, Globulin 3.2, Albumin/Globulin Ratio 1.2 06/07/18 04:50: pO2 49, VBG pH 7.39, VBG pCO2 50.0, VBG HCO3 30.3 H, VBG Total CO2 31.8 H, VBG O2 Sat (Calc) 83.3 H, VBG Base Excess 4.2 H, VBG Potassium 4.2, Sodium 141.0, Chloride 106.0, Glucose 156 H, Lactate 2.3 H, FiO2 21.0, Venous Blood Potassium 4.2 06/07/18 04:50: PT 11.9, INR 1.04, APTT 26.2 - RAD Interpretation Radiology Orders: 06/07/18 04:38 CHEST PORTABLE [RAD] Stat - Medication Orders Current Medication Orders: Aspirin (Ecotrin) 81 mg PO DAILY [facility] Last Admin: 06/08/18 09:22 Dose: 81 mg Atorvastatin Calcium (Lipitor) 10 mg PO HS [facility] Last Admin: 06/07/18 21:46 Dose: 10 mg Carvedilol (Coreg) 3.125 mg PO BID [facility] Last Admin: 06/08/18 09:24 Dose: MAR Pulse and Blood Pressure Document 06/08/18 09:24 DLL (Rec: 06/08/18 09:24 DLL [id number]) Pulse Pulse Rate (60-90) 55 Blood Pressure Blood Pressure (100/60-150/90) 162/54 Clopidogrel Bisulfate (Plavix) 75 mg PO DAILY [facility] Last Admin: 06/08/18 09:23 Dose: 75 mg Digoxin (Digoxin) 0.125 mg PO MWF [facility] Doxycycline Hyclate (Doryx) 100 mg PO Q12 [facility] PRN Reason: Protocol Stop: 06/15/18 10:01 Last Admin: 06/08/18 09:28 Dose: 100 mg Famotidine (Pepcid) 20 mg PO DAILY [facility] Last Admin: 06/08/18 09:22 Dose: 20 mg Cefepime HCl (Maxipime 1gm) 1 gm in 100 mls @ 100 mls/hr IVPB Q24H [facility] PRN Reason: Protocol Stop: 06/15/18 09:16 Last Admin: 06/08/18 09:28 Dose: 100 mls/hr eMAR Start Stop Document 06/08/18 09:28 DLL (Rec: 06/08/18 09:29 DLL [id number]) Intravenous Solution Start Date 06/08/18 Start Time 09:28 End Date 06/08/18 End time 10:28 Total Infusion Time 60 Insulin Detemir (Levemir) 5 unit SC Q12H [facility] Last Admin: 06/08/18 09:28 Dose: 5 units MAR Blood Glucose Document 06/08/18 09:28 DLL (Rec: 06/08/18 09:28 DLL [id number]) Blood Glucose Finger Stick Blood Glucose (70-120) 125 Subcutaneous Administrations Document 06/08/18 09:28 DLL (Rec: 06/08/18 09:28 DLL [id number]) Injection Site MAR Injection Site Right Arm Charges for Administration # of Subcutaneous Administrations 1 Insulin Human Regular (Humulin R Med) 0 units SC ACHS [facility] PRN Reason: Protocol Last Admin: 06/08/18 07:39 Dose: Not Given Non-Admin Reason: Blood Sugar Parameter Insulin Lispro Protam/Lispro Human (Humalog Mix 75/25) 5 units SC ACTID PRN PRN Reason: Serum glucose Lisinopril (Zestril) 2.5 mg PO DAILY [facility] Last Admin: 06/08/18 09:23 Dose: 2.5 mg MAR Pulse and Blood Pressure Document 06/08/18 09:23 DLL (Rec: 06/08/18 09:23 DLL [id number]) Pulse Pulse Rate (60-90) 55 Blood Pressure Blood Pressure (100/60-150/90) 162/54 Sevelamer HCl (Renagel) 800 mg PO AC [facility] Last Admin: 06/08/18 08:24 Dose: 800 mg Discontinued Medications Acetaminophen (Tylenol 325mg Tab) 650 mg PO STAT STA Stop: 06/07/18 17:53 Last Admin: 06/07/18 18:01 Dose: 650 mg MAR Pain/Vitals Document 06/07/18 18:01 (Rec: 06/07/18 18:02 [id number]) Presence of Pain Presence of Pain Yes Pain Scale Used Pain Scale Used Numeric Location Pain Location Body Transportation Director Pain Behavior Rubbing Site Alleviating Factors Medication Re-Assess: [facility] [place] Pain/Vitals Document 06/07/18 19:01 (Rec: 06/07/18 19:04 [id number]) Pain Reassessment Is This A Pain ReAssessment? Yes Sleep Is patient sleeping during reassessment? No Presence of Pain Presence of Pain No Pneumococcal Polyvalent Vaccine (Pneumovax 23 Vaccine) 0.5 ml IM .ONCE ONE Stop: 06/07/18 14:31 - Scribe Statement The provider has reviewed the documentation as recorded by the Scribe Keysha Garcia All medical record entries made by the Scribe were at my direction and personally dictated by me. I have reviewed the chart and agree that the record accurately reflects my personal performance of the history, physical exam, medical decision making, and the department course for this patient. I have also personally directed, reviewed, and agree with the discharge instructions and disposition. Disposition/Present on Arrival - Present on Arrival Any Indicators Present on Arrival: No History of DVT/PE: No History of Uncontrolled Diabetes: No Urinary Catheter: No History of Decub. Ulcer: No History Surgical Site Infection Following: None - Disposition Have Diagnosis and Disposition been Completed?: Yes Diagnosis: Pulmonary edema, CHF (congestive heart failure), Acute respiratory failure with hypoxia Disposition: HOSPITALIZED Disposition Time: 05:10 Patient Plan: Admission Condition: GOOD
[2018-06-07 05:02] LABS: BASO # 0.01 K/mm3 (0.0-2.0); BASO % 0.2 % (0.0-3.0); EOS # 0.3 (0.0-0.7); EOS % 6.9 % (1.5-5.0); GRAN # 3.25 (1.4-6.5); GRAN % 70.4 % (50.0-68.0); HEMOGLOBIN 9.9 g/dL (12.0-16.0); LYMPH # 0.7 (1.2-3.4); LYMPH % 15.4 % (22.0-35.0); MEAN CELL VOLUME 97.4 fl (80.0-105.0); MEAN CORPUSCULAR HEMOGLOBIN 32.5 pg (25.0-35.0); MEAN CORPUSCULAR HGB CONC 33.3 g/dl (31.0-37.0); MEAN PLATELET VOLUME 10.6 fl (7.0-11.0); MONO # 0.3 (0.1-0.6); MONO % 7.1 % (1.0-6.0); RBC 3.05 10^6/uL (3.5-6.1); RED CELL DISTRIBUTION WIDTH 14.3 % (11.5-14.5); WHITE BLOOD COUNT 4.6 10^3/ul (4.5-11.0)
[2018-06-07 05:09] LABS: VENOUS BLOOD GAS BASE EXCESS 4.2 mmol/L (0.0-2.0); VENOUS BLOOD GAS PO2 49 mm/Hg (30-55); VENOUS BLOOD PH 7.39 (7.32-7.43)
[2018-06-07 05:11] LABS: INR 1.04; PARTIAL THROMBOPLASTIN TIME 26.2 Seconds (25.1-36.5); PROTHROMBIN TIME 11.9 SECONDS (9.4-12.5)
[2018-06-07 05:22] LABS: TROPONIN I 0.04 ng/mL
[2018-06-07 05:27] LABS: ALB/GLOB RATIO 1.2 (1.1-1.8)
[2018-06-07] MEDS ORDERED: Insulin Lispro (humaLOG) MIX 75/25(10 ml) SC PRN (09:24)
[2018-06-07] MEDS: Insulin Detemir 100 units/ml Vial (Levemir) SC SCH ×2 (09:43→22:23)
--- NOTE | 2018-06-07 10:03 | HP ---
Copied To: Deep Yu MD Attending MD: Deep Yu MD CHIEF COMPLAINT AND HISTORY OF PRESENT ILLNESS: This is a 72-year-old female, who is coming in to the hospital with complaints of shortness of breath. The patient says that she woke up in the middle of the night, started having worsening shortness of breath. She has been getting dialysis. She is due for dialysis today. She does have a history of hypertension; coronary artery disease with stents; diabetes type 2; end-stage renal disease, on hemodialysis; peripheral arterial disease. She has been advised to get open heart surgery and CABG, but she has been refusing because she is afraid of surgery. The patient was recently admitted to the hospital because of pneumonia and she did not go back to her previous health status. She has no nausea. No vomiting. No dysuria or frequency. ALLERGIES: NO KNOWN DRUG ALLERGIES. PAST MEDICAL HISTORY: As above. PAST SURGICAL HISTORY: , AV fistula, PCI. HOME MEDICATIONS: Have been reviewed. SOCIAL HISTORY: She does not smoke, drink or use drugs. FAMILY HISTORY: Positive for diabetes and hypertension. PHYSICAL EXAMINATION: VITAL SIGNS: Temperature is 98.3, pulse is 75, blood pressure is 142/62, respirations 18, O2 saturation 97%. GENERAL: The patient lying in bed, uncomfortable, and in no acute distress. HEENT: Atraumatic and normocephalic. Anicteric sclerae. Moist mucosa. Sholes conjunctivae. No oral lesions. NECK: No JVD, anterior and posterior adenopathy, thyromegaly, or bruits. CARDIOVASCULAR: S1 and S2 regular. No murmur, rubs, or gallop. LUNGS: Clear to auscultation bilaterally. No wheezes, rales, or rhonchi. ABDOMEN: Bowel sounds are positive. Soft, nontender and nondistended. No hepatosplenomegaly. No rebound and no guarding EXTREMITIES: No cyanosis, clubbing, or edema. NEUROLOGIC: No facial asymmetry. Tongue is midline. No uvula deviation. Power is 5/5 upper extremity and lower extremity. Sensation intact in upper extremity and lower extremity. PSYCHIATRIC: She is awake, alert and oriented x3. No anxiety or depression. She has normal affect. GENITOURINARY: No CVA tenderness. VASCULAR: 2+ pulses in the carotid pulses and pedal pulses. SKIN: No erythema or nodules. SPINE: Shows normal curvature. LABORATORY DATA: Labs have been reviewed. White count of 4.6, hemoglobin 9.9, platelet count is 100. The troponin is 0.04, creatinine is 5.9. ASSESSMENT: 1. Shortness of breath secondary to volume overload. 2. End-stage renal disease, on hemodialysis. 3. Diabetes type 2. 4. Peripheral arterial disease. 5. Coronary artery disease. 6. Pulmonary edema. PLAN: The patient is currently short of breath. She has volume overload with congestion on her chest x-ray. The patient has an EKG that shows heart rate of 98, sinus rhythm. We will get Dr. Davila to follow the patient. I did speak to the patient's daughter at the bedside to give her an update on the patient's diagnoses and plan of care. Deep Yu MD
--- NOTE | 2018-06-07 10:29 | CARD ---
APPROVED REPORT Date of service: 06/07/2018 EKG Measurement Heart [id number] <Conclusion> Normal sinus rhythm with sinus arrhythmia Septal infarct, age undetermined Abnormal ECG
[2018-06-07] MEDS: Insulin Reg-MEDIUM-Coverage SC SCH ×3 (11:43→22:27)
[2018-06-07 13:26] LABS: VENOUS BLOOD GAS BASE EXCESS 10.3 mmol/L (0.0-2.0); VENOUS BLOOD GAS PO2 40 mm/Hg (30-55); VENOUS BLOOD PH 7.52 (7.32-7.43)
[2018-06-07] MEDS ORDERED: Pneumococcal 23-Valent Vaccine IM ONE (14:30)
--- NOTE | 2018-06-07 15:54 | RAD ---
Date of service: 06/07/2018 HISTORY: F/U pneumonia and compare COMPARISON: Comparison chest 06/07/2018 TECHNIQUE: Chest PA and lateral FINDINGS: LUNGS: Mild pulmonary vascular congestive changes with bilateral lower lobe alveolar-type infiltrates and bilateral effusions. Note that the possibility of concomitant pneumonia not excluded PLEURA: As above. No pneumothorax apparent. CARDIOVASCULAR: Cardiomegaly. OSSEOUS STRUCTURES: No significant abnormalities. VISUALIZED UPPER ABDOMEN: Normal. OTHER FINDINGS: None. IMPRESSION: Mild pulmonary vascular congestive changes with bilateral lower lobe alveolar-type infiltrates and bilateral effusions. Note that the possibility of concomitant pneumonia not excluded
--- NOTE | 2018-06-07 15:59 | CON ---
Copied To: Jairo Davila MD Attending MD: Jairo Davila MD DATE: 06/07/2019 REASON FOR CONSULTATION: Followup acute decompensated congestive heart failure, admitted with shortness of breath. BRIEF CLINICAL HISTORY: This is a 72-year-old female with a past medical history significant for endstage renal disease, on dialysis, diabetes, hypertension, hyperlipidemia, coronary artery disease, history of PTCA of RCA, history of significant disease in circ and LAD, is not amenable for PCI, open heart surgery was advised, but patient is afraid of the surgery, did not go for surgery, who woke up yesterday from sleep because of shortness of breath, came to emergency room with shortness of breath, possible acute decompensated congestive heart failure. The patient is due for dialysis this morning. Denies any chest pain, denies any palpitations. The patient was recently admitted with pneumonia, respiratory failure, intubated, went home. PAST MEDICAL HISTORY: Significant for diabetes, hypertension, hyperlipidemia, endstage renal disease, on dialysis, admitted recently with pneumonia and respiratory failure, borderline troponin at that time, most likely secondary to hemodynamic instability, no evidence of acute [place] on last admission. PREVIOUS CARDIAC WORKUP: As follows, the patient has a history of non-STEMI on 10/24/2017, cardiac catheterization revealed 2-vessel disease in LAD and circumflex, is not suitable for PCI, not amenable, very tortuous, high risk for dissection, patent stent in RCA, open heart surgery was recommended, and was sent for evaluation by Dr. Jimmy Ashraf at [facility], but the patient afraid of surgery and did not go for surgery. Recent echo dated 05/12/2018 revealed ejection fraction 25% to 30%, aortic sclerosis versus mild , trace mitral regurgitation, [id number] tricuspid regurgitation, dilated, trace pericardial effusion, no vegetation noted. CURRENT MEDICATIONS: The patient is taking at home, Renagel, lisinopril, insulin; digoxin, Saturday, Saturday, and Saturday; Plavix 75 mg daily, Coreg 3.125, atorvastatin and aspirin. REVIEW OF SYSTEMS: As per HPI. PHYSICAL EXAMINATION: VITAL SIGNS: Temperature afebrile, heart rate 75, blood pressure 142/60. HEENT: PERRLA. Extraocular movements intact. NECK: Supple. No carotid bruits or thyromegaly. CHEST: Clear to auscultation. HEART: S1 and S2 regular. ABDOMEN: Soft. EXTREMITIES: Clubbing and cyanosis negative. LABORATORY DATA: Blood workup as follows, WBC 4.6, hemoglobin 9.9, hematocrit 29.7, platelet count 100. Sodium 145, potassium 4.3, chloride 103, carbon dioxide 26, anion gap of 21, BUN 36, creatinine 5.9. BNP 29,300. Troponin 0.04. IMPRESSION: Acute decompensated congestive heart failure, secondary to acute and chronic secondary to systolic dysfunction, coronary artery disease, status post percutaneous transluminal coronary angioplasty with stent in the past of right coronary artery, last catheterization in 10/2017, disease significant in left anterior descending and circumflex which are not amenable and suitable for percutaneous coronary intervention because of very tortuous, there is a high risk of dissection. Referred for open heart surgery, patient is scared. History of endstage renal disease, on dialysis; diabetic. RECOMMENDATIONS: We will continue aggressive dialysis, medications patient remains symptomatic, we will start Primacor. We will follow with you. Discussed with the family. Thank you, Dr. Yu, for providing us the opportunity in taking care of the patient, Juliet Dick. Jairo Davila MD
--- NOTE | 2018-06-07 16:52 | RAD ---
Date of service: 06/07/2018 HISTORY: sob COMPARISON: Comparison chest dated 05/14/2018 FINDINGS: LUNGS: Pulmonary vascular congestive changes with bilateral patchy infiltrates mid to lower lung rivas. Probable bilateral effusions right greater than left. Note that the possibility of superimposed pneumonia not excluded PLEURA: As above. No pneumothorax apparent. CARDIOVASCULAR: Heart size unchanged OSSEOUS STRUCTURES: No significant abnormalities. VISUALIZED UPPER ABDOMEN: Normal. OTHER FINDINGS: None. IMPRESSION: Pulmonary vascular congestive changes with bilateral patchy infiltrates mid to lower lung rivas. Probable bilateral effusions right greater than left. Note that the possibility of superimposed pneumonia not excluded
--- NOTE | 2018-06-08 07:27 | CP.PCM.PN ---
Subjective - Date & Time of Evaluation Date of Evaluation: 06/08/18 Time of Evaluation: 06:30 - Subjective Subjective: Awake, alert, denies chest pain, no distress Reason for consultation and follow up: Cardiac evaluation of shortness of breath , decompensated congestive heart failure, history of coronary artery disease with multiple stents, ESRD on hemodialysis. Seen and examined by me and Dr. Davila Objective - Vital Signs/Intake and Output Vital Signs (last 24 hours): Temp Pulse Resp BP Pulse Ox 98.5 F 69 20 150/62 94 L 06/08/18 06:00 06/08/18 06:00 06/08/18 06:00 06/08/18 06:00 06/08/18 06:00 Intake and Output: 06/08/18 06/08/18 06:59 18:59 Intake Total 360 Output Total 0 Balance 360 - Medications Medications: Current Medications Aspirin (Ecotrin) 81 mg PO DAILY [facility] Last Admin: 06/07/18 13:19 Dose: 81 mg Atorvastatin Calcium (Lipitor) 10 mg PO HS [facility] Last Admin: 06/07/18 21:46 Dose: 10 mg Carvedilol (Coreg) 3.125 mg PO BID [facility] Last Admin: 06/07/18 18:01 Dose: 3.125 mg Clopidogrel Bisulfate (Plavix) 75 mg PO DAILY [facility] Last Admin: 06/07/18 13:19 Dose: 75 mg Digoxin (Digoxin) 0.125 mg PO [facility] Famotidine (Pepcid) 20 mg PO DAILY [facility] Last Admin: 06/07/18 13:19 Dose: 20 mg Insulin Detemir (Levemir) 5 unit SC Q12H [facility] Last Admin: 06/07/18 22:23 Dose: 5 units Insulin Human Regular (Humulin R Med) 0 units SC ACHS [facility] PRN Reason: Protocol Last Admin: 06/07/18 22:27 Dose: Not Given Insulin Lispro Protam/Lispro Human (Humalog Mix 75/25) 5 units SC ACTID PRN PRN Reason: Serum glucose Lisinopril (Zestril) 2.5 mg PO DAILY [facility] Last Admin: 06/07/18 13:18 Dose: 2.5 mg Sevelamer HCl (Renagel) 800 mg PO AC [facility] Last Admin: 06/07/18 18:01 Dose: 800 mg - Labs Labs: PT 11.9 SECONDS (9.4-12.5) 06/07/18 04:50 INR 1.04 06/07/18 04:50 APTT 26.2 Seconds (25.1-36.5) 06/07/18 04:50 - Constitutional Appears: No Acute Distress - Eye Exam Eye Exam: Normal appearance - ENT Exam ENT Exam: Mucous Membranes Moist - Respiratory Exam Respiratory Exam: Decreased Breath Sounds, NORMAL BREATHING PATTERN - Cardiovascular Exam Cardiovascular Exam: +S1, +S2 - GI/Abdominal Exam GI & Abdominal Exam: Soft, Normal Bowel Sounds - Exam Additional comments: Hemodialysis 3x a week [facility] - Extremities Exam Extremities Exam: Normal Capillary Refill Additional comments: Left AV shunt positvie bruit - Neurological Exam Neurological Exam: Alert, Awake, Oriented x3 - Psychiatric Exam Psychiatric exam: Normal Affect - Skin Skin Exam: Dry, Warm Assessment and Plan - Assessment and Plan (Free Text) Assessment: A 72 year old female who was brought into the emergency department by EMS due to shortness of breath for the past couple of days.History of coronary artery disease with multiple stents, last cardiac cath 10/2017- significant disease in LAD and Circumflex which are not suitable for PTCA due to tortuous anatomy, recommended open heart surgery but patient declined/ refused. History of hypertension, diabetes, ESRD on hemodialysis 3x a week ([facility] ) and CHF.Admitted for shortness of breath, acute on chronic decompensated systolic congestive heart failure. Plan: Denies shortness of breath now On hemodialysis [facility] On ASA 81 mg daily,Lipitor 10 mg daily,Coreg 3.125mg BID, Plavix 75 mg daily,Digoxin 0.125 mg once a day MWF, Lisinopril 2.5 mg daily Controlled heart rate and blood pressure Continue current treatment Continue current medications Will follow up Plan and treatment discussed with Dr. Davila
[2018-06-08 07:34] LABS: BASO # 0.01 K/mm3 (0.0-2.0); BASO % 0.3 % (0.0-3.0); EOS # 0.2 (0.0-0.7); EOS % 6.2 % (1.5-5.0); GRAN # 1.98 (1.4-6.5); GRAN % 51.1 % (50.0-68.0); HEMOGLOBIN 8.5 g/dL (12.0-16.0); LYMPH # 1.2 (1.2-3.4); MEAN CELL VOLUME 96.6 fl (80.0-105.0); MEAN CORPUSCULAR HEMOGLOBIN 32.1 pg (25.0-35.0); MEAN CORPUSCULAR HGB CONC 33.2 g/dl (31.0-37.0); MEAN PLATELET VOLUME 11.6 fl (7.0-11.0); MONO # 0.4 (0.1-0.6); MONO % 11.4 % (1.0-6.0); RBC 2.65 10^6/uL (3.5-6.1); RED CELL DISTRIBUTION WIDTH 14.2 % (11.5-14.5); WHITE BLOOD COUNT 3.9 10^3/ul (4.5-11.0)
[2018-06-08] MEDS: Insulin Reg-MEDIUM-Coverage SC SCH ×4 (07:39→22:09)
[2018-06-08 07:51] LABS: ALB/GLOB RATIO 1.2 (1.1-1.8); ALBUMIN 3.3 g/dL (3.0-4.8); CALCIUM 9.4 mg/dL (8.4-10.5)
[2018-06-08] MEDS: Cefepime 1gm in NS 100ml 1 GM/100 ML BAG IVPB SCH (09:28)
[2018-06-08] MEDS: Insulin Detemir 100 units/ml Vial (Levemir) SC SCH ×2 (09:28→21:47)
--- NOTE | 2018-06-08 14:41 | PN ---
Copied To: Deep Yu MD Attending MD: Deep Yu MD DATE: 06/08/2018 SUBJECTIVE: The patient has no complaints of any chest pain. No shortness of breath. She says her breathing is better. PHYSICAL EXAMINATION: VITAL SIGNS: Temperature is 98.5, pulse of 55, blood pressure is 162/54, respiration is 20. GENERAL: The patient is lying in bed, flat, comfortable. HEENT: No oral lesion. Anicteric sclerae. Moist mucosa. NECK: No JVD, adenopathy, or thyromegaly. CARDIOVASCULAR: S1 and S2, regular. No murmurs, rubs, or gallops. LUNGS: Clear to auscultation bilaterally. No wheeze, rales, or rhonchi. ABDOMEN: Bowel sounds are positive, soft, nontender and nondistended. EXTREMITIES: No cyanosis, clubbing or edema. ASSESSMENT: 1. Acute shortness of breath secondary to volume overload. 2. Acute congestive heart failure secondary to systolic dysfunction. 3. End-stage renal disease, on hemodialysis. 4. Diabetes type 2. 5. Peripheral arterial disease. 6. Coronary artery disease. 7. Pulmonary edema. PLAN: The patient was dialyzed yesterday. She is known to continue her dialysis. She does have improvement of her chest x-ray. I ordered a CAT scan. I reviewed the CAT scan. The CAT scan shows the patient has bilateral pleural effusions. I did speak to the patient's daughter at the bedside. The patient is on carvedilol. She is going to continue with digoxin. She is on doxycycline for antibiotic. She is going to be followed by Dr. Davila. I will also get pulmonary evaluation. The patient is receiving sevelamer for her secondary hyperparathyroidism. She is on a renal diet. Deep Yu MD
--- NOTE | 2018-06-08 15:58 | CON ---
Copied To: Rafi Daniel MD Attending MD: Rafi Daniel MD DATE: 06/08/2018 HISTORY OF PRESENT ILLNESS: LOCATION: The patient is seen in room 261, bed 1. CHIEF COMPLAINT: Weakness and shortness of breath x1-2 days' duration. HISTORY OF PRESENT ILLNESS: This is a 72-year-old female with a history of coronary artery disease; hypertension; diabetes; end-stage renal disease, on hemodialysis; history of congestive heart failure; who was admitted with shortness of breath and weakness. The patient has epigastric discomfort and she had low-grade fevers. No chest pain. No dysuria or frequency. No diarrhea or constipation. No bright red blood per rectum. No melena. No headaches or blurred vision. PAST MEDICAL HISTORY: Significant for coronary artery disease, congestive heart failure, diabetes and hypertension, high cholesterol, carotid stenosis, end-stage renal disease, on hemodialysis, cataracts. PAST SURGICAL HISTORY: Significant for left ankle surgery with screws and that was in 2013. The patient also had a in the past and also has a left arm shunt. ALLERGIES: THE PATIENT HAS NO KNOWN ALLERGIES. MEDICATIONS AT HOME: Include Renvela, lisinopril, insulin, famotidine, digoxin, clopidogrel, carvedilol, atorvastatin, aspirin. PHYSICAL EXAMINATION: GENERAL: On exam, she is in bed. No acute distress, nontoxic. VITAL SIGNS: Temperature of 99.3; heart rate of 62; respiratory rate was 28, it is down to 20. The patient has a 94% saturation on room air with a blood pressure of 140/50 and a BMI of 26. HEENT: Examination of HEENT is unremarkable. NECK: Supple. LUNGS: Have decreased breath sounds. HEART: Normal S1, S2. ABDOMEN: Soft, nontender. No organomegaly. No rebound. No guarding. No masses. EXTREMITIES: Examination of lower extremity reveals no edema. LABORATORY DATA: Laboratory examination reveals a white count of 4.6, down to 3.9; hemoglobin of 8; platelets of 92. Coagulation is noted. Blood gases are reviewed. Chemistries reveals a BUN of 36, creatinine is 5.9. BNP is 29,000. The patient had a chest x-ray. She has vascular congestion, patchy infiltrates, effusions, cannot exclude underlying pneumonia, read by Dr. Lázaro Avila. Also had an EKG, read by Dr. Davila with a QTc of 457. History and physical examination by Dr. Yu is reviewed and appreciated. The patient also had a chest x-ray, bilateral lower lobe alveolar-type infiltrate and effusion is noted, again read by Dr. Lázaro Avila, that x-ray was from yesterday. The patient had 2 x-rays yesterday, both read by Dr. Lázaro Avila. The patient's echo from 05/12/2018 is reviewed, which shows the patient's ejection fraction of 22%. Stacy Townsend's progress note from this morning is reviewed. Note that the patient had cardiac catheterization in 10/2017, significant disease in the LAD and circumflex, not suitable for PTCA due to a tortuous anatomy. Recommended open heart surgery, but the patient declined. ASSESSMENT AND PLAN: A 72-year-old female with coronary artery disease; had cardiac catheterization with stent placement; hypertension; diabetes mellitus; history of congestive heart failure; end-stage renal disease, on hemodialysis and cataract and cardiac stents. Admitted with shortness of breath and tachypnea and leukopenia, infiltrates and thrombocytopenia with #1 is severe sepsis secondary to bilateral healthcare-associated pneumonia with acute systolic congestive heart failure on top of chronic congestive heart failure. We will treat the patient with Maxipime and doxycycline. Pending sputum cultures. The blood cultures are reported to be negative at this point. I would give a short course of antibiotics. We will follow closely with you. Pending panculture results. The patient is with renal failure, on hemodialysis. We will also order a procalcitonin, although the patient is in renal failure, may be contributory. If the procalcitonin is negative, we will speak against bacterial pneumonia. We will follow with you and make further recommendations. Rafi Daniel MD
--- NOTE | 2018-06-08 17:09 | CT ---
Date of service: 06/08/2018 PROCEDURE: CT Chest without contrast HISTORY: Pneumonia. COMPARISON: Comparison made with prior CT scan brain 01/27/2018. TECHNIQUE: Contiguous axial images were obtained through the chest without intravenous contrast enhancement. Sagittal and coronal reconstructions were performed. Radiation dose (DLP): 312.12 mGy-cm. This CT exam was performed using one or more of the following dose reduction techniques: Automated exposure control, adjustment of the mA and/or kV according to patient size, and/or use of iterative reconstruction technique. . FINDINGS: LUNGS: Moderate bilateral effusions right greater than left. Mild bibasilar atelectasis. . There are hazy ground-glass opacity seen throughout the upper and lower lobes with septal thickening likely representing mild pulmonary vascular congestion/ edema. Small approximately 5.75 mm nodule right middle lobe. Follow-up CT scan at six month interval recommended to assess stability. MEDIASTINUM: Heart appears enlarged. No significant pericardial effusion. Ascending thoracic aorta measures approximately 2.2 cm and descending thoracic aorta measures approximately 0.5 cm. Pulmonary trunk measures approximately 2.56 cm. Central airways midline and patent. No large central endoluminal lesions. Few small nonspecific mediastinal lymph nodes. Evaluation for hilar adenopathy limited due to lack circulating intravenous contrast material. The the PLEURA: Moderate size bilateral effusions right larger than left. BONES: Multilevel chronic appearing fish-mouth endplate deformities are present. Mild multilevel degenerative spondylosis of the thoracic spine UPPER ABDOMEN: Grossly unremarkable. OTHER FINDINGS: None. IMPRESSION: Findings consistent with pulmonary vascular congestion with moderate-sized bilateral effusions right larger than left and bibasilar atelectasis. Small approximately 5.75 mm nodule right middle lobe. Follow-up CT scan at six month interval recommended to assess stability. Cardiomegaly.
--- NOTE | 2018-06-09 07:03 | CP.PCM.PN ---
Subjective - Date & Time of Evaluation Date of Evaluation: 06/09/18 Time of Evaluation: 06:20 - Subjective Subjective: No distress, denies shortness of breath, awake, alert, Reason for consultation and follow up: Cardiac evaluation of shortness of breath , decompensated congestive heart failure, history of coronary artery disease with multiple stents, ESRD on hemodialysis. Seen and examined by me and Dr. Davila Objective - Vital Signs/Intake and Output Vital Signs (last 24 hours): Temp Pulse Resp BP Pulse Ox 98.5 F 79 20 184/67 H 95 06/08/18 16:36 06/08/18 16:36 06/08/18 16:36 06/08/18 16:36 06/08/18 16:36 - Medications Medications: Current Medications Aspirin (Ecotrin) 81 mg PO DAILY ON LICENSE OF [facility] Last Admin: 06/08/18 09:22 Dose: 81 mg Atorvastatin Calcium (Lipitor) 10 mg PO HS ON LICENSE OF [facility] Last Admin: 06/08/18 21:48 Dose: 10 mg Carvedilol (Coreg) 3.125 mg PO BID ON [facility] OF [facility] Last Admin: 06/08/18 17:40 Dose: 3.125 mg Clopidogrel Bisulfate (Plavix) 75 mg PO DAILY ON [facility] OF [facility] Last Admin: 06/08/18 09:23 Dose: 75 mg Digoxin (Digoxin) 0.125 mg PO MWF ON [facility] OF [facility] Doxycycline Hyclate (Doryx) 100 mg PO Q12 ON LICENSE OF [facility] PRN Reason: Protocol Stop: 06/15/18 10:01 Last Admin: 06/08/18 21:48 Dose: 100 mg Famotidine (Pepcid) 20 mg PO DAILY ON [facility] OF [facility] Last Admin: 06/08/18 09:22 Dose: 20 mg Cefepime HCl (Maxipime 1gm) 1 gm in 100 mls @ 100 mls/hr IVPB Q24H ON LICENSE OF [facility] PRN Reason: Protocol Stop: 06/15/18 09:16 Last Admin: 06/08/18 09:28 Dose: 100 mls/hr Insulin Detemir (Levemir) 5 unit SC Q12H ON LICENSE OF [facility] Last Admin: 06/08/18 21:47 Dose: 5 units Insulin Human Regular (Humulin R Med) 0 units SC ACHS [facility] PRN Reason: Protocol Last Admin: 06/08/18 22:09 Dose: Not Given Insulin Lispro Protam/Lispro Human (Humalog Mix 75/25) 5 units SC ACTID PRN PRN Reason: Serum glucose Lisinopril (Zestril) 2.5 mg PO DAILY ON [facility] Last Admin: 06/08/18 09:23 Dose: 2.5 mg Sevelamer HCl (Renagel) 800 mg PO AC ON LICENSE OF [facility] Last Admin: 06/08/18 17:22 Dose: 800 mg - Labs Labs: 06/08/18 06:00 06/08/18 06:00 PT 11.9 SECONDS (9.4-12.5) 06/07/18 04:50 INR 1.04 06/07/18 04:50 APTT 26.2 Seconds (25.1-36.5) 06/07/18 04:50 - Constitutional Appears: No Acute Distress - Eye Exam Eye Exam: Normal appearance - ENT Exam ENT Exam: Mucous Membranes Moist - Respiratory Exam Respiratory Exam: Decreased Breath Sounds, NORMAL BREATHING PATTERN - Cardiovascular Exam Cardiovascular Exam: +S1, +S2 - GI/Abdominal Exam GI & Abdominal Exam: Soft, Normal Bowel Sounds - Exam Additional comments: ESRD on hemodialysis 3x a week - Extremities Exam Additional comments: left AV shunt/ positive bruit and thrill - Neurological Exam Neurological Exam: Alert, Awake, Oriented x3 - Psychiatric Exam Psychiatric exam: Normal Affect - Skin Skin Exam: Dry, Warm Assessment and Plan - Assessment and Plan (Free Text) Assessment: A 72 year old female who was brought into the emergency department by EMS due to shortness of breath for the past couple of days.History of coronary artery disease with multiple stents, last cardiac cath 10/2017- significant disease in LAD and Circumflex which are not suitable for PTCA due to tortuous anatomy, recommended open heart surgery but patient declined/ refused. History of hypertension, diabetes, ESRD on hemodialysis 3x a week ([facility]TH[facility] ) and CHF.Admitted for shortness of breath, acute on chronic decompensated systolic congestive heart failure. Plan: Clinically improved, Denies shortness of breath Feels okay On hemodialysis [facility] On ASA 81 mg daily,Lipitor 10 mg daily,Coreg 3.125mg BID, Plavix 75 mg daily,Digoxin 0.125 mg once a day MWF, Lisinopril 2.5 mg daily Controlled heart rate and blood pressure ID on consult CT of chest showed moderate bilateral pleural effusion Pulmonary on consult Continue current treatment Continue current medications Will follow up Plan and treatment discussed with Dr. Davila
[2018-06-09] MEDS: Insulin Reg-MEDIUM-Coverage SC SCH ×4 (07:48→21:47)
[2018-06-09] MEDS: Insulin Detemir 100 units/ml Vial (Levemir) SC SCH ×2 (09:32→21:58)
[2018-06-09] MEDS: Cefepime 1gm in NS 100ml 1 GM/100 ML BAG IVPB SCH (09:32)
[2018-06-09 09:47] VITALS: PULSE 66
[2018-06-09] MEDS ORDERED: Digoxin 125 mcg (0.125 mg) Tab PO SCH (10:00)
--- NOTE | 2018-06-09 19:37 | CP.PCM.PN ---
Subjective - Date & Time of Evaluation Date of Evaluation: 06/09/18 Time of Evaluation: 11:00 - Subjective Subjective: No fevers, not in distress, breathing a little bit better, no nausea, no diarrhea. Objective - Vital Signs/Intake and Output Vital Signs (last 24 hours): Temp Pulse Resp BP Pulse Ox 98.3 F 65 20 136/55 L 100 06/09/18 08:13 06/09/18 09:34 06/09/18 08:13 06/09/18 09:34 06/09/18 08:13 Intake and Output: 06/09/18 06/09/18 06:59 18:59 Intake Total 180 Balance 180 - Medications Medications: Current Medications Aspirin (Ecotrin) 81 mg PO DAILY [facility] Last Admin: 06/09/18 09:32 Dose: 81 mg Atorvastatin Calcium (Lipitor) 10 mg PO HS [facility] Last Admin: 06/08/18 21:48 Dose: 10 mg Carvedilol (Coreg) 3.125 mg PO BID [facility] Last Admin: 06/09/18 09:30 Dose: 3.125 mg Clopidogrel Bisulfate (Plavix) 75 mg PO DAILY [facility] Last Admin: 06/09/18 09:33 Dose: 75 mg Digoxin (Digoxin) 0.125 mg PO MWF [facility] Last Admin: 06/09/18 09:30 Dose: 0.125 mg Doxycycline Hyclate (Doryx) 100 mg PO Q12 [facility] PRN Reason: Protocol Stop: 06/15/18 10:01 Last Admin: 06/09/18 09:31 Dose: 100 mg Famotidine (Pepcid) 20 mg PO DAILY [facility] Last Admin: 06/09/18 09:33 Dose: 20 mg Cefepime HCl (Maxipime 1gm) 1 gm in 100 mls @ 100 mls/hr IVPB Q24H [facility] PRN Reason: Protocol Stop: 06/15/18 09:16 Last Admin: 06/09/18 09:32 Dose: 100 mls/hr Insulin Detemir (Levemir) 5 unit SC Q12H [facility] Last Admin: 06/09/18 09:32 Dose: 5 units Insulin Human Regular (Humulin R Med) 0 units SC ACHS [facility] PRN Reason: Protocol Last Admin: 06/09/18 11:38 Dose: 3 units Insulin Lispro Protam/Lispro Human (Humalog Mix 75/25) 5 units SC ACTID PRN PRN Reason: Serum glucose Lisinopril (Zestril) 2.5 mg PO DAILY [facility] Last Admin: 06/09/18 09:34 Dose: 2.5 mg Sevelamer HCl (Renagel) 800 mg PO AC [facility] Last Admin: 06/09/18 11:38 Dose: 800 mg - Labs Labs: 06/08/18 06:00 06/08/18 06:00 PT 11.9 SECONDS (9.4-12.5) 06/07/18 04:50 INR 1.04 06/07/18 04:50 APTT 26.2 Seconds (25.1-36.5) 06/07/18 04:50 - Constitutional Appears: Chronically Ill - Head Exam Head Exam: NORMAL INSPECTION - ENT Exam ENT Exam: Mucous Membranes Moist - Neck Exam Neck Exam: absent: Meningismus - Respiratory Exam Respiratory Exam: Decreased Breath Sounds - Cardiovascular Exam Cardiovascular Exam: +S1, +S2 - GI/Abdominal Exam GI & Abdominal Exam: Soft. absent: Tenderness Assessment and Plan - Assessment and Plan (Free Text) Plan: Assessment severe sepsis due to bilateral HCAP on top of acute on chronic CHF S/P severe sepsis due to acute hypoxic respiratory failure S/P ventilator- dependent respiratory failure due to healthcare-associated pneumonia with possible gram negative bacilli on top of acute pulmonary edema HTN CAD S/P PCI ESRD on HD DM PAD S/P Plan has been on Cefepime and Doxycycline - PCT is 0.83, CT chest is more compatible with effusion and congestion, cultures have been negative - will d/c Cefepime and continue Doxycycline for 4-7 days
--- NOTE | 2018-06-09 21:01 | PN ---
Copied To: Deep Yu MD Attending MD: Deep Yu MD DATE: 06/09/2018 SUBJECTIVE: The patient has no complaints of any chest pain. No shortness of breath. No headaches or dizziness. PHYSICAL EXAMINATION VITAL SIGNS: Temperature is 98, pulse of 65, blood pressure 167/65, respirations 20. GENERAL: The patient is lying in bed, flat, comfortable. HEENT: No oral lesion. Anicteric sclerae. Moist mucosa. NECK: No JVD, adenopathy, or thyromegaly. CARDIOVASCULAR: S1 and S2, regular. No murmurs, rubs, or gallops. LUNGS: Clear to auscultation bilaterally. No wheeze, rales, or rhonchi. ABDOMEN: Bowel sounds are positive, soft, nontender and nondistended. EXTREMITIES: No cyanosis, clubbing or edema. LABORATORY DATA: White count of 3.9, hemoglobin 8.5, creatinine is 4.7. ASSESSMENT: 1. Acute congestive heart failure secondary to systolic dysfunction. 2. Bilateral pleural effusion. 3. End-stage renal disease, on hemodialysis. 4. Diabetes type 2. 5. Peripheral arterial disease. 6. Coronary artery disease. 7. Pulmonary edema. 8. A 5.7 mm nodule in the right middle lobe. PLAN: The patient had a CT scan that showed moderate sized bilateral pleural effusion, right greater than left. There is also a 5.7 mm nodule in the right middle lobe. The patient is getting IV antibiotics. She is feeling better. Hemoglobin is 8.5. She had blood cultures that were negative. The patient is on Coreg, this will be continued and aspirin daily. She is on antibiotic on doxycycline. She is on Lipitor for dyslipidemia. She is on Renagel. May need to increase the patient's fluid removal on dialysis. Deep Yu MD
--- NOTE | 2018-06-10 02:23 | CON ---
Copied To: Jairo Smith MD Attending MD: Jairo Smith MD DATE: 06/09/2018 REFERRING PHYSICIAN: Deep Yu MD REASON FOR CONSULTATION: Pulmonary vascular congestion, pleural effusion, lung nodule. HISTORY OF PRESENT ILLNESS: This is a 72-year-old Sami-speaking female with coronary artery disease, hypertension, diabetes, end-stage renal disease, dialysis dependent, heart failure, came in with some epigastric pain, fever. No hemoptysis, no emesis, no hematuria, no diarrhea reported. PAST MEDICAL HISTORY: As per history of present illness. Also, have hyperlipidemia, history of carotid stenosis. ALLERGIES: NONE KNOWN. SOCIAL HISTORY: Nonsmoker, nondrinker. FAMILY HISTORY: No significant cardiopulmonary disease reported. MEDICATIONS: She is on Coreg 3.125 mg twice a day, digoxin 0.125 mg Saturday, Saturday, Saturday; doxycycline 100 mg twice a day; aspirin 81 mg daily. Insulin coverage, Levemir 5 units subcu every 12 hours, atorvastatin 10 mg at bedtime, Pepcid 20 mg daily, Plavix 75 mg daily, Renagel 800 mg p.o. before meal, Zestril 2.5 mg daily. REVIEW OF SYSTEMS: No headache, no rhinitis. Does not know if snore, daytime sleepy and tired, short of breath with exertion. No sputum production. No abdominal pain. No leg pain or leg swelling. PHYSICAL EXAMINATION: GENERAL: No acute distress. VITAL SIGNS: Temperature is 98, heart rate 65, respiratory 20, blood pressure 167/65, pulse ox 100% on nasal cannula. HEENT: Small oral cavity. Crowded airway. NECK: Supple. No JVD. LUNGS: Has few crackles at bases. HEART: S1 and S2. ABDOMEN: Soft, nontender, no organomegaly. EXTREMITIES: No edema. NEUROLOGIC: Awake, alert, follows simple commands. LABORATORY DATA: Shows hemoglobin 8.5, hematocrit 25.6, WBC 3.9, platelet count is 92. INR 1.04. PTT 26. VBG show pH 7.52, pCO2 is 42, O2 is 40, that is on room air. Blood sugar 182, procalcitonin on admission was 0.83. TSH 1.03. Sodium 140, potassium 4.1, chloride 97, bicarbonate 32, BUN 30, creatinine 4.7, glucose 123, hemoglobin A1c 5.1, calcium 9.4, phosphorus 5.1, magnesium 2.3, AST 21, ALT 28, alk phos is 58. Albumin is 3.3, procalcitonin 0.83. Microbiology, blood culture, there is no growth. CAT scan of the chest done yesterday shows congestion and bilateral pleural effusion, also have a right middle lobe 5.7 mm lung nodule. IMPRESSION AND PLAN: Cardiomyopathy with heart failure, renal failure, dialysis dependent; bilateral pleural effusion and pulmonary congestion; diabetes; coronary artery disease; has a lung nodule. Pulmonary point of view, doing okay. Continue cardiac care. Keep head at 45 degrees. Sleep apnea precaution. Need followup chest x-ray until clearance of effusion and also need followup CT of the chest. She is at low risk for cancer though. Thank you and we will follow with you. Jairo Smith MD
[2018-06-10 06:40] LABS: HEMOGLOBIN 8.5 g/dL (12.0-16.0); MEAN CELL VOLUME 93.5 fl (80.0-105.0); MEAN CORPUSCULAR HEMOGLOBIN 32.4 pg (25.0-35.0); MEAN CORPUSCULAR HGB CONC 34.7 g/dl (31.0-37.0); MEAN PLATELET VOLUME 11.7 fl (7.0-11.0); RBC 2.62 10^6/uL (3.5-6.1); RED CELL DISTRIBUTION WIDTH 13.7 % (11.5-14.5); WHITE BLOOD COUNT 4.4 10^3/ul (4.5-11.0)
[2018-06-10 07:02] LABS: ALB/GLOB RATIO 1.1 (1.1-1.8); ALBUMIN 3.5 g/dL (3.0-4.8); CALCIUM 9.6 mg/dL (8.4-10.5)
--- NOTE | 2018-06-10 07:08 | CP.PCM.PN ---
Subjective - Date & Time of Evaluation Date of Evaluation: 06/10/18 Time of Evaluation: 06:40 - Subjective Subjective: No distress, denies shortness of breath, awake, alert, Reason for consultation and follow up: Cardiac evaluation of shortness of breath , decompensated congestive heart failure, history of coronary artery disease with multiple stents, ESRD on hemodialysis. Seen and examined by me and Dr. Davila Objective - Vital Signs/Intake and Output Vital Signs (last 24 hours): Temp Pulse Resp BP Pulse Ox 98 F 65 20 167/65 H 100 06/09/18 16:30 06/09/18 17:37 06/09/18 16:30 06/09/18 17:37 06/09/18 16:30 - Medications Medications: Current Medications Aspirin (Ecotrin) 81 mg PO DAILY [facility] Last Admin: 06/09/18 09:32 Dose: 81 mg Atorvastatin Calcium (Lipitor) 10 mg PO HS [facility] Last Admin: 06/09/18 21:59 Dose: 10 mg Carvedilol (Coreg) 3.125 mg PO BID [facility] Last Admin: 06/09/18 17:37 Dose: 3.125 mg Clopidogrel Bisulfate (Plavix) 75 mg PO DAILY [facility] Last Admin: 06/09/18 09:33 Dose: 75 mg Digoxin (Digoxin) 0.125 mg PO MWF [facility] Last Admin: 06/09/18 09:30 Dose: 0.125 mg Doxycycline Hyclate (Doryx) 100 mg PO Q12 [facility] PRN Reason: Protocol Stop: 06/15/18 10:01 Last Admin: 06/09/18 21:58 Dose: 100 mg Famotidine (Pepcid) 20 mg PO DAILY [facility] Last Admin: 06/09/18 09:33 Dose: 20 mg Insulin Detemir (Levemir) 5 unit SC Q12H [facility] Last Admin: 06/09/18 21:58 Dose: 5 units Insulin Human Regular (Humulin R Med) 0 units SC ACHS [facility] PRN Reason: Protocol Last Admin: 06/09/18 21:47 Dose: Not Given Insulin Lispro Protam/Lispro Human (Humalog Mix 75/25) 5 units SC ACTID PRN PRN Reason: Serum glucose Lisinopril (Zestril) 2.5 mg PO DAILY [facility] Last Admin: 06/09/18 09:34 Dose: 2.5 mg Sevelamer HCl (Renagel) 800 mg PO AC [facility] Last Admin: 06/09/18 17:38 Dose: 800 mg - Labs Labs: 06/10/18 06:00 06/10/18 06:00 PT 11.9 SECONDS (9.4-12.5) 06/07/18 04:50 INR 1.04 06/07/18 04:50 APTT 26.2 Seconds (25.1-36.5) 06/07/18 04:50 - Constitutional Appears: No Acute Distress - Eye Exam Eye Exam: Normal appearance - ENT Exam ENT Exam: Mucous Membranes Moist - Respiratory Exam Respiratory Exam: Decreased Breath Sounds, Clear to Ausculation Bilateral, NORMAL BREATHING PATTERN - Cardiovascular Exam Cardiovascular Exam: +S1, +S2 - Exam Additional comments: hemodialysis 3x a week - Extremities Exam Extremities Exam: Normal Capillary Refill Additional comments: left AV shunt + bruit/thrill - Neurological Exam Neurological Exam: Alert, Awake, Oriented x3 - Psychiatric Exam Psychiatric exam: Normal Affect - Skin Skin Exam: Dry, Warm Assessment and Plan - Assessment and Plan (Free Text) Assessment: A 72 year old female who was brought into the emergency department by EMS due to shortness of breath for the past couple of days.History of coronary artery disease with multiple stents, last cardiac cath 10/2017- significant disease in LAD and Circumflex which are not suitable for PTCA due to tortuous anatomy, recommended open heart surgery but patient declined/ refused. History of hypertension, diabetes, ESRD on hemodialysis 3x a week ([facility] ) and CHF.Admitted for shortness of breath, acute on chronic decompensated systolic congestive heart failure. Plan: Denies shortness of breath, feels good For hemodialysis today On ASA 81 mg daily,Lipitor 10 mg daily,Coreg 3.125mg BID, Plavix 75 mg daily,Digoxin 0.125 mg once a day MWF, Lisinopril 2.5 mg daily Controlled heart rate and blood pressure ID on consult, continue antibiotics Pulmonary on consult Continue current treatment Continue current medications Will follow up Plan and treatment discussed with Dr. Davila
[2018-06-10 08:06] VITALS: RESP 19
--- NOTE | 2018-06-10 08:15 | PN ---
Copied To: Deep Yu MD Attending MD: Deep Yu MD DATE: 06/10/2018 SUBJECTIVE: The patient has no complaint of any chest pain, any shortness of breath. No headaches or dizziness. OBJECTIVE: VITAL SIGNS: Temperature is 98, pulse of 65, blood pressure 165/75, respirations 20, O2 saturation 100%. GENERAL: The patient is lying in bed, flat, comfortable. HEENT: No oral lesion. Anicteric sclerae. Moist mucosa. NECK: No JVD, adenopathy, or thyromegaly. CARDIOVASCULAR: S1 and S2, regular. No murmurs, rubs, or gallops. LUNGS: Clear to auscultation bilaterally. No wheeze, rales, or rhonchi. ABDOMEN: Bowel sounds are positive. Soft, nontender and nondistended. EXTREMITIES: No cyanosis, clubbing or edema. ASSESSMENT: 1. Acute congestive heart failure secondary to systolic dysfunction. 2. Bilateral pleural effusion. 3. End-stage renal disease, on hemodialysis. 4. Diabetes type 2. 5. Peripheral arterial disease. 6. Coronary artery disease. 7. Pulmonary edema. 8. A 5.7 mm nodule in the right middle lobe. PLAN: The patient is currently comfortable. She is on Coreg. She is on antibiotics with doxycycline. She has blood cultures that have been negative. The patient is receiving insulin for her diabetes. She is on Plavix for coronary artery disease. She is going to continue with Renagel. She is on lisinopril. We will try to increase the fluid removal. She has bilateral pleural effusions on CAT scan. Dr. Smith from Pulmonary is following the patient. Deep Yu MD
[2018-06-10] MEDS: Insulin Reg-MEDIUM-Coverage SC SCH ×3 (08:23→17:30)
[2018-06-10] MEDS: Insulin Detemir 100 units/ml Vial (Levemir) SC SCH (09:48)
--- NOTE | 2018-06-10 15:17 | CP.PCM.PN ---
Subjective - Date & Time of Evaluation Date of Evaluation: 06/10/18 Time of Evaluation: 11:50 - Subjective Subjective: Comfortable, no fevers. Objective - Vital Signs/Intake and Output Vital Signs (last 24 hours): Temp Pulse Resp BP Pulse Ox 98 F 62 19 168/60 H 100 06/10/18 08:06 06/10/18 08:06 06/10/18 08:06 06/10/18 08:06 06/10/18 08:06 - Medications Medications: Current Medications Aspirin (Ecotrin) 81 mg PO DAILY REPLACED BY [facility] Last Admin: 06/09/18 09:32 Dose: 81 mg Atorvastatin Calcium (Lipitor) 10 mg PO HS REPLACED BY [facility] Last Admin: 06/09/18 21:59 Dose: 10 mg Carvedilol (Coreg) 3.125 mg PO BID REPLACED BY [facility] Last Admin: 06/09/18 17:37 Dose: 3.125 mg Clopidogrel Bisulfate (Plavix) 75 mg PO DAILY REPLACED BY [facility] Last Admin: 06/09/18 09:33 Dose: 75 mg Digoxin (Digoxin) 0.125 mg PO MWF REPLACED BY [facility] Last Admin: 06/09/18 09:30 Dose: 0.125 mg Doxycycline Hyclate (Doryx) 100 mg PO Q12 REPLACED BY [facility] PRN Reason: Protocol Stop: 06/15/18 10:01 Last Admin: 06/09/18 21:58 Dose: 100 mg Famotidine (Pepcid) 20 mg PO DAILY REPLACED BY [facility] Last Admin: 06/09/18 09:33 Dose: 20 mg Insulin Detemir (Levemir) 5 unit SC Q12H REPLACED BY [facility] Last Admin: 06/09/18 21:58 Dose: 5 units Insulin Human Regular (Humulin R Med) 0 units SC ACHS REPLACED BY [facility] PRN Reason: Protocol Last Admin: 06/10/18 08:23 Dose: Not Given Insulin Lispro Protam/Lispro Human (Humalog Mix 75/25) 5 units SC ACTID PRN PRN Reason: Serum glucose Lisinopril (Zestril) 2.5 mg PO DAILY REPLACED BY [facility] Last Admin: 06/09/18 09:34 Dose: 2.5 mg Sevelamer HCl (Renagel) 800 mg PO AC REPLACED BY [facility] Last Admin: 06/10/18 08:23 Dose: 800 mg - Labs Labs: 06/10/18 06:00 06/10/18 06:00 PT 11.9 SECONDS (9.4-12.5) 06/07/18 04:50 INR 1.04 06/07/18 04:50 APTT 26.2 Seconds (25.1-36.5) 06/07/18 04:50 - Constitutional Appears: Non-toxic, Chronically Ill - Head Exam Head Exam: NORMAL INSPECTION - Respiratory Exam Respiratory Exam: Decreased Breath Sounds - Cardiovascular Exam Cardiovascular Exam: +S1, +S2 - GI/Abdominal Exam GI & Abdominal Exam: Soft. absent: Tenderness Assessment and Plan - Assessment and Plan (Free Text) Plan: Assessment severe sepsis due to bilateral HCAP on top of acute on chronic CHF S/P severe sepsis due to acute hypoxic respiratory failure S/P ventilator- dependent respiratory failure due to healthcare-associated pneumonia with possible gram negative bacilli on top of acute pulmonary edema HTN CAD S/P PCI ESRD on HD DM PAD S/P Plan PCT is 0.83 but patient with renal failure, CT chest is more compatible with effusion and congestion, cultures have been negative - will continue Doxycycline for 3-6 more days
[2018-06-10 19:10] VITALS: BP 160/53
[2018-06-10 19:11] VITALS: PULSE 65; TEMP 98.2; O2SAT 97
--- NOTE | 2018-06-11 02:12 | PN ---
Copied To: Jairo Smith MD Attending MD: Jairo Smith MD DATE: 06/10/2018 PULMONARY PROGRESS NOTE REFERRING PHYSICIAN: Deep Yu MD SUBJECTIVE: The patient is examined and seen in dialysis bed, feels better. No headache, no rhinitis. No nausea. No vomiting, diarrhea, leg pain or leg swelling. OBJECTIVE: GENERAL: In no acute distress. VITAL SIGNS: Temperature is 98, heart rate 65, respiratory rate is 18, blood pressure 160/53, pulse of 97% room air. HEENT: Moist mucous membranes. No ulcer or thrush. NECK: Supple. No JVD. LUNGS: Have a few crackles. HEART: S1 and S2. ABDOMEN: Soft, nontender. No organomegaly. EXTREMITIES: No edema. NEUROLOGIC: Awake and alert. Follows simple command. MEDICATIONS: She is on Coreg 3.125 mg twice a day; digoxin 0.125 mg , Saturday, Saturday and Saturday; doxycycline 100 mg twice a day, Ecotrin 81 mg daily, insulin coverage, Levemir 5 units subcu every 12 hour, Lipitor 10 mg at bedtime, Pepcid 20 mg daily, Plavix 75 mg daily, Tylenol p.r.n., Zestril 2.5 mg daily. LABORATORY DATA: Shows hemoglobin 8.5, hematocrit 24.5, WBC 4.4, platelet is 92. Sodium 137, potassium 4.9, chloride 97, bicarbonate 24, BUN 69, creatinine 8.0, glucose 108, calcium 9.6, AST 19, ALT 23, alk phos is 54. ProBNP 34,200. Albumin is 3.5. Microbiology, blood culture has been negative. IMPRESSION AND PLAN: Cardiomyopathy with heart failure, renal failure, dialysis dependent, bilateral pleural effusion, pulmonary congestion, coronary artery disease, has a lung nodule. Pulmonary point of view, doing okay. Responded well to dialysis, feels better. We will recommend followup x-ray to assure the stability of lung nodule. She has a low risk, may do CAT scan in 6-month, gastric prophylaxis. Fall precaution. The patient will be followed by Dr. Yu as outpatient. Jairo Smith MD
== END 2018-06-10 20:16 | disposition home or self-care (01) | DRG 291 ==
LOC: ED 04:31 → ERH 05:48 → 2RNO 07:54 → 3RNO 06-08 11:09
PROVIDERS: ADMIT Internal Medicine Nephrology; ATTEND Internal Medicine Nephrology
PROC: 5A1D70Z Performance of Urinary Filtration, Intermittent, Less than 6 Hours Per Day (ICD-10-PCS; principal; 2018-06-07)
PROC: 5A1D70Z Performance of Urinary Filtration, Intermittent, Less than 6 Hours Per Day (ICD-10-PCS; 2018-06-10)
DX: I13.2 Hypertensive heart and chronic kidney disease with heart failure and with stage 5 chronic kidney disease, or end stage renal disease (principal); I50.23 Acute on chronic systolic (congestive) heart failure; N18.6 End stage renal disease; J96.01 Acute respiratory failure with hypoxia; A41.9 Sepsis, unspecified organism; J18.9 Pneumonia, unspecified organism; R65.20 Severe sepsis without septic shock; N25.81 Secondary hyperparathyroidism of renal origin; E11.22 Type 2 diabetes mellitus with diabetic chronic kidney disease; E11.51 Type 2 diabetes mellitus with diabetic peripheral angiopathy without gangrene; I42.9 Cardiomyopathy, unspecified; D69.6 Thrombocytopenia, unspecified; I25.10 Atherosclerotic heart disease of native coronary artery without angina pectoris; E78.00 Pure hypercholesterolemia, unspecified; R91.1 Solitary pulmonary nodule; E78.5 Hyperlipidemia, unspecified; Y95 Nosocomial condition; Z99.2 Dependence on renal dialysis; Z95.5 Presence of coronary angioplasty implant and graft

== ENCOUNTER 2018-09-04 08:52 | Observation (INO) | payer MEDICARE, OTHER ==
[2018-09-04 09:25] VITALS: BMI 24.0
--- NOTE | 2018-09-04 09:33 | ED PDOC ---
Arrival/HPI - General Chief Complaint: Chest Pain Time Seen by Provider: 09/04/18 09:23 Historian: Patient, Family - History of Present Illness Narrative History of Present Illness (Text): 09/04/18 09:33 72 year old female, whose past medical history includes CAD s/p multiple stents, hypertension, diabetes, ESRD on hemodialysis(M/W/F), and CHF presents to the emergency department complaining of abdominal pain that radiates upward to the chest associated with shortness of breath that began 30 minutes before the end of her dialysis session. Patient describes the pain as a burning sensation. As per daughter, patient had a procedure done to expand her fistula a few days ago. Patient also complains of dizziness, but denies any fever, chills, nausea, vomiting, diarrhea, urinary symptoms, back pain, neck pain, headache, or any other complaints. PMD: Dr. Yu Past Medical History - Provider Review Nursing Documentation Reviewed: Yes - Infectious Disease Hx of Infectious Diseases: None - Tetanus Immunization Tetanus Immunization: Unknown - Cardiac Hx Congestive Heart Failure: Yes Hx Hypertension: Yes - Pulmonary Hx Respiratory Disorders: No - Neurological Hx Neurological Disorder: Yes Hx Dizziness: Yes - HEENT Hx HEENT Disorder: Yes (blurry vision) Hx Cataracts: Yes (left eye needs sx) - Renal Date of Last Dialysis Treatment: 06/07/18 - Endocrine/Metabolic Hx Diabetes Mellitus Type 2: Yes - Hematological/Oncological Hx Blood Disorders: Yes Hx Anemia: Yes (w/ Blood transfusions) - Integumentary Hx Dermatological Disorder: No Other/Comment: SHUNT LEFT ARM - Musculoskeletal/Rheumatological Hx Falls: No - Gastrointestinal Hx Gastrointestinal Disorders: No - Genitourinary/Gynecological Hx Genitourinary Disorders: Yes (OLIGURIA) - Psychiatric Hx Psychophysiologic Disorder: No Hx Emotional Abuse: No Hx Physical Abuse: No Hx Substance Use: No - Surgical History Hx Cardiac Catheterization: Yes (several) Hx Coronary Stent: Yes Hx Orthopedic Surgery: Yes (left ankle surgery with screws) Other/Comment: c section x1, 02/22/16 malfunctioning av fistula revision, 03/06/16 replacement of hd cath, carotid angiogram 11/2015 - Anesthesia Hx Anesthesia Reactions: No Hx Malignant Hyperthermia: No - Suicidal Assessment Feels Threatened In Home Enviroment: No Family/Social History - Physician Review Nursing Documentation Reviewed: Yes Family/Social History: No Known Family HX Smoking Status: Never Smoked Hx Alcohol Use: No Hx Substance Use: No Hx Substance Use Treatment: No Allergies/Home Meds Allergies/Adverse Reactions: Allergies No Known Allergies Allergy (Verified 09/04/18 09:00) Home Medications: Home Meds Medication Instructions Recorded Confirmed RX: Insulin Aspart/Insulin Aspar 5 units SC ACTID PRN 10/21/15 06/07/18 [Novolog Mix 70/30 (70/30 units/ml)] Review of Systems - Physician Review All systems were reviewed & negative as marked: Yes - Review of Systems Constitutional: absent: Fevers Respiratory: SOB Cardiovascular: Chest Pain Physical Exam - Physical Exam Narrative Physical Exam (Text): Constitutional: No acute distress. Head: Normocephalic. Atraumatic. Eyes: PERRL. ENT: Moist mucous membranes. Neck: Supple. Cardiovascular: Regular rate. Chest: No tenderness. Respiratory: Mild bibasilar crackles. GI: Epigastric tenderness. No rebound. No guarding. Nondistended. No hernia. Back: No CVA tenderness. Musculoskeletal: Left arm palpable thrill. No leg edema. No tenderness or swelling of extremities. Skin: No rash. Neurologic: Alert, no focal deficit. Vital Signs Reviewed: Yes Vital Signs Temp Pulse Pulse Resp BP Pulse Ox 09/04/18 09:09 97.9 F 65 20 93/46 L 95 09/04/18 09:02 80 Medical Decision Making ED Course and Treatment: 09/04/18 09:33 Impression: 72 year old female presents complaining of epigastric abdominal pain that radiates up to the chest associated with shortness of breath and dizziness that began 30 minutes prior to the end of her dialysis session. Plan: -- CT Abd & Pelvis w/o Contrasts -- Labs -- Chest X-ray -- EKG -- Reassess and disposition Prior Visits: Notes and results from previous visits were reviewed. Progress Notes: 09/04/18 09:35 EKG shows Sinus Rhythm at [address] elevation. Normal axis. Interpreted by me. PROCEDURE: Chest X-ray Dictator : Jaun Serna MD Report Date : 09/04/2018 10:44:15 IMPRESSION: No active disease. PROCEDURE: CT Abdomen and Pelvis without intravenous contrast Dictator : Reji Henry MD Report Date : 09/04/2018 10:43:32 IMPRESSION: No definitive acute abdominal or pelvic findings. Bilateral atrophy reiterated. Small hiatal hernia is stable. 09/04/18 12:[address] Yu who is aware and agrees with the plan. Accepts patient onto his service. - Lab Interpretations I have reviewed the lab results: Yes - EKG Interpretation Interpreted by ED Physician: Yes Type: 12 lead EKG - Scribe Statement The provider has reviewed the documentation as recorded by the Troyibe Bell Allen Provider Scribe Attestation: All medical record entries made by the Troyibe were at my direction and personally dictated by me. I have reviewed the chart and agree that the record accurately reflects my personal performance of the history, physical exam, medical decision making, and the department course for this patient. I have also personally directed, reviewed, and agree with the discharge instructions and disposition. Disposition/Present on Arrival - Present on Arrival Any Indicators Present on Arrival: No History of DVT/PE: No History of Uncontrolled Diabetes: No Urinary Catheter: No History of Decub. Ulcer: No History Surgical Site Infection Following: None - Disposition Have Diagnosis and Disposition been Completed?: Yes Diagnosis: Chest pain Disposition: HOSPITALIZED Disposition Time: 11:12 Patient Plan: Observation, Telemetry Condition: FAIR
[2018-09-04 10:07] VITALS: O2SAT 100
[2018-09-04 10:08] LABS: BASO # 0.01 K/mm3 (0.0-2.0); BASO % 0.3 % (0.0-3.0); EOS # 0.2 (0.0-0.7); EOS % 4.4 % (1.5-5.0); GRAN # 2.25 (1.4-6.5); GRAN % 65.4 % (50.0-68.0); LYMPH # 0.7 (1.2-3.4); LYMPH % 20.3 % (22.0-35.0); MEAN CORPUSCULAR HEMOGLOBIN 31.6 pg (25.0-35.0); MEAN CORPUSCULAR HGB CONC 33.7 g/dl (31.0-37.0); MEAN PLATELET VOLUME 10.3 fl (7.0-11.0); MONO # 0.3 (0.1-0.6); MONO % 9.6 % (1.0-6.0); RBC 3.16 10^6/uL (3.5-6.1); RED CELL DISTRIBUTION WIDTH 15.5 % (11.5-14.5); WHITE BLOOD COUNT 3.4 10^3/uL (4.5-11.0)
[2018-09-04 10:15] LABS: INR 1.02; PARTIAL THROMBOPLASTIN TIME 22.2 Seconds (25.1-36.5); PROTHROMBIN TIME 11.7 SECONDS (9.4-12.5)
[2018-09-04 10:24] LABS: ALB/GLOB RATIO 1.1 (1.1-1.8); ALBUMIN 3.8 g/dL (3.0-4.8)
[2018-09-04 10:26] LABS: TROPONIN I 0.05 ng/mL
--- NOTE | 2018-09-04 10:47 | CT ---
Date of service: 09/04/2018 PROCEDURE: CT Abdomen and Pelvis without intravenous contrast HISTORY: epigastric tenderness COMPARISON: Abdomen and Pelvis CT 01/27/[address] Chest CT 06/08/2018. TECHNIQUE: Helical CT of the abdomen and pelvis was performed without oral or intravenous contrast as per referring physician request. Coronal and sagittal reformats were generated. Contrast dose: None Radiation dose: Total exam DLP = 323.3 mGy-cm. This CT exam was performed using one or more of the following dose reduction techniques: Automated exposure control, adjustment of the mA and/or kV according to patient size, and/or use of iterative reconstruction technique. FINDINGS: LOWER THORAX: Cardiomegaly is reiterated. No pleural or pericardial effusion evident grossly. Limited fibrotic changes seen are seen in the periphery of the bilateral lower lobes and there is a stable, small hiatal hernia identified. LIVER: Unremarkable. No gross lesion or ductal dilatation. GALLBLADDER AND BILE DUCTS: Unremarkable. PANCREAS: Unremarkable. No gross lesion or ductal dilatation. SPLEEN: Upper limits normal size at 12.8 cm but appearing nonfocal in this unenhanced examination. ADRENALS: Unremarkable. No mass. KIDNEYS AND URETERS: Bilateral renal atrophy is reiterated. No hydronephrosis, urolithiasis or significant perinephric reaction in the interval. VASCULATURE: Nonaneurysmal abdominal aortic calcific atherosclerotic changes are identified. BOWEL: No bowel obstruction appreciable. Moderate retained fecal material scattered throughout large-bowel. Evaluation of the gastrointestinal tract is limited due to the lack of oral contrast administration. The stomach is decompressed. APPENDIX: A short nonfocal appendix is suggested. There is no CT evidence to indicate appendicitis at this time. PERITONEUM: Unremarkable. No free fluid. No free air. LYMPH NODES: Unremarkable. No enlarged lymph nodes. BLADDER: Unremarkable. REPRODUCTIVE: Unremarkable. BONES: Chronic mild compression fractures T8 through T12 are identified as well as L3. OTHER FINDINGS: None. IMPRESSION: No definitive acute abdominal or pelvic findings. Bilateral atrophy reiterated. Small hiatal hernia is stable.
--- NOTE | 2018-09-04 10:48 | RAD ---
Date of service: 09/04/2018 HISTORY: chest pain, dyspnea COMPARISON: 06/07/2018 FINDINGS: LUNGS: No active pulmonary disease. PLEURA: No significant pleural effusion identified, no pneumothorax apparent. CARDIOVASCULAR: Minimal aortic calcification Normal cardiac size. No pulmonary vascular congestion. OSSEOUS STRUCTURES: No significant abnormalities. VISUALIZED UPPER ABDOMEN: Normal. OTHER FINDINGS: None. IMPRESSION: No active disease.
--- NOTE | 2018-09-04 13:45 | CP.PCM.HP ---
<Nils Metzger - Last Filed: 09/04/18 16:04> History of Present Illness - History of Present Illness History of Present Illness: Nils Metzger PGY2 IM H&P Note for Dr. Yu cc: epigastric burning Mr. Dick is a 72 year old [place] female with a PMH of ESRD on HD (TTS), CAD s/p stent in RCA (recommended for open heart surgery due to torturous diseased LAD and circumflex arteries but refused because afraid of surgery), CHFrEF, DM2 (insulin dependent), PAD and HTN who presents to the ED with burning epigastric pain radiating to her chest that began at 8AM this morning and has been constant since then till the time of admission. She states that this bu rning pain was not relieved by anything, and was not affected by her food either, and states that it was associates with dizziness but no nausea/vomiting or diaphoresis or shortness of breath. Of note, the patient was admitted to [facility] ICU in 04/2018 for severe CHF exacerbation and respiratory distress requiring intubation. The patient states that she had a procedure to open up her AVF yesterday at another hospital. She had dialysis this AM and tolerated it well. She does complain of leg weakness and pain in the knees b/l that is chronic. Patient states that her pain has improved and denies any other complaints of fevers/chills, n/v/d, weakness. 12-point ROS was reviewed and is otherwise unremarkable. Prior charts were reviewed. Echo from 04/2018 showed EF 25-30%, normal LV size and thickness. Last cath report from 10/[address] Davila was reviewed showing patent RCA stent, two vessel CAD (LAD and Cx) which are very torturous not suitable for PCI. PMD: Dr. Yu Civil Structural Engineer: Dr. Davila PMH: as above PSH: , PCI, LUE AV fistula Meds: Reviewed, as per MAR Allergies: NKDA SHx: Denies EtOH, drug or tobacco use. Lives with family FHx: DM and HTN Present on Admission - Present on Admission Any Indicators Present on Admission: No Review of Systems - Review of Systems All systems: reviewed and no additional remarkable complaints except (as per HPI) Past Patient History - Infectious Disease Hx of Infectious Diseases: None - Tetanus Immunizations Tetanus Immunization: Unknown - Past Medical History & Family History Past Medical History?: Yes Past Family History: Reviewed and not pertinent - Past Social History Smoking Status: Never Smoked Alcohol: None Drugs: Denies Home Situation {Lives}: With Family - CARDIAC Hx Circulatory Problems: Yes Hx Congestive Heart Failure: Yes Hx Heart Attack: Yes Hx Hypertension: Yes Hx Peripheral Vascular Disease: Yes - PULMONARY Hx Respiratory Disorders: No Hx Pneumonia: Yes - NEUROLOGICAL Hx Neurological Disorder: Yes Hx Dizziness: Yes - HEENT Hx Cataracts: Yes (left eye needs sx) - RENAL Hx Chronic Kidney Disease: Yes Hx Dialysis: Yes Type of Dialysis Access: LUE AVF Hx Renal Failure: Yes - ENDOCRINE/METABOLIC Hx Diabetes Mellitus Type 2: Yes - HEMATOLOGICAL/ONCOLOGICAL Hx Blood Disorders: Yes Hx Anemia: Yes (w/ Blood transfusions) - INTEGUMENTARY Hx Dermatological Problems: No Other/Comment: SHUNT LEFT ARM - MUSCULOSKELETAL/RHEUMATOLOGICAL Hx Arthritis: Yes Hx Falls: No - GASTROINTESTINAL Hx Gastrointestinal Disorders: No - GENITOURINARY/GYNECOLOGICAL Hx Genitourinary Disorders: Yes (OLIGURIA) - PSYCHIATRIC Hx Psychophysiologic Disorder: No Hx Emotional Abuse: No Hx Physical Abuse: No Hx Substance Use: No - SURGICAL HISTORY Hx Cardiac Catheterization: Yes (several) Hx Coronary Stent: Yes Hx Orthopedic Surgery: Yes (left ankle surgery with screws) Other/Comment: c section x1, 02/22/16 malfunctioning av fistula revision, 03/06/16 replacement of hd cath, carotid angiogram 11/2015 - ANESTHESIA Hx Anesthesia: Yes Hx Anesthesia Reactions: No Hx Malignant Hyperthermia: No Meds Allergies/Adverse Reactions: Allergies Allergy/AdvReac Type Severity Reaction Status Date / Time No Known Allergies Allergy Verified 09/04/18 13:18 Physical Exam - Constitutional Appears: Non-toxic, No Acute Distress, Chronically Ill - Head Exam Head Exam: ATRAUMATIC, NORMAL INSPECTION, NORMOCEPHALIC - Eye Exam Eye Exam: EOMI, Normal appearance, PERRL - ENT Exam ENT Exam: Mucous Membranes Moist, Normal Oropharynx - Neck Exam Neck exam: Positive for: Full Rom, Normal Inspection. Negative for: Tenderness, Thyromegaly - Respiratory Exam Respiratory Exam: NORMAL BREATHING PATTERN. absent: Rales, Rhonchi, Wheezes, Respiratory Distress - Cardiovascular Exam Cardiovascular Exam: Bradycardia, REGULAR RHYTHM, +S1, +S2. absent: JVD, Systolic Murmur - GI/Abdominal Exam GI & Abdominal Exam: Normal Bowel Sounds, Soft, Tenderness (epigastric). absent: Distended - Extremities Exam Extremities exam: Positive for: full ROM, normal inspection. Negative for: joint swelling, pedal edema, tenderness - Back Exam Back exam: NORMAL INSPECTION - Neurological Exam Neurological exam: Alert, CN II-XII Intact, Oriented x3 - Psychiatric Exam Psychiatric exam: Normal Affect, Normal Mood - Skin Skin Exam: Normal Color, Warm Results - Vital Signs Recent Vital Signs: Last Vital Signs Temp 97.9 F 09/04/18 09:09 Pulse 55 L 09/04/18 12:14 Resp 18 09/04/18 12:14 BP 129/50 L 09/04/18 12:14 Pulse Ox 100 09/04/18 12:14 - Labs Result Diagrams: 09/04/18 09:55 09/04/18 09:55 Labs: Laboratory Results - last 24 hr 09/04/18 09/04/18 09/04/18 09:55 09:55 09:55 WBC 3.4 L RBC 3.16 L Hgb 10.0 L Hct 29.7 L MCV 94.0 MCH 31.6 MCHC 33.7 RDW 15.5 H Plt Count 106 L MPV 10.3 Gran % 65.4 Lymph % (Auto) 20.3 L Knott % (Auto) 9.6 H Eos % (Auto) 4.4 Baso % (Auto) 0.3 Gran # 2.25 Lymph # (Auto) 0.7 L Knott # (Auto) 0.3 Eos # (Auto) 0.2 Baso # (Auto) 0.01 PT 11.7 INR 1.02 APTT 22.2 L Sodium 138 Potassium 3.8 Chloride 97 L Carbon Dioxide 31 Anion Gap 14 BUN 21 Creatinine 3.3 H Est GFR ( Amer) 17 Est GFR (Non-Af Amer) 14 Random Glucose 245 H Calcium 9.0 Total Bilirubin 0.6 AST 22 ALT 24 Alkaline Phosphatase 81 Total Creatine Kinase 32 L Troponin I 0.05 D NT-Pro-B Natriuret Pep 9930 H Total Protein 7.2 Albumin 3.8 Globulin 3.4 Albumin/Globulin Ratio 1.1 Lipase 293 Assessment & Plan - Assessment and Plan (Free Text) Assessment: 72 year old [place] female with a PMH of ESRD on HD (TTS), CAD s/p stent in RCA (recommended for open heart surgery due to torturous diseased LAD and circumflex arteries but refused because afraid of surgery), CHFrEF, DM2 (insulin dependent), PAD, and HTN who presents to the ED with burning epigastric pain radiating to her chest. Patient is a high risk for cardiovascular disease, so will need to r/o ACS. GERD like symptoms will be treated, and diet will be advanced appropriately. Anemia is stable, and actually improved than prior value. FS is stable. BNP is elevated, although patient is not short of breath or in any respiratory distress. Plan: - observe patient on telemetry unit - will order iron studies, vit B12 and folate for anemia - will trend troponin q6 and EKG's to r/o cardiac cause of chest pain - Cardiology, Dr. Davila, is consulted for recs - cont ASA/Plavix daily for severe CAD - cont BB, ACEi and statin for CAD - cont Dig home dose - cont Levemir 10u HS and low ISS - cont Renagel - cont pepcid and start carafate for GERD symptoms - start Heparin q12 for DVT ppx - O2 PRN - PT Eval - county judge referral - monitor VS for HTN or arrhythmias - further recs per Dr. Yu Case was reviewed and discussed with attending, Dr. Gigi Metzger PGY2 <Deep Yu S - Last Filed: 09/06/18 15:11> Results - Vital Signs Recent Vital Signs: Last Vital Signs Temp 98.4 F 09/05/18 12:00 Pulse 54 L 09/05/18 12:00 Resp 18 09/05/18 12:00 BP 128/56 L 09/05/18 12:00 Pulse Ox 100 09/05/18 06:00 - Labs Result Diagrams: 09/05/18 05:30 09/05/18 05:30 Assessment & Plan - Assessment and Plan (Free Text) Assessment: Pt seen and examined. I have reviewed the note of the biomedical field service engineer and agree with it. I have discussed the assessment and plan with the resident. I have reviewed the patient's labs and medications. Pt is being admitted for CP. She is going to get [facility]. She has a hx of CAD and is on ASA. I will get Cardiology to see the pt. She was dialyzed and does not require HD today. Will update daughter about her condition.
[2018-09-04] MEDS ORDERED: Influenza Vaccine 60 mcg/0.5 mL SYR (4YR UP) IM ONE (15:20)
[2018-09-04] MEDS ORDERED: Pneumococcal 23-Valent Vaccine IM ONE (15:20)
[2018-09-04 16:26] LABS: TROPONIN I 0.04 ng/mL
[2018-09-04] MEDS: Insulin Lispro (humaLOG) LOW Coverage SC SCH (17:56)
--- NOTE | 2018-09-04 18:42 | CARD ---
APPROVED REPORT Date of service: 09/04/2018 EKG Measurement Heart [id number] <Conclusion> Sinus rhythm with 1st degree AV block ST abnormality, possible digitalis effect Abnormal ECG
--- NOTE | 2018-09-04 19:33 | CARD ---
APPROVED REPORT Date of service: 09/04/2018 EKG Measurement Heart [id number] <Conclusion> Sinus rhythm with premature atrial complexes ST abnormality, possible digitalis effect Abnormal ECG
[2018-09-04 20:19] LABS: IRON 59 ug/dL (45-180)
[2018-09-04 20:28] LABS: % IRON SATURATION 29 % (20-55); TOTAL IRON BINDING CAPACITY 204 ug/dL (265-497)
[2018-09-04] MEDS ORDERED: Insulin Detemir 100 units/ml Vial (Levemir) SC SCH (22:00)
[2018-09-04 22:23] LABS: TROPONIN I 0.05 ng/mL
[2018-09-05 05:49] LABS: BASO # 0.01 K/mm3 (0.0-2.0); BASO % 0.3 % (0.0-3.0); EOS # 0.2 (0.0-0.7); EOS % 5.4 % (1.5-5.0); GRAN # 2.16 (1.4-6.5); LYMPH # 1.1 (1.2-3.4); LYMPH % 28.5 % (22.0-35.0); MEAN CELL VOLUME 95.6 fl (80.0-105.0); MEAN CORPUSCULAR HEMOGLOBIN 31.3 pg (25.0-35.0); MEAN CORPUSCULAR HGB CONC 32.7 g/dl (31.0-37.0); MEAN PLATELET VOLUME 10.6 fl (7.0-11.0); MONO # 0.4 (0.1-0.6); MONO % 9.8 % (1.0-6.0); RBC 3.2 10^6/uL (3.5-6.1); RED CELL DISTRIBUTION WIDTH 15.9 % (11.5-14.5); WHITE BLOOD COUNT 3.9 10^3/uL (4.5-11.0)
[2018-09-05 06:12] LABS: TROPONIN I 0.05 ng/mL
[2018-09-05 07:32] LABS: ALBUMIN 3.6 g/dL (3.0-4.8); CALCIUM 9.3 mg/dL (8.4-10.5)
[2018-09-05] MEDS: Insulin Lispro (humaLOG) LOW Coverage SC SCH ×2 (08:02→12:30)
--- NOTE | 2018-09-05 09:55 | CP.PCM.DIS ---
<Nils Metzger - Last Filed: 09/05/18 10:58> Provider - Provider Date of Admission: 09/04/18 12:09 Attending physician: Deep Yu MD Consults: Cardiology: Dr. Davila Time Spent in preparation of Discharge (in minutes): 35 Diagnosis - Discharge Diagnosis (1) Atypical chest pain Status: Acute Hospital Course - Lab Results Lab Results: Most Recent Lab Values WBC 3.9 10^3/uL (4.5-11.0) L 09/05/18 05:30 RBC 3.20 10^6/uL (3.5-6.1) L 09/05/18 05:30 Hgb 10.0 g/dL (12.0-16.0) L 09/05/18 05:30 Hct 30.6 % (36.0-48.0) L 09/05/18 05:30 MCV 95.6 fl (80.0-105.0) 09/05/18 05:30 MCH 31.3 pg (25.0-35.0) 09/05/18 05:30 MCHC 32.7 g/dl (31.0-37.0) 09/05/18 05:30 RDW 15.9 % (11.5-14.5) H 09/05/18 05:30 Plt Count 95 10^3/uL (120.0-450.0) L 09/05/18 05:30 MPV 10.6 fl (7.0-11.0) 09/05/18 05:30 Gran % 56.0 % (50.0-68.0) 09/05/18 05:30 Lymph % (Auto) 28.5 % (22.0-35.0) 09/05/18 05:30 [place] % (Auto) 9.8 % (1.0-6.0) H 09/05/18 05:30 Eos % (Auto) 5.4 % (1.5-5.0) H 09/05/18 05:30 Baso % (Auto) 0.3 % (0.0-3.0) 09/05/18 05:30 Gran # 2.16 (1.4-6.5) 09/05/18 05:30 Lymph # (Auto) 1.1 (1.2-3.4) L 09/05/18 05:30 [place] # (Auto) 0.4 (0.1-0.6) 09/05/18 05:30 Eos # (Auto) 0.2 (0.0-0.7) 09/05/18 05:30 Baso # (Auto) 0.01 K/mm3 (0.0-2.0) 09/05/18 05:30 Retic Count 1.36 % (0.5-1.5) 09/04/18 09:55 PT 11.7 SECONDS (9.4-12.5) 09/04/18 09:55 INR 1.02 09/04/18 09:55 APTT 22.2 Seconds (25.1-36.5) L 09/04/18 09:55 Sodium 142 mmol/L (132-148) 09/05/18 05:30 Potassium 4.5 mmol/L (3.6-5.0) 09/05/18 05:30 Chloride 100 mmol/L (98-107) 09/05/18 05:30 Carbon Dioxide 32 mmol/L (21-33) 09/05/18 05:30 Anion Gap 15 (10-20) 09/05/18 05:30 BUN 34 mg/dL (7-21) H 09/05/18 05:30 Creatinine 6.2 mg/dl (0.7-1.2) H 09/05/18 05:30 Est GFR ( Amer) 8 09/05/18 05:30 Est GFR (Non-Af Amer) 7 09/05/18 05:30 POC Glucose (mg/dL) 249 mg/dL (65-110) H 09/04/18 21:28 Random Glucose 126 mg/dL (70-110) H 09/05/18 05:30 Calcium 9.3 mg/dL (8.4-10.5) 09/05/18 05:30 Phosphorus 4.4 mg/dL (2.5-4.5) 09/05/18 05:30 Magnesium 2.3 mg/dL (1.7-2.2) H 09/05/18 05:30 Iron 59 ug/dL (45-180) 09/04/18 09:55 TIBC 204 ug/dL (265-497) L 09/04/18 09:55 % Saturation 29 % (20-55) 09/04/18 09:55 Total Bilirubin 0.6 mg/dL (0.2-1.3) 09/05/18 05:30 AST 22 U/L (14-36) 09/05/18 05:30 ALT 21 U/L (7-56) 09/05/18 05:30 Alkaline Phosphatase 76 U/L (38-126) 09/05/18 05:30 Lactate Dehydrogenase 363 U/L (333-699) 09/05/18 05:30 Total Creatine Kinase 25 U/L (35-230) L 09/05/18 05:30 Troponin I 0.05 ng/mL 09/05/18 05:30 NT-Pro-B Natriuret Pep 9930 pg/mL (0-450) H 09/04/18 09:55 Total Protein 7.0 g/dL (5.8-8.3) 09/05/18 05:30 Albumin 3.6 g/dL (3.0-4.8) 09/05/18 05:30 Globulin 3.4 gm/dL 09/05/18 05:30 Albumin/Globulin Ratio 1.0 (1.1-1.8) L 09/05/18 05:30 Lipase 293 U/L (23-300) 09/04/18 09:55 - Hospital Course Hospital Course: 72 year old [place] female with a PMH of ESRD on HD (TTS), CAD s/p stent in RCA (recommended for open heart surgery due to torturous diseased LAD and circumflex arteries but refused because afraid of surgery), CHFrEF, DM2 (insulin dependent), PAD and HTN who was admitted for observation for atypcial chest pain. The patient stated that she had a procedure to open up her AVF the day prior to her presentation at another hospital. She had dialysis on morning of presentation nd tolerated it well. Patient was observed on telemetry unit. EKG's showed sinus rhythm with 1st degree heart block and PAC's. Troponin was negative x4. BNP was elevated but patient was not symptomatic. Prior charts were reviewed. Echo from 04/2018 showed EF 25-30%, normal LV size and thickness. Last cath report from 10/[address] Davila was reviewed showing patent RCA stent, two vessel CAD (LAD and Cx) which are very torturous not suitable for PCI. Patient had been recommended for open heart surgery in the past but has refused it due to fear of the surgery. Cardiology was consulted and patient was started on Imdur. Her symptoms improved. Anemia was stable. CXR and CT abdomen/pelvis was reviewed and was unremarkable. The patient's symptoms improved. She will be discharged on Imdur and Carafate and will continue her prior home medications as prescribed. She will continue HD on TTS. She will follow-up with Dr. Davila and PMD. Discharge Exam - Head Exam Head Exam: ATRAUMATIC, NORMAL INSPECTION, NORMOCEPHALIC - Eye Exam Eye Exam: EOMI, Normal appearance, PERRL - ENT Exam ENT Exam: Mucous Membranes Moist, Normal Oropharynx - Neck Exam Neck exam: Full Rom, Normal Inspection - Respiratory Exam Respiratory Exam: NORMAL BREATHING PATTERN. absent: Rales, Rhonchi, Wheezes, Respiratory Distress - Cardiovascular Exam Cardiovascular Exam: RRR, +S1, +S2. absent: Systolic Murmur - GI/Abdominal Exam GI & Abdominal Exam: Normal Bowel Sounds, Soft. absent: Distended, Tenderness - Extremities Exam Extremities exam: full ROM, normal inspection - Back Exam Back exam: FULL ROM, NORMAL INSPECTION - Neurological Exam Neurological exam: Alert, CN II-XII Intact, Oriented x3 - Psychiatric Exam Psychiatric exam: Normal Affect, Normal Mood - Skin Skin Exam: Normal Color, Warm Discharge Plan - Discharge Medications Prescriptions: RX: Sucralfate [Carafate Tab] 1 gm PO BID #60 tab RX: Isosorbide Mononitrate ER [Imdur ER] 30 mg PO DAILY #30 tab - Follow Up Plan Condition: FAIR Disposition: HOME/ ROUTINE Instructions: Isosorbide Mononitrate, Chest Pain (ED), Chest Pain (DC), Chest Pain (GEN) Additional Instructions: - please take Imdur as prescribed daily - please take Carafate as prescribed twice daily - please continue your home medications - please continue your dialysis as normal on Saturday, and Saturday - Referrals: Jairo Davila MD [Staff Provider] - Deep Yu MD [Staff Provider] - <Deep Yu - Last Filed: 09/06/18 14:31> Provider - Provider Date of Admission: 09/04/18 12:09 Attending physician: Deep Yu MD [facility] Course - Lab Results Lab Results: Most Recent Lab Values WBC 3.9 10^3/uL (4.5-11.0) L 09/05/18 05:30 RBC 3.20 10^6/uL (3.5-6.1) L 09/05/18 05:30 Hgb 10.0 g/dL (12.0-16.0) L 09/05/18 05:30 Hct 30.6 % (36.0-48.0) L 09/05/18 05:30 MCV 95.6 fl (80.0-105.0) 09/05/18 05:30 MCH 31.3 pg (25.0-35.0) 09/05/18 05:30 MCHC 32.7 g/dl (31.0-37.0) 09/05/18 05:30 RDW 15.9 % (11.5-14.5) H 09/05/18 05:30 Plt Count 95 10^3/uL (120.0-450.0) L 09/05/18 05:30 MPV 10.6 fl (7.0-11.0) 09/05/18 05:30 Gran % 56.0 % (50.0-68.0) 09/05/18 05:30 Lymph % (Auto) 28.5 % (22.0-35.0) 09/05/18 05:30 Durham % (Auto) 9.8 % (1.0-6.0) H 09/05/18 05:30 Eos % (Auto) 5.4 % (1.5-5.0) H 09/05/18 05:30 Baso % (Auto) 0.3 % (0.0-3.0) 09/05/18 05:30 Gran # 2.16 (1.4-6.5) 09/05/18 05:30 Lymph # (Auto) 1.1 (1.2-3.4) L 09/05/18 05:30 [place] # (Auto) 0.4 (0.1-0.6) 09/05/18 05:30 Eos # (Auto) 0.2 (0.0-0.7) 09/05/18 05:30 Baso # (Auto) 0.01 K/mm3 (0.0-2.0) 09/05/18 05:30 Retic Count 1.36 % (0.5-1.5) 09/04/18 09:55 PT 11.7 SECONDS (9.4-12.5) 09/04/18 09:55 INR 1.02 09/04/18 09:55 APTT 22.2 Seconds (25.1-36.5) L 09/04/18 09:55 Sodium 142 mmol/L (132-148) 09/05/18 05:30 Potassium 4.5 mmol/L (3.6-5.0) 09/05/18 05:30 Chloride 100 mmol/L (98-107) 09/05/18 05:30 Carbon Dioxide 32 mmol/L (21-33) 09/05/18 05:30 Anion Gap 15 (10-20) 09/05/18 05:30 BUN 34 mg/dL (7-21) H 09/05/18 05:30 Creatinine 6.2 mg/dl (0.7-1.2) H 09/05/18 05:30 Est GFR ( Amer) 8 09/05/18 05:30 Est GFR (Non-Af Amer) 7 09/05/18 05:30 POC Glucose (mg/dL) 234 mg/dL (65-110) H 09/05/18 11:48 Random Glucose 126 mg/dL (70-110) H 09/05/18 05:30 Calcium 9.3 mg/dL (8.4-10.5) 09/05/18 05:30 Phosphorus 4.4 mg/dL (2.5-4.5) 09/05/18 05:30 Magnesium 2.3 mg/dL (1.7-2.2) H 09/05/18 05:30 Iron 59 ug/dL (45-180) 09/04/18 09:55 TIBC 204 ug/dL (265-497) L 09/04/18 09:55 % Saturation 29 % (20-55) 09/04/18 09:55 Transferrin 155.88 mg/dL (206-381) L 09/04/18 09:55 Ferritin 716.0 ng/mL 09/04/18 09:55 Total Bilirubin 0.6 mg/dL (0.2-1.3) 09/05/18 05:30 AST 22 U/L (14-36) 09/05/18 05:30 ALT 21 U/L (7-56) 09/05/18 05:30 Alkaline Phosphatase 76 U/L (38-126) 09/05/18 05:30 Lactate Dehydrogenase 363 U/L (333-699) 09/05/18 05:30 Total Creatine Kinase 25 U/L (35-230) L 09/05/18 05:30 Troponin I 0.05 ng/mL 09/05/18 05:30 NT-Pro-B Natriuret Pep 9930 pg/mL (0-450) H 09/04/18 09:55 Total Protein 7.0 g/dL (5.8-8.3) 09/05/18 05:30 Albumin 3.6 g/dL (3.0-4.8) 09/05/18 05:30 Globulin 3.4 gm/dL 09/05/18 05:30 Albumin/Globulin Ratio 1.0 (1.1-1.8) L 09/05/18 05:30 Lipase 293 U/L (23-300) 09/04/18 09:55 Vitamin B12 508 pg/mL (239-931) 09/04/18 09:55 Folate 13.4 ng/mL 09/04/18 09:55 - Hospital Course Hospital Course: Pt seen and examined. I have reviewed the note of the biomedical engineering professor and agree with it. I have discussed the assessment and plan with the resident. I have reviewed the patient's labs and medications. Pt with chest pain that has resolved. She does have PAD and CAD and is on ASA. DM-2 is controlled with insulin. She was seen by Dr Davila for cardiology. She has trop that are negative. I spoke to the pt's daughter to update her at the bedside. EKG does not show ischemia. Echo with EF-25% was reviewed.
[2018-09-05] MEDS ORDERED: Digoxin 125 mcg (0.125 mg) Tab PO SCH (10:00)
[2018-09-05 10:35] VITALS: PULSE 59
[2018-09-05 12:12] VITALS: BP 128/56; PULSE 54; RESP 18; TEMP 98.4
[2018-09-05 12:16] LABS: FOLATE 13.4 ng/mL
--- NOTE | 2018-09-05 13:24 | CON ---
DATE: 09/05/2018 REASON FOR CONSULTATION AND FOLLOWUP: Coronary artery disease, history of multiple stents, history of coronary artery disease, cardiomyopathy. Admitted with epigastric pain, rule out chest pain. BRIEF CLINICAL HISTORY: This is a 72-year-old Thai female with past medical history significant for end-stage renal disease on dialysis Saturday, , and Saturday; history of coronary artery disease, RCA, history of very tortous LAD and circumflex, not amenable to PCI. Surgery recommended, but patient is afraid of surgery and refused, though patient was seen by [facility] by Dr. Jimmy Ashraf and surgery offered, but patient wanted to be treated medically, who was in her usual state of health, admitted with epigastric pain radiated to the chest. Denies any chest pain now. Denies any shortness of breath. Denies palpitation now. PAST MEDICAL HISTORY: Past history significant for coronary artery disease, multiple stents, diabetes, hypertension, hyperlipidemia, end-stage renal disease on dialysis Saturday, , and Saturday, history of non-STEMI, history of cardiac catheterization, and stent patent in right coronary artery, but LAD and circumflex is very tortuous, not amenable by PCI. The patient was referred to Dr. Jimmy Ashraf at chief cardiothoracic surgeon at [facility] for bypass, which is offered, but the patient's family concerned and afraid, refused open heart surgery. Previous cardiac workup as follow: The patient had a cardiac catheterization on 10/24/2017 when admitted with non-STEMI. At that time, cardiac catheterization revealed 2-vessel CAD involving LAD and circumflex, which is very tortous, not amenable by PCI, patent stent in RCA, ejection fraction 55%, EDP in range of 16. Later on the echo was done that revealed borderline concentric LVH and normal LV function, trace mild mitral regurgitation, mild tricuspid regurgitation, no vegetation noted. Her last echo showed in April, decreased LV function, ejection fraction 25% to 30%. SOCIAL HISTORY: Denies any smoking. Denies any history of alcohol abuse. CURRENT MEDICATION: The patient at home is taking Renagel, lisinopril, insulin, digoxin, clopidogrel, aspirin, Plavix, and atorvastatin. REVIEW OF SYSTEMS: As per HPI. PHYSICAL EXAMINATION: VITAL SIGNS: As follows; height of the patient 5 feet 1 inch, weight of the patient 127, body mass index 24.4 kg/m2. Temperature afebrile, heart rate 56, and blood pressure 133/62. HEENT: PERRLA. Extraocular muscles intact. NECK: Supple. No carotid bruit or thyromegaly. CHEST: Clear to auscultation. HEART: S1 and S2 regular. ABDOMEN: Soft. EXTREMITIES: Clubbing and cyanosis negative. LABORATORY DATA: WBC 3.9, hemoglobin 10.0, hematocrit 30.6, and platelet count 95. Chemistry shows sodium 142, potassium 4.5, chloride 100, carbon dioxide 32, anion gap of , BUN 34, and creatinine 6.2. EKG shows normal sinus rhythm. No acute ST-T changes noted. IMPRESSION: A 72-year-old female with past medical history significant for coronary artery disease status post percutaneous transluminal coronary angioplasty of right coronary artery, last catheterization in October 2017, left anterior descending and circumflex disease is not amenable by percutaneous coronary intervention, history of cardiomyopathy. Offered open heart surgery where the patient's family refused. RECOMMENDATION: Continue aggressive medical treatment including beta-cee, nitrates and digoxin Saturday, Saturday, Saturday. We will put some Imdur, and so far, no evidence of acute MO. Discussed with Dr. Yu. Patient is okay to be discharge when suitable medically. Thank you, Dr. Yu for providing us the opportunity in taking care of the patient, Kapil Chung. Jairo Davila MD
--- NOTE | 2018-09-05 19:09 | CARD ---
APPROVED REPORT Date of service: 09/05/2018 EKG Measurement Heart [id number] <Conclusion> Sinus rhythm with 1st degree AV block with premature ventricular complexes ST abnormality, possible digitalis effect Abnormal ECG
== END 2018-09-05 16:47 | disposition home or self-care (01) ==
LOC: ED 08:52 → ERH 12:09 → 2RNO 14:05
PROVIDERS: ADMIT Internal Medicine Nephrology; ATTEND Internal Medicine Nephrology
DX: R07.89 Other chest pain (principal); I13.2 Hypertensive heart and chronic kidney disease with heart failure and with stage 5 chronic kidney disease, or end stage renal disease; I50.20 Unspecified systolic (congestive) heart failure; N18.6 End stage renal disease; E11.22 Type 2 diabetes mellitus with diabetic chronic kidney disease; Z99.2 Dependence on renal dialysis; D64.9 Anemia, unspecified; E11.51 Type 2 diabetes mellitus with diabetic peripheral angiopathy without gangrene; I25.10 Atherosclerotic heart disease of native coronary artery without angina pectoris; E78.5 Hyperlipidemia, unspecified; I25.2 Old myocardial infarction; I42.9 Cardiomyopathy, unspecified; I44.0 Atrioventricular block, first degree; I08.1 Rheumatic disorders of both mitral and tricuspid valves; Z79.4 Long term (current) use of insulin; Z79.82 Long term (current) use of aspirin; Z95.5 Presence of coronary angioplasty implant and graft
CPT/HCPCS: 36415; 71045; 74176; 80053; 82550; 82607; 82728; 82746; 82948; 83615; 83690; 83735; 83880; 84100; 84466; 84484; 85025; 85044; 85610; 85730; 93005; 97116; 97161; 99285; G0378; G8978; G8979; J1644

== ENCOUNTER 2018-09-16 10:03 | Emergency (ER) | payer MEDICARE, OTHER ==
[2018-09-16 10:04] VITALS: PULSE 59
[2018-09-16 10:10] VITALS: BMI 22.5
--- NOTE | 2018-09-16 10:27 | ED PDOC ---
Arrival/HPI - General Historian: Patient - History of Present Illness Narrative History of Present Illness (Text): 09/16/18 10:13 72 y/o female, pmh including htn/dm/CHF EF 25%/CAD/PAD/ESRD (saturday//saturday)/T11 compression fracture, FS 165, mental health social worker [id number] [place] Duarte through the hospital provided Ipad machine, nkda, biba for abdominal pain/nausea/vomiting/headache started today. Pt. stated that she just finished her dialaysis this morning, started to have abdominal pain/nausea/vomiting/htn and headache. Pt. stated that she has been having headache with elevated BP, noted to have systolic 182/102, associated with nausea/vomiting and abdominal pain, no night sweat, no rash, no dizziness, no change in vision, no other medical or psychological complaints. Past Medical History - Provider Review Nursing Documentation Reviewed: Yes - Infectious Disease Hx of Infectious Diseases: None - Tetanus Immunization Tetanus Immunization: Unknown - Cardiac Hx Cardiac Disorders: Yes (CAd s/p stent in RCA) Hx Congestive Heart Failure: Yes Hx Hypertension: Yes - Pulmonary Hx Respiratory Disorders: No Hx Pneumonia: Yes - Neurological Hx Neurological Disorder: Yes Hx Dizziness: Yes - HEENT Hx Cataracts: Yes (left eye needs sx) - Renal Hx Renal Failure: Yes (ESRD on HD) - Endocrine/Metabolic Hx Diabetes Mellitus Type 2: Yes - Hematological/Oncological Hx Blood Disorders: Yes Hx Anemia: Yes (w/ Blood transfusions) - Integumentary Hx Dermatological Disorder: No Other/Comment: SHUNT LEFT ARM - Musculoskeletal/Rheumatological Hx Arthritis: Yes (Chronic BL knee pain.) - Gastrointestinal Hx Gastrointestinal Disorders: No - Genitourinary/Gynecological Hx Genitourinary Disorders: Yes (OLIGURIA) - Psychiatric Hx Psychophysiologic Disorder: No Hx Emotional Abuse: No Hx Physical Abuse: No Hx Substance Use: No - Surgical History Hx Cardiac Catheterization: Yes (several) Hx Coronary Stent: Yes Hx Orthopedic Surgery: Yes (left ankle surgery with screws) Other/Comment: c section x1, 02/22/16 malfunctioning av fistula revision, 03/06/16 replacement of hd cath, carotid angiogram 11/2015 - Anesthesia Hx Anesthesia: Yes Hx Anesthesia Reactions: No Hx Malignant Hyperthermia: No - Suicidal Assessment Feels Threatened In Home Enviroment: No Family/Social History - Physician Review Nursing Documentation Reviewed: Yes Family/Social History: Unknown Family HX Smoking Status: Never Smoked Hx Alcohol Use: No Hx Substance Use: No Hx Substance Use Treatment: No Allergies/Home Meds Allergies/Adverse Reactions: Allergies No Known Allergies Allergy (Verified 09/04/18 13:18) Home Medications: Home Meds Medication Instructions Recorded Confirmed Insulin Aspart/Insulin Aspar 5 units SC ACTID PRN 10/21/15 09/04/18 [Novolog Mix 70/30 (70/30 units/ml)] Review of Systems - Review of Systems Constitutional: absent: Fatigue, Fevers Eyes: absent: Vision Changes ENT: absent: Hearing Changes Respiratory: absent: SOB, Cough Cardiovascular: absent: Chest Pain Gastrointestinal: Abdominal Pain, Nausea, Vomiting. absent: Diarrhea Musculoskeletal: absent: Arthralgias, Back Pain Skin: absent: Rash, Pruritis Neurological: Headache. absent: Dizziness Psychiatric: absent: Anxiety, Depression, Suicidal Ideation Physical Exam - Systems Exam Head: Present: Atraumatic, Normocephalic Pupils: Present: PERRL Extroacular Muscles: Present: EOMI Conjunctiva: Present: Normal Mouth: Present: Moist Mucous Membranes Neck: Present: Normal Range of Motion Respiratory/Chest: Present: Clear to Auscultation, Good Air Exchange. No: Respiratory Distress, Accessory Muscle Use Cardiovascular: Present: Regular Rate and Rhythm, Normal S1, S2. No: Murmurs Abdomen: Present: Tenderness (epigastric tenderness), Distention, Normal Bowel Sounds. No: Peritoneal Signs, Rebound, Guarding Back: Present: Normal Inspection Upper Extremity: Present: Normal Inspection. No: Cyanosis, Edema Lower Extremity: Present: Normal Inspection. No: Edema Neurological: Present: GCS=15, CN II-XII Intact, Speech Normal Skin: Present: Warm, Dry, Normal Color. No: Rashes Psychiatric: Present: Alert, Oriented x 3, Normal Insight, Normal Concentration Medical Decision Making ED Course and Treatment: 09/16/18 10:28 -labs -ekg -CT abd/head -cxr -IV reglan/pepcid -observe and reassess 09/16/18 11:58 -EKG: NSR @ 79 BPM, no ST elevation or depression, no T wave inversion. -CXR show no active disease -CT head No acute intracranial findings -CT abdomen and pelvis No acute intra-abdominal findings. No evidence of obstruction -Labs show no acute findings except K+ 3.5 from 4.5 (potassium chloride 20meq po ordered), Creatinine 3.6 from 6.2 (better) -Lipase within normal limit -Mg within normal limit -Trop negative for 1st set -BNP 61257 from 9930 -Phosphorus 2.3 from 4.6 -Pt. still having headache and vomiting despite medication given in the ER, no focal neurological deficits, will admit for headache and observation as she doesn't feel well to go home. -Paging Dr. Flannery for admission. 09/16/18 12:25 -I spoke to Dr. Flannery about this case/labs/radiology result, advised not to correct potassium due to ESRD, agreed to admit for observation with routine consult order or Dr. Parks (ordered). - RAD Interpretation Radiology Orders: CT head: Date of service: 09/16/2018 PROCEDURE: CT HEAD WITHOUT CONTRAST. HISTORY: headache/htn/vomiting COMPARISON: CT 12/03/2017 TECHNIQUE: Axial computed tomography images were obtained through the head/brain without intravenous contrast. Radiation dose: Total exam DLP = 870.99 mGy-cm. This CT exam was performed using one or more of the following dose reduction techniques: Automated exposure control, adjustment of the mA and/or kV according to patient size, and/or use of iterative reconstruction technique. FINDINGS: HEMORRHAGE: No intracranial hemorrhage. BRAIN: No mass effect or edema. Mild atrophy. VENTRICLES: Unremarkable. No hydrocephalus. CALVARIUM: Unremarkable. PARANASAL SINUSES: Unremarkable as visualized. No significant inflammatory changes. There is a sayda bullosa variation of both middle terminates right greater than left. MASTOID AIR CELLS: Unremarkable as visualized. No inflammatory changes. OTHER FINDINGS: None. IMPRESSION: No acute intracranial findings CT abdomen/pelvis: Date of service: 09/16/2018 PROCEDURE: CT Abdomen and Pelvis without intravenous contrast HISTORY: abdominal pain/vomiting, obstruction? COMPARISON: 09/04/2018 TECHNIQUE: Without contrast.. Contrast dose: Radiation dose: Total exam DLP = 303.45 mGy-cm. This CT exam was performed using one or more of the following dose reduction techniques: Automated exposure control, adjustment of the mA and/or kV according to patient size, and/or use of iterative reconstruction technique. FINDINGS: LOWER THORAX: Unremarkable. LIVER: Unremarkable. No gross lesion or ductal dilatation. GALLBLADDER AND BILE DUCTS: Unremarkable. PANCREAS: Unremarkable. No gross lesion or ductal dilatation. SPLEEN: Unremarkable. ADRENALS: Unremarkable. No mass. KIDNEYS AND URETERS: Mild bilateral renal atrophy VASCULATURE: Unremarkable. No aortic aneurysm. Aortic calcification BOWEL: Unremarkable. No obstruction. No gross mural thickening. APPENDIX: Unremarkable. Normal appendix. PERITONEUM: Unremarkable. No free fluid. No free air. LYMPH NODES: Unremarkable. No enlarged lymph nodes. BLADDER: Mild diffuse mural thickening of the bladder. This is probably due to lack of distension REPRODUCTIVE: Unremarkable. BONES: Chronic mild compression deformities OTHER FINDINGS: None. IMPRESSION: No acute intra-abdominal findings. No evidence of obstruction Chest xray: Date of service: 09/16/2018 HISTORY: vomit COMPARISON: No prior. FINDINGS: LUNGS: No active pulmonary disease. PLEURA: No significant pleural effusion identified, no pneumothorax apparent. CARDIOVASCULAR: No aortic atherosclerotic calcification present. Mild cardiomegaly no pulmonary vascular congestion. OSSEOUS STRUCTURES: No significant abnormalities. VISUALIZED UPPER ABDOMEN: Normal. OTHER FINDINGS: None. IMPRESSION: No active disease. Sexual Abuse Counsellor: Radiologist - PA / DRAG SAWYER / Resident Statement /DO has reviewed & agrees with the documentation as recorded. Disposition/Present on Arrival - Present on Arrival Any Indicators Present on Arrival: No History of DVT/PE: No History of Uncontrolled Diabetes: No Urinary Catheter: No History of Decub. Ulcer: No History Surgical Site Infection Following: None - Disposition Have Diagnosis and Disposition been Completed?: Yes Diagnosis: Headache, Hypokalemia Disposition: HOSPITALIZED Disposition Time: 12:02 Patient Plan: Admission, Observation Patient Problems: Current Active Problems Problem Status Onset Headache Acute Hypokalemia Acute Condition: FAIR
[2018-09-16 10:35] LABS: BASO # 0.01 K/mm3 (0.0-2.0); BASO % 0.2 % (0.0-3.0); EOS # 0.1 (0.0-0.7); EOS % 2.8 % (1.5-5.0); GRAN # 2.86 (1.4-6.5); GRAN % 62.1 % (50.0-68.0); HEMOGLOBIN 11.2 g/dL (12.0-16.0); LYMPH # 1.2 (1.2-3.4); MEAN CELL VOLUME 94.6 fl (80.0-105.0); MEAN CORPUSCULAR HEMOGLOBIN 31.6 pg (25.0-35.0); MEAN CORPUSCULAR HGB CONC 33.4 g/dl (31.0-37.0); MEAN PLATELET VOLUME 10.3 fl (7.0-11.0); MONO # 0.4 (0.1-0.6); MONO % 8.9 % (1.0-6.0); RBC 3.54 10^6/uL (3.5-6.1); RED CELL DISTRIBUTION WIDTH 17.1 % (11.5-14.5); WHITE BLOOD COUNT 4.6 10^3/uL (4.5-11.0)
[2018-09-16 10:47] LABS: ALB/GLOB RATIO 1.1 (1.1-1.8); ALBUMIN 4.3 g/dL (3.0-4.8); CALCIUM 9.3 mg/dL (8.4-10.5)
[2018-09-16 10:57] LABS: TROPONIN I 0.04 ng/mL
--- NOTE | 2018-09-16 11:10 | CT ---
Date of service: 09/16/2018 PROCEDURE: CT HEAD WITHOUT CONTRAST. HISTORY: headache/htn/vomiting COMPARISON: CT 12/03/2017 TECHNIQUE: Axial computed tomography images were obtained through the head/brain without intravenous contrast. Radiation dose: Total exam DLP = 870.99 mGy-cm. This CT exam was performed using one or more of the following dose reduction techniques: Automated exposure control, adjustment of the mA and/or kV according to patient size, and/or use of iterative reconstruction technique. FINDINGS: HEMORRHAGE: No intracranial hemorrhage. BRAIN: No mass effect or edema. Mild atrophy. VENTRICLES: Unremarkable. No hydrocephalus. CALVARIUM: Unremarkable. PARANASAL SINUSES: Unremarkable as visualized. No significant inflammatory changes. There is a sayda bullosa variation of both middle terminates right greater than left. MASTOID AIR CELLS: Unremarkable as visualized. No inflammatory changes. OTHER FINDINGS: None. IMPRESSION: No acute intracranial findings
[2018-09-16 11:14] LABS: INR 0.99; PARTIAL THROMBOPLASTIN TIME 24.6 Seconds (25.1-36.5); PROTHROMBIN TIME 11.4 SECONDS (9.4-12.5)
--- NOTE | 2018-09-16 11:22 | CT ---
Date of service: 09/16/2018 PROCEDURE: CT Abdomen and Pelvis without intravenous contrast HISTORY: abdominal pain/vomiting, obstruction? COMPARISON: 09/04/2018 TECHNIQUE: Without contrast.. Contrast dose: Radiation dose: Total exam DLP = 303.45 mGy-cm. This CT exam was performed using one or more of the following dose reduction techniques: Automated exposure control, adjustment of the mA and/or kV according to patient size, and/or use of iterative reconstruction technique. FINDINGS: LOWER THORAX: Unremarkable. LIVER: Unremarkable. No gross lesion or ductal dilatation. GALLBLADDER AND BILE DUCTS: Unremarkable. PANCREAS: Unremarkable. No gross lesion or ductal dilatation. SPLEEN: Unremarkable. ADRENALS: Unremarkable. No mass. KIDNEYS AND URETERS: Mild bilateral renal atrophy VASCULATURE: Unremarkable. No aortic aneurysm. Aortic calcification BOWEL: Unremarkable. No obstruction. No gross mural thickening. APPENDIX: Unremarkable. Normal appendix. PERITONEUM: Unremarkable. No free fluid. No free air. LYMPH NODES: Unremarkable. No enlarged lymph nodes. BLADDER: Mild diffuse mural thickening of the bladder. This is probably due to lack of distension REPRODUCTIVE: Unremarkable. BONES: Chronic mild compression deformities OTHER FINDINGS: None. IMPRESSION: No acute intra-abdominal findings. No evidence of obstruction
[2018-09-16 11:55] VITALS: TEMP 98; O2SAT 98
[2018-09-16] MEDS ORDERED: Potassium Chloride 20 mEq ER Tab PO STA (12:02)
[2018-09-16] MEDS ORDERED: Morphine 4 mg/ml ISec IVP STA (12:04)
--- NOTE | 2018-09-16 12:51 | RAD ---
Date of service: 09/16/2018 HISTORY: vomit COMPARISON: No prior. FINDINGS: LUNGS: No active pulmonary disease. PLEURA: No significant pleural effusion identified, no pneumothorax apparent. CARDIOVASCULAR: No aortic atherosclerotic calcification present. Mild cardiomegaly no pulmonary vascular congestion. OSSEOUS STRUCTURES: No significant abnormalities. VISUALIZED UPPER ABDOMEN: Normal. OTHER FINDINGS: None. IMPRESSION: No active disease.
[2018-09-16 14:02] VITALS: BP 150/78; PULSE 99; RESP 19
--- NOTE | 2018-09-16 16:55 | CP.PCM.PCO ---
Physician Communication Note - Physician Communication Note Physician Communication Note: pt left ama therefore did not see
--- NOTE | 2018-09-16 18:52 | CARD ---
APPROVED REPORT Date of service: 09/16/2018 EKG Measurement Heart [id number] <Conclusion> Normal sinus rhythm ST abnormality, possible digitalis effect Abnormal ECG
== END 2018-09-16 14:13 | disposition left against medical advice (07) ==
LOC: ED 10:03 → ERH 12:22 → UNDOADMOB 12:22 → ERH 14:56
DX: R51 Headache (principal); E87.6 Hypokalemia; I13.2 Hypertensive heart and chronic kidney disease with heart failure and with stage 5 chronic kidney disease, or end stage renal disease; E11.22 Type 2 diabetes mellitus with diabetic chronic kidney disease; N18.6 End stage renal disease; I50.9 Heart failure, unspecified; Z99.2 Dependence on renal dialysis
CPT/HCPCS: 70450; 71045; 74176; 80053; 82550; 82948; 83615; 83690; 83735; 83880; 84100; 84484; 85025; 85610; 85730; 93005; 96374; 96375; 99285; J2765

== ENCOUNTER 2018-11-01 06:22 | Emergency (ER) | payer MEDICARE, OTHER ==
[2018-11-01 06:23] VITALS: PULSE 59
[2018-11-01 06:38] VITALS: BMI 23.0
--- NOTE | 2018-11-01 08:03 | ED PDOC ---
Arrival/HPI <Scarlett Lynn - Last Filed: 11/01/18 08:57> - History of Present Illness Narrative History of Present Illness (Text): 11/01/18 08:01 73 y/o F with PMHx of ESRD on HD TTS, CHFrEF w/ last known EF 25%, CAD s/p stent, IDDM, HTN, PAD presents to ED with complaints of nausea/vomiting with associated diffuse abdominal pain, headache, and elevated blood pressure measured at home for the past 2 days. She reports vomiting has been clear, non- bilious. She describes abdominal pain and diffuse and crampy that coincided with her nausea and vomiting. She has been experiencing headache for several week, however denies worst headache of her life. She denies numbness, tingling, or focal neurological deficits. She undergoes HD on TTS, and completed her course on , she did not undergo her HD this am as she was not feeling well. She has been anuric for several months. Daughter at bedside reports pt hasn't been feeling well since HD. She measured her BP at home reports systolic within 200s despite home lisinopril administration. She denies fevers, chills, dizziness, numbness, tingling, one-sided weakness, chest pain, palpitations, shortness of breath, diarrhea. PMD: Dr. Yu Cardio: Dr. Davila Time/Duration: Prior to Arrival Symptom Onset: Gradual Symptom Course: Unchanged Severity Level: Moderate <Elena Hendricks - Last Filed: 11/01/18 15:59> - General Chief Complaint: Headache Time Seen by Provider: 11/01/18 07:09 Past Medical History - Provider Review Nursing Documentation Reviewed: Yes - Infectious Disease Hx of Infectious Diseases: None - Tetanus Immunization Tetanus Immunization: Unknown - Reproductive Menopause: Yes - Cardiac Hx Cardiac Disorders: Yes (CAd s/p stent in RCA) Hx Congestive Heart Failure: Yes Hx Hypertension: Yes - Pulmonary Hx Respiratory Disorders: No Hx Pneumonia: Yes - Neurological Hx Neurological Disorder: Yes Hx Dizziness: Yes - HEENT Hx Cataracts: Yes (left eye needs sx) - Renal Hx Renal Failure: Yes (ESRD on HD) - Endocrine/Metabolic Hx Diabetes Mellitus Type 2: Yes - Hematological/Oncological Hx Blood Disorders: Yes Hx Anemia: Yes (w/ Blood transfusions) - Integumentary Hx Dermatological Disorder: No Other/Comment: SHUNT LEFT ARM - Musculoskeletal/Rheumatological Hx Arthritis: Yes (Chronic BL knee pain.) - Gastrointestinal Hx Gastrointestinal Disorders: No - Genitourinary/Gynecological Hx Genitourinary Disorders: Yes (OLIGURIA) - Psychiatric Hx Psychophysiologic Disorder: No Hx Emotional Abuse: No Hx Physical Abuse: No Hx Substance Use: No - Surgical History Hx Cardiac Catheterization: Yes (several) Hx Coronary Stent: Yes Hx Orthopedic Surgery: Yes (left ankle surgery with screws) Other/Comment: c section x1, 02/22/16 malfunctioning av fistula revision, 03/06/16 replacement of hd cath, carotid angiogram 11/2015 - Anesthesia Hx Anesthesia: Yes Hx Anesthesia Reactions: No Hx Malignant Hyperthermia: No - Suicidal Assessment Feels Threatened In Home Enviroment: No <Elena Hendricks - Last Filed: 11/01/18 15:59> Family/Social History - Physician Review Nursing Documentation Reviewed: Yes Family/Social History: Unknown Family HX Smoking Status: Never Smoked Hx Alcohol Use: No Hx Substance Use: No Hx Substance Use Treatment: No <Elena Hendricks - Last Filed: 11/01/18 15:59> Allergies/Home Meds <Scarlett Lynn - Last Filed: 11/01/18 08:57> <Elena Hendricks - Last Filed: 11/01/18 15:59> Allergies/Adverse Reactions: Allergies No Known Allergies Allergy (Verified 09/04/18 13:18) Home Medications: Home Meds Medication Instructions Recorded Confirmed Insulin Aspart/Insulin Aspar 5 units SC ACTID PRN 10/21/15 09/04/18 [Novolog Mix 70/30 (70/30 units/ml)] Review of Systems - Review of Systems Constitutional: Fatigue. absent: Fevers Eyes: Normal. absent: Vision Changes ENT: Normal Respiratory: Normal. absent: SOB, Wheezing Cardiovascular: Normal. absent: Palpitations, Edema, Calf Pain, Syncope Gastrointestinal: Abdominal Pain, Constipation, Nausea, Vomiting, Appetite Changes Musculoskeletal: Normal Skin: Normal Neurological: Headache. absent: Dizziness, Focal Weakness, Speech Changes, Facial Droop Endocrine: Normal. absent: Diaphoresis Hemo/Lymphatic: Normal Psychiatric: Normal <Elena Hendricks - Last Filed: 11/01/18 15:59> Physical Exam Vital Signs Temp Pulse Resp BP Pulse Ox 11/01/18 06:37 97.5 F L 60 18 162/60 H 100 <Scarlett Lynn - Last Filed: 11/01/18 08:57> Vital Signs Temp Pulse Resp BP Pulse Ox 11/01/18 06:37 97.5 F L 60 18 162/60 H 100 Temperature: Afebrile Blood Pressure: Hypertensive Pulse: Regular Respiratory Rate: Normal Appearance: Positive for: Well-Appearing, Non-Toxic, Comfortable Pain Distress: None Mental Status: Positive for: Alert and Oriented X 3 - Systems Exam Head: Present: Atraumatic, Normocephalic Pupils: Present: PERRL Extroacular Muscles: Present: EOMI Conjunctiva: Present: Normal Mouth: Present: Moist Mucous Membranes Neck: Present: Normal Range of Motion. No: Meningeal Signs, MIDLINE TENDERNESS Respiratory/Chest: Present: Clear to Auscultation, Good Air Exchange. No: Respiratory Distress, Accessory Muscle Use Cardiovascular: Present: Regular Rate and Rhythm, Normal S1, S2, Peripheal Pulses Present. No: Murmurs Abdomen: Present: Tenderness (diffuse), Normal Bowel Sounds, Guarding. No: Distention, Peritoneal Signs, Rebound Back: Present: Normal Inspection Upper Extremity: Present: Normal Inspection, Other (L antecubital fistula present, patent with bruit noted). No: Cyanosis, Edema Lower Extremity: Present: Normal Inspection. No: Edema, CALF TENDERNESS Neurological: Present: GCS=15, CN II-XII Intact, Speech Normal Skin: Present: Warm, Dry, Normal Color. No: Rashes Psychiatric: Present: Alert, Oriented x 3, Normal Insight, Normal Concentration <Elena Hendricks - Last Filed: 11/01/18 15:59> Medical Decision Making ED Course and Treatment: 11/01/18 08:50 Impression: 73 year old female presents to emergency department complaining of nausea/vomiting with associated diffuse abdominal pain, headache, and elevated blood pressure measured at home for the past 2 days. In agreement with resident note which contains more details about the patient. Patient seen and evaluated with resident. Came up with plan and treatment together. Plan: -- CT Abdomen/Pelvis -- CT Head -- EKG -- Labs -- Chest X-ray - RAD Interpretation Radiology Orders: 11/01/18 08:15 HEAD W/O CONTRAST [CT] Stat CHEST PORTABLE [RAD] Stat 11/01/18 08:16 ABDOMEN & PELVIS [ABD & PELVIS W/O PO OR IV CONT] [CT] Stat <Scarlett Lynn - Last Filed: 11/01/18 08:57> ED Course and Treatment: 11/01/18 08:30 Impression: 73 y/o F with PMHx of ESRD on HD TTS, CHFrEF, CAD s/p stent, IDDM, PAD, HTN presents to ED with complaints of nausea, vomiting, abdominal pain, headache and elevated blood pressure Prior notes and results have been reviewed Differential diagnosis includes but is not limited to: Abdominal pain Headache Hypertension Plan: Labs Digoxin level EKG CT Abdomen CT Head Chest xray Reasses & dispo Progress Notes: 11/01/18 09:53 Case discussed with PMD, Dr. Yu, he is aware of patient. Request pt to be sent for hemodialysis. Will reassess post-dialysis for admission. 11/01/18 14:35 Case discussed with PMD, Dr. Yu. Aware of dialysis treatment. Requests pt to be discharged with instructions hold digoxin until Saturday . Continue Digoxin 11/03/17, continue every . 11/01/18 15:52 Pt reports improvement in symptoms. Headache and abdominal pain improved. Pt comfortable to be discharged. Instructions given to hold digoxin medication on saturday and to discuss with PMD regarding digoxin schedule. Instructions given to make follow-up appointment with accident examiner, Dr. Davila. - RAD Interpretation Narrative RAD Interpretations (Text): 11/01/18 09:16 CT Head: No acute intracranial abnormaltities. No significant findings to a ccount for the clinical presentation. No significant interval change compared to prior examination. 11/01/18 09:41 CT abdomen: No acute or significant findings related to accounting for clinical presentation. Additional benign and/or incidental findings described above. This includes bilateral renal atrophy, the bladder wall thickening consistent with cystitis. Constipation/impaction without obstruction. No significant interval change compared to prior examination - EKG Interpretation EKG Interpretation (Text): 11/01/18 09:[address] & T wave abnormality HR: 58 bpm QTc: 361ms <Elena Hendricks - Last Filed: 11/01/18 15:59> - PA / VETERINARY MEDICAL OFFICER / Resident Statement MD/DO has reviewed & agrees with the documentation as recorded. - Scribe Statement The provider has reviewed the documentation as recorded by the Scribe Nandini Gray All medical record entries made by the Scribe were at my direction and personally dictated by me. I have reviewed the chart and agree that the record accurately reflects my personal performance of the history, physical exam, medical decision making, and the department course for this patient. I have also personally directed, reviewed, and agree with the discharge instructions and disposition. <Scarlett Lynn - Last Filed: 11/01/18 08:57> - PA / VETERINARY MEDICAL OFFICER / Resident Statement MD/DO has reviewed & agrees with the documentation as recorded. MD/DO has examined the patient and agrees with the treatment plan. <Elena Hendricks - Last Filed: 11/01/18 15:59> Disposition/Present on Arrival <Scarlett Lynn - Last Filed: 11/01/18 08:57> - Present on Arrival Any Indicators Present on Arrival: No History of DVT/PE: No History of Uncontrolled Diabetes: No Urinary Catheter: No History of Decub. Ulcer: No History Surgical Site Infection Following: None - Disposition Have Diagnosis and Disposition been Completed?: Yes Disposition Time: 15:54 <Elena Hendricks - Last Filed: 11/01/18 15:59> - Disposition Diagnosis: Chronic kidney disease (CKD), Nausea, Elevated digoxin level, Abdominal pain, Vomiting, Headache Disposition: HOME/ ROUTINE Patient Problems: Current Active Problems Problem Status Onset Abdominal pain Acute Headache Acute Chronic kidney disease (CKD) Acute Nausea Acute Elevated digoxin level Acute Vomiting Acute Condition: STABLE Additional Instructions: Juliet Dick, thank you for letting us take care of you today.The emergency medical care you received today was directed at your acute symptoms. If you were prescribed any medication, please fill it and take as directed. It may take several days for your symptoms to resolve. Return to the Emergency Department if your symptoms worsen, do not improve, or if you have any other problems. Please contact your doctor or call one of the physicians/clinics you have been referred to that are listed on the Patient Visit Information form that is included in your discharge packet. Bring any paperwork you were given at discharge with you along with any medications you are taking to your follow up visit. Our treatment cannot replace ongoing medical care by a primary care provider outside of the emergency department. Thank you for allowing the [facility] team to be part of your care today. PER DR. YU'S INSTRUCTIONS, PLEASE HOLD YOUR DIGOXIN MEDICATION UNTIL Saturday11/03/17. PLEASE DISCUSS SCHEDULING OF DIGOXIN ADMINISTRATION WITH DR. YU. Please make an appointment with your accident examiner, Dr. Davila within 1 week of your visit to the ED. Referrals: Deep Yu MD [Primary Care Provider] - Follow up with primary Forms: [employer] ([employer])
--- NOTE | 2018-11-01 09:03 | CT ---
Date of service: 11/01/2018 PROCEDURE: CT HEAD WITHOUT CONTRAST. HISTORY: headache COMPARISON: 09/16/2018. TECHNIQUE: Axial computed tomography images were obtained through the head/brain without intravenous contrast. Supplemental Coronal and Sagittal projections created and reviewed. Radiation dose: Total exam DLP = 738.15 mGy-cm. This CT exam was performed using one or more of the following dose reduction techniques: Automated exposure control, adjustment of the mA and/or kV according to patient size, and/or use of iterative reconstruction technique. FINDINGS: HEMORRHAGE: No intracranial hemorrhage. BRAIN: No mass effect or edema. Cortical and cerebellar atrophy, periventricular small vessel disease. VENTRICLES: Unremarkable. No hydrocephalus. CALVARIUM: Unremarkable. PARANASAL SINUSES: Unremarkable as visualized. No significant inflammatory changes. MASTOID AIR CELLS: Unremarkable as visualized. No inflammatory changes. OTHER FINDINGS: None. IMPRESSION: No acute intracranial abnormalities. No significant findings to account for the clinical presentation. No significant interval change compared to the prior examination(s).
[2018-11-01 09:18] LABS: ALB/GLOB RATIO 1.2 (1.1-1.8); ALBUMIN 4.5 g/dL (3.0-4.8); CALCIUM 9.8 mg/dL (8.4-10.5)
[2018-11-01 09:23] LABS: BASO # 0.01 K/mm3 (0.0-2.0); BASO % 0.2 % (0.0-3.0); EOS # 0.1 (0.0-0.7); EOS % 1.6 % (1.5-5.0); GRAN # 4.17 (1.4-6.5); GRAN % 73.3 % (50.0-68.0); HEMOGLOBIN 14.1 g/dL (12.0-16.0); LYMPH # 1.1 (1.2-3.4); LYMPH % 19.5 % (22.0-35.0); MEAN CELL VOLUME 96.2 fl (80.0-105.0); MEAN CORPUSCULAR HEMOGLOBIN 31.8 pg (25.0-35.0); MEAN PLATELET VOLUME 11.3 fl (7.0-11.0); MONO # 0.3 (0.1-0.6); MONO % 5.4 % (1.0-6.0); RBC 4.44 10^6/uL (3.5-6.1); RED CELL DISTRIBUTION WIDTH 15.2 % (11.5-14.5); WHITE BLOOD COUNT 5.7 10^3/uL (4.5-11.0)
--- NOTE | 2018-11-01 09:24 | CT ---
Date of service: 11/01/2018 PROCEDURE: CT Abdomen and Pelvis without intravenous contrast HISTORY: Abdominal pain and vomiting. Dialysis patient. COMPARISON: 09/16/2018 CT abdomen and pelvis TECHNIQUE: Unenhanced. Neither IV nor oral contrast administered Radiation dose: Total exam DLP = 332.36 mGy-cm. This CT exam was performed using one or more of the following dose reduction techniques: Automated exposure control, adjustment of the mA and/or kV according to patient size, and/or use of iterative reconstruction technique. FINDINGS: LOWER THORAX: Unremarkable. LIVER: Unremarkable. No gross lesion or ductal dilatation. GALLBLADDER AND BILE DUCTS: Unremarkable. PANCREAS: Unremarkable. No gross lesion or ductal dilatation. SPLEEN: Unremarkable. ADRENALS: Unremarkable. No mass. KIDNEYS AND URETERS: Atrophic kidneys bilaterally. No hydronephrosis. No solid mass. VASCULATURE: Atherosclerotic calcification and mural plaque present. Findings are seen throughout the aorta which is non aneurysmal. BOWEL: Constipation associated fecal impaction without obstruction. APPENDIX: Unremarkable. Normal appendix. PERITONEUM: Unremarkable. No free fluid. No free air. LYMPH NODES: Unremarkable. No enlarged lymph nodes. BLADDER: Bladder wall thickening, diffuse and accentuated by decompressed state consistent with cystitis. Similar finding identified on prior CT scan. REPRODUCTIVE: Unremarkable. BONES: No acute fracture. Stable wedge deformities of multiple thoracolumbar vertebral bodies unchanged. OTHER FINDINGS: None. IMPRESSION: No acute or significant findings related to/ accounting for the clinical presentation. Additional benign and/or incidental findings described above. This includes bilateral renal atrophy, the bladder wall thickening consistent with cystitis. Constipation/impaction without obstruction. No significant interval change compared to the prior examination(s).
[2018-11-01] MEDS ORDERED: Sod Polystyrene Sulf 15 gm/60 ml Susp PO STA (09:39)
[2018-11-01 09:41] LABS: TROPONIN I 0.05 ng/mL
--- NOTE | 2018-11-01 09:55 | RAD ---
Date of service: 11/01/2018 HISTORY: chest tightness COMPARISON: 09/16/2018 FINDINGS: LUNGS: No active pulmonary disease. PLEURA: No significant pleural effusion identified, no pneumothorax apparent. CARDIOVASCULAR: No radiographic findings to suggest acute or significant cardiovascular disease. Normal. OSSEOUS STRUCTURES: No significant abnormalities. VISUALIZED UPPER ABDOMEN: Normal. OTHER FINDINGS: None. IMPRESSION: No active disease. No significant interval change compared to the prior examination(s).
[2018-11-01 15:27] VITALS: BP 130/56; PULSE 68; RESP 18; TEMP 98.7; O2SAT 99
--- NOTE | 2018-11-01 20:32 | CARD ---
APPROVED REPORT Date of service: 11/01/2018 EKG Measurement Heart [id number] <Conclusion> Sinus bradycardia with 1st degree AV block Nonspecific ST and T wave abnormality Abnormal ECG
== END 2018-11-01 16:26 | disposition home or self-care (01) ==
LOC: ED 06:22
DX: R51 Headache (principal); R11.2 Nausea with vomiting, unspecified; I12.0 Hypertensive chronic kidney disease with stage 5 chronic kidney disease or end stage renal disease; N18.6 End stage renal disease; Z99.2 Dependence on renal dialysis; E11.9 Type 2 diabetes mellitus without complications; Z79.4 Long term (current) use of insulin